=== PATIENT | male | born 1955 | race Caucasian/White ===

== ENCOUNTER → 2016-11-30 | Outpatient (CLI) | payer BC ==
[2016-11-30 12:40] LABS: Blood Urea Nitrogen 13 mg/dL (9-20); Non-African American GFR(MDRD) >60 (>60 ml/min/1.73 sqM)
--- NOTE | 2016-11-30 14:38 | CT ---
EXAMINATION TYPE: CT chest w con DATE OF EXAM: 11/30/2016 1:42 PM COMPARISON: Prior chest CT 07 May 2016 HISTORY: follow up scan per patient, previous abnormal exam, lung nodule CT DLP: 1018.3 mGycm Automated exposure control for dose reduction was used. CONTRAST: CT scan of the chest is performed with IV Contrast, patient injected with 100 mL of Omnipaque 300. FINDINGS: LUNGS: The nodularity to posterior medial lung bases shows a similar appearance and likely is postinf lammatory. No suspicious mass is evident. Emphysematous changes again noted within the lungs. Coronar y artery calcifications are again seen, there may be mitral annular calcification present. No pleural or pericardial effusion. MEDIASTINUM: There are no greater than 1 cm hilar or mediastinal lymph nodes. No pericardial effusi on is seen. AORTA: No additional significant abnormality is seen. OTHER: The liver shows low attenuation possibly due to fatty infiltration. IMPRESSION: Emphysema. Probable postinflammatory changes at the lung bases. Additional findings abov e.
== END | disposition home or self-care (01) ==
LOC: RADCTMAIN 11:50
PROVIDERS: ATTEND Internal Medicine Critical Care Medicine
DX: J43.9 Emphysema, unspecified (principal)
CPT/HCPCS: 82565; 84520; 71260; 36415; Q9967

== ENCOUNTER → 2017-04-12 | Outpatient (CLI) | payer BC ==
--- NOTE | 2017-04-12 13:38 | NM ---
EXAMINATION TYPE: NM gastric emptying study DATE OF EXAM: 04/12/2017 COMPARISON: NONE HISTORY: K31.84 Gastroparesis Following administration of 2.2 mCi Tc 99m Sulfur Colloid with 1 cup of oatmeal projection images of the abdomen were obtained 10 minutes post ingestion. When possible, both anterior and posterior proje ction images were obtained to allow the calculation of the geometric mean activity. Clearance: 68 % Half-life: 15 min Gastroesophagel reflux: None IMPRESSION: Rapid gastric emptying at 30 minutes. No evidence for gastroparesis at this time. Gastric emptying normal percentage values: 30 minutes: <70% of retention (> 30% emptying) suggests abnormally fast emptying. 60 minutes: <90% retention (>10% emptying) is normal; less than 30% retention (>70% emptying) suggest s abnormally rapid emptying. 90 minutes: <65% retention (> 35% emptying) is normal. 120 minutes: <60% retention (> 40% emptying) is normal. 180 minutes: <30% retention (> 70% emptying) is normal. Gastric emptying T-1/2: Solid: The normal range is 60-105 minutes Liquid only: Normal range is 10-45 minutes. Liquid only-children: At 60 minutes, normal range is 44-58 % . Liquid only-infants: At 60 minutes, normal range is 32-64 %. Additional references: Gastric Emptying Scintigraphy [email or web address]://[email or web address]
== END | disposition home or self-care (01) ==
LOC: RADNMMAIN 07:03
PROVIDERS: ATTEND Family Medicine
DX: K31.84 Gastroparesis (principal)
CPT/HCPCS: 78264; A9541

== ENCOUNTER → 2017-06-07 | Outpatient (CLI) | payer BC ==
--- NOTE | 2017-06-07 09:12 | US ---
EXAMINATION TYPE: US kidneys/renal and bladder DATE OF EXAM: 06/07/2017 COMPARISON: CT 05/18/2016 & US 04/16/2016 CLINICAL HISTORY: C64.2 Kidney Cancer. Removal of cancer left kidney laporascopically EXAM MEASUREMENTS: Right Kidney: 14.6 x 5.3 x 6.6 cm Left Kidney: 12.1 x 5.3 x 6.1 cm Right Kidney: No hydronephrosis or masses seen Left Kidney: echogenic area in kidney where lesion was removed, question surgical changes. CT may be more specific. This does not have the same echogenicity of the previous removed cancer. Bladder: wnl IMPRESSION: 1. Approximately 1.4 x 1.8 cm echogenic area within the mid left kidney may be postsurgical in nature . This has a solid appearance. Additional evaluation with contrast CT is recommended. Alternatively, MRI could be utilized.
== END | disposition home or self-care (01) ==
LOC: RADUSMAIN 08:05
PROVIDERS: ATTEND Urology
DX: C64.2 Malignant neoplasm of left kidney, except renal pelvis (principal)
CPT/HCPCS: 76770

== ENCOUNTER → 2017-12-27 | Outpatient (CLI) | payer BC ==
--- NOTE | 2017-12-27 16:01 | US ---
EXAMINATION TYPE: US kidneys/renal and bladder DATE OF EXAM: 12/27/2017 COMPARISON: US, CT CLINICAL HISTORY: C64.2 KIDNEY CANCER. Had surgery for left renal cancer 2016; diabetes EXAM MEASUREMENTS: Right Kidney: 13.8 x 7.8 x 5.4 cm Left Kidney: 13.0 x 4.3 x 5.0 cm Post Void Residual Volume: none observed Right Kidney: small mid cortical cyst is noted = 1.1 x 0.9 x 0.9cm . No hydronephrosis or nephrolithi asis. Left Kidney: mid lateral cortex capsule indentation is noted with hyperechoic thickening of capsule. No hydronephrosis or nephrolithiasis. Bladder: wnl Bilateral Jets seen: small bilateral jets are seen Normal Post Void Residual: yes IMPRESSION: 1. Scarring and cortical retraction of the left lateral kidney. The previously seen hyperechoic midpo le 1.8 cm lesion is not visualized on today's examination. 2. Simple appearing 1.1 cm renal cyst. 3. No evidence of hydronephrosis or nephrolithiasis.
== END | disposition home or self-care (01) ==
LOC: RADUSWWP 14:27
PROVIDERS: ATTEND Urology
DX: C64.2 Malignant neoplasm of left kidney, except renal pelvis (principal); N28.89 Other specified disorders of kidney and ureter; N28.1 Cyst of kidney, acquired; Z88.8 Allergy status to other drugs, medicaments and biological substances; Z88.0 Allergy status to penicillin
CPT/HCPCS: 76770

== ENCOUNTER 2018-05-18 07:06 | Day surgery (SDC) | payer BC ==
[2018-05-16 13:24] VITALS: BMI 45.4
[~2018-05-18 07:06] MED LIST: LACTATED RINGERS 1,000 ML IV SCH; LIDOCAINE 1% 20 ML VIAL (10MG/ML) FOR IV START INTRADERMA PRN
[2018-05-18 07:28] VITALS: TEMP 98.8
[2018-05-18 07:45] LABS: Glucose,Whole Blood 153 mg/dL (75-99)
--- NOTE | 2018-05-18 08:05 | P.GSHP ---
History of Present Illness H&P Date: 05/18/18 CHIEF COMPLAINT: Colon screen HISTORY OF PRESENT ILLNESS: The patient is a 62-year-old male who presents for colon screen. Lower endoscopy was offered for further evaluation and management. PAST MEDICAL HISTORY: Please see list. PAST SURGICAL HISTORY: Please see list. MEDICATIONS: Please see list. ALLERGIES: Please see list. SOCIAL HISTORY: No illicit drug use FAMILY HISTORY: No reports of Crohn disease or ulcerative colitis. REVIEW OF ORGAN SYSTEMS: CONSTITUTIONAL: No reports of fevers or chills. PHYSICAL EXAM: VITAL SIGNS: Stable GENERAL: Well-developed pleasant in no acute distress. HEENT: No scleral icterus. Extraocular movements grossly intact. Moist buccal mucosa. NECK: Supple without lymphadenopathy. CHEST: Unlabored respirations. Equal bilateral excursions. CARDIOVASCULAR: Regular rate and rhythm. Distal 2+ pulses. ABDOMEN: Soft, nontender, nondistended. MUSCULOSKELETAL: No clubbing, cyanosis, or edema. ASSESSMENT: 1. Colon screen. PLAN: 1. Recommend proceeding with a lower endoscopy Past Medical History Past Medical History: Cancer, CVA/TIA, Diabetes Mellitus, Hyperlipidemia, Hypertension, Osteoarthritis (OA), Pneumonia, Sleep Apnea/CPAP/BIPAP Additional Past Medical History / Comment(s): TIA x1 yrs ago- no effects, hiatal hernia, hx polpys, hx kidney cancer History of Any Multi-Drug Resistant Organisms: None Reported Past Surgical History: Hernia Repair, Tonsillectomy Additional Past Surgical History / Comment(s): "cancerous spot removed from left kidney" Past Anesthesia/Blood Transfusion Reactions: Previous Problems w/ Anesthesia Additional Past Anesthesia/Blood Transfusion Reaction / Comment(s): asked pt if any hx of dfficult intubation but pt denies hx of difficulty with intubation/ inserting airway, dr told him only that the had difficulty breathing when coming out of anesthesia, hx claustrophobic. "has to lay on side because of sleep apnea" Smoking Status: Former smoker - Past Family History Father Family Medical History: Dementia, Hypertension Additional Family Medical History / Comment(s): FROM DEMENTIA AT AGE 79 Mother Family Medical History: Cancer Additional Family Medical History / Comment(s): from blood clot to brain Medications and Allergies Home Medications Medication Instructions Recorded Confirmed Type Clopidogrel [Plavix] 75 mg PO HS 05/18/16 05/18/18 History Fenofibrate Nanocrystallized 145 mg PO HS 05/18/16 05/18/18 History [Fenofibrate] Lisinopril [Zestril] 20 mg PO HS 05/18/16 05/18/18 History Lovastatin [Mevacor] 40 mg PO HS 05/18/16 05/18/18 History sitaGLIPtin [Januvia] 100 mg PO HS 05/18/16 05/18/18 History Metoclopramide [Reglan] 10 mg PO ACHS #30 tab 09/22/16 05/18/18 Rx Insulin Glargine,Hum.rec.anlog 10 unit SQ HS 05/16/18 05/18/18 History [Basaglar Kwikpen U-100] Allergies Allergy/AdvReac Type Severity Reaction Status Date / Time metformin Allergy Nausea & Verified 05/18/18 07:34 Vomiting & Diarrhea Penicillins Allergy Rash/Hives Verified 05/18/18 07:34 Surgical - Exam Vital Signs Temp Pulse Resp BP Pulse Ox 98.8 F 71 16 152/73 95 05/18/18 07:27 05/18/18 07:27 05/18/18 07:27 05/18/18 07:27 05/18/18 07:27 Results - Labs Abnormal Lab Results - Last 24 Hours (Table) 05/18/18 Range/Units 07:38 POC Glucose (mg/dL) 153 H (75-99) mg/dL
[2018-05-18] MEDS ORDERED: PROPOFOL 10 MG/ML 20 ML VIAL IV ONE (08:06)
[2018-05-18] MEDS ORDERED: GLYCOPYRROLATE 0.2 MG/ML 2 ML VIAL ONE (08:06)
[2018-05-18] MEDS ORDERED: LIDOCAINE 1% INJ 10MG/ML (20 ML MDV) ONE (08:06)
[2018-05-18] MEDS ORDERED: MIDAZOLAM 2 MG/2 ML VIAL ONE (08:06)
[2018-05-18] MEDS ORDERED: KETAMINE 10 MG/ML 20 ML VIAL ONE (08:06)
--- NOTE | 2018-05-18 08:40 | P.PCN ---
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 Colonoscopy with argon beam behavior support specialist of AV malformation at cecum Colonoscopy hot snare polypectomy at ascending colon, proximal SURGEON: Marika Epps MD. ANESTHESIA: MAC. INDICATIONS: The patient is a 62-year-old male who presents for colonoscopy surveillance due to high-risk colon polyps. Last colonoscopy was 2 - 3 years ago. Benefits and risks were described and informed consent was obtained. DESCRIPTION OF PROCEDURE: The patient had undergone Gatorade, MiraLAX and Dulcolax prep. He had been brought into the operating room and laid in the left lateral decubitus position. The prostate was smooth and without abnormality. After adequate intravenous sedation, the rectum was examined with 2% lidocaine jelly. External hemorrhoids were encountered. The rectal tone was within normal limits. No lesions were palpated in the rectal vault. An Olympus colonoscope was advanced until the ileocecal valve and appendiceal orifice were clearly viewed. The prep was fair with visualization of the mucosal folds. The scope was removed with visualization of each mucosal fold. At the base of the cecum near the appendiceal orifice, and AV malformation of 4 mm was coagulated using argon beam coagulation. A 1 cm flat villous adenoma at the proximal ascending colon with snare polypectomy to completion and taken in piecemeal. Sigmoid diverticulosis was encountered. No evidence of focal colitis was found. Retroflexion of the scope demonstrated grade 1 internal hemorrhoids without active bleeding or inflammation. The colon was desufflated. The patient had tolerated the procedure well. Withdrawal time was over 6 minutes. FINDINGS: Internal hemorrhoids, grade 1 External hemorrhoids, grade 2. Arteriovenous malformation at the cecum addressed with argon beam coagulation Removal of polyp: - Snare polypectomy at proximal ascending colon, 1 cm flat tubulovillous adenoma polyp. Sigmoid diverticulosis No focal colitis. RECOMMENDATIONS: Given severity of tubular adenomas, recommend repeat colonoscopy 1 year, 2019. Plan - Discharge Summary New Discharge Prescriptions: No Action sitaGLIPtin [Januvia] 100 mg PO HS Lovastatin [Mevacor] 40 mg PO HS Lisinopril [Zestril] 20 mg PO HS Clopidogrel [Plavix] 75 mg PO HS Fenofibrate Nanocrystallized [Fenofibrate] 145 mg PO HS Metoclopramide [Reglan] 10 mg PO ACHS #30 tab Insulin Glargine,Hum.rec.anlog [Basaglar Kwikpen U-100] 10 unit SQ HS Discharge Medication List Clopidogrel [Plavix] 75 mg PO HS 05/18/16 [History] Fenofibrate Nanocrystallized [Fenofibrate] 145 mg PO HS 05/18/16 [History] Lisinopril [Zestril] 20 mg PO HS 05/18/16 [History] Lovastatin [Mevacor] 40 mg PO HS 05/18/16 [History] sitaGLIPtin [Januvia] 100 mg PO HS 05/18/16 [History] Metoclopramide [Reglan] 10 mg PO ACHS #30 tab 09/22/16 [Rx] Insulin Glargine,Hum.rec.anlog [Basaglar Kwikpen U-100] 10 unit SQ HS 05/16/18 [ History]
[2018-05-18 08:55] VITALS: BP 137/78; PULSE 67; RESP 18
== END 2018-05-18 09:11 | disposition home or self-care (01) ==
LOC: ORWHC2ENDO 07:06
PROVIDERS: ATTEND Surgery Plastic and Reconstructive Surgery
DX: Z12.11 Encounter for screening for malignant neoplasm of colon (principal); D12.2 Benign neoplasm of ascending colon; K64.4 Residual hemorrhoidal skin tags; K57.30 Diverticulosis of large intestine without perforation or abscess without bleeding; K64.0 First degree hemorrhoids; E66.01 Morbid (severe) obesity due to excess calories; G47.33 Obstructive sleep apnea (adult) (pediatric); E11.9 Type 2 diabetes mellitus without complications; E78.5 Hyperlipidemia, unspecified; I10 Essential (primary) hypertension; M19.90 Unspecified osteoarthritis, unspecified site; K55.20 Angiodysplasia of colon without hemorrhage; K21.9 Gastro-esophageal reflux disease without esophagitis; Z86.73 Personal history of transient ischemic attack (TIA), and cerebral infarction without residual deficits; Z87.01 Personal history of pneumonia (recurrent); Z85.528 Personal history of other malignant neoplasm of kidney; Z82.49 Family history of ischemic heart disease and other diseases of the circulatory system; Z79.02 Long term (current) use of antithrombotics/antiplatelets; Z88.8 Allergy status to other drugs, medicaments and biological substances; Z88.0 Allergy status to penicillin; Z79.4 Long term (current) use of insulin; Z86.010 Personal history of colon polyps; Z87.891 Personal history of nicotine dependence; Z99.89 Dependence on other enabling machines and devices; Z79.84 Long term (current) use of oral hypoglycemic drugs; Z68.42 Body mass index [BMI] 45.0-49.9, adult
CPT/HCPCS: 88305; 45385; 45388; J2250; J2001; J2704; 45382

== ENCOUNTER → 2018-08-15 | Outpatient (CLI) | payer BC ==
[2018-08-15 08:00] LABS: Blood Urea Nitrogen 19 mg/dL (9-20)
--- NOTE | 2018-08-15 11:01 | CT ---
EXAMINATION TYPE: CT abdomen pelvis w con DATE OF EXAM: 08/15/2018 COMPARISON: 05/18/2016 HISTORY: 62-year-old male follow up for history of renal CA. TECHNIQUE: Contiguous axial scanning of the abdomen and pelvis following administration of 100 ml Iso concetta 300 IV contrast. Delayed images through the kidneys and coronal/sagittal reconstructions perform ed. CT DLP: 2059.8 mGycm Automated exposure control for dose reduction was used. FINDINGS: Heart normal size without pericardial effusion. Mitral annular calcifications. Some strandy atelectas is or scarring at the left lung base. No pleural effusion. No focal liver lesion or biliary ductal dilatation. Portal venous system is patent. Gallbladder, right adrenal gland, right kidney, spleen, and pancreas appear within normal limits. Similar diffuse thickening of the left adrenal gland without discrete nodularity, possible adrenal hy perplasia. This is unchanged from prior exam. Interval postsurgical changes along the cortex of the lateral left kidney related to wedge resection. There is some focal heterogeneous enhancement at the site of wedge resection especially on delayed k idney images measuring 2.4 cm, refer to series 8 axial image 30. No abnormal masslike or nodular area of enhancement. No dilated small bowel, free fluid, or free air. No mesenteric or retroperitoneal lymphadenopathy. Scattered mild stool. Normal appendix. Mild sigmoid diverticulosis without pericolonic inflammatory c hange. Bladder is collapsed. No abnormal fluid collection in the pelvis or pelvic lymphadenopathy. Bones: Degenerative changes at the hips and bony fusion at the SI joints. Degenerative changes throug hout the lumbar spine with bridging anterior endplate spondylosis. Baastrup's disease. IMPRESSION: 1. INTERVAL POSTSURGICAL CHANGES WITH WEDGE RESECTION ALONG THE LATERAL LEFT KIDNEY. THERE IS SOME FO DEMETRA HETEROGENEOUS HYPODENSITY AT THE SITE OF WEDGE RESECTION MEASURING 2.4 CM WHICH IS SUSPECTED TO B E POSTSURGICAL SCARRING. THIS CAN BE REASSESSED AT FOLLOW-UP. NO CONVINCING FINDINGS OF LOCOREGIONAL RECURRENCE OR METASTATIC DISEASE AT THIS TIME. 2. POSSIBLE BONY CHANGES OF ANKYLOSING SPONDYLITIS.
== END | disposition home or self-care (01) ==
LOC: RADCTMAIN 07:22
PROVIDERS: ATTEND Urology
DX: C64.9 Malignant neoplasm of unspecified kidney, except renal pelvis (principal); Z90.5 Acquired absence of kidney; Z88.0 Allergy status to penicillin; Z88.8 Allergy status to other drugs, medicaments and biological substances
CPT/HCPCS: 82565; 84520; 74177; 36415; Q9967

== ENCOUNTER → 2019-08-01 | Outpatient (CLI) | payer BC ==
[2019-08-01 08:12] LABS: African American GFR (CKD) >90 (>60 ml/min/1.73 sqM); Blood Urea Nitrogen 17 mg/dL (9-20)
--- NOTE | 2019-08-01 12:33 | CT ---
EXAMINATION TYPE: CT abdomen pelvis w con DATE OF EXAM: 08/01/2019 COMPARISON: Prior exam 08/15/2018 HISTORY: Renal cancer CT DLP: 5067.4 mGycm Automated exposure control for dose reduction was used. TECHNIQUE: Helical acquisition of images from the lung bases through the pelvis have been completed. CONTRAST: Performed with Oral Contrast and with IV Contrast, patient injected with 100 mL of Isovue 300. FINDINGS: There are coronary artery calcifications present. No pericardial effusion. Metallic density present at the root of the aorta, there are mitral annular calcifications. LUNG BASES: Probable subsegmental basilar atelectatic changes, no pleural effusion. AORTA: No significant abnormality is appreciated. LIVER/GB: Liver shows low attenuation compatible with hepatic steatosis, liver is enlarged. PANCREAS: No significant abnormality is seen. SPLEEN: No significant abnormality is seen. ADRENALS: No significant abnormality is seen. KIDNEYS: No significant interval change is seen. Postprocedural changes to the lateral aspect of the lower pole the left kidney again noted. REPRODUCTIVE ORGANS: No significant abnormality is seen BOWEL: No significant abnormality is seen. FREE AIR: No Free Air visible. ASCITES: None visible. PELVIC ADENOPATHY: None visualized. RETROPERITONEAL ADENOPATHY: No Retroperitoneal Adenopathy visible. URINARY BLADDER: No significant abnormality is seen. OSSEOUS STRUCTURES: No significant change is seen. The spine shows degenerative changes, osteophytic change noted within the hips. IMPRESSION: STABLE POSTOPERATIVE FINDINGS, ADDITIONAL FINDINGS ABOVE.
== END | disposition home or self-care (01) ==
LOC: RADCTMAIN 07:38
PROVIDERS: ATTEND Urology
DX: I25.10 Atherosclerotic heart disease of native coronary artery without angina pectoris (principal); I77.89 Other specified disorders of arteries and arterioles; I05.8 Other rheumatic mitral valve diseases; C64.9 Malignant neoplasm of unspecified kidney, except renal pelvis; Z98.890 Other specified postprocedural states; Z88.0 Allergy status to penicillin; Z88.8 Allergy status to other drugs, medicaments and biological substances
CPT/HCPCS: 82565; 84520; 74177; 36415; Q9967 ×2

== ENCOUNTER 2019-09-07 08:33 | Day surgery (SDC) | payer BC ==
[2019-09-06 10:38] VITALS: BMI 50.1
[~2019-09-07 08:33] MED LIST changes: +ONDANSETRON 4 MG/2 ML VIAL IVP ONE
--- NOTE | 2019-09-07 08:49 | P.GSHP ---
History of Present Illness H&P Date: 09/07/19 CHIEF COMPLAINT: Colon screen HISTORY OF PRESENT ILLNESS: The patient is a 64-year-old male who presents for colon screen. Lower endoscopy was offered for further evaluation and management. PAST MEDICAL HISTORY: Please see list. PAST SURGICAL HISTORY: Please see list. MEDICATIONS: Please see list. ALLERGIES: Please see list. SOCIAL HISTORY: No illicit drug use FAMILY HISTORY: No reports of Crohn disease or ulcerative colitis. REVIEW OF ORGAN SYSTEMS: CONSTITUTIONAL: No reports of fevers or chills. PHYSICAL EXAM: VITAL SIGNS: Stable GENERAL: Well-developed pleasant in no acute distress. HEENT: No scleral icterus. Extraocular movements grossly intact. Moist buccal mucosa. NECK: Supple without lymphadenopathy. CHEST: Unlabored respirations. Equal bilateral excursions. CARDIOVASCULAR: Regular rate and rhythm. Distal 2+ pulses. ABDOMEN: Soft, nontender, nondistended. MUSCULOSKELETAL: No clubbing, cyanosis, or edema. ASSESSMENT: 1. Colon screen. PLAN: 1. Recommend proceeding with a lower endoscopy Past Medical History Past Medical History: Cancer, CVA/TIA, Diabetes Mellitus, Hyperlipidemia, Hypertension, Osteoarthritis (OA), Pneumonia, Sleep Apnea/CPAP/BIPAP Additional Past Medical History / Comment(s): TIA x1 yrs ago- no effects, hiatal hernia, hx polpys, hx kidney cancer History of Any Multi-Drug Resistant Organisms: None Reported Past Surgical History: Hernia Repair, Tonsillectomy Additional Past Surgical History / Comment(s): "cancerous spot removed from left kidney" Past Anesthesia/Blood Transfusion Reactions: Previous Problems w/ Anesthesia Additional Past Anesthesia/Blood Transfusion Reaction / Comment(s): asked pt if any hx of dfficult intubation but pt denies hx of difficulty with intubation/ inserting airway, dr told him only that the had difficulty breathing when coming out of anesthesia, hx claustrophobic. "has to lay on side because of sleep apnea" Past Psychological History: No Psychological Hx Reported Additional Psychological History / Comment(s): denies any probelms Smoking Status: Former smoker Past Alcohol Use History: Rare Additional Past Alcohol Use History / Comment(s): SARTED SMOKING AGE 17 QUIT AGE 37-WAS UP TO SMOKING 3 PPD Past Drug Use History: None Reported - Past Family History Father Family Medical History: Dementia, Hypertension Additional Family Medical History / Comment(s): FROM DEMENTIA AT AGE 79 Mother Family Medical History: Cancer Additional Family Medical History / Comment(s): from blood clot to brain Medications and Allergies Home Medications Medication Instructions Recorded Confirmed Type Clopidogrel [Plavix] 75 mg PO HS 05/18/16 09/06/19 History Fenofibrate Nanocrystallized 145 mg PO HS 05/18/16 09/06/19 History [Fenofibrate] Lisinopril [Zestril] 20 mg PO HS 05/18/16 09/06/19 History Lovastatin [Mevacor] 40 mg PO HS 05/18/16 09/06/19 History sitaGLIPtin [Januvia] 100 mg PO HS 05/18/16 09/06/19 History Insulin Glargine,Hum.rec.anlog 70 unit SQ HS 05/16/18 09/06/19 History [Basaglar Kwikpen U-100] Gabapentin [Neurontin] 400 mg PO DAILY 07/31/19 09/06/19 History Insulin Aspart [Novolog] 15 unit SQ BID-W/MEALS 07/31/19 09/06/19 History Gabapentin [Neurontin] 800 mg PO HS 09/06/19 09/06/19 History Metoclopramide [Reglan] 10 mg PO HS 09/06/19 09/06/19 History Omeprazole [PriLOSEC] 20 mg PO HS 09/06/19 09/06/19 History Allergies Allergy/AdvReac Type Severity Reaction Status Date / Time metformin Allergy Nausea & Verified 09/06/19 10:30 Vomiting & Diarrhea Penicillins Allergy Rash/Hives Verified 09/06/19 10:30
[2019-09-07 09:09] LABS: Glucose,Whole Blood 126 mg/dL (75-99)
[2019-09-07 09:12] VITALS: TEMP 98.4
[2019-09-07] MEDS ORDERED: LIDOCAINE 1% INJ 10MG/ML (20 ML MDV) ONE (09:21)
[2019-09-07] MEDS ORDERED: fentaNYL (PF) 50 MCG/ML 2 ML AMP ONE (09:21)
[2019-09-07] MEDS ORDERED: MIDAZOLAM 2 MG/2 ML VIAL ONE (09:21)
[2019-09-07] MEDS ORDERED: PROPOFOL 10 MG/ML 20 ML VIAL IV ONE (09:21)
[2019-09-07] MEDS ORDERED: KETAMINE 10 MG/ML 20 ML VIAL ONE (09:21)
--- NOTE | 2019-09-07 09:31 | P.HPADDEND ---
H&P Addendum H&P Addendum Date: 09/07/19 Patient comes in also complains of severe gastroesophageal reflux disease and epigastric pain. He has history of chronic antiplatelet therapy including medications that cause gastritis. Benefits and risks procedures described. Informed consent obtained from his .
--- NOTE | 2019-09-07 09:41 | P.PCN ---
Date of Procedure: 09/07/19 Description of Procedure: PREOPERATIVE DIAGNOSIS: Gastroesophageal reflux disease. Morbid obesity. POSTOPERATIVE DIAGNOSIS: Morbid obesity. Gastritis. Gastroesophageal reflux disease. Erosive esophagitis OPERATION: Esophagogastroduodenoscopy with biopsies along antrum. SURGEON: Marika Epps MD ANESTHESIA: MAC. INDICATIONS: The patient is a 64-year-old male who presents with a history of reflux disease. Benefits and risks of the procedure were described. Informed consent was obtained. DESCRIPTION: The patient was brought into the endoscopy suite and laid in the left lateral decubitus position. An Olympus gastroscope was passed along the posterior oropharynx down to the distal esophagus where the squamocolumnar junction was encountered at 45 cm from the incisors. The stomach was entered and no bile reflux was found. Additional findings are listed below. Biopsies with cold forceps were obtained of the antrum. The first through third portion of the duodenum was examined and unremarkable. Retroflexion of the scope confirmed Hill grade 1 lower esophageal valve. The squamocolumnar junction demonstrated LA grade C erosive esophagitis. The stomach was desufflated. The patient tolerated the procedure well. FINDINGS: Squamocolumnar junction 45 cm from the incisors. Diaphragmatic hiatus at 45 cm. Hill grade 1 lower esophageal valve. LA grade C erosive esophagitis. No active duodenitis. Chronic gastritis RECOMMENDATIONS: Upper endoscopy as needed.
--- NOTE | 2019-09-07 10:06 | P.PCN ---
Date of Procedure: 09/07/19 Description of Procedure: PREOPERATIVE DIAGNOSIS: Personal history of malignant colon polyp Colonoscopy screening POSTOPERATIVE DIAGNOSIS: Personal history of malignant colon polyp Colonoscopy screening Multiple tubular adenomas throughout the colon. Scattered diverticulosis OPERATION: Colonoscopy to the ileocecal valve and appendiceal orifice. Colonoscopy with multiple hot snare polypectomies Colonoscopy with multiple cold forceps biopsies. SURGEON: Marika Epps MD. ANESTHESIA: MAC. INDICATIONS: The patient is a 64-year-old male who presents for colonoscopy screening. Last colonoscopy was in 5 years. Benefits and risks were described and informed consent was obtained. DESCRIPTION OF PROCEDURE: The patient had undergone Gatorade, MiraLAX and Dulcolax prep. He had been brought into the operating room and laid in the left lateral decubitus position. After adequate intravenous sedation, the rectum was examined with 2% lidocaine jelly. No external hemorrhoids were encountered. The rectal tone was within normal limits. No lesions were palpated in the rectal vault. The prostatic fossa was unremarkable. An Olympus colonoscope was advanced until the ileocecal valve and appendiceal orifice were clearly viewed. The prep was excellent. The scope was removed with visualization of each mucosal fold. Scattered diverticulosis was encountered. Multiple colonic polyps were found and cold forcep biopsy or snare polypectomy. No evidence of focal colitis was found. Retroflexion of the scope demonstrated grade 1 internal hemorrhoids without active bleeding or inflammation. The colon was desufflated. The patient had tolerated the procedure well. Withdrawal time was over 6 minutes. FINDINGS: Aronchick preparation quality scale 1 (1-5) Internal hemorrhoids, grade 1 No external hemorrhoids Scattered diverticulosis No arteriovenous malformations. Removal of 5 polyps: - Snare polypectomy proximal ascending colon, 7 mm tubulovillous adenoma polyp. - Cold forceps biopsy at proximal transverse colon 2, 4 and 5 mm polyp. - Cold forceps biopsy cecum, 4 mm polyp. - Cold forceps biopsy at 50 cm from the anal verge, 5 mm polyp, descending colon No focal colitis. RECOMMENDATIONS: Given severity of tubular adenomas, recommend repeat colonoscopy 2 years, 2020. Plan - Discharge Summary Discharge Rx Participant: No New Discharge Prescriptions: No Action sitaGLIPtin [Januvia] 100 mg PO HS Lovastatin [Mevacor] 40 mg PO HS Lisinopril [Zestril] 20 mg PO HS Clopidogrel [Plavix] 75 mg PO HS Fenofibrate Nanocrystallized [Fenofibrate] 145 mg PO HS Insulin Glargine,Hum.rec.anlog [Basaglar Kwikpen U-100] 70 unit SQ HS Gabapentin [Neurontin] 400 mg PO DAILY Insulin Aspart [Novolog] 15 unit SQ BID-W/MEALS Omeprazole [PriLOSEC] 20 mg PO HS Metoclopramide [Reglan] 10 mg PO HS Gabapentin [Neurontin] 800 mg PO HS Discharge Medication List Clopidogrel [Plavix] 75 mg PO HS 05/18/16 [History] Fenofibrate Nanocrystallized [Fenofibrate] 145 mg PO HS 05/18/16 [History] Lisinopril [Zestril] 20 mg PO HS 05/18/16 [History] Lovastatin [Mevacor] 40 mg PO HS 05/18/16 [History] sitaGLIPtin [Januvia] 100 mg PO HS 05/18/16 [History] Insulin Glargine,Hum.rec.anlog [Basaglar Kwikpen U-100] 70 unit SQ HS 05/16/18 [History] Gabapentin [Neurontin] 400 mg PO DAILY 07/31/19 [History] Insulin Aspart [Novolog] 15 unit SQ BID-W/MEALS 07/31/19 [History] Gabapentin [Neurontin] 800 mg PO HS 09/06/19 [History] Metoclopramide [Reglan] 10 mg PO HS 09/06/19 [History] Omeprazole [PriLOSEC] 20 mg PO HS 09/06/19 [History] Follow up Appointment(s)/Referral(s): Marika Epps MD [STAFF PHYSICIAN] - 09/19/19 Patient Instructions/Handouts: *[facility] - (Anesthesia) Endoscopy Discharge Instructions, *[facility] - (Anesthesia) Discharge Instructions Outpatient Surgery, Colonoscopy (DC), Colorectal Polyps (GEN), Diverticulosis Diet (GEN), Diverticulosis (DC), Gastroesophageal Reflux Disease (GEN) Activity/Diet/Wound Care/Special Instructions: Repeat colonoscopy in 2 years, 2020. Start Plavix, WednesdaySep 09 Discharge Disposition: HOME SELF-CARE
[2019-09-07 10:22] VITALS: BP 110/73; PULSE 79; RESP 16
== END 2019-09-07 10:53 | disposition home or self-care (01) ==
LOC: ORWHC2ENDO 08:33
PROVIDERS: ATTEND Surgery Plastic and Reconstructive Surgery
DX: Z12.11 Encounter for screening for malignant neoplasm of colon (principal); K22.10 Ulcer of esophagus without bleeding; K29.50 Unspecified chronic gastritis without bleeding; K63.5 Polyp of colon; K21.9 Gastro-esophageal reflux disease without esophagitis; D12.3 Benign neoplasm of transverse colon; K57.30 Diverticulosis of large intestine without perforation or abscess without bleeding; K64.0 First degree hemorrhoids; I10 Essential (primary) hypertension; E78.5 Hyperlipidemia, unspecified; Z86.010 Personal history of colon polyps; E11.9 Type 2 diabetes mellitus without complications; M19.90 Unspecified osteoarthritis, unspecified site; G47.30 Sleep apnea, unspecified; Z99.89 Dependence on other enabling machines and devices; E66.01 Morbid (severe) obesity due to excess calories; Z68.43 Body mass index [BMI] 50.0-59.9, adult; Z86.73 Personal history of transient ischemic attack (TIA), and cerebral infarction without residual deficits; Z85.528 Personal history of other malignant neoplasm of kidney; F40.240 Claustrophobia; Z87.891 Personal history of nicotine dependence; Z82.49 Family history of ischemic heart disease and other diseases of the circulatory system; Z81.8 Family history of other mental and behavioral disorders; Z80.9 Family history of malignant neoplasm, unspecified; Z79.02 Long term (current) use of antithrombotics/antiplatelets; Z79.4 Long term (current) use of insulin; Z79.899 Other long term (current) drug therapy; Z88.0 Allergy status to penicillin; Z88.8 Allergy status to other drugs, medicaments and biological substances
CPT/HCPCS: 88305; 45380; 45385; 43239; J2250; J2001; J3010; J2704

== ENCOUNTER → 2019-11-29 | Outpatient (CLI) | payer BC ==
[2019-11-29 14:34] VITALS: BP 140/66; PULSE 98; RESP 16; TEMP 97.6; BMI 52.3
--- NOTE | 2019-11-29 15:13 | P.HPBAR ---
Bariatric H&P - History & Physicial H&P Date: 11/29/19 History & Physicial: Visit/CC: INITIAL Patient initial contact: Initial weight: 153.853 kg Initial weight in pounds: 339.19 Height: 5 ft 7.5 in Initial BMI: 52.3 Last weight: Current weight: 153.853 kg Current weight in pounds: 339.19 Current BMI: 52.3 [place] body weight (based on NIH guidelines): 68.492 kg Excess body weight loss: 0.0% The patient is a 64 year-old M who presents for Bariatric Assessment. HPI: He comes in 339 pounds. Highest 365 pounds in 1999. Was 190 pounds in 20s. He has sleep apnea. He has diabetes. His mother has morbid obesity and had weight loss surgery. His also had the band. ABDOMEN: PLAN: 1. MBSC calculator. 2. Labs 3. Cardiology. Past Medical History Past Medical History: Cancer, Diabetes Mellitus, Hyperlipidemia, Hypertension, Osteoarthritis (OA), Pneumonia, Sleep Apnea/CPAP/BIPAP Additional Past Medical History / Comment(s): hiatal hernia, hx colon polpys, hx cancerous cyst removed from kidney in 2016, OA bilateral knees (needs bilateral knee replacement but orthopedic surgeon will not perform until he loses weight)., claustrophia History of Any Multi-Drug Resistant Organisms: None Reported Past Surgical History: Hernia Repair, Tonsillectomy Additional Past Surgical History / Comment(s): "cancerous cyst removed from left kidney" Past Anesthesia/Blood Transfusion Reactions: Previous Problems w/ Anesthesia Additional Past Anesthesia/Blood Transfusion Reaction / Comm: asked pt if any hx of dfficult intubation but pt denies hx of difficulty with intubation/ inserting airway, dr told him only that the had difficulty breathing when in recovery as he was placed on his back and he "has to lay on side because of sleep apnea", once he was alert he was "ok", also has claustrophobia Past Psychological History: No Psychological Hx Reported Additional Psychological History / Comment(s): denies any probelms Smoking Status: Former smoker Past Alcohol Use History: Rare Additional Past Alcohol Use History / Comment(s): SARTED SMOKING AGE 17 QUIT AGE 37-WAS UP TO SMOKING 3 PPD Past Drug Use History: None Reported - Past Family History Father Family Medical History: Dementia, Hypertension Additional Family Medical History / Comment(s): FROM DEMENTIA AT AGE 79 Mother Family Medical History: Cancer Additional Family Medical History / Comment(s): from blood clot to brain Surgical - Exam Vital Signs Temp Pulse Resp BP 97.6 F 98 16 140/66 11/29/19 14:30 11/29/19 14:30 11/29/19 14:30 11/29/19 14:30 Bariatric Checklist Checklist: Plan: Checklist: EGD: 1. Hiatal hernia: 2. H. Pylori: HgbA1c: Vitamin D: Smoking: Former smoker Primary care physician referral: [facility] Psychiatry clearance: Cardiology clearance: Sleep study: Diet journal: VTE risk score: VTE risk level: Rehab needs at discharge:
[2019-11-29 16:31] LABS: HCT 42.6 % (39.0-53.0); HGB 14.8 gm/dL (13.0-17.5); MCH 29.7 pg (25.0-35.0); MCHC 34.8 g/dL (31.0-37.0); MCV 85.4 fL (80.0-100.0); Mean Platelet Volume 10.5; Platelet Count 179 k/uL (150-450); RBC 4.99 m/uL (4.30-5.90); RDW 13.5 % (11.5-15.5); WBC 7.7 k/uL (3.8-10.6)
[2019-11-29 16:47] LABS: INR 0.9 (<1.2); Partial Thromboplastin Time 22.2 sec (22.0-30.0); Prothrombin Time 9.8 sec (9.0-12.0)
[2019-11-30 00:23] LABS: % Iron Saturation 21.38 (15.00-50.00); Albumin 4.4 g/dL (3.80-4.90); Albumin/Globulin Ratio 2.32 (1.60-3.17); Anion Gap 7.9 mmol/L (4.00-12.00); BUN/Creat Ratio 16.67 Ratio (12.00-20.00); Calcium 9.4 mg/dL (8.7-10.3); Carbon Dioxide 29.1 mmol/L (21.6-31.8); Chol/HDL Ratio 5.57; Globulin 1.9 g/dL (1.6-3.3); Magnesium 1.6 mg/dL (1.5-2.4); Non-African American GFR(CKD) 90.6 (60.0-200.0); Total Bilirubin 0.4 mg/dL (0.3-1.2); Total Protein 6.3 g/dL (6.2-8.2)
[2019-11-30 00:54] LABS: Ferritin 300.1 ng/mL (22.0-322.0); Folate, Serum 10.3 ng/mL
[2019-11-30 13:31] LABS: Zinc, Serum 53 ug/dL (60-130)
[2019-12-01 06:35] LABS: Vitamin A 44 ug/dL (38-106)
[2019-12-01 13:00] LABS: Vit B1(Thiamine) 63 ug/L (38-122)
[2019-12-02 21:05] LABS: Selenium 115 mcg/L (63-160)
== END | disposition home or self-care (01) ==
LOC: BARWHC3 13:56
PROVIDERS: ATTEND Surgery Plastic and Reconstructive Surgery
DX: E11.9 Type 2 diabetes mellitus without complications (principal); G47.30 Sleep apnea, unspecified; Z87.891 Personal history of nicotine dependence; Z86.010 Personal history of colon polyps; Z83.49 Family history of other endocrine, nutritional and metabolic diseases; Z83.79 Family history of other diseases of the digestive system
CPT/HCPCS: 36415; 80053; 80061; 82306; 82525; 82607; 82728; 82746; 83540; 83550; 83735; 83970; 84100; 84134; 84255; 84425; 84443; 84590; 84630; 85027; 85610; 85730; 99211

== ENCOUNTER → 2021-11-18 | Outpatient (CLI) | payer MEDICARE ==
[2021-11-18 18:53] LABS: African American GFR (CKD) >90 (>60 ml/min/1.73 sqM); Blood Urea Nitrogen 13 mg/dL (9-20); Non-African American GFR(CKD) >90 (>60 ml/min/1.73 sqM)
--- NOTE | 2021-11-19 08:16 | CT ---
EXAMINATION TYPE: CT abdomen pelvis w con DATE OF EXAM: 11/18/2021 COMPARISON: Prior CT August 01, 2019 HISTORY: h/o malignant neoplasm of kidney, f/u CT DLP: 3735.3 mGycm, Automated Exposure Control for Dose Reduction was Utilized. CONTRAST: CT scan of the abdomen and pelvis is performed with oral and with IV Contrast, patient injected with 100 mL of Isovue 300. FINDINGS: LUNG BASES: Mild to moderate bibasilar linear scarring is redemonstrated. Calcification level of the mitral and aortic valve is again seen. Coronary artery desiccation and/or stents again seen. LIVER/GB: Liver is slightly hypodense relative to spleen suggesting mild diffuse fatty infiltration . PANCREAS: No significant abnormality is seen. SPLEEN: No significant abnormality is seen. ADRENALS: Slight low dense nodular thickening left adrenal gland axial image 17 is stable from 2016 f avoring benign small adenoma. KIDNEYS: Posttreatment change to the left kidney midpole level laterally with cortical loss and linea r soft tissue with central fat is redemonstrated, no significant change from prior study. A few small central calcifications redemonstrated. No new concerning solid or cystic mass in either kidney. Poo rly distended bladder. BOWEL: Oral contrast reaches level of the transverse colon. No suspicious small or large bowel dilat ation. Few diverticula in the sigmoid colon. No CT evidence for acute diverticulitis. PROSTATE/SEMINAL VESICLES: No gross abnormality seen. LYMPH NODES: No greater than 1cm abdominal or pelvic lymph nodes are appreciated. OSSEOUS STRUCTURES: Large bridging osteophytes throughout the visualized spine are redemonstrated. Some sclerosis and spurring at sacroiliac joints is present bilaterally. Underlying ankylosing spond ylitis is suspected. OTHER: There is mild to moderate atherosclerotic change of aorta extending into branch vessels. IMPRESSION: 1. Posttreatment changes to the left kidney redemonstrated. No new suspicious mass or adenopathy iden tified to suggest neoplastic recurrence from most recent CT.
== END | disposition home or self-care (01) ==
LOC: RADCTMAIN 17:20
PROVIDERS: ATTEND Urology
DX: C64.9 Malignant neoplasm of unspecified kidney, except renal pelvis (principal)
CPT/HCPCS: 82565; 84520; 74177; 36415; Q9967

== ENCOUNTER → 2021-12-17 | Outpatient (CLI) | payer MEDICARE ==
--- NOTE | 2021-12-17 10:37 | FL ---
ESOPHOGRAM. HISTORY: Dysphagia Esophagram was performed per the air contrast technique. The patient swallowed barium and effervesce nt crystals without difficulty or delay. Esophageal peristalsis and motility appear to be within normal limits. There is no evidence for filling defect, mass or diverticulum. No hiatal hernia seen. Subsequently single contrast cervical esophagram was performed which fails demonstrate evidence for a spiration penetration or mass. IMPRESSION: Unremarkable study.
== END | disposition home or self-care (01) ==
LOC: RADUSWWP 09:55
PROVIDERS: ATTEND Surgery Plastic and Reconstructive Surgery
DX: R13.10 Dysphagia, unspecified (principal)
CPT/HCPCS: 74220

== ENCOUNTER 2022-01-07 06:44 | Day surgery (SDC) | payer MEDICARE ==
[2022-01-05 11:21] VITALS: BMI 41.0
[~2022-01-07 06:44] MED LIST changes: +LIDOCAINE 1% (10MG/ML) FOR IV START INTRADERMA PRN; -LIDOCAINE 1% 20 ML VIAL (10MG/ML) FOR IV START INTRADERMA PRN; -ONDANSETRON 4 MG/2 ML VIAL IVP ONE
[2022-01-07 07:07] VITALS: TEMP 97.5
[2022-01-07 07:17] LABS: Glucose,Whole Blood 131 mg/dL (75-99)
[2022-01-07] MEDS ORDERED: PROPOFOL 10 MG/ML 20 ML VIAL IV ONE (07:35)
[2022-01-07] MEDS ORDERED: LIDOCAINE 1% INJ 10MG/ML (20 ML MDV) ONE (07:35)
--- NOTE | 2022-01-07 07:36 | P.GSHP ---
History of Present Illness H&P Date: 01/07/22 CHIEF COMPLAINT: GERD HISTORY OF PRESENT ILLNESS: The patient is a 66-year-old male who presents reports gastroesophageal reflux disease. Upper endoscopy was offered for further evaluation and management. PAST MEDICAL HISTORY: Please see list. PAST SURGICAL HISTORY: Please see list. MEDICATIONS: Please see list. ALLERGIES: Please see list. SOCIAL HISTORY: No illicit drug use FAMILY HISTORY: No reports of Crohn disease or ulcerative colitis. REVIEW OF ORGAN SYSTEMS: CONSTITUTIONAL: No reports of fevers or chills. GI: Denies any blood in stools or constipation. PHYSICAL EXAM: VITAL SIGNS: Stable GENERAL: Well-developed and pleasant in no acute distress. HEENT: No scleral icterus. Extraocular movements grossly intact. Moist buccal mucosa. NECK: Supple without lymphadenopathy. CHEST: Unlabored respirations. Equal bilateral excursions. CARDIOVASCULAR: Regular rate and rhythm. Distal 2+ pulses. ABDOMEN: Soft, nondistended. MUSCULOSKELETAL: No clubbing, cyanosis, or edema. ASSESSMENT: 1. Gastroesophageal reflux disease PLAN: 1. Recommend proceeding with an upper endoscopy Past Medical History Past Medical History: Cancer, Diabetes Mellitus, Hyperlipidemia, Hypertension, Osteoarthritis (OA), Pneumonia, Sleep Apnea/CPAP/BIPAP Additional Past Medical History / Comment(s): hx colon polpys, hx cancerous cyst removed from kidney in 2016, OA bilateral knees , BI PAP History of Any Multi-Drug Resistant Organisms: None Reported Past Surgical History: Hernia Repair, Tonsillectomy Additional Past Surgical History / Comment(s): "cancerous cyst removed from left kidney", LAPAROSCOPIC EXAM Past Anesthesia/Blood Transfusion Reactions: Previous Problems w/ Anesthesia Additional Past Anesthesia/Blood Transfusion Reaction / Comment(s): "PATIENT STATES HE HAD SOME TROUBLE BREATHING WHEN HE FIRST WOKE UP IN RECOVERY AND STATES HE NEEDS TO BE ON HIS SIDE BECAUSE OF HIS SLEEP APNEA" Smoking Status: Former smoker - Past Family History Father Family Medical History: Dementia, Hypertension Additional Family Medical History / Comment(s): FROM DEMENTIA AT AGE 79 Mother Family Medical History: Cancer Additional Family Medical History / Comment(s): from blood clot to brain" BREAST AND BLADDER CANCER Sister(s) Family Medical History: Cancer Medications and Allergies Home Medications Medication Instructions Recorded Confirmed Type Lovastatin [Mevacor] 40 mg PO HS 05/18/16 01/05/22 History lisinopriL [Zestril] 20 mg PO HS 05/18/16 01/05/22 History sitaGLIPtin [Januvia] 100 mg PO HS 05/18/16 01/05/22 History Aspirin EC [Ecotrin Low Dose] 81 mg PO DAILY 01/05/22 01/05/22 History Insulin Glargine,Hum.rec.anlog 0 units SQ ONCE PRN 01/05/22 01/05/22 History [Toujeo Max Solostar] amLODIPine [Norvasc] 10 mg PO HS 01/05/22 01/05/22 History Allergies Allergy/AdvReac Type Severity Reaction Status Date / Time metformin Allergy Nausea & Verified 01/07/22 07:04 Vomiting & Diarrhea Penicillins Allergy Rash/Hives Verified 01/07/22 07:04 Surgical - Exam Vital Signs Temp Pulse Resp BP Pulse Ox 97.5 F L 83 16 106/56 95 01/07/22 07:05 01/07/22 07:05 01/07/22 07:05 01/07/22 07:05 01/07/22 07:05 Results - Labs Abnormal Lab Results - Last 24 Hours (Table) 01/07/22 Range/Units 07:14 POC Glucose (mg/dL) 131 H (75-99) mg/dL
[2022-01-07 08:08] VITALS: BP 106/68; PULSE 72; RESP 16
--- NOTE | 2022-01-07 08:09 | P.PCN ---
Date of Procedure: 01/07/22 Description of Procedure: PREOPERATIVE DIAGNOSIS: Gastroesophageal reflux disease. Morbid obesity. POSTOPERATIVE DIAGNOSIS: Gastroesophageal reflux disease. Morbid obesity. Gastritis. Diaphragmatic hiatal hernia OPERATION: Esophagogastroduodenoscopy with biopsies along antrum. SURGEON: Marika Epps MD ANESTHESIA: MAC. INDICATIONS: The patient is a 66-year-old male who presents with reflux disease. Benefits and risks of the procedure were described. Informed consent was obtained. DESCRIPTION: The patient was brought into the endoscopy suite and laid in the left lateral decubitus position. An Olympus gastroscope was passed along the posterior oropharynx down to the distal esophagus where the squamocolumnar junction was encountered at 45 cm from the incisors. The stomach was entered and no bile reflux was found. Additional findings are listed below. Biopsies with cold forceps were obtained of the antrum. The first through third portion of the duodenum was examined and unremarkable. Retroflexion of the scope confirmed Hill grade 2 lower esophageal valve. The squamocolumnar junction demonstrated LA grade B erosive esophagitis. The stomach was desufflated. The patient tolerated the procedure well. FINDINGS: Squamocolumnar junction 45 cm from the incisors. Diaphragmatic hiatus at 45 cm. Hill grade 2 lower esophageal valve. LA grade B erosive esophagitis. No active duodenitis. Chronic gastritis with recent bleed RECOMMENDATIONS: Omeprazole 40 mg daily for 2 weeks Plan - Discharge Summary Discharge Rx Participant: No New Discharge Prescriptions: New Omeprazole [PriLOSEC] 40 mg PO DAILY #14 cap Continue sitaGLIPtin [Januvia] 100 mg PO HS Lovastatin [Mevacor] 40 mg PO HS lisinopriL [Zestril] 20 mg PO HS Insulin Glargine,Hum.rec.anlog [Mehrdad Banegas] 0 units SQ ONCE PRN PRN Reason: IF OVER 140 TAKES 10 UNITS amLODIPine [Norvasc] 10 mg PO HS Aspirin EC [Ecotrin Low Dose] 81 mg PO DAILY Discharge Medication List Lovastatin [Mevacor] 40 mg PO HS 05/18/16 [History] lisinopriL [Zestril] 20 mg PO HS 05/18/16 [History] sitaGLIPtin [Januvia] 100 mg PO HS 05/18/16 [History] Aspirin EC [Ecotrin Low Dose] 81 mg PO DAILY 01/05/22 [History] Insulin Glargine,Hum.rec.anlog [Mehrdad Camposostar] 0 units SQ ONCE PRN 01/05/22 [History] amLODIPine [Norvasc] 10 mg PO HS 01/05/22 [History] Omeprazole [PriLOSEC] 40 mg PO DAILY #14 cap 01/07/22 [Rx] Follow up Appointment(s)/Referral(s): Marika Epps MD [STAFF PHYSICIAN] - 01/27/22 Patient Instructions/Handouts: Gastritis (DC), Diet for Stomach Ulcers and Gastritis (ED) Discharge Disposition: HOME SELF-CARE
== END 2022-01-07 09:07 | disposition home or self-care (01) ==
LOC: ORWHC2ENDO 06:44
PROVIDERS: ATTEND Surgery Plastic and Reconstructive Surgery
DX: K21.00 Gastro-esophageal reflux disease with esophagitis, without bleeding (principal); K29.80 Duodenitis without bleeding; K29.50 Unspecified chronic gastritis without bleeding; K44.9 Diaphragmatic hernia without obstruction or gangrene; E66.01 Morbid (severe) obesity due to excess calories; E78.5 Hyperlipidemia, unspecified; I10 Essential (primary) hypertension; E11.40 Type 2 diabetes mellitus with diabetic neuropathy, unspecified; M19.90 Unspecified osteoarthritis, unspecified site; G47.30 Sleep apnea, unspecified; Z68.41 Body mass index [BMI] 40.0-44.9, adult; Z79.899 Other long term (current) drug therapy; Z79.82 Long term (current) use of aspirin; Z79.4 Long term (current) use of insulin; Z79.02 Long term (current) use of antithrombotics/antiplatelets; Z88.0 Allergy status to penicillin; Z88.8 Allergy status to other drugs, medicaments and biological substances; Z90.5 Acquired absence of kidney; Z85.528 Personal history of other malignant neoplasm of kidney; Z87.01 Personal history of pneumonia (recurrent); Z90.89 Acquired absence of other organs; Z98.890 Other specified postprocedural states; Z87.891 Personal history of nicotine dependence; Z86.010 Personal history of colon polyps; Z82.49 Family history of ischemic heart disease and other diseases of the circulatory system; Z81.8 Family history of other mental and behavioral disorders; Z80.3 Family history of malignant neoplasm of breast; Z80.52 Family history of malignant neoplasm of bladder
CPT/HCPCS: 88305; 43239; J2001; J2704

== ENCOUNTER 2024-04-07 05:52 | Day surgery (SDC) | payer MEDICARE ==
[2024-04-05 16:05] VITALS: BMI 43.8
[~2024-04-07 05:52] MED LIST changes: +ALPRAZolam 0.25 MG TAB PO PRN; +ALPRAZolam 0.5 MG TAB PO PRN; -LACTATED RINGERS 1,000 ML IV SCH; -LIDOCAINE 1% (10MG/ML) FOR IV START INTRADERMA PRN; +NITROGLYCERIN SL TABS 0.4 MG TAB SUBLINGUAL PRN; +SODIUM CHLORIDE 0.9% 1,000 ML in EMPTY BAG 1 BAG IV SCH
[2024-04-07] MEDS: SODIUM CHLORIDE 0.9% 1,000 ML IV ONE (06:11)
[2024-04-07 06:30] LABS: Glucose,Whole Blood 146 mg/dL (70-110)
[2024-04-07 06:39] VITALS: RESP 16; TEMP 98.1
[2024-04-07 06:43] LABS: African American GFR (CKD) >90 (>60 ml/min/1.73 sqM); Anion Gap 10 mmol/L; Blood Urea Nitrogen 19 mg/dL (9-20); Calcium 9.4 mg/dL (8.4-10.2); Carbon Dioxide 29 mmol/L (22-30); Chloride 100 mmol/L (98-107); Glucose 149 mg/dL (74-99); Non-African American GFR(CKD) >90 (>60 ml/min/1.73 sqM); Potassium 3.7 mmol/L (3.5-5.1); Sodium 139 mmol/L (137-145)
[2024-04-07 06:45] LABS: Basophils # (A) 0.1 k/uL (0-0.2); Basophils % (A) 1 %; Eosinophils # (A) 0.2 k/uL (0-0.7); Eosinophils % (A) 2 %; HGB 17.5 gm/dL (13.0-17.5); Lymphocytes % (A) 20 %; MCHC 33.7 g/dL (31.0-37.0); MCV 88.8 fL (80.0-100.0); Mean Platelet Volume 10.5; Monocytes # (A) 0.9 k/uL (0-1.0); Monocytes % (A) 9 %; Neutrophils # (A) 6.6 k/uL (1.3-7.7); Neutrophils % (A) 65 %; Platelet Count 144 k/uL (150-450); RBC 5.85 m/uL (4.30-5.90); WBC 10.1 k/uL (3.8-10.6)
[2024-04-07] MEDS ORDERED: ASPIRIN 325 MG TAB PO ONE (07:00)
[2024-04-07] MEDS ORDERED: VERAPAMIL 2.5 MG/ML 2 ML AMP ONE (07:20)
[2024-04-07] MEDS ORDERED: LIDOCAINE 1% INJ 10MG/ML (20 ML MDV) ONE (07:20)
[2024-04-07] MEDS ORDERED: fentaNYL (PF) 50 MCG/ML 2 ML AMP ONE (07:21)
[2024-04-07] MEDS ORDERED: HEPARIN SODIUM 1,000 UN/ML (10ML VL) ONE (07:21)
[2024-04-07] MEDS: MIDAZOLAM 2 MG/2 ML VIAL IVP ONE (07:29)
[2024-04-07] MEDS: fentaNYL (PF) 50 MCG/ML 2 ML AMP IVP ONE (07:29)
[2024-04-07] MEDS: IV FLUID CONTINUATION 500 ML IV ONE (07:36)
[2024-04-07] MEDS: LIDOCAINE 1% INJ 10MG/ML (20 ML MDV) SQ ONE (07:45)
[2024-04-07] MEDS: VERAPAMIL SYRINGE (5 MG/10 ML) INTRAARTER ONE (07:47)
[2024-04-07] MEDS: HEPARIN SODIUM 1,000 UN/ML (10ML VL) IV ONE (07:51)
[2024-04-07] MEDS: IOPAMIDOL-370 200ML BTL INJ ONE (08:07)
[2024-04-07] MEDS ORDERED: RX INFO: IV CONTRAST WAS GIVEN 1 EACH MISC MISCELLANE PRN (08:11)
[2024-04-07] MEDS ORDERED: SODIUM CHLORIDE 0.9% 1,000 ML IV SCH (08:15)
--- NOTE | 2024-04-07 08:58 | CC ---
CARDIAC CATHETERIZATION REPORT PROCEDURE: Transesophageal echo. INDICATION: Aortic stenosis. PROCEDURE NOTE: After obtaining informed consent, transesophageal echocardiogram was performed in left lateral position using an Omniplane probe. Local and IV sedation were obtained using Xylocaine spray, 1 mg of Versed and 50 mcg of fentanyl. The patient tolerated the procedure well without any obvious immediate complications. The patient received moderate conscious sedation. Total sedation time was 10 minutes. FINDINGS: 1. Aortic valve appears to be a tricuspid valve, heavily calcified with severe restriction in leaflet mobility with a valve area of 0.53 cm by planimetry technique. 2 There is mitral annular calcification with mild mitral regurgitation. Mitral valve leaflet mobility is restricted.There is mild mitral stenosis with a valve area more than 1.5 cm. There is mild tricuspid regurgitation. Left atrium appears mildly enlarged.3. Left ventricle has normal size and systolic function. Ascending aorta is not aneurysmally dilated. 4. Interatrial septum, there is no evidence of asti-wy-cvste shunt with color- flow Doppler or [id number]-[id number] shunt with agitated saline contrast study. Aorta shows mild atherosclerotic changes. CONCLUSION: Severe aortic stenosis involving tricuspid aortic valve with a valve area of 0.5 squared cm by planimetry. PLAN: The patient will undergo cardiac catheterization and will be referred to surgery for aortic valve replacement. MMODL / IJN: [id number] / MTDD
--- NOTE | 2024-04-07 09:51 | CC ---
CARDIAC CATHETERIZATION REPORT INDICATIONS: Aortic stenosis. PROCEDURE NOTE: After obtaining informed consent, left heart catheterization and coronary angiogram were performed via the right radial artery using standard Lacy catheters. The patient tolerated the procedure well without any obvious immediate complications. The patient received moderate conscious sedation. Total sedation time was 19 minutes. The patient received verapamil and heparin per protocol. FINDINGS: 1. Hemodynamics: Central aortic pressure 110/70 mm. 2. Left Ventriculogram: Left ventriculogram is not performed. 3. Angiographic Data: a.Right Coronary Artery: Right coronary artery is a large dominant vessel and is free of significant stenosis. b.Left Main Coronary Artery: Left main coronary artery is calcified, but is free of significant stenosis. Divides into left anterior descending coronary artery and circumflex coronary artery. LAD and its branches are free of significant stenosis. Circumflex coronary artery shows a focal 70% to 80% stenosis just proximal to the 2nd OM branch. CONCLUSIONS: 1. One-vessel coronary artery disease as described above. 2. Severe aortic stenosis by ANDREI and 2D echo. PLAN: I am going to consult Dr. Oliver to evaluate the patient for aortic valve replacement with single-vessel bypass. If the patient is a candidate for TAVR, we will first do percutaneous revascularization of the circ and then do the TAVR. MMODL / IJN: [id number] /
--- NOTE | 2024-04-07 09:57 | LTR ---
Dr. Patterson Dear Yesenia: I performed cardiac catheterization on Dex Crystal. A detail catheterization note is enclosed for your records. The patient with history of severe aortic stenosis, who has exertional shortness of breath, underwent ANDREI and cardiac catheterization and the data reveals that he has severe aortic stenosis with single-vessel disease involving circumflex coronary artery. I am going to consult a surgeon to get an opinion regarding surgical valve replacement versus TAVR. If he is to undergo surgical valve replacement, he will undergo bypass surgery of the circumflex coronary artery at the same time. If he is to undergo TAVR, then we will perform angioplasty of the circumflex coronary artery prior to that. Thank you for allowing me to participate in the care of this pleasant gentleman. Sincerely, ISABEL / HADLEYN: [id number] /
--- NOTE | 2024-04-07 11:36 | XR ---
EXAMINATION TYPE: XR chest 1V portable DATE OF EXAM: 04/07/2024 COMPARISON: None INDICATION: Open heart surgery preop TECHNIQUE: Single frontal view of the chest is obtained. FINDINGS: The heart size is normal. The pulmonary vasculature is normal. Some mild by basilar infiltrate may be present. Correlate for atelectasis. IMPRESSION: 1. Suggestion of mild bibasilar subsegmental atelectasis.
--- NOTE | 2024-04-07 12:36 | US ---
EXAMINATION TYPE: US vein mapping BIL DATE OF EXAM: 04/07/2024 12:00 PM COMPARISON: NONE CLINICAL INDICATION: Male, 68 years old with history of preop cardiac surgery; open heart SIDE PERFORMED: Bilateral TECHNIQUE: Lower extremity saphenous vein is examined and measured utilizing real time linear array sonography. Patient History: Smoker: previous Heart Disease: No Previous DVT: No Vascular Surgery: No Discoloration: rt anterior calf Hypertension: on meds Diabetes: type 2 Paralysis: No Varicosities: Yes Edema: No DUPLEX FINDINGS: Greater Saphenous: Color flow seen Lesser Saphenous: Color flow seen Measurements in mm: Right Greater Saphenous: Groin: 5.3x6.3 mm High Thigh: 6.0x6.3 mm Mid Thigh: 5.5x5.8 mm Above Knee: 5.1x5.4 mm Knee: 5.4x5.7 mm Below Knee: 3.8x3.5 mm Mid Calf: 3.8x4.1 mm At Ankle: 3.8x4.3 mm Left Greater Saphenous: Groin: 6.0x6.6 mm High Thigh: 5.9x6.8 mm Mid Thigh: 5.7x6.8 mm Above Knee: 5.8x6.8 mm Knee: 4.8x5.0 mm Below Knee: 4.4x4.3 mm Mid Calf: 4.3x4.9 mm At Ankle: 4.2x4.3 mm IMPRESSION: 1. Bilateral GSV measurements listed above. 2. Performing surgeon to determine viability as conduit.
--- NOTE | 2024-04-07 13:10 | P.GSCN ---
History of Present Illness Consult date: 04/07/24 Reason for Consult: Aortic valve stenosis Requesting physician: Deric Wolfe History of present illness: This is a 68-year-old gentleman who follows outpatient with Dr. Yesenia Chang for primary care and Dr. Wolfe for cardiology. He has a previous medical history of hypertension, hyperlipidemia, diabetes, obstructive sleep apnea with home CPAP use and previous tobacco dependence. This gentleman reports that he is fairly active but has noticed shortness of breath and occasional dizziness with no other symptoms of valvular heart disease. He states he can probably go 100 yards before he gets too short of breath and has to stop. He denies any chest pain, syncope, or peripheral edema. He did have a transthoracic echocardiogram completed at [facility] in February of this year reporting normal LV systolic function with EF 55 to 60%, severe aortic stenosis with valve area 0.69 cm, peak/mean gradient 94/63 mmHg, and peak velocity 4.86 m/s. There was no reported aortic regurgitation, mitral valve demonstrated mild regurgitation and moderate stenosis with valve area 1.4 cm, peak/mean gradient 8/4 mmHg, and moderate MAC. Due to his symptoms and findings on transthoracic echocardiogram he was recommended to undergo heart catheterization and transesophageal echocardiogram which was completed today by Dr. Wolfe. Heart catheterization revealed circumflex stenosis 70 to 80% proximal to the second OM branch. ANDREI revealed tricuspid aortic valve which was heavily calcified with severe restriction in leaflet mobility with valve area 0.53 cm, mild MR as well as mild TR, normal LV size and function with no aneurysmal dilatation of the ascending aorta. Due to these findings consultation was placed to Dr. Oliver from cardiothoracic surgery for treatment recommendations. Review of Systems Review of systems was completed and was negative except as noted - Cardiovascular Cardiovascular Comment(s): Dizziness Reports as per HPI, Reports dyspnea on exertion, Reports shortness of breath Past Medical History Past Medical History: Coronary Artery Disease (CAD), Cancer, Diabetes Mellitus, Hearing Disorder / Deafness, Hyperlipidemia, Hypertension, Osteoarthritis (OA), Pneumonia, Sleep Apnea/CPAP/BIPAP Additional Past Medical History / Comment(s): Varicose veins. Hx colon polpys. Hx cancerous cyst removed from left kidney in 2016. BIPAP use. Ears get plugged up from too much wax. Severe aortic stenosis, moderate mitral stenosis History of Any Multi-Drug Resistant Organisms: None Reported Past Surgical History: Hernia Repair, Joint Replacement, Tonsillectomy Additional Past Surgical History / Comment(s): Cancerous cyst removed from left kidney, LAPAROSCOPIC EXAM, bilateral knee replacements, bilateral cataracts removed. Past Anesthesia/Blood Transfusion Reactions: Previous Problems w/ Anesthesia, Motion Sickness Additional Past Anesthesia/Blood Transfusion Reaction / Comm: "PATIENT STATES HE HAD SOME TROUBLE BREATHING WHEN HE FIRST WOKE UP IN RECOVERY X1 AND STATES CANNOT BE FLAT ON HIS BACK BECAUSE OF HIS SLEEP APNEA." Past Psychological History: No Psychological Hx Reported Additional Psychological History / Comment(s): denies any probelms Smoking Status: Former smoker Past Alcohol Use History: Rare Additional Past Alcohol Use History / Comment(s): STARTED SMOKING AT AGE 17, QUIT AT AGE 37-WAS UP TO SMOKING 3 PPD. DRINKS "6 PACK OF BEER A YEAR." Past Drug Use History: None Reported - Past Family History Father Family Medical History: Dementia, Hypertension Additional Family Medical History / Comment(s): FROM DEMENTIA AT AGE 79 Mother Family Medical History: Cancer Additional Family Medical History / Comment(s): from blood clot to brain" BREAST AND BLADDER CANCER. Sister(s) Family Medical History: Cancer Additional Family Medical History / Comment(s): Breast cancer. Son(s) Family Medical History: Cancer Medications and Allergies Home Medications Medication Instructions Recorded Confirmed Type Lovastatin [Mevacor] 40 mg PO DAILY 05/18/16 04/05/24 History Aspirin EC [Ecotrin Low Dose] 81 mg PO DAILY 01/05/22 04/07/24 History Insulin Glargine,Hum.rec.anlog 14 units SQ HS 01/05/22 04/07/24 History [Toujeo Max Solostar] Calcium (Unknown Dose) 1 tab PO DAILY 04/05/24 04/05/24 History Calcium (Unknown Dose) 1 tab PO DAILY 04/05/24 04/05/24 History Empagliflozin [Jardiance] 10 mg PO DAILY 04/05/24 04/07/24 History Lisinopril-Hctz 20-25 mg 1 tab PO DAILY 04/05/24 04/05/24 History [Zestoretic 20-25] Vitamin C (Unknown Dose) 1 tab PO DAILY 04/05/24 04/05/24 History Vitamin D (Unknown Dose) 1 tab PO DAILY 04/05/24 04/05/24 History amLODIPine BESYLATE 10 mg PO DAILY 04/05/24 04/05/24 History icosapent ethyL [Icosapent Ethyl] 2 gm PO DAILY 04/05/24 04/05/24 History Isosorbide Mononitrate ER [Imdur] 30 mg PO DAILY #90 tab 04/07/24 Rx Nitroglycerin Sl Tabs [Nitrostat] 0.4 mg SUBLINGUAL Q5M PRN #100 tab 04/07/24 Rx Allergies Allergy/AdvReac Type Severity Reaction Status Date / Time metformin Allergy Nausea & Verified 04/07/24 06:36 Vomiting & Diarrhea Penicillins Allergy Rash/Hives Verified 04/07/24 06:36 Surgical - Exam Vital Signs Temp Pulse Resp BP Pulse Ox 98.1 F 68 16 118/70 88 L 04/07/24 06:37 04/07/24 06:37 04/07/24 06:37 04/07/24 06:37 04/07/24 06:37 CONSTITUTIONAL: Awake and alert, appears comfortable, cooperative, well- developed, well-nourished, no pain, no acute distress EYES: Pupils equal, round, reactive to light, normal ocular movement ENT: Moist mucous membranes without oral lesions present NECK: No masses, no bruits, trachea midline RESPIRATORY: Lungs sounds clear to auscultation bilaterally. Respirations even, nonlabored. Currently on room air with oxygen saturation 90%. Strong cough. No chest wall deformities. No clubbing or cyanosis present CARDIOVASCULAR: S1, S2 present, systolic murmur present. Regular rate and rhythm, sinus rhythm on telemetry. Palpable peripheral pulses bilaterally. No edema present. No calf pain or tenderness noted GASTROINTESTINAL: Abdomen soft, nontender, nondistended without masses or organomegaly noted. There is no rebound or guarding present. Active bowel sounds present 4 quadrants. GENITOURINARY: Deferred INTEGUMENTARY: Skin is warm and dry with evidence of good perfusion. NEUROLOGIC: Cranial nerves II through XII intact, normal coordination, no obvious motor or sensory deficits, speech is normal MUSKULOSKELETAL: Able to move all extremities, strength equal bilaterally, normal posture PSYCHIATRIC: Alert and oriented to person place and time, appropriate affect, intact judgment and insight CLINICAL FRAILTY SCORE 4 Results - Labs 04/07/24 06:20 04/07/24 06:20 Abnormal Lab Results - Last 24 Hours (Table) 04/07/24 04/07/24 04/07/24 Range/Units 06:19 06:20 06:20 Plt Count 144 L (150-450) k/uL Glucose 149 H (74-99) mg/dL POC Glucose (mg/dL) 146 H (70-110) mg/dL Diabetes panel 04/07/24 Range/Units 06:20 Sodium 139 (137-145) mmol/L Potassium 3.7 (3.5-5.1) mmol/L Chloride 100 (98-107) mmol/L Carbon Dioxide 29 (22-30) mmol/L BUN 19 (9-20) mg/dL Creatinine 0.81 (0.66-1.25) mg/dL Glucose 149 H (74-99) mg/dL Calcium 9.4 (8.4-10.2) mg/dL Calcium panel 04/07/24 Range/Units 06:20 Calcium 9.4 (8.4-10.2) mg/dL Pituitary panel 04/07/24 Range/Units 06:20 Sodium 139 (137-145) mmol/L Potassium 3.7 (3.5-5.1) mmol/L Chloride 100 (98-107) mmol/L Carbon Dioxide 29 (22-30) mmol/L BUN 19 (9-20) mg/dL Creatinine 0.81 (0.66-1.25) mg/dL Glucose 149 H (74-99) mg/dL Calcium 9.4 (8.4-10.2) mg/dL Adrenal panel 04/07/24 Range/Units 06:20 Sodium 139 (137-145) mmol/L Potassium 3.7 (3.5-5.1) mmol/L Chloride 100 (98-107) mmol/L Carbon Dioxide 29 (22-30) mmol/L BUN 19 (9-20) mg/dL Creatinine 0.81 (0.66-1.25) mg/dL Glucose 149 H (74-99) mg/dL Calcium 9.4 (8.4-10.2) mg/dL - Imaging Additional studies: Heart catheterization and ANDREI films were reviewed with Dr. Dailey Assessment and Plan Assessment: Severe aortic stenosis, valve area 0.69 cm, peak/mean gradient 94/63 mmHg, and peak velocity 4.86 m/s Mild mitral valve regurgitation and moderate stenosis with valve area 1.4 cm, peak/mean gradient 8/4 mmHg, and moderate MAC Hypertension Hyperlipidemia Diabetes Obstructive sleep apnea with home CPAP use Previous tobacco dependence Severe obstructive lung disease, FEV1 48% of predicted Plan: The patient was seen and examined in the Extended Stay unit with Dr. Dailey who is on-call today. Chart/diagnostics reviewed. We did review heart catheterization and echocardiogram films. We did discuss the usual perioperative course of open heart surgery as well as TAVR plus PCI with this gentleman. Risks and benefits were reviewed, all questions were answered. We did order preoperative testing, carotid Dopplers to be completed in Dr. Wolfe's office. The patient will need dental clearance which we did discuss with him, he does state he sees a dentist on a regular basis. The patient is scheduled to see Dr. Oliver in the office on Wednesday, April 10, 2024 to discuss further recommendations. Continue current medication therapy. Thank you Dr. Wolfe for this consult. We look forward to working with you in the care of your patient. I have personally seen and examined the patient, performed the documentation and the assessment and plan as written. Number of minutes spent on the visit: 30. GAIL Claros The patient was seen and examined with the nurse practitioner, I agree with the assessment and plan as documented. The patient is scheduled to follow up with Dr. Oliver in the office Wednesday. Number of minutes spent on visit: 35. Volodymyr Dailey MD
[2024-04-07 14:09] LABS: Partial Thromboplastin Time 23.7 sec (22.0-30.0); Prothrombin Time 10.9 sec (10.0-12.5)
[2024-04-07 14:14] LABS: NT-Pro-B-Type Natriuretic Pept 181 pg/mL
[2024-04-07 15:42] VITALS: PULSE 76
[2024-04-07 15:49] VITALS: BP 123/67
[2024-04-07 19:28] LABS: Hepatitis A Antibody IgM Nonreactive (Nonreactive); Hepatitis B Core IgM Nonreactive (Nonreactive); Hepatitis B Surface Antigen Nonreactive (Nonreactive); Hepatitis C IgG Antibody Nonreactive (Nonreactive)
[2024-04-07 20:28] LABS: Chol/HDL Ratio 4.45 Ratio
== END 2024-04-07 13:29 | disposition home or self-care (01) ==
LOC: CATHCVL 05:52
PROVIDERS: ATTEND Internal Medicine Cardiovascular Disease
DX: I08.3 Combined rheumatic disorders of mitral, aortic and tricuspid valves (principal); I10 Essential (primary) hypertension; G47.33 Obstructive sleep apnea (adult) (pediatric); I25.10 Atherosclerotic heart disease of native coronary artery without angina pectoris; J44.9 Chronic obstructive pulmonary disease, unspecified; M19.90 Unspecified osteoarthritis, unspecified site; E78.5 Hyperlipidemia, unspecified; E11.9 Type 2 diabetes mellitus without complications; F17.200 Nicotine dependence, unspecified, uncomplicated; Z79.84 Long term (current) use of oral hypoglycemic drugs; Z79.899 Other long term (current) drug therapy; Z88.0 Allergy status to penicillin; Z98.890 Other specified postprocedural states; Z90.89 Acquired absence of other organs
CPT/HCPCS: 93312; 93320; 93325; 83880; 80061; 80048; 80074; 84443; 85025; 85610; 85730; 83721; 87070; 83036; 71045; 93970; C1769; C1894; J2250; J2001; J3010; J1644; Q9967; 93454

== ENCOUNTER → 2024-04-13 | Outpatient (CLI) | payer MEDICARE ==
--- NOTE | 2024-04-13 11:40 | P.PN ---
Progress Note - Text Progress Note Date: 04/13/24 5 meter walk test completed without difficulty: #1 3.47 sec #2 3.55 sec #3 3.2 sec
--- NOTE | 2024-04-13 14:32 | US ---
EXAMINATION TYPE: US arterial LE single level DATE OF EXAM: 04/13/2024 12:16 PM CLINICAL INDICATION: Male, 68 years old with history of pre open heart; open heart History of: Smoker: prev Hypertension: yes Diabetic: yes Hyperlipidemia: yes TIA/CVA: No Previous Vascular Surgery: No CAD: No NH: No Vascular Ulcers: No Claudication: No Gangrene: No Right Brachial Pressure: 105 Left Brachial Pressure: 104 Ankle-Brachial Indices: Right: 1.15 Left: 1.23 (Vessel hardening > 1.4; Normal 0.9 - 1.4, Moderate 0.7 - 0.9, Severe 0.5-0.7) Triphasic waveforms IMPRESSION: No evidence of peripheral artery disease of the lower extremities.
--- NOTE | 2024-04-13 14:34 | US ---
EXAMINATION TYPE: Pre-Operative Non-Invasive Evaluation of the hand for Potential Radial Artery Bethanie arroyo, Measurements only DATE OF EXAM: 04/13/2024 11:55 AM CLINICAL INDICATION: Male, 68 years old with history of OPEN HEART; open heart SIDE PERFORMED: Bilateral TECHNIQUE: Radial artery is measured utilizing real time linear array sonography. Dominant hand: Right Duplex Findings: Radial Artery: Color flow seen Measurements in mm, transverse view: Right Radial: Proximal: 4.7 x 4.1 mm Mid: 5.5 x 3.8 mm Distal: 4.3 x 3.9 mm Left Radial: Proximal: 4.3 x 4.1 mm Mid: 4.0 x 4.0 mm Distal: 4.3 x 3.3 mm IMPRESSION: 1. Bilateral Radial artery measurements listed above. 2. Performing surgeon to determine viability as conduit.
[2024-04-13 15:00] LABS: ALT 16 U/L (10-49); AST 15 U/L (14-35); Albumin 4.5 g/dL (3.8-4.9); Albumin/Globulin Ratio 2.05 Ratio (1.60-3.17); Alkaline Phosphatase 48 U/L (41-126); Blood Urea Nitrogen 21.6 mg/dL (9.0-27.0); Calcium 10.4 mg/dL (8.7-10.3); Carbon Dioxide 28.8 mmol/L (21.6-31.8); Chloride 99 mmol/L (96-109); Globulin 2.2 g/dL (1.6-3.3); Glucose 139 mg/dL (70-110); Potassium 4.3 mmol/L (3.5-5.5); Sodium 140 mmol/L (135-145); Total Bilirubin 0.4 mg/dL (0.3-1.2); Total Protein 6.7 g/dL (6.2-8.2)
[2024-04-13 16:16] LABS: Appearance,Urine Clear (Clear); Bilirubin,Urine Negative (Negative); Blood,Urine Negative (Negative); Color,Urine Yellow (Yellow); Ketones,Urine Negative (Negative); Nitrite,Urine Negative (Negative); Specific Gravity,Urine 1.029 (1.001-1.030); Urobilinogen,Urine 0.2 E.U./DL
--- NOTE | 2024-04-14 15:36 | CT ---
EXAMINATION TYPE: CT chest wo con DATE OF EXAM: 04/13/2024 COMPARISON: 12/04/2022 HISTORY: 68-year-old male I35.0, I25.10 aortic stenosis TECHNIQUE: Contiguous axial scanning of the chest without IV contrast. Coronal/sagittal reconstructio ns performed. CT DLP: 874mGycm. Automatic exposure control utilized for a dose reduction. FINDINGS: Heart upper limits of normal in size with trace anterior pericardial fluid measuring 6 mm thick. Dens e mitral annular calcifications. Severe aortic valvular calcifications. Extensive three-vessel dye ry artery calcifications also present. Convention arch vessel branching anatomy. Large caliber main right and left pulmonary arteries measuring up to 3.4 cm suggesting underlying pul monary arterial hypertension. Scattered nonenlarged mediastinal lymph nodes are present. No thoracic lymphadenopathy by CT size cri teria. Moderate emphysematous change. Strandy scarring in the lower lungs redemonstrated. Some more nodular areas at the periphery of the left base measuring 1 cm in medial right base measuring 7 mm to be reas sessed at follow-up to exclude suspicious nodules. No consolidation or pleural effusion. Visualized upper abdomen shows similar low density thickening of the left greater than right adrenal gland. Possible postsurgical or posttraumatic change with calcification and cortical irregularity along the anterior mid left kidney. An adjacent fat density area measuring 2.3 cm is unchanged as well. Bones: Extensive ankylosis of the visualized spine including the posterior elements, possible ankylos ing spondylitis. IMPRESSION: 1. COPD with moderate emphysema. Strandy scarring at the lung bases. A couple nodular areas at the le ft base are more pronounced from 12/04/2022 measuring 10 mm and 7 mm. Three-month follow-up CT to excl ude developing suspicious nodules. 2. Pulmonary arterial hypertension. Severe aortic valve calcifications. Extensive three-vessel dye ry artery calcifications. 3. Similar postsurgical change anterior mid left kidney 4. Correlate for possible ankylosing spondylitis.
== END | disposition home or self-care (01) ==
LOC: LABWHC1 10:28
PROVIDERS: ATTEND Thoracic Surgery (Cardiothoracic Vascular Surgery)
DX: Z01.810 Encounter for preprocedural cardiovascular examination (principal); I25.10 Atherosclerotic heart disease of native coronary artery without angina pectoris; E11.9 Type 2 diabetes mellitus without complications; J44.9 Chronic obstructive pulmonary disease, unspecified; J43.9 Emphysema, unspecified; I27.21 Secondary pulmonary arterial hypertension; I35.8 Other nonrheumatic aortic valve disorders; I10 Essential (primary) hypertension; E78.5 Hyperlipidemia, unspecified; R91.8 Other nonspecific abnormal finding of lung field
CPT/HCPCS: 36415; 71250; 80053; 81003; 83735; 86850; 86900; 86901; 86920; 87086; 93922; 93930

== ENCOUNTER 2024-04-17 05:36 | Inpatient (IN) | payer MEDICARE ==
[~2024-04-17 05:36] MED LIST changes: +ALBUMIN HUMAN 25% 50 ML IV ONE; +ALBUMIN HUMAN 5% 500 ML IVPB ONE; -ALPRAZolam 0.25 MG TAB PO PRN; -ALPRAZolam 0.5 MG TAB PO PRN; +ASPIRIN 325 MG TAB PO ONE; +CALCIUM CHLORIDE 100 MG/ML 10 ML SYRINGE IV ONE; +CARDIOPLEGIC SOLN (K+ 16 MEQ/L 1,000 ML with SODIUM BICARB (1 MEQ/ML) 20 ML, LIDOCAINE ... PERFUSION ONE; +CHLORHEXIDINE GLUCONATE 15 ML CUP MUCOUS MEM ONE; +CLEVIDIPINE BUTYRATE 25 MG in EMPTY BAG 1 BAG IV ONE; +HEPARIN SODIUM 1,000 UN/ML (10ML VL) IV ONE; +HEPARIN SODIUM,PORCINE (1 ML) 5,000 UNIT in SODIUM CHLORIDE 0.9% 500 ML 500 ML IV ONE; +INSULIN REGULAR 100 UNIT in SODIUM CHLORIDE 0.9% 100 ML IV ONE; +MAGNESIUM SULFATE 16.24 MEQ in EMPTY SYRINGE 1 SYR IV ONE; +MANNITOL 25% 12.5 GM/50 ML VIAL IV ONE; +NITROGLYCERIN SL TABS 0.4 MG TAB SUBLINGUAL ONE; -NITROGLYCERIN SL TABS 0.4 MG TAB SUBLINGUAL PRN; +NITROGLYCERIN-D5W PMX 25 MG/250 ML BTL IV ONE; +NITROGLYCERIN-D5W PMX 50 MG in DEXTROSE/WATER 1 250ML.BAG IV ONE; +NOREPINEPHRINE 4 MG in SODIUM CHLORIDE 0.9% 250 ML IV ONE; +PAPAVERINE 360 MG in SODIUM CHLORIDE 0.9% 90 ML IV ONE; +PHENYLEPHRINE 10 MG/ML VIAL IV ONE; +PHENYLEPHRINE 40 MG in SODIUM CHLORIDE 0.9% 250 ML IV ONE; +PROTAMINE SULFATE 10 MG/ML 25 ML VIAL IV ONE; +PROTAMINE SULFATE 250 MG in EMPTY BAG 1 BAG IV ONE; +SODIUM BICARB 8.4% 50 ML SYR (1 MEQ/ML) IV ONE; +SODIUM CHLORIDE 0.9% 1,000 ML IV ONE; -SODIUM CHLORIDE 0.9% 1,000 ML in EMPTY BAG 1 BAG IV SCH; +TRANEXAMIC ACID 2,000 MG in SODIUM CHLORIDE 0.9% 80 ML IV ONE; +ceFAZolin 1,000 MG in SODIUM CHLORIDE 0.9% IRRIGATIO 1,000 ML IRRIGATION ONE; +propofoL 1,000 MG/100 ML VIAL IV ONE
[2024-04-17] MEDS ORDERED: MUPIROCIN 2% OINT 22 GM TUBE NASAL ONE (06:00)
[2024-04-17] MEDS ORDERED: ceFAZolin 3 GM in SODIUM CHLORIDE 0.9% 100 ML IVPB ONE (06:00)
[2024-04-17] MEDS: IV FLUID CONTINUATION 1,000 ML IV ONE (06:19)
[2024-04-17 06:20] LABS: Glucose,Whole Blood 137 mg/dL (70-110)
[2024-04-17] MEDS: LACTATED RINGERS 1,000 ML IV ONE (06:25)
[2024-04-17] MEDS: ATORVASTATIN 10 MG TAB PO ONE (06:26)
[2024-04-17] MEDS: METOPROLOL TARTRATE 12.5 MG TAB PO ONE (06:26)
[2024-04-17] MEDS ORDERED: PHENYLEPHRINE-0.9% NACL SYG 1,000 MCG/10 ML SYRINGE ONE (07:51)
[2024-04-17] MEDS ORDERED: PROTAMINE SULFATE 10 MG/ML 25 ML VIAL IV ONE (07:51)
[2024-04-17] MEDS ORDERED: ALBUMIN HUMAN 5% (25gm) 500 ML VIAL IVPB ONE (07:51)
[2024-04-17] MEDS ORDERED: CALCIUM CHLORIDE 100 MG/ML 10 ML SYRINGE ONE (07:51)
[2024-04-17] MEDS ORDERED: INSULIN REGULAR 100 UNIT/ML VIAL (IV) ONE (07:51)
[2024-04-17] MEDS ORDERED: WATER FOR INJECTION, STERILE 10 ML VIAL IV ONE (07:51)
[2024-04-17] MEDS ORDERED: TRANEXAMIC 1,000 MG/100ML-NACL PREMIX BAG ONE (07:51)
[2024-04-17] MEDS ORDERED: PROPOFOL 10 MG/ML 20 ML VIAL IV ONE (07:51)
[2024-04-17] MEDS ORDERED: MIDAZOLAM HCL 10 MG/10 ML VIAL ONE (07:51)
[2024-04-17] MEDS ORDERED: fentaNYL (PF) 50 MCG/ML 50 ML VIAL ONE (07:51)
[2024-04-17] MEDS ORDERED: HEPARIN SODIUM,PORCINE 10,000 UNIT/ML 1 ML VIAL ONE (07:51)
[2024-04-17] MEDS ORDERED: SUCCINYLCHOLINE CHLORIDE 200 MG/10 ML VIAL IV ONE (07:51)
[2024-04-17] MEDS ORDERED: VECURONIUM 10 MG VIAL IV ONE (07:51)
[2024-04-17 08:33] LABS: ABG Glucose Whole Blood 129 mg/dL (75-99); ABG HCO3 29 mmol/L (21-25); ABG Ionized Calcium 4.9 mg/dL (4.5-5.3); ABG Lactic Acid Whole Blood 0.9 mmol/L (0.5-1.6); ABG PCO2 55 mmHg (35-45); ABG PH 7.33 (7.35-7.45); ABG PO2 112 mmHg (83-108); ABG Sodium Whole Blood 143 mmol/L (135-146); Allen Test Performed? Yes
[2024-04-17] MEDS: ceFAZolin 1,000 MG in SODIUM CHLORIDE 0.9% 1,000 ML IRRIGATION ONE (09:46)
[2024-04-17] MEDS: SODIUM CHLORIDE 0.9% 500 ML 500 ML with HEPARIN SODIUM,PORCINE (1 ML) 5,000 UNIT IV ONE (09:46)
[2024-04-17] MEDS: PAPAVERINE 360 MG in SODIUM CHLORIDE 0.9% 90 ML IV ONE (09:46)
[2024-04-17] MEDS: DILTIAZEM 125 MG in SODIUM CHLORIDE 0.9% 100 ML IV ONE (09:46)
[2024-04-17 10:20] LABS: ABG Glucose Whole Blood 121 mg/dL (75-99); ABG HCO3 28 mmol/L (21-25); ABG Ionized Calcium 4.7 mg/dL (4.5-5.3); ABG Lactic Acid Whole Blood 1.1 mmol/L (0.5-1.6); ABG PCO2 52 mmHg (35-45); ABG PH 7.34 (7.35-7.45); ABG PO2 199 mmHg (83-108); ABG Sodium Whole Blood 142 mmol/L (135-146); Allen Test Performed? Yes
[2024-04-17 10:58] LABS: ABG Glucose Whole Blood 113 mg/dL (75-99); ABG HCO3 27 mmol/L (21-25); ABG Ionized Calcium 4.3 mg/dL (4.5-5.3); ABG Lactic Acid Whole Blood 1.1 mmol/L (0.5-1.6); ABG PCO2 40 mmHg (35-45); ABG PH 7.43 (7.35-7.45); ABG Potassium Whole Blood 4.2 mmol/L (3.4-4.5); ABG Sodium Whole Blood 141 mmol/L (135-146); Allen Test Performed? Yes
[2024-04-17 11:25] LABS: ABG Glucose Whole Blood 124 mg/dL (75-99); ABG HCO3 28 mmol/L (21-25); ABG Ionized Calcium 4.5 mg/dL (4.5-5.3); ABG PCO2 45 mmHg (35-45); ABG Potassium Whole Blood 4.1 mmol/L (3.4-4.5); ABG Sodium Whole Blood 141 mmol/L (135-146); Allen Test Performed? Yes
[2024-04-17 12:02] LABS: ABG Glucose Whole Blood 159 mg/dL (75-99); ABG HCO3 26 mmol/L (21-25); ABG Ionized Calcium 4.5 mg/dL (4.5-5.3); ABG Lactic Acid Whole Blood 1.3 mmol/L (0.5-1.6); ABG PCO2 43 mmHg (35-45); ABG Potassium Whole Blood 4.8 mmol/L (3.4-4.5); ABG Sodium Whole Blood 140 mmol/L (135-146); Allen Test Performed? Yes
[2024-04-17 12:23] LABS: ABG Glucose Whole Blood 153 mg/dL (75-99); ABG HCO3 24 mmol/L (21-25); ABG Ionized Calcium 4.5 mg/dL (4.5-5.3); ABG PCO2 39 mmHg (35-45); ABG Potassium Whole Blood 4.5 mmol/L (3.4-4.5); ABG Sodium Whole Blood 141 mmol/L (135-146); Allen Test Performed? Yes
[2024-04-17 12:58] LABS: ABG Base Excess 1.8 mmol/L; ABG Hematocrit 45 % (34.0-46.0); ABG TCO2 26 mmol/L (19-24)
[2024-04-17] MEDS ORDERED: hydrALAZINE HCL 20 MG/ML 1 ML VIAL IVP PRN (12:58)
[2024-04-17] MEDS ORDERED: CALCIUM GLUCONATE IN NACL 2 GM in SALINE 1 100ML.BAG IVPB PRN (12:58)
[2024-04-17] MEDS ORDERED: Phosphorus Replacement Protoco 1 EACH MISC MISCELLANE PRN (12:58)
[2024-04-17] MEDS ORDERED: DEXTROSE 5% IN WATER 100 ML with AMIODARONE 150 MG IV PRN (12:58)
[2024-04-17] MEDS ORDERED: METOCLOPRAMIDE 5 MG/ML 2 ML VIAL IVP PRN (12:58)
[2024-04-17] MEDS ORDERED: DEXTROSE 50% SYRINGE 50 ML IVP PRN ×2 (12:58)
[2024-04-17] MEDS ORDERED: BENZOCAINE/MENTHOL LOZENG 1 EACH LOZENGE MUCOUS MEM PRN (12:58)
[2024-04-17] MEDS ORDERED: Potassium Replacement Protocol 1 EACH MISC MISCELLANE PRN (12:58)
[2024-04-17] MEDS ORDERED: Magnesium Replacement Protocol 1 EACH MISC MISCELLANE PRN (12:58)
[2024-04-17 12:59] LABS: ABG Hematocrit 44 % (34.0-46.0); ABG Oxygen Saturation 96.9 % (94-97); ABG TCO2 25 mmol/L (19-24)
[2024-04-17 13:02] LABS: ABG Base Excess 2.2 mmol/L; ABG Hematocrit 37 % (34.0-46.0); ABG Oxygen Saturation 96.2 % (94-97); ABG PO2 >420 mmHg (83-108); ABG TCO2 24 mmol/L (19-24)
[2024-04-17 13:03] LABS: ABG Base Excess 2.7 mmol/L; ABG PO2 >420 mmHg (83-108); ABG TCO2 26 mmol/L (19-24)
[2024-04-17 13:04] LABS: ABG Hematocrit 38 % (34.0-46.0); ABG Oxygen Saturation 96.3 % (94-97)
[2024-04-17 13:05] LABS: ABG Hematocrit 39 % (34.0-46.0); ABG Oxygen Saturation 96.4 % (94-97); ABG PO2 >420 mmHg (83-108); ABG TCO2 24 mmol/L (19-24)
[2024-04-17 13:06] LABS: ABG Base Excess -0.5 mmol/L; ABG Oxygen Saturation 96.1 % (94-97); ABG PO2 >420 mmHg (83-108); ABG TCO2 22 mmol/L (19-24)
[2024-04-17 13:07] LABS: ABG Hematocrit 38 % (34.0-46.0); ABG Lactic Acid Whole Blood 2.4 mmol/L (0.5-1.6)
--- NOTE | 2024-04-17 14:17 | P.OP ---
Date of Procedure: 04/17/24 Preoperative Diagnosis: Calcific aortic stenosis, coronary artery disease Postoperative Diagnosis: Same Procedure(s) Performed: Aortic valve replacement with 27 mm Barger Inspiris bovine pericardial valve, CABG x 1 with left radial artery to second obtuse marginal branch of the circumflex coronary artery, occlusion of the left atrial appendage with 40 mm AtriCure clip, wedge resection labs left upper lobe Implants: 27 mm Barger Inspiris bovine pericardial valve Anesthesia: GETA Surgeon: Will Oliver Public Information Coordinator #1: Volodymyr Dailey Public Information Coordinator #2: Joseph Mccarty Estimated Blood Loss (ml): 400 IV fluids (ml): 2,000 Urine output (ml): 500 Pathology: other (Aortic valve, wedge resection left upper lobe) Condition: stable Disposition: ICU Indications for Procedure: 68-year-old male with symptomatic tricuspid calcific aortic valvular stenosis. Cardiac catheterization demonstrates calcified coronary arteries but significant blockage only in the circumflex coronary artery after the takeoff of the first obtuse marginal branch. Operative Findings: ANDREI demonstrated significant LVH with good ventricular function. PA pressures were mildly elevated with a systolic of 48. Radial artery was a good conduit. It was not long enough to reach the third obtuse marginal but due to easily reached the second obtuse marginal. There were extensive labs present in the medial aspect of the left upper lobe. Ascending aorta was only mildly dilated and without significant calcification. Aortic valve was tricuspid and heavily calcified. There was extensive annular calcification extending onto the anterior leaflet of the mitral valve. Postoperative ANDREI demonstrated complete occlusion of the left atrial appendage at its base and good ventricular function albeit with a somewhat empty ventricle. There was no significant aortic valvular insufficiency noted. Description of Procedure: Patient was brought to the operating room and placed supine on the operating table. General anesthesia was induced. Monitoring lines have been placed in the preop holding area. ANDREI probe was placed. The anterior torso and bilateral lower extremities and left upper extremity were sterilely prepped and draped in standard fashion. Patient had fairly significant lower extremity venous stasis disease and ultrasonography demonstrated extremely large saphenous veins. It was therefore decided to proceed with left radial arterial harvest. This was performed under endovascular harvest technique and the radial was of good quality. Simultaneous sternotomy was performed. Bilateral pleural spaces were opened and extensive bleb disease was noted in the medial aspect of the left upper lobe of the lung. Beyond this the lung was relatively normal. Pericardium was opened in the midline and the heart was exposed with pericardial sutures. Once the radial artery harvest was complete, we proceeded with heparinization and cannulation for cardiopulmonary bypass. An 8 mm arterial cannula was placed in the distal ascending aorta and a two-stage venous cannula in the right atrial appendage into the right atrium and down into the inferior vena cava. Antegrade and retrograde cardioplegia lines were placed in standard fashion without difficulty. Pursestring suture was placed in the right superior pulmonary vein. Left arm was closed and tucked at the side. Cardiopulmonary bypass was initiated. 40 mm AtriCure clip was placed at the base of the left atrial appendage. Radial artery was checked and noted to be ready. Aorta was crossclamped and the heart was arrested with a liter of cold crystalloid cardioplegia followed by 500 cc of retrograde cardioplegia. Intermittent doses were given at appropriate intervals. Left atrial vent was placed in the pursestring in the right superior pulmonary vein. Second obtuse marginal coronary artery was opened fairly proximally. It easily excepted a 1.5 mm probe both proximally and distally and had an internal lumen of about 1.75 to 2 mm. Radial artery was anastomosed in end-to-side fashion with running 7-0 Prolene suture. On completion of the anastomosis was tested by antegrade infusion of cold blood cardioplegia. No leaks were noted. Heart was lowered in anatomic position. The radial artery was of adequate length to reach the mid ascending aorta. Aorta was opened transversely and the aortic valve examined. It was excised and the annulus decalcified. Calcium extending onto the anterior leaflet of the mitral valve was excised. 3 pledgeted 2-0 Tycron sutures were placed at the commissures with the pledgets on the ventricular side to allow supra annular valvular implantation. Copious irrigation was performed. The annulus was sized and easily excepted a 27 mm sizer. 29 mm sizer did not fit. It was felt this was an adequate size valve for this patient. Proceeded with placing the remaining sutures between the 3 commissural sutures using pledgeted 2-0 Tycron suture. 27 mm Barger Inspiris valve was opened onto the back table and brought up onto the field. Sutures were placed to the sewing ring of the valve and it was seated without difficulty. Sutures were tied and cut. Valve was noted to seat well. There was no issue with obstruction of the coronary orifices. We again irrigated and then closed the aorta with a 2 layer running closure of 4-0 Prolene suture. 4 mm punch hole was created in the ascending aorta to the left of midline in the midportion of the aorta and the proximal anastomosis constructed with running 6-0 Prolene suture. The aortic suture line was reinforced with CoSeal. The left atrial vent was removed and the pursestring suture tied. Patient was placed in steep Trendelenburg and the cross-clamp was removed. Patient was de-aired through the ascending aortic vent line. Retrograde cardioplegia line was removed and pacing wires were placed and the patient was initially paced. We subsequently noted to be in a sinus rhythm in the 60s and pacing was discontinued. The area was monitored with a ANDREI and noted to be good. The aortic vent line was removed and reinforced with a 4 oh pledgeted Prolene suture. Patient was weaned from cardiopulmonary bypass without the use of inotropic support. He easily. Not surprisingly, he was quite volume dependent. Heparin was reversed with protamine and the patient was decannulated in standard fashion. The aortic cannulation site was reinforced with a 4 oh pledgeted Prolene suture and a 5-0 Prolene suture. Once good hemostasis had been obtained, INR was checked and noted to have returned to baseline. Wedge resection of the blebs in the left upper lobe was performed with multiple firings of a Endo BEATA stapler medium thick nima were used. This was reinforced with some pro gel. Mediastinum was drained with a 36 Japanese straight chest tube. The pleural space was drained with a 32 Japanese chest tube. These were brought out through separate stab incisions and secured with 0 Ethibond sutures. Once good hemostasis had been assured, chest was irrigated with antibiotic solution and the sternum closed with 8 sternal wires. Fascia was closed with 0 Ethibond. Subcutaneous and subcuticular layers were closed with layers of Vicryl suture. Skin glue and dry sterile dressings were applied and the patient was transferred to ICU in stable condition. Required no blood transfusions and no inotropic support.
[2024-04-17 14:27] LABS: Glucose,Whole Blood 110 mg/dL (70-110)
[2024-04-17 14:48] LABS: Ionized Calcium 5.2 mg/dL (4.5-5.3)
[2024-04-17 14:57] LABS: Basophils % (A) 0 %; Eosinophils % (A) 0 %; HCT 41.2 % (39.0-53.0); Lymphocytes # (A) 1.1 k/uL (1.0-4.8); Lymphocytes % (A) 8 %; MCHC 33.4 g/dL (31.0-37.0); MCV 92.9 fL (80.0-100.0); Mean Platelet Volume 10.1; Monocytes # (A) 0.9 k/uL (0-1.0); Monocytes % (A) 7 %; Neutrophils # (A) 12.2 k/uL (1.3-7.7); Neutrophils % (A) 84 %; Platelet Count 118 k/uL (150-450); RBC 4.44 m/uL (4.30-5.90); RDW 13.9 % (11.5-15.5); WBC 14.4 k/uL (3.8-10.6)
[2024-04-17 14:58] LABS: HGB 13.8 gm/dL (13.0-17.5)
[2024-04-17 15:00] LABS: Glucose,Whole Blood 115 mg/dL (70-110)
[2024-04-17 15:02] LABS: ABG Base Excess -2.1 mmol/L; ABG HCO3 27 mmol/L (21-25); ABG Oxygen Saturation 100.1 % (94-97); ABG PCO2 64 mmHg (35-45); ABG PH 7.23 (7.35-7.45); ABG PO2 243 mmHg (83-108); ABG TCO2 29 mmol/L (19-24)
[2024-04-17 15:04] LABS: ALT 16 U/L (4-49); AST 39 U/L (17-59); African American GFR (CKD) >90 (>60 ml/min/1.73 sqM); Albumin 3.2 g/dL (3.5-5.0); Alkaline Phosphatase 30 U/L (38-126); Anion Gap 1 mmol/L; Blood Urea Nitrogen 17 mg/dL (9-20); Calcium 8.8 mg/dL (8.4-10.2); Carbon Dioxide 26 mmol/L (22-30); Chloride 113 mmol/L (98-107); Glucose 105 mg/dL (74-99); INR 1.1 (<1.2); Magnesium 2.9 mg/dL (1.6-2.3); Non-African American GFR(CKD) >90 (>60 ml/min/1.73 sqM); Partial Thromboplastin Time 26.2 sec (22.0-30.0); Potassium 3.9 mmol/L (3.5-5.1); Sodium 140 mmol/L (137-145); Total Bilirubin 0.9 mg/dL (0.2-1.3); Total Protein 5.1 g/dL (6.3-8.2)
[2024-04-17 15:09] LABS: Allen Test Performed? no
[2024-04-17] MEDS: SODIUM CHLORIDE 0.9% 1,000 ML IV SCH (15:13)
[2024-04-17] MEDS: NITROGLYCERIN-D5W PMX 50 MG in DEXTROSE/WATER 1 250ML.BAG IV SCH (15:16)
--- NOTE | 2024-04-17 15:16 | XR ---
EXAMINATION TYPE: XR chest 1V portable DATE OF EXAM: 04/17/2024 2:45 PM CLINICAL INDICATION:Male, 68 years old with history of Post Operative Cardiac Surgery; [facility] COMPARISON: Chest radiographs from 04/07/2024 TECHNIQUE: XR chest 1V portable Frontal view of the chest. FINDINGS: Lungs/Pleura: Prominent interstitial lung markings are seen scattered throughout the lungs with danyelle ening of the diaphragm and increased lucency of the lung apices. No evidence of focal consolidation, pneumothorax or pleural effusion. Pulmonary vascularity: Unremarkable. Heart/mediastinum: Cardiomediastinal silhouette is enlarged and stable. Post aortic valve repair isabelle nges. Left atrial appendage occlusion device is present. Musculoskeletal: No acute osseous pathology. Other findings: None Lines/Tubes: Endotracheal tube with distal tip 6.4 cm above the erma. Nasogastric tube with its distal tip and side-port projecting under the diaphragm. Left thoracotomy tube is present without evidence of pneumothorax. There is a Earleton-Ingrid catheter with tip projecting over the spine. IMPRESSION: 1. Postsurgical changes with mild pulmonary vascular congestion. 2. COPD changes.
[2024-04-17 15:30] LABS: RBC Morphology Normal
[2024-04-17] MEDS: ALBUMIN HUMAN 5% 250 ML in EMPTY BAG 1 BAG IVPB PRN (15:35)
[2024-04-17] MEDS: CLEVIDIPINE BUTYRATE 25 MG in EMPTY BAG 1 BAG IV SCH (15:47)
[2024-04-17] MEDS: HEPARIN SODIUM,PORCINE 5,000 UNIT/ML 1 ML VIAL SQ SCH (15:48)
[2024-04-17] MEDS: POTASSIUM CHLORIDE 10 MEQ in WATER FOR INJECTION 1 100ML.BAG IVPB SCH (15:50)
[2024-04-17 15:57] LABS: Glucose,Whole Blood 133 mg/dL (70-110)
[2024-04-17] MEDS: INSULIN REGULAR 100 UNIT in SODIUM CHLORIDE 0.9% 100 ML IV SCH (15:58)
[2024-04-17] MEDS: ceFAZolin 3 GM in SODIUM CHLORIDE 0.9% 100 ML IVPB SCH (16:16)
[2024-04-17] MEDS: ACETAMINOPHEN IV (For NPO) 1,000 MG in EMPTY BAG 1 BAG IVPB SCH (17:03)
[2024-04-17 17:18] LABS: Glucose,Whole Blood 125 mg/dL (70-110)
[2024-04-17] MEDS: IPRATROPIUM-ALBUTEROL 3 ML NEB INHALATION SCH ×2 (17:19→20:09)
[2024-04-17 17:40] LABS: Basophils # (A) 0.1 k/uL (0-0.2); Basophils % (A) 0 %; Eosinophils % (A) 0 %; HCT 38.3 % (39.0-53.0); HGB 12.9 gm/dL (13.0-17.5); Lymphocytes # (A) 1.2 k/uL (1.0-4.8); Lymphocytes % (A) 7 %; MCH 30.9 pg (25.0-35.0); MCHC 33.6 g/dL (31.0-37.0); Mean Platelet Volume 10.7; Monocytes # (A) 1.4 k/uL (0-1.0); Monocytes % (A) 8 %; Neutrophils # (A) 15.5 k/uL (1.3-7.7); Neutrophils % (A) 84 %; Platelet Count 124 k/uL (150-450); RBC 4.17 m/uL (4.30-5.90); RDW 14.2 % (11.5-15.5); WBC 18.4 k/uL (3.8-10.6)
[2024-04-17 17:56] LABS: ABG Base Excess -1.8 mmol/L; ABG HCO3 25 mmol/L (21-25); ABG PCO2 52 mmHg (35-45); ABG PO2 64 mmHg (83-108); ABG TCO2 27 mmol/L (19-24)
[2024-04-17 17:59] LABS: Allen Test Performed? no
[2024-04-17 18:07] LABS: Glucose,Whole Blood 132 mg/dL (70-110)
[2024-04-17 18:56] LABS: Glucose,Whole Blood 131 mg/dL (70-110)
--- NOTE | 2024-04-17 19:35 | P.CNPUL ---
History of Present Illness Consult date: 04/17/24 Chief complaint: thoracotomy, AVR History of present illness: This is a 68-year-old male patient being seen in the intensive. Following cardiac surgery. The patient underwent aortic valve replacement for calcified aortic valve stenosis and the patient underwent also had single-vessel bypass surgery with left radial to second obtuse marginal branch of the circumflex. Postop, the patient was kept intubated on mechanical ventilator and the patient was transferred to the intensive care unit. Currently is on propofol running at 30 mcg/kg/min. On a mechanical ventilator, assist-control of 16, tidal volume of 500, FiO2 of 60% with a PEEP of 10. Cardiac output is 6.8 with a index of 2.9. Currently on nitroglycerin drip at 5 mcg/min. No other pressors. The pulmonary artery pressures of 48/26. The immediate blood gases showed a pH of 7.23 with a pCO2 of 64 and pO2 of 243. The patient had the appropriate ventilator changes done. Chest x-ray shows post thoracotomy changes with a mediastinal chest tube in the left lower chest tube. No evidence of pneumothorax. No evidence of any air leak within the chest tubes. The patient has a right IJ [place] catheter in place. Mild pulm vascular congestion was also noted. White cell count of 18.4, hemoglobin 12.9, platelet count is 124, electrolytes are all stable, BUN is 17 with a creatinine 0.7. Afebrile. Adequate urine output. Hemodynamically stable. The cardiac rhythm is sinus. Review of Systems ROS unobtainable: due to endotracheal tube Past Medical History Past Medical History: Cancer, Diabetes Mellitus, Hearing Disorder / Deafness, Hyperlipidemia, Hypertension, Osteoarthritis (OA), Sleep Apnea/CPAP/BIPAP Additional Past Medical History / Comment(s): SOB recently. 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 Varicose veins. Hx colon poly ps. Hx cancerous cyst removed from left kidney in 2016. BIPAP use. Ears get plugged up from too much wax. History of Any Multi-Drug Resistant Organisms: None Reported Past Surgical History: Hernia Repair, Joint Replacement, Tonsillectomy Additional Past Surgical History / Comment(s): Cancerous cyst removed from left kidney, LAPAROSCOPIC EXAM, bilateral knee replacements, bilateral cataracts removed. Past Anesthesia/Blood Transfusion Reactions: Previous Problems w/ Anesthesia, Motion Sickness Additional Past Anesthesia/Blood Transfusion Reaction / Comment(s): "PATIENT STATES HE HAD SOME TROUBLE BREATHING WHEN HE FIRST WOKE UP IN RECOVERY X1 AND STATES CANNOT BE FLAT ON HIS BACK BECAUSE OF HIS SLEEP APNEA." Smoking Status: Former smoker - Past Family History Father Family Medical History: Dementia, Hypertension Additional Family Medical History / Comment(s): FROM DEMENTIA AT AGE 79 Mother Family Medical History: Cancer Additional Family Medical History / Comment(s): from blood clot to brain" BREAST AND BLADDER CANCER. Sister(s) Family Medical History: Cancer Additional Family Medical History / Comment(s): Breast cancer. Son(s) Family Medical History: Cancer Medications and Allergies Home Medications Medication Instructions Recorded Confirmed Type Lovastatin [Mevacor] 40 mg PO DAILY 05/18/16 04/17/24 History Aspirin EC [Ecotrin Low Dose] 81 mg PO DAILY 01/05/22 04/17/24 History Insulin Glargine,Hum.rec.anlog 14 units SQ HS 01/05/22 04/17/24 History [Toujeo Max Solostar] Calcium Carbonate [Calcium] 600 mg PO DAILY #0 04/05/24 04/17/24 History Cholecalciferol [Vitamin D3 (125 125 mcg PO DAILY #0 04/05/24 04/17/24 History Mcg = 5000 Iu)] Empagliflozin [Jardiance] 10 mg PO DAILY 04/05/24 04/17/24 History Lisinopril-Hctz 20-25 mg 1 tab PO DAILY 04/05/24 04/17/24 History [Zestoretic 20-25] amLODIPine BESYLATE 10 mg PO DAILY 04/05/24 04/17/24 History icosapent ethyL [Icosapent Ethyl] 2 gm PO DAILY 04/05/24 04/17/24 History Isosorbide Mononitrate ER [Imdur] 30 mg PO DAILY #90 tab 04/07/24 04/17/24 Rx Nitroglycerin Sl Tabs [Nitrostat] 0.4 mg SUBLINGUAL Q5M PRN #100 tab 04/07/24 04/17/24 Rx Zinc Gluconate [Zinc] 50 mg PO DAILY 04/14/24 04/17/24 History Allergies Allergy/AdvReac Type Severity Reaction Status Date / Time metformin Allergy Nausea & Verified 04/17/24 05:51 Vomiting & Diarrhea Penicillins Allergy Rash/Hives Verified 04/17/24 05:51 Physical Exam Vitals: Vital Signs Temp Pulse Pulse Resp BP BP BP 04/17/24 19:00 70 36 H 94/55 04/17/24 18:50 71 29 H 04/17/24 18:40 71 27 H 04/17/24 18:30 72 39 H 04/17/24 18:20 72 26 H 04/17/24 18:10 73 26 H 04/17/24 18:00 73 26 H 04/17/24 17:50 73 26 H 04/17/24 17:40 72 26 H 04/17/24 17:32 71 04/17/24 17:30 70 26 H 04/17/24 17:22 72 04/17/24 17:20 71 23 04/17/24 17:10 70 31 H 04/17/24 17:00 98.1 F 67 26 H 04/17/24 16:50 70 26 H 04/17/24 16:40 69 26 H 04/17/24 16:30 68 26 H 04/17/24 16:20 68 26 H 04/17/24 16:10 70 26 H 04/17/24 16:00 97.3 F L 69 26 H 04/17/24 15:50 69 26 H 04/17/24 15:40 69 26 H 04/17/24 15:30 72 26 H 04/17/24 15:25 04/17/24 15:20 73 16 04/17/24 15:10 71 16 04/17/24 15:08 04/17/24 15:00 69 16 04/17/24 14:50 68 16 92/56 04/17/24 14:40 69 16 04/17/24 14:30 68 16 04/17/24 14:20 70 16 04/17/24 14:19 97.2 F L 71 16 04/17/24 05:56 97.8 F 71 14 113/51 121/57 Pulse Ox FiO2 04/17/24 19:00 99 40 04/17/24 18:50 98 40 04/17/24 18:40 99 40 04/17/24 18:30 98 40 04/17/24 18:20 98 40 04/17/24 18:10 97 40 04/17/24 18:00 97 40 04/17/24 17:50 95 40 04/17/24 17:40 95 40 04/17/24 17:32 04/17/24 17:30 98 40 04/17/24 17:22 04/17/24 17:20 94 L 40 04/17/24 17:10 94 L 40 04/17/24 17:00 94 L 40 04/17/24 16:50 93 L 40 04/17/24 16:40 94 L 40 04/17/24 16:30 94 L 40 04/17/24 16:20 94 L 40 04/17/24 16:10 95 40 04/17/24 16:00 96 40 04/17/24 15:50 96 40 04/17/24 15:40 96 60 04/17/24 15:30 95 60 04/17/24 15:25 40 04/17/24 15:20 99 100 04/17/24 15:10 100 100 04/17/24 15:08 60 04/17/24 15:00 100 100 04/17/24 14:50 100 100 04/17/24 14:40 100 100 04/17/24 14:30 100 100 04/17/24 14:20 100 100 04/17/24 14:19 100 100 04/17/24 05:56 95 Intake and Output 04/17/24 04/17/24 04/17/24 06:59 14:59 22:59 Intake Total 100 4 543.151 Output Total 1000 845 Balance 100 -996 -301.849 Intake: IV 100 4 245 0.9 for pressure bag 45 CO/CI 200 Intake, IV Titration 298.151 Amount Nitroglycerin-D5w Pmx 50 7.5 mg In Dextrose/Water 1 250ml.bag @ 5 MCG/MIN 1.5 mls/hr IV .Q24H [facility]URY Rx#: [id number] Sodium Chloride 0.9% 1, 250 000 ml @ 50 mls/hr IV . Q20H [facility]URY Rx#:[id number] propofoL 1,000 mg In 40.651 Empty Bag 1 bag @ Titrate IV .Q0M LAURY Rx#: [id number] Output: Chest Tube Drainage 615 Chest Tube Mediastinal 510 Pleural Catheter Left 105 Urine 550 230 Estimated Blood Loss 450 Other: Voiding Method Indwelling Catheter Weight 130.5 kg ABP, PAP, CO, CI - Last 8 Hours Arterial Blood Pressure 99/50 Arterial Blood Pressure 94/50 Arterial Blood Pressure 99/52 Arterial Blood Pressure 87/46 Arterial Blood Pressure 87/46 Arterial Blood Pressure 91/50 Arterial Blood Pressure 92/50 Arterial Blood Pressure 97/51 Arterial Blood Pressure 101/53 Arterial Blood Pressure 100/53 Arterial Blood Pressure 94/50 Arterial Blood Pressure 108/62 Arterial Blood Pressure 94/48 Arterial Blood Pressure 109/52 Arterial Blood Pressure 105/51 Arterial Blood Pressure 102/49 Arterial Blood Pressure 102/49 Arterial Blood Pressure 101/50 Arterial Blood Pressure 102/49 Arterial Blood Pressure 101/49 Arterial Blood Pressure 89/47 Arterial Blood Pressure 97/47 Arterial Blood Pressure 105/51 Arterial Blood Pressure 104/50 Arterial Blood Pressure 101/50 Arterial Blood Pressure 101/51 Arterial Blood Pressure 99/55 Arterial Blood Pressure 98/50 Arterial Blood Pressure 103/55 Arterial Blood Pressure 101/54 Pulmonary Artery Pressure 48/26 Pulmonary Artery Pressure 51/23 Pulmonary Artery Pressure 49/24 Pulmonary Artery Pressure 46/25 Pulmonary Artery Pressure 45/22 Pulmonary Artery Pressure 47/26 Pulmonary Artery Pressure 47/26 Pulmonary Artery Pressure 49/25 Pulmonary Artery Pressure 49/23 Pulmonary Artery Pressure 45/26 Pulmonary Artery Pressure 47/25 Pulmonary Artery Pressure 55/27 Pulmonary Artery Pressure 51/25 Pulmonary Artery Pressure 52/25 Pulmonary Artery Pressure 50/23 Pulmonary Artery Pressure 49/25 Pulmonary Artery Pressure 50/24 Pulmonary Artery Pressure 51/24 Pulmonary Artery Pressure 50/25 Pulmonary Artery Pressure 51/24 Pulmonary Artery Pressure 50/24 Pulmonary Artery Pressure 51/23 Pulmonary Artery Pressure 55/25 Pulmonary Artery Pressure 53/25 Pulmonary Artery Pressure 51/25 Pulmonary Artery Pressure 49/24 Pulmonary Artery Pressure 42/19 Pulmonary Artery Pressure 51/28 Pulmonary Artery Pressure 47/26 Pulmonary Artery Pressure 49/26 Cardiac Output 8.2 Cardiac Output 5.5 Cardiac Output 5.5 Cardiac Output 5.5 Cardiac Output 5.5 Cardiac Output 5.5 Cardiac Output 5.5 Cardiac Output 6.2 Cardiac Output 6.2 Cardiac Output 6.2 Cardiac Output 6.3 Cardiac Output 6.3 Cardiac Output 6.3 Cardiac Output 6.3 Cardiac Output 5.4 Cardiac Output 5.4 Cardiac Output 5.4 Cardiac Output 6.6 Cardiac Output 6.6 Cardiac Output 6.6 Cardiac Output 6.6 Cardiac Output 6.8 Cardiac Output 6.8 Cardiac Output 6.8 Cardiac Output 4.9 Cardiac Output 4.9 Cardiac Output 4.9 Cardiac Index 3.5 Cardiac Index 2.3 Cardiac Index 2.3 Cardiac Index 2.3 Cardiac Index 2.3 Cardiac Index 2.3 Cardiac Index 2.3 Cardiac Index 2.6 Cardiac Index 2.6 Cardiac Index 2.6 Cardiac Index 2.7 Cardiac Index 2.7 Cardiac Index 2.7 Cardiac Index 2.7 Cardiac Index 2.3 Cardiac Index 2.3 Cardiac Index 2.3 Cardiac Index 2.8 Cardiac Index 2.8 Cardiac Index 2.8 Cardiac Index 2.8 Cardiac Index 2.9 Cardiac Index 2.9 Cardiac Index 2.9 Cardiac Index 2.1 Cardiac Index 2.1 Cardiac Index 2.1 Calm and comfortable, sedated with propofol, intubated on mechanical ventilator. Orogastric and orotracheal tube are both in place. Head exam was generally normal. There was no scleral icterus or corneal arcus. Mucous membranes were moist. Neck was supple and without jugular venous distension, thyromegaly, or carotid bruits. Carotids were easily palpable bilaterally. There was no adenopathy. The patient has a right IJ cordis and [place] catheter in place. Orogastric and orotracheal tube are both in place. Lungs were clear to auscultation and percussion, and with normal diaphragmatic excursion. No wheezes or rales were noted. Thoracotomy scar over the anterior chest area. The patient is a mediastinal and left lower chest tube. Output is minimal at this point in time and there is no evidence of any air leak. Cardiac exam revealed the PMI to be normally situated and sized. The rhythm was regular and no extrasystoles were noted during several minutes of auscultation. The first and second heart sounds were normal and physiologic splitting of the second heart sound was noted. There were no murmurs, rubs, clicks, or gallops. Abdominal exam revealed normal bowel sounds. The abdomen was soft, non-tender, and without masses, organomegaly, or appreciable enlargement of the abdominal aorta. Examination of the extremities revealed easily palpable radial, femoral and pedal pulses. There was no cyanosis, clubbing or edema. Examination of the skin revealed no evidence of significant rashes, suspicious appearing nevi or other concerning lesions. Neurologically, the patient is sedated, calm and comfortable. Results - Laboratory Findings CBC and BMP: 04/17/24 17:17 04/17/24 14:00 ABG ABG pH 7.30 (7.35-7.45) L 04/17/24 17:52 ABG pCO2 52 mmHg (35-45) H 04/17/24 17:52 ABG pO2 64 mmHg (83-108) L 04/17/24 17:52 ABG O2 Saturation 92.0 % (94-97) L 04/17/24 17:52 PT/INR, D-dimer PT 12.0 sec (10.0-12.5) 04/17/24 14:00 INR 1.1 (<1.2) 04/17/24 14:00 Abnormal lab findings: Abnormal Labs 04/13/24 04/17/24 04/17/24 10:41 06:19 08:35 WBC RBC Hgb Hct Plt Count Neutrophils # Monocytes # ABG pH 7.33 L ABG pCO2 55 H ABG pO2 112 H ABG HCO3 29 H ABG Total CO2 26 H ABG O2 Saturation ABG Potassium ABG Ionized Calcium ABG Glucose 129 H ABG Lactic Acid Hemoglobin Chloride Glucose POC Glucose (mg/dL) 137 H Magnesium Alkaline Phosphatase Total Protein Albumin Arterial Blood Potassium Arterial Blood Glucose 129 H Crossmatch See Detail 04/17/24 04/17/24 04/17/24 10:22 11:00 11:27 WBC RBC Hgb Hct Plt Count Neutrophils # Monocytes # ABG pH 7.34 L ABG pCO2 52 H ABG pO2 199 H >420 H >420 H ABG HCO3 28 H 27 H 28 H ABG Total CO2 25 H 26 H ABG O2 Saturation ABG Potassium ABG Ionized Calcium 4.3 L ABG Glucose 121 H 113 H 124 H ABG Lactic Acid Hemoglobin 11.9 L 12.5 L Chloride Glucose POC Glucose (mg/dL) Magnesium Alkaline Phosphatase Total Protein Albumin Arterial Blood Potassium Arterial Blood Glucose 121 H 113 H 124 H Crossmatch 04/17/24 04/17/24 04/17/24 12:03 12:25 14:00 WBC 14.4 H RBC Hgb Hct Plt Count 118 L Neutrophils # 12.2 H Monocytes # ABG pH ABG pCO2 ABG pO2 >420 H >420 H ABG HCO3 26 H ABG Total CO2 ABG O2 Saturation ABG Potassium 4.8 H ABG Ionized Calcium ABG Glucose 159 H 153 H ABG Lactic Acid 2.4 H* Hemoglobin 12.8 L 12.2 L Chloride Glucose POC Glucose (mg/dL) Magnesium Alkaline Phosphatase Total Protein Albumin Arterial Blood Potassium 4.8 H Arterial Blood Glucose 159 H 153 H Crossmatch 04/17/24 04/17/24 04/17/24 14:00 14:58 14:59 WBC RBC Hgb Hct Plt Count Neutrophils # Monocytes # ABG pH 7.23 L ABG pCO2 64 H ABG pO2 243 H ABG HCO3 27 H ABG Total CO2 29 H ABG O2 Saturation 100.1 H ABG Potassium ABG Ionized Calcium ABG Glucose ABG Lactic Acid Hemoglobin Chloride 113 H Glucose 105 H POC Glucose (mg/dL) 115 H Magnesium 2.9 H Alkaline Phosphatase 30 L Total Protein 5.1 L Albumin 3.2 L Arterial Blood Potassium Arterial Blood Glucose Crossmatch 04/17/24 04/17/24 04/17/24 15:56 17:16 17:17 WBC 18.4 H RBC 4.17 L Hgb 12.9 L Hct 38.3 L Plt Count 124 L Neutrophils # 15.5 H Monocytes # 1.4 H ABG pH ABG pCO2 ABG pO2 ABG HCO3 ABG Total CO2 ABG O2 Saturation ABG Potassium ABG Ionized Calcium ABG Glucose ABG Lactic Acid Hemoglobin Chloride Glucose POC Glucose (mg/dL) 133 H 125 H Magnesium Alkaline Phosphatase Total Protein Albumin Arterial Blood Potassium Arterial Blood Glucose Crossmatch 04/17/24 04/17/24 04/17/24 17:52 18:05 18:54 WBC RBC Hgb Hct Plt Count Neutrophils # Monocytes # ABG pH 7.30 L ABG pCO2 52 H ABG pO2 64 L ABG HCO3 ABG Total CO2 27 H ABG O2 Saturation 92.0 L ABG Potassium ABG Ionized Calcium ABG Glucose ABG Lactic Acid Hemoglobin Chloride Glucose POC Glucose (mg/dL) 132 H 131 H Magnesium Alkaline Phosphatase Total Protein Albumin Arterial Blood Potassium Arterial Blood Glucose Crossmatch - Diagnostic Findings Chest x-ray: image reviewed Assessment and Plan Plan: Aortic valve disease, single-vessel bypass surgery, postop day #0, cardiac rhythm is sinus, hemodynamically stable, hemodynamic parameters are adequate with adequate cardiac output and index Postthoracotomy, currently intubated on mechanical ventilator. Chest tubes are in place and the patient has a mediastinal and left pleural chest tube. Blood gases show respiratory acidosis, mild Severe aortic stenosis, valve area 0.69 cm, peak/mean gradient 94/63 mmHg, and peak velocity 4.86 m/s Mild mitral valve regurgitation and moderate stenosis with valve area 1.4 cm, peak/mean gradient 8/4 mmHg, and moderate MAC Hypertension Hyperlipidemia Diabetes Obstructive sleep apnea with home CPAP use Previous tobacco dependence Severe obstructive lung disease, FEV1 48% of predicted Plan Continue ventilator support. Necessary ventilator changes were done. Respiratory rate was increased up to 26. FiO2 was dropped down to 40%. Repeat blood gas on 30 minutes Gradually wean off propofol Monitor output from the chest tubes Monitor hemodynamic parameters Continue nitroglycerin drip Cardiac rhythm sinus Will continue to follow and make further recommendations based on progress. Possible extubation based on the overall hemodynamics and respiratory status. Will continue to follow.
[2024-04-17 19:59] LABS: Glucose,Whole Blood 135 mg/dL (70-110)
[2024-04-17] MEDS: CHLORHEXIDINE GLUCONATE 15 ML CUP MUCOUS MEM SCH (20:13)
[2024-04-17 20:35] LABS: Basophils % (A) 0 %; Eosinophils % (A) 0 %; HCT 36.9 % (39.0-53.0); HGB 11.8 gm/dL (13.0-17.5); Lymphocytes # (A) 0.6 k/uL (1.0-4.8); Lymphocytes % (A) 5 %; MCH 29.8 pg (25.0-35.0); MCV 93.2 fL (80.0-100.0); Monocytes # (A) 0.7 k/uL (0-1.0); Monocytes % (A) 6 %; Neutrophils # (A) 11.4 k/uL (1.3-7.7); Neutrophils % (A) 88 %; Platelet Count 109 k/uL (150-450); RBC 3.96 m/uL (4.30-5.90); WBC 12.9 k/uL (3.8-10.6)
[2024-04-17 20:56] LABS: Glucose,Whole Blood 137 mg/dL (70-110)
[2024-04-17 21:15] LABS: ABG HCO3 25 mmol/L (21-25); ABG Oxygen Saturation 96.3 % (94-97); ABG PCO2 48 mmHg (35-45); ABG PH 7.32 (7.35-7.45); ABG PO2 81 mmHg (83-108); ABG TCO2 26 mmol/L (19-24); Allen Test Performed? Yes
[2024-04-17 22:09] LABS: Glucose,Whole Blood 145 mg/dL (70-110)
[2024-04-17 22:29] LABS: ABG HCO3 24 mmol/L (21-25); ABG Oxygen Saturation 97.9 % (94-97); ABG PCO2 46 mmHg (35-45); ABG PH 7.33 (7.35-7.45); ABG PO2 94 mmHg (83-108); ABG TCO2 26 mmol/L (19-24); Allen Test Performed? Yes
[2024-04-17] MEDS: ACETAMINOPHEN IV (For NPO) 1,000 MG in EMPTY BAG 1 BAG IVPB ONE ×2 (22:53→23:11)
[2024-04-17 23:08] LABS: Glucose,Whole Blood 150 mg/dL (70-110)
[2024-04-18 00:02] LABS: Glucose,Whole Blood 144 mg/dL (70-110)
[2024-04-18] MEDS: IPRATROPIUM-ALBUTEROL 3 ML NEB INHALATION PRN (00:07)
[2024-04-18 01:09] LABS: Glucose,Whole Blood 137 mg/dL (70-110)
[2024-04-18 02:04] LABS: Glucose,Whole Blood 129 mg/dL (70-110)
[2024-04-18 02:57] LABS: Glucose,Whole Blood 121 mg/dL (70-110)
[2024-04-18] MEDS ORDERED: ACETAMINOPHEN TAB 500 MG TAB PO PRN (04:00)
[2024-04-18 04:01] LABS: Glucose,Whole Blood 113 mg/dL (70-110)
[2024-04-18 04:49] LABS: ABG Base Excess -1.6 mmol/L; ABG HCO3 25 mmol/L (21-25); ABG Oxygen Saturation 99.2 % (94-97); ABG PCO2 46 mmHg (35-45); ABG PH 7.34 (7.35-7.45); ABG PO2 117 mmHg (83-108); ABG TCO2 26 mmol/L (19-24); Allen Test Performed? Yes
[2024-04-18 05:36] LABS: Glucose,Whole Blood 126 mg/dL (70-110)
[2024-04-18 05:53] LABS: Ionized Calcium 4.7 mg/dL (4.5-5.3)
[2024-04-18 05:58] LABS: Glucose,Whole Blood 128 mg/dL (70-110)
[2024-04-18 06:02] LABS: ALT 15 U/L (4-49); AST 36 U/L (17-59); African American GFR (CKD) >90 (>60 ml/min/1.73 sqM); Albumin 3.5 g/dL (3.5-5.0); Alkaline Phosphatase 31 U/L (38-126); Anion Gap 7 mmol/L; Blood Urea Nitrogen 22 mg/dL (9-20); Calcium 8.3 mg/dL (8.4-10.2); Carbon Dioxide 21 mmol/L (22-30); Chloride 112 mmol/L (98-107); Glucose 112 mg/dL (74-99); Magnesium 2.5 mg/dL (1.6-2.3); Non-African American GFR(CKD) >90 (>60 ml/min/1.73 sqM); Potassium 4.4 mmol/L (3.5-5.1); Sodium 140 mmol/L (137-145); Total Bilirubin 0.7 mg/dL (0.2-1.3); Total Protein 5.2 g/dL (6.3-8.2)
[2024-04-18 06:08] LABS: Basophils % (A) 0 %; Eosinophils % (A) 0 %; HCT 34.5 % (39.0-53.0); HGB 11.8 gm/dL (13.0-17.5); Lymphocytes # (A) 0.9 k/uL (1.0-4.8); Lymphocytes % (A) 7 %; MCH 31.5 pg (25.0-35.0); MCV 92.6 fL (80.0-100.0); Mean Platelet Volume 11.2; Monocytes # (A) 0.9 k/uL (0-1.0); Monocytes % (A) 8 %; Neutrophils # (A) 10.4 k/uL (1.3-7.7); Neutrophils % (A) 83 %; Platelet Count 119 k/uL (150-450); RBC 3.73 m/uL (4.30-5.90); RDW 14.4 % (11.5-15.5); WBC 12.5 k/uL (3.8-10.6)
[2024-04-18 07:05] LABS: RBC Morphology Normal
[2024-04-18 07:06] LABS: Glucose,Whole Blood 126 mg/dL (70-110)
[2024-04-18] MEDS: DEXMEDETOMIDINE/0.9% NACL(PMX) 400 MCG in EMPTY BAG 1 BAG IV SCH (07:43)
--- NOTE | 2024-04-18 07:44 | P.CONS ---
History of Present Illness - History of Present Illness This is a pleasant 68 years old male with past medical history of hypertension, diabetes mellitus, hyperlipidemia Patient recently had cardiac cath on 04/07 showing coronary artery disease with focal stenosis of left circumflex artery between 70 and 80% He was admitted to the hospital for his severe aortic stenosis and he underwent aortic valve replacement Also he had a CABG x 1 with radial artery to the second obtuse marginal branch of the left circumflex. Currently patient intubated in the ICU Patient receiving nitroglycerin drip Also she is on insulin drip and Normal Saline 50 mL/h She is on aspirin and Plavix Patient is afebrile, mildly tachypneic She has unremarkable BMP and LFT WBC 12.5, hemoglobin 11.8. Platelet count is low at 119 Chest x-ray showing COPD with postsurgical changes Patient currently on normal saline 50 mL and insulin drip Review of Systems ROS unobtainable: due to endotracheal tube, due to mental status Past Medical History Past Medical History: Cancer, Diabetes Mellitus, Hearing Disorder / Deafness, Hyperlipidemia, Hypertension, Osteoarthritis (OA), Pneumonia, Sleep Apnea/CPAP/BIPAP Additional Past Medical History / Comment(s): SOB recently. 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 Varicose veins. Hx colon polyps. Hx cancerous cyst removed from left kidney in 2016. BIPAP use. Ears get plugged up from too much wax. History of Any Multi-Drug Resistant Organisms: None Reported Past Surgical History: Hernia Repair, Joint Replacement, Tonsillectomy Additional Past Surgical History / Comment(s): Cancerous cyst removed from left kidney, LAPAROSCOPIC EXAM, bilateral knee replacements, bilateral cataracts removed. Past Anesthesia/Blood Transfusion Reactions: Previous Problems w/ Anesthesia, Motion Sickness Additional Past Anesthesia/Blood Transfusion Reaction / Comm: "PATIENT STATES HE HAD SOME TROUBLE BREATHING WHEN HE FIRST WOKE UP IN RECOVERY X1 AND STATES CANNOT BE FLAT ON HIS BACK BECAUSE OF HIS SLEEP APNEA." Smoking Status: Former smoker - Past Family History Father Family Medical History: Dementia, Hypertension Additional Family Medical History / Comment(s): FROM DEMENTIA AT AGE 79 Mother Family Medical History: Cancer Additional Family Medical History / Comment(s): from blood clot to brain" BREAST AND BLADDER CANCER. Sister(s) Family Medical History: Cancer Additional Family Medical History / Comment(s): Breast cancer. Son(s) Family Medical History: Cancer Medications and Allergies Home Medications Medication Instructions Recorded Confirmed Type Lovastatin [Mevacor] 40 mg PO DAILY 05/18/16 04/17/24 History Aspirin EC [Ecotrin Low Dose] 81 mg PO DAILY 01/05/22 04/17/24 History Insulin Glargine,Hum.rec.anlog 14 units SQ HS 01/05/22 04/17/24 History [Toujeo Max Solostar] Calcium Carbonate [Calcium] 600 mg PO DAILY #0 04/05/24 04/17/24 History Cholecalciferol [Vitamin D3 (125 125 mcg PO DAILY #0 04/05/24 04/17/24 History Mcg = 5000 Iu)] Empagliflozin [Jardiance] 10 mg PO DAILY 04/05/24 04/17/24 History Lisinopril-Hctz 20-25 mg 1 tab PO DAILY 04/05/24 04/17/24 History [Zestoretic 20-25] amLODIPine BESYLATE 10 mg PO DAILY 04/05/24 04/17/24 History icosapent ethyL [Icosapent Ethyl] 2 gm PO DAILY 04/05/24 04/17/24 History Isosorbide Mononitrate ER [Imdur] 30 mg PO DAILY #90 tab 04/07/24 04/17/24 Rx Nitroglycerin Sl Tabs [Nitrostat] 0.4 mg SUBLINGUAL Q5M PRN #100 tab 04/07/24 04/17/24 Rx Zinc Gluconate [Zinc] 50 mg PO DAILY 04/14/24 04/17/24 History Allergies Allergy/AdvReac Type Severity Reaction Status Date / Time metformin Allergy Nausea & Verified 04/17/24 05:51 Vomiting & Diarrhea Penicillins Allergy Rash/Hives Verified 04/17/24 05:51 Physical Exam Vitals: Vital Signs Temp Pulse Pulse Resp BP BP BP 04/17/24 16:10 70 26 H 04/17/24 16:00 97.3 F L 69 26 H 04/17/24 15:50 69 26 H 04/17/24 15:40 69 26 H 04/17/24 15:30 72 26 H 04/17/24 15:25 04/17/24 15:20 73 16 04/17/24 15:10 71 16 04/17/24 15:08 04/17/24 15:00 69 16 04/17/24 14:50 68 16 92/56 04/17/24 14:40 69 16 04/17/24 14:30 68 16 04/17/24 14:20 70 16 04/17/24 14:19 97.2 F L 71 16 04/17/24 12:59 04/17/24 05:56 97.8 F 71 14 113/51 121/57 Pulse Ox FiO2 04/17/24 16:10 95 40 04/17/24 16:00 96 40 04/17/24 15:50 96 40 04/17/24 15:40 96 60 04/17/24 15:30 95 60 04/17/24 15:25 40 04/17/24 15:20 99 100 04/17/24 15:10 100 100 04/17/24 15:08 60 04/17/24 15:00 100 100 04/17/24 14:50 100 100 04/17/24 14:40 100 100 04/17/24 14:30 100 100 04/17/24 14:20 100 100 04/17/24 14:19 100 100 04/17/24 12:59 100 04/17/24 05:56 95 Intake and Output 04/17/24 04/17/24 04/17/24 06:59 14:59 22:59 Intake Total 100 4 224.49 Output Total 1000 300 Balance 100 -996 -75.51 Intake: IV 100 4 98 0.9 for pressure bag 18 CO/CI 80 Intake, IV Titration 126.49 Amount Nitroglycerin-D5w Pmx 50 3.0 mg In Dextrose/Water 1 250ml.bag @ 5 MCG/MIN 1.5 mls/hr IV .Q24H LAURY Rx#: [id number] Sodium Chloride 0.9% 1, 100 000 ml @ 50 mls/hr IV . Q20H LAURY Rx#:[id number] propofoL 1,000 mg In 23.49 Empty Bag 1 bag @ Titrate IV .Q0M LAURY Rx#: [id number] Output: Chest Tube Drainage 220 Chest Tube Mediastinal 180 Pleural Catheter Left 40 Urine 550 80 Estimated Blood Loss 450 Other: Voiding Method Indwelling Catheter Weight 130.5 kg ABP, PAP, CO, CI - Last 8 Hours Arterial Blood Pressure 101/50 Arterial Blood Pressure 102/49 Arterial Blood Pressure 101/49 Arterial Blood Pressure 89/47 Arterial Blood Pressure 97/47 Arterial Blood Pressure 105/51 Arterial Blood Pressure 104/50 Arterial Blood Pressure 101/50 Arterial Blood Pressure 101/51 Arterial Blood Pressure 99/55 Arterial Blood Pressure 98/50 Arterial Blood Pressure 103/55 Arterial Blood Pressure 101/54 Pulmonary Artery Pressure 51/24 Pulmonary Artery Pressure 50/25 Pulmonary Artery Pressure 51/24 Pulmonary Artery Pressure 50/24 Pulmonary Artery Pressure 51/23 Pulmonary Artery Pressure 55/25 Pulmonary Artery Pressure 53/25 Pulmonary Artery Pressure 51/25 Pulmonary Artery Pressure 49/24 Pulmonary Artery Pressure 42/19 Pulmonary Artery Pressure 51/28 Pulmonary Artery Pressure 47/26 Pulmonary Artery Pressure 49/26 Cardiac Output 6.6 Cardiac Output 6.6 Cardiac Output 6.6 Cardiac Output 6.6 Cardiac Output 6.8 Cardiac Output 6.8 Cardiac Output 6.8 Cardiac Output 4.9 Cardiac Output 4.9 Cardiac Output 4.9 Cardiac Index 2.8 Cardiac Index 2.8 Cardiac Index 2.8 Cardiac Index 2.8 Cardiac Index 2.9 Cardiac Index 2.9 Cardiac Index 2.9 Cardiac Index 2.1 Cardiac Index 2.1 Cardiac Index 2.1 -GENERAL: The patient is intubated and sedated HEENT: Pupils are round and equally reacting to light. EOMI. No scleral icterus. No conjunctival pallor. Normocephalic, atraumatic. No pharyngeal erythema. No thyromegaly. CARDIOVASCULAR: S1 and S2 present. No murmurs, rubs, or gallops. PULMONARY: Chest is clear to auscultation, no wheezing , no crackles. ABDOMEN: Soft, nontender, nondistended, normoactive bowel sounds. No palpable organomegaly. MUSCULOSKELETAL: No joint swelling or deformity. EXTREMITIES: No cyanosis, clubbing, or pedal edema. NEUROLOGICAL: Gross neurological examination did not reveal any focal deficits. SKIN: No rashes. no petechiae. Results CBC & Chem 7: 04/18/24 05:20 04/18/24 05:20 Labs: Abnormal Lab Results - Last 24 Hours (Table) 04/13/24 04/17/24 04/17/24 Range/Units 10:41 06:19 08:35 WBC (3.8-10.6) k/uL Plt Count (150-450) k/uL Neutrophils # (1.3-7.7) k/uL ABG pH 7.33 L (7.35-7.45) ABG pCO2 55 H (35-45) mmHg ABG pO2 112 H (83-108) mmHg ABG HCO3 29 H (21-25) mmol/L ABG Total CO2 26 H (19-24) mmol/L ABG O2 Saturation (94-97) % ABG Potassium (3.4-4.5) mmol/L ABG Ionized Calcium (4.5-5.3) mg/dL ABG Glucose 129 H (75-99) mg/dL ABG Lactic Acid (0.5-1.6) mmol/L Hemoglobin (13.0-17.5) gm/dL Chloride (98-107) mmol/L Glucose (74-99) mg/dL POC Glucose (mg/dL) 137 H (70-110) mg/dL Magnesium (1.6-2.3) mg/dL Alkaline Phosphatase (38-126) U/L Total Protein (6.3-8.2) g/dL Albumin (3.5-5.0) g/dL Arterial Blood Potassium (3.4-4.5) mmol/L Arterial Blood Glucose 129 H (75-99) mg/dL Crossmatch See Detail 04/17/24 04/17/24 04/17/24 Range/Units 10:22 11:00 11:27 WBC (3.8-10.6) k/uL Plt Count (150-450) k/uL Neutrophils # (1.3-7.7) k/uL ABG pH 7.34 L (7.35-7.45) ABG pCO2 52 H (35-45) mmHg ABG pO2 199 H >420 H >420 H (83-108) mmHg ABG HCO3 28 H 27 H 28 H (21-25) mmol/L ABG Total CO2 25 H 26 H (19-24) mmol/L ABG O2 Saturation (94-97) % ABG Potassium (3.4-4.5) mmol/L ABG Ionized Calcium 4.3 L (4.5-5.3) mg/dL ABG Glucose 121 H 113 H 124 H (75-99) mg/dL ABG Lactic Acid (0.5-1.6) mmol/L Hemoglobin 11.9 L 12.5 L (13.0-17.5) gm/dL Chloride (98-107) mmol/L Glucose (74-99) mg/dL POC Glucose (mg/dL) (70-110) mg/dL Magnesium (1.6-2.3) mg/dL Alkaline Phosphatase (38-126) U/L Total Protein (6.3-8.2) g/dL Albumin (3.5-5.0) g/dL Arterial Blood Potassium (3.4-4.5) mmol/L Arterial Blood Glucose 121 H 113 H 124 H (75-99) mg/dL Crossmatch 04/17/24 04/17/24 04/17/24 Range/Units 12:03 12:25 14:00 WBC 14.4 H (3.8-10.6) k/uL Plt Count 118 L (150-450) k/uL Neutrophils # 12.2 H (1.3-7.7) k/uL ABG pH (7.35-7.45) ABG pCO2 (35-45) mmHg ABG pO2 >420 H >420 H (83-108) mmHg ABG HCO3 26 H (21-25) mmol/L ABG Total CO2 (19-24) mmol/L ABG O2 Saturation (94-97) % ABG Potassium 4.8 H (3.4-4.5) mmol/L ABG Ionized Calcium (4.5-5.3) mg/dL ABG Glucose 159 H 153 H (75-99) mg/dL ABG Lactic Acid 2.4 H* (0.5-1.6) mmol/L Hemoglobin 12.8 L 12.2 L (13.0-17.5) gm/dL Chloride (98-107) mmol/L Glucose (74-99) mg/dL POC Glucose (mg/dL) (70-110) mg/dL Magnesium (1.6-2.3) mg/dL Alkaline Phosphatase (38-126) U/L Total Protein (6.3-8.2) g/dL Albumin (3.5-5.0) g/dL Arterial Blood Potassium 4.8 H (3.4-4.5) mmol/L Arterial Blood Glucose 159 H 153 H (75-99) mg/dL Crossmatch 04/17/24 04/17/24 04/17/24 Range/Units 14:00 14:58 14:59 WBC (3.8-10.6) k/uL Plt Count (150-450) k/uL Neutrophils # (1.3-7.7) k/uL ABG pH 7.23 L (7.35-7.45) ABG pCO2 64 H (35-45) mmHg ABG pO2 243 H (83-108) mmHg ABG HCO3 27 H (21-25) mmol/L ABG Total CO2 29 H (19-24) mmol/L ABG O2 Saturation 100.1 H (94-97) % ABG Potassium (3.4-4.5) mmol/L ABG Ionized Calcium (4.5-5.3) mg/dL ABG Glucose (75-99) mg/dL ABG Lactic Acid (0.5-1.6) mmol/L Hemoglobin (13.0-17.5) gm/dL Chloride 113 H (98-107) mmol/L Glucose 105 H (74-99) mg/dL POC Glucose (mg/dL) 115 H (70-110) mg/dL Magnesium 2.9 H (1.6-2.3) mg/dL Alkaline Phosphatase 30 L (38-126) U/L Total Protein 5.1 L (6.3-8.2) g/dL Albumin 3.2 L (3.5-5.0) g/dL Arterial Blood Potassium (3.4-4.5) mmol/L Arterial Blood Glucose (75-99) mg/dL Crossmatch 04/17/24 Range/Units 15:56 WBC (3.8-10.6) k/uL Plt Count (150-450) k/uL Neutrophils # (1.3-7.7) k/uL ABG pH (7.35-7.45) ABG pCO2 (35-45) mmHg ABG pO2 (83-108) mmHg ABG HCO3 (21-25) mmol/L ABG Total CO2 (19-24) mmol/L ABG O2 Saturation (94-97) % ABG Potassium (3.4-4.5) mmol/L ABG Ionized Calcium (4.5-5.3) mg/dL ABG Glucose (75-99) mg/dL ABG Lactic Acid (0.5-1.6) mmol/L Hemoglobin (13.0-17.5) gm/dL Chloride (98-107) mmol/L Glucose (74-99) mg/dL POC Glucose (mg/dL) 133 H (70-110) mg/dL Magnesium (1.6-2.3) mg/dL Alkaline Phosphatase (38-126) U/L Total Protein (6.3-8.2) g/dL Albumin (3.5-5.0) g/dL Arterial Blood Potassium (3.4-4.5) mmol/L Arterial Blood Glucose (75-99) mg/dL Crossmatch Assessment and Plan Assessment: Severe aortic stenosis status post aortic valve replacement Coronary artery disease with focal stenosis of left circumflex 70 to 80% s/p CABG with radial artery to obtuse marginal branch which is the second branch of left circumflex artery Hypertension Hyperlipidemia Diabetes mellitus Osteoarthritis Obstructive sleep apnea on CPAP Mild thrombocytopenia and anemia Hypertension Hyperlipidemia Diabetes mellitus Obesity with BMI of 45.6. Plan: Continue with aspirin and Plavix Continue with insulin drip Continue with normal saline Continue with insulin drip, patient at home is on Lantus 14 units at bedtime Pulmonary team consult on the case Management of vent per pulmonary team GI and DVT prophylaxis with Protonix and subcu heparin
[2024-04-18] MEDS: ONDANSETRON 4 MG/2 ML VIAL IVP PRN (08:02)
--- NOTE | 2024-04-18 08:05 | XR ---
EXAMINATION TYPE: XR chest 1V portable DATE OF EXAM: 04/18/2024 Comparison: 04/17/2024 Clinical History: 68-year-old male Post Operative Cardiac Surgery Findings: ET tube satisfactory. Underpenetration limits accurate visualization of the NG tube. Right IJ [place] catheter tip somewhat peripheral located at the right hilum. Median sternotomy wires. Heart mildly enlarged. Hyperinflation. Diffuse interstitial densities persist. Left-sided chest tube. Median ster notomy wires. Small left pleural effusion and patchy left basilar opacity persists. Impression: 1. COPD with mild cardiomegaly and ongoing interstitial opacities, possible interstitial pulmonary ed german. 2. Ongoing small left pleural effusion with adjacent atelectasis and or consolidation.
[2024-04-18 08:10] LABS: Glucose,Whole Blood 123 mg/dL (70-110)
[2024-04-18] MEDS: METOPROLOL TARTRATE 12.5 MG TAB PO SCH (08:21)
[2024-04-18] MEDS: CLOPIDOGREL 75 MG TAB PO SCH (08:25)
[2024-04-18] MEDS: CALCIUM CARBONATE 500 MG CHEWABLE PO SCH (08:25)
[2024-04-18] MEDS: ASPIRIN 325 MG TAB PO SCH (08:26)
[2024-04-18] MEDS: PANTOPRAZOLE 40 MG/10 ML VIAL IVP SCH (08:35)
[2024-04-18 08:40] LABS: ABG Base Excess -0.9 mmol/L; ABG HCO3 25 mmol/L (21-25); ABG Oxygen Saturation 95.4 % (94-97); ABG PCO2 43 mmHg (35-45); ABG PH 7.36 (7.35-7.45); ABG PO2 73 mmHg (83-108); ABG TCO2 26 mmol/L (19-24)
[2024-04-18] MEDS: ACETAMINOPHEN IV (For NPO) 1,000 MG in EMPTY BAG 1 BAG IVPB STA (08:40)
[2024-04-18 08:44] LABS: Allen Test Performed? no
[2024-04-18] MEDS ORDERED: MAGNESIUM HYDROXIDE 2,400 MG/30 ML CUP PO PRN (09:00)
[2024-04-18] MEDS ORDERED: bisacodyL 10 MG SUPP RECTAL PRN (09:00)
[2024-04-18 09:06] LABS: Glucose,Whole Blood 124 mg/dL (70-110)
--- NOTE | 2024-04-18 09:59 | P.PN ---
Subjective This is a pleasant 68 years old male with past medical history of hypertension, diabetes mellitus, hyperlipidemia Patient recently had cardiac cath on 04/07 showing coronary artery disease with focal stenosis of left circumflex artery between 70 and 80% He was admitted to the hospital for his severe aortic stenosis and he underwent aortic valve replacement Also he had a CABG x 1 with radial artery to the second obtuse marginal branch of the left circumflex. Currently patient intubated in the ICU Patient receiving nitroglycerin drip Also she is on insulin drip and Normal Saline 50 mL/h She is on aspirin and Plavix Patient is afebrile, mildly tachypneic She has unremarkable BMP and LFT WBC 12.5, hemoglobin 11.8. Platelet count is low at 119 Chest x-ray showing COPD with postsurgical changes Patient currently on normal saline 50 mL and insulin drip 04/18/2024 Patient extubated She is awake alert No chest pain or dyspnea Currently remains n.p.o. on insulin drip and sugar controlled Probably he will start feeding this afternoon. He remains on aspirin and Plavix Objective - Vital Signs Vital signs: Vital Signs Temp 99.7 F H 04/18/24 08:30 Pulse 69 04/18/24 09:15 Resp 21 04/18/24 09:15 BP 87/51 04/18/24 09:15 Pulse Ox 95 04/18/24 09:15 FiO2 30 04/18/24 08:13 Intake & Output 04/17/24 04/18/24 04/18/24 18:59 06:59 18:59 Intake Total 852.424 5724.799 844.400 Output Total 1705 1255 252 Balance -1258.349 230.799 592.400 Weight 132 kg Intake: IV 200 1278 697 0.9 for pressure bag 36 108 27 ACETAMINOPHEN IV (For NPO 100 100 ) 1,000 mg In Empty Bag 1 bag @ 400 mls/hr IVPB ONCE ONE Rx#:[id number] Albumin Human 5% 250 ml 250 In Empty Bag 1 bag @ 250 mls/hr IVPB Q1HR PRN Rx#: [id number] CO/CI 160 420 70 Sodium Chloride 0.9% 1, 550 150 000 ml @ 50 mls/hr IV . Q20H [facility] Rx#:[id number] ceFAZolin 3 gm In Sodium 100 100 Chloride 0.9% 100 ml @ 100 mls/hr IVPB Q8HR [facility] Rx#:[id number] Intake, IV Titration 246.651 207.799 147.400 Amount ACETAMINOPHEN IV (For NPO 100 ) 1,000 mg In Empty Bag 1 bag @ 400 mls/hr IVPB ONCE STA Rx#:[id number] Dexmedetomidine/0.9% NaCl 8.102 (Pmx) 400 mcg In Empty Bag 1 bag @ Titrate IV . Q0M [facility] Rx#:[id number] Insulin Regular 100 unit 22.826 5.303 In Sodium Chloride 0.9% 100 ml @ Per Protocol IV .Q0M [facility] Rx#:[id number] Nitroglycerin-D5w Pmx 50 6.0 1.5 mg In Dextrose/Water 1 250ml.bag @ 5 MCG/MIN 1.5 mls/hr IV .Q24H [facility] Rx#: [id number] Sodium Chloride 0.9% 1, 200 50 000 ml @ 50 mls/hr IV . Q20H [facility] Rx#:[id number] propofoL 1,000 mg In 40.651 133.473 33.995 Empty Bag 1 bag @ Titrate IV .Q0M [facility] Rx#: [id number] Output: Chest Tube Drainage 510 525 42 Chest Tube Mediastinal 430 440 40 Pleural Catheter Left 80 85 2 Drainage 10 Left Arm 10 Urine 745 730 200 Estimated Blood Loss 450 Other: Voiding Method Indwelling Catheter Indwelling Catheter Indwelling Catheter ABP, PAP, CO, CI - Last Documented Arterial Blood Pressure 92/42 Pulmonary Artery Pressure 36/16 Cardiac Output 7.2 Cardiac Index 3.1 - Exam GENERAL: The patient is alert and oriented x3, not in any acute distress. Well developed, well nourished. HEENT: Pupils are round and equally reacting to light. EOMI. No scleral icterus. No conjunctival pallor. Normocephalic, atraumatic. No pharyngeal erythema. No thyromegaly. CARDIOVASCULAR: S1 and S2 present. No murmurs, rubs, or gallops. PULMONARY: Chest is clear to auscultation, no wheezing , no crackles. ABDOMEN: Soft, nontender, nondistended, normoactive bowel sounds. No palpable organomegaly. MUSCULOSKELETAL: No joint swelling or deformity. EXTREMITIES: No cyanosis, clubbing, or pedal edema. NEUROLOGICAL: Gross neurological examination did not reveal any focal deficits. SKIN: No rashes. no petechiae. - Labs CBC & Chem 7: 04/18/24 05:20 04/18/24 05:20 Labs: Abnormal Lab Results - Last 24 Hours (Table) 04/13/24 04/17/24 04/17/24 Range/Units 10:41 08:35 10:22 WBC (3.8-10.6) k/uL RBC (4.30-5.90) m/uL Hgb (13.0-17.5) gm/dL Hct (39.0-53.0) % Plt Count (150-450) k/uL Neutrophils # (1.3-7.7) k/uL Lymphocytes # (1.0-4.8) k/uL Monocytes # (0-1.0) k/uL ABG pH 7.33 L 7.34 L (7.35-7.45) ABG pCO2 55 H 52 H (35-45) mmHg ABG pO2 112 H 199 H (83-108) mmHg ABG HCO3 29 H 28 H (21-25) mmol/L ABG Total CO2 26 H 25 H (19-24) mmol/L ABG O2 Saturation (94-97) % ABG Potassium (3.4-4.5) mmol/L ABG Ionized Calcium (4.5-5.3) mg/dL ABG Glucose 129 H 121 H (75-99) mg/dL ABG Lactic Acid (0.5-1.6) mmol/L Hemoglobin (13.0-17.5) gm/dL Chloride (98-107) mmol/L Carbon Dioxide (22-30) mmol/L BUN (9-20) mg/dL Glucose (74-99) mg/dL POC Glucose (mg/dL) (70-110) mg/dL Calcium (8.4-10.2) mg/dL Magnesium (1.6-2.3) mg/dL Alkaline Phosphatase (38-126) U/L Total Protein (6.3-8.2) g/dL Albumin (3.5-5.0) g/dL Arterial Blood Potassium (3.4-4.5) mmol/L Arterial Blood Glucose 129 H 121 H (75-99) mg/dL Crossmatch See Detail 07/11/1004/17/24 04/17/24 Range/Units 11:00 11:27 12:03 WBC (3.8-10.6) k/uL RBC (4.30-5.90) m/uL Hgb (13.0-17.5) gm/dL Hct (39.0-53.0) % Plt Count (150-450) k/uL Neutrophils # (1.3-7.7) k/uL Lymphocytes # (1.0-4.8) k/uL Monocytes # (0-1.0) k/uL ABG pH (7.35-7.45) ABG pCO2 (35-45) mmHg ABG pO2 >420 H >420 H >420 H (83-108) mmHg ABG HCO3 27 H 28 H 26 H (21-25) mmol/L ABG Total CO2 26 H (19-24) mmol/L ABG O2 Saturation (94-97) % ABG Potassium 4.8 H (3.4-4.5) mmol/L ABG Ionized Calcium 4.3 L (4.5-5.3) mg/dL ABG Glucose 113 H 124 H 159 H (75-99) mg/dL ABG Lactic Acid (0.5-1.6) mmol/L Hemoglobin 11.9 L 12.5 L 12.8 L (13.0-17.5) gm/dL Chloride (98-107) mmol/L Carbon Dioxide (22-30) mmol/L BUN (9-20) mg/dL Glucose (74-99) mg/dL POC Glucose (mg/dL) (70-110) mg/dL Calcium (8.4-10.2) mg/dL Magnesium (1.6-2.3) mg/dL Alkaline Phosphatase (38-126) U/L Total Protein (6.3-8.2) g/dL Albumin (3.5-5.0) g/dL Arterial Blood Potassium 4.8 H (3.4-4.5) mmol/L Arterial Blood Glucose 113 H 124 H 159 H (75-99) mg/dL Crossmatch 04/17/24 04/17/24 04/17/24 Range/Units 12:25 14:00 14:00 WBC 14.4 H (3.8-10.6) k/uL RBC (4.30-5.90) m/uL Hgb (13.0-17.5) gm/dL Hct (39.0-53.0) % Plt Count 118 L (150-450) k/uL Neutrophils # 12.2 H (1.3-7.7) k/uL Lymphocytes # (1.0-4.8) k/uL Monocytes # (0-1.0) k/uL ABG pH (7.35-7.45) ABG pCO2 (35-45) mmHg ABG pO2 >420 H (83-108) mmHg ABG HCO3 (21-25) mmol/L ABG Total CO2 (19-24) mmol/L ABG O2 Saturation (94-97) % ABG Potassium (3.4-4.5) mmol/L ABG Ionized Calcium (4.5-5.3) mg/dL ABG Glucose 153 H (75-99) mg/dL ABG Lactic Acid 2.4 H* (0.5-1.6) mmol/L Hemoglobin 12.2 L (13.0-17.5) gm/dL Chloride 113 H (98-107) mmol/L Carbon Dioxide (22-30) mmol/L BUN (9-20) mg/dL Glucose 105 H (74-99) mg/dL POC Glucose (mg/dL) (70-110) mg/dL Calcium (8.4-10.2) mg/dL Magnesium 2.9 H (1.6-2.3) mg/dL Alkaline Phosphatase 30 L (38-126) U/L Total Protein 5.1 L (6.3-8.2) g/dL Albumin 3.2 L (3.5-5.0) g/dL Arterial Blood Potassium (3.4-4.5) mmol/L Arterial Blood Glucose 153 H (75-99) mg/dL Crossmatch 04/17/24 04/17/24 04/17/24 Range/Units 14:58 14:59 15:56 WBC (3.8-10.6) k/uL RBC (4.30-5.90) m/uL Hgb (13.0-17.5) gm/dL Hct (39.0-53.0) % Plt Count (150-450) k/uL Neutrophils # (1.3-7.7) k/uL Lymphocytes # (1.0-4.8) k/uL Monocytes # (0-1.0) k/uL ABG pH 7.23 L (7.35-7.45) ABG pCO2 64 H (35-45) mmHg ABG pO2 243 H (83-108) mmHg ABG HCO3 27 H (21-25) mmol/L ABG Total CO2 29 H (19-24) mmol/L ABG O2 Saturation 100.1 H (94-97) % ABG Potassium (3.4-4.5) mmol/L ABG Ionized Calcium (4.5-5.3) mg/dL ABG Glucose (75-99) mg/dL ABG Lactic Acid (0.5-1.6) mmol/L Hemoglobin (13.0-17.5) gm/dL Chloride (98-107) mmol/L Carbon Dioxide (22-30) mmol/L BUN (9-20) mg/dL Glucose (74-99) mg/dL POC Glucose (mg/dL) 115 H 133 H (70-110) mg/dL Calcium (8.4-10.2) mg/dL Magnesium (1.6-2.3) mg/dL Alkaline Phosphatase (38-126) U/L Total Protein (6.3-8.2) g/dL Albumin (3.5-5.0) g/dL Arterial Blood Potassium (3.4-4.5) mmol/L Arterial Blood Glucose (75-99) mg/dL Crossmatch 04/17/24 04/17/24 04/17/24 Range/Units 17:16 17:17 17:52 WBC 18.4 H (3.8-10.6) k/uL RBC 4.17 L (4.30-5.90) m/uL Hgb 12.9 L (13.0-17.5) gm/dL Hct 38.3 L (39.0-53.0) % Plt Count 124 L (150-450) k/uL Neutrophils # 15.5 H (1.3-7.7) k/uL Lymphocytes # (1.0-4.8) k/uL Monocytes # 1.4 H (0-1.0) k/uL ABG pH 7.30 L (7.35-7.45) ABG pCO2 52 H (35-45) mmHg ABG pO2 64 L (83-108) mmHg ABG HCO3 (21-25) mmol/L ABG Total CO2 27 H (19-24) mmol/L ABG O2 Saturation 92.0 L (94-97) % ABG Potassium (3.4-4.5) mmol/L ABG Ionized Calcium (4.5-5.3) mg/dL ABG Glucose (75-99) mg/dL ABG Lactic Acid (0.5-1.6) mmol/L Hemoglobin (13.0-17.5) gm/dL Chloride (98-107) mmol/L Carbon Dioxide (22-30) mmol/L BUN (9-20) mg/dL Glucose (74-99) mg/dL POC Glucose (mg/dL) 125 H (70-110) mg/dL Calcium (8.4-10.2) mg/dL Magnesium (1.6-2.3) mg/dL Alkaline Phosphatase (38-126) U/L Total Protein (6.3-8.2) g/dL Albumin (3.5-5.0) g/dL Arterial Blood Potassium (3.4-4.5) mmol/L Arterial Blood Glucose (75-99) mg/dL Crossmatch 04/17/24 04/17/24 04/17/24 Range/Units 18:05 18:54 19:57 WBC (3.8-10.6) k/uL RBC (4.30-5.90) m/uL Hgb (13.0-17.5) gm/dL Hct (39.0-53.0) % Plt Count (150-450) k/uL Neutrophils # (1.3-7.7) k/uL Lymphocytes # (1.0-4.8) k/uL Monocytes # (0-1.0) k/uL ABG pH (7.35-7.45) ABG pCO2 (35-45) mmHg ABG pO2 (83-108) mmHg ABG HCO3 (21-25) mmol/L ABG Total CO2 (19-24) mmol/L ABG O2 Saturation (94-97) % ABG Potassium (3.4-4.5) mmol/L ABG Ionized Calcium (4.5-5.3) mg/dL ABG Glucose (75-99) mg/dL ABG Lactic Acid (0.5-1.6) mmol/L Hemoglobin (13.0-17.5) gm/dL Chloride (98-107) mmol/L Carbon Dioxide (22-30) mmol/L BUN (9-20) mg/dL Glucose (74-99) mg/dL POC Glucose (mg/dL) 132 H 131 H 135 H (70-110) mg/dL Calcium (8.4-10.2) mg/dL Magnesium (1.6-2.3) mg/dL Alkaline Phosphatase (38-126) U/L Total Protein (6.3-8.2) g/dL Albumin (3.5-5.0) g/dL Arterial Blood Potassium (3.4-4.5) mmol/L Arterial Blood Glucose (75-99) mg/dL Crossmatch 04/17/24 04/17/24 04/17/24 Range/Units 20:15 20:55 21:10 WBC 12.9 H (3.8-10.6) k/uL RBC 3.96 L (4.30-5.90) m/uL Hgb 11.8 L (13.0-17.5) gm/dL Hct 36.9 L (39.0-53.0) % Plt Count 109 L (150-450) k/uL Neutrophils # 11.4 H (1.3-7.7) k/uL Lymphocytes # 0.6 L (1.0-4.8) k/uL Monocytes # (0-1.0) k/uL ABG pH 7.32 L (7.35-7.45) ABG pCO2 48 H (35-45) mmHg ABG pO2 81 L (83-108) mmHg ABG HCO3 (21-25) mmol/L ABG Total CO2 26 H (19-24) mmol/L ABG O2 Saturation (94-97) % ABG Potassium (3.4-4.5) mmol/L ABG Ionized Calcium (4.5-5.3) mg/dL ABG Glucose (75-99) mg/dL ABG Lactic Acid (0.5-1.6) mmol/L Hemoglobin (13.0-17.5) gm/dL Chloride (98-107) mmol/L Carbon Dioxide (22-30) mmol/L BUN (9-20) mg/dL Glucose (74-99) mg/dL POC Glucose (mg/dL) 137 H (70-110) mg/dL Calcium (8.4-10.2) mg/dL Magnesium (1.6-2.3) mg/dL Alkaline Phosphatase (38-126) U/L Total Protein (6.3-8.2) g/dL Albumin (3.5-5.0) g/dL Arterial Blood Potassium (3.4-4.5) mmol/L Arterial Blood Glucose (75-99) mg/dL Crossmatch 04/17/24 04/17/24 04/17/24 Range/Units 22:05 22:24 23:05 WBC (3.8-10.6) k/uL RBC (4.30-5.90) m/uL Hgb (13.0-17.5) gm/dL Hct (39.0-53.0) % Plt Count (150-450) k/uL Neutrophils # (1.3-7.7) k/uL Lymphocytes # (1.0-4.8) k/uL Monocytes # (0-1.0) k/uL ABG pH 7.33 L (7.35-7.45) ABG pCO2 46 H (35-45) mmHg ABG pO2 (83-108) mmHg ABG HCO3 (21-25) mmol/L ABG Total CO2 26 H (19-24) mmol/L ABG O2 Saturation 97.9 H (94-97) % ABG Potassium (3.4-4.5) mmol/L ABG Ionized Calcium (4.5-5.3) mg/dL ABG Glucose (75-99) mg/dL ABG Lactic Acid (0.5-1.6) mmol/L Hemoglobin (13.0-17.5) gm/dL Chloride (98-107) mmol/L Carbon Dioxide (22-30) mmol/L BUN (9-20) mg/dL Glucose (74-99) mg/dL POC Glucose (mg/dL) 145 H 150 H (70-110) mg/dL Calcium (8.4-10.2) mg/dL Magnesium (1.6-2.3) mg/dL Alkaline Phosphatase (38-126) U/L Total Protein (6.3-8.2) g/dL Albumin (3.5-5.0) g/dL Arterial Blood Potassium (3.4-4.5) mmol/L Arterial Blood Glucose (75-99) mg/dL Crossmatch 04/18/24 04/18/24 04/18/24 Range/Units 00:01 01:08 02:01 WBC (3.8-10.6) k/uL RBC (4.30-5.90) m/uL Hgb (13.0-17.5) gm/dL Hct (39.0-53.0) % Plt Count (150-450) k/uL Neutrophils # (1.3-7.7) k/uL Lymphocytes # (1.0-4.8) k/uL Monocytes # (0-1.0) k/uL ABG pH (7.35-7.45) ABG pCO2 (35-45) mmHg ABG pO2 (83-108) mmHg ABG HCO3 (21-25) mmol/L ABG Total CO2 (19-24) mmol/L ABG O2 Saturation (94-97) % ABG Potassium (3.4-4.5) mmol/L ABG Ionized Calcium (4.5-5.3) mg/dL ABG Glucose (75-99) mg/dL ABG Lactic Acid (0.5-1.6) mmol/L Hemoglobin (13.0-17.5) gm/dL Chloride (98-107) mmol/L Carbon Dioxide (22-30) mmol/L BUN (9-20) mg/dL Glucose (74-99) mg/dL POC Glucose (mg/dL) 144 H 137 H 129 H (70-110) mg/dL Calcium (8.4-10.2) mg/dL Magnesium (1.6-2.3) mg/dL Alkaline Phosphatase (38-126) U/L Total Protein (6.3-8.2) g/dL Albumin (3.5-5.0) g/dL Arterial Blood Potassium (3.4-4.5) mmol/L Arterial Blood Glucose (75-99) mg/dL Crossmatch 04/18/24 04/18/24 04/18/24 Range/Units 02:55 03:59 04:45 WBC (3.8-10.6) k/uL RBC (4.30-5.90) m/uL Hgb (13.0-17.5) gm/dL Hct (39.0-53.0) % Plt Count (150-450) k/uL Neutrophils # (1.3-7.7) k/uL Lymphocytes # (1.0-4.8) k/uL Monocytes # (0-1.0) k/uL ABG pH 7.34 L (7.35-7.45) ABG pCO2 46 H (35-45) mmHg ABG pO2 117 H (83-108) mmHg ABG HCO3 (21-25) mmol/L ABG Total CO2 26 H (19-24) mmol/L ABG O2 Saturation 99.2 H (94-97) % ABG Potassium (3.4-4.5) mmol/L ABG Ionized Calcium (4.5-5.3) mg/dL ABG Glucose (75-99) mg/dL ABG Lactic Acid (0.5-1.6) mmol/L Hemoglobin (13.0-17.5) gm/dL Chloride (98-107) mmol/L Carbon Dioxide (22-30) mmol/L BUN (9-20) mg/dL Glucose (74-99) mg/dL POC Glucose (mg/dL) 121 H 113 H (70-110) mg/dL Calcium (8.4-10.2) mg/dL Magnesium (1.6-2.3) mg/dL Alkaline Phosphatase (38-126) U/L Total Protein (6.3-8.2) g/dL Albumin (3.5-5.0) g/dL Arterial Blood Potassium (3.4-4.5) mmol/L Arterial Blood Glucose (75-99) mg/dL Crossmatch 04/18/24 04/18/24 04/18/24 Range/Units 05:19 05:20 05:20 WBC 12.5 H (3.8-10.6) k/uL RBC 3.73 L (4.30-5.90) m/uL Hgb 11.8 L (13.0-17.5) gm/dL Hct 34.5 L (39.0-53.0) % Plt Count 119 L (150-450) k/uL Neutrophils # 10.4 H (1.3-7.7) k/uL Lymphocytes # 0.9 L (1.0-4.8) k/uL Monocytes # (0-1.0) k/uL ABG pH (7.35-7.45) ABG pCO2 (35-45) mmHg ABG pO2 (83-108) mmHg ABG HCO3 (21-25) mmol/L ABG Total CO2 (19-24) mmol/L ABG O2 Saturation (94-97) % ABG Potassium (3.4-4.5) mmol/L ABG Ionized Calcium (4.5-5.3) mg/dL ABG Glucose (75-99) mg/dL ABG Lactic Acid (0.5-1.6) mmol/L Hemoglobin (13.0-17.5) gm/dL Chloride 112 H (98-107) mmol/L Carbon Dioxide 21 L (22-30) mmol/L BUN 22 H (9-20) mg/dL Glucose 112 H (74-99) mg/dL POC Glucose (mg/dL) 126 H (70-110) mg/dL Calcium 8.3 L (8.4-10.2) mg/dL Magnesium 2.5 H (1.6-2.3) mg/dL Alkaline Phosphatase 31 L (38-126) U/L Total Protein 5.2 L (6.3-8.2) g/dL Albumin (3.5-5.0) g/dL Arterial Blood Potassium (3.4-4.5) mmol/L Arterial Blood Glucose (75-99) mg/dL Crossmatch 04/18/24 04/18/24 04/18/24 Range/Units 05:57 07:04 08:08 WBC (3.8-10.6) k/uL RBC (4.30-5.90) m/uL Hgb (13.0-17.5) gm/dL Hct (39.0-53.0) % Plt Count (150-450) k/uL Neutrophils # (1.3-7.7) k/uL Lymphocytes # (1.0-4.8) k/uL Monocytes # (0-1.0) k/uL ABG pH (7.35-7.45) ABG pCO2 (35-45) mmHg ABG pO2 (83-108) mmHg ABG HCO3 (21-25) mmol/L ABG Total CO2 (19-24) mmol/L ABG O2 Saturation (94-97) % ABG Potassium (3.4-4.5) mmol/L ABG Ionized Calcium (4.5-5.3) mg/dL ABG Glucose (75-99) mg/dL ABG Lactic Acid (0.5-1.6) mmol/L Hemoglobin (13.0-17.5) gm/dL Chloride (98-107) mmol/L Carbon Dioxide (22-30) mmol/L BUN (9-20) mg/dL Glucose (74-99) mg/dL POC Glucose (mg/dL) 128 H 126 H 123 H (70-110) mg/dL Calcium (8.4-10.2) mg/dL Magnesium (1.6-2.3) mg/dL Alkaline Phosphatase (38-126) U/L Total Protein (6.3-8.2) g/dL Albumin (3.5-5.0) g/dL Arterial Blood Potassium (3.4-4.5) mmol/L Arterial Blood Glucose (75-99) mg/dL Crossmatch 04/18/24 04/18/24 Range/Units 08:39 09:04 WBC (3.8-10.6) k/uL RBC (4.30-5.90) m/uL Hgb (13.0-17.5) gm/dL Hct (39.0-53.0) % Plt Count (150-450) k/uL Neutrophils # (1.3-7.7) k/uL Lymphocytes # (1.0-4.8) k/uL Monocytes # (0-1.0) k/uL ABG pH (7.35-7.45) ABG pCO2 (35-45) mmHg ABG pO2 73 L (83-108) mmHg ABG HCO3 (21-25) mmol/L ABG Total CO2 26 H (19-24) mmol/L ABG O2 Saturation (94-97) % ABG Potassium (3.4-4.5) mmol/L ABG Ionized Calcium (4.5-5.3) mg/dL ABG Glucose (75-99) mg/dL ABG Lactic Acid (0.5-1.6) mmol/L Hemoglobin (13.0-17.5) gm/dL Chloride (98-107) mmol/L Carbon Dioxide (22-30) mmol/L BUN (9-20) mg/dL Glucose (74-99) mg/dL POC Glucose (mg/dL) 124 H (70-110) mg/dL Calcium (8.4-10.2) mg/dL Magnesium (1.6-2.3) mg/dL Alkaline Phosphatase (38-126) U/L Total Protein (6.3-8.2) g/dL Albumin (3.5-5.0) g/dL Arterial Blood Potassium (3.4-4.5) mmol/L Arterial Blood Glucose (75-99) mg/dL Crossmatch Assessment and Plan Assessment: Severe aortic stenosis status post aortic valve replacement Coronary artery disease with focal stenosis of left circumflex 70 to 80% s/p CABG with radial artery to obtuse marginal branch which is the second branch of left circumflex artery Hypertension Hyperlipidemia Diabetes mellitus Osteoarthritis Obstructive sleep apnea on CPAP Mild thrombocytopenia and anemia Hypertension Hyperlipidemia Diabetes mellitus Obesity with BMI of 45.6. Plan: Continue with aspirin and Plavix Continue with insulin drip Continue with normal saline Continue with insulin drip, patient at home is on Lantus 14 units at bedtime Pulmonary team consult on the case Management of vent per pulmonary team GI and DVT prophylaxis with Protonix and subcu heparin
[2024-04-18 10:04] LABS: Glucose,Whole Blood 123 mg/dL (70-110)
--- NOTE | 2024-04-18 10:34 | P.ANPRN ---
Procedure Note - Anesthesia - Invasive Line Right Central Line Time Out Performed: Yes Date of Procedure: 04/17/24 Time of Procedure: 07:42 Location of Patient: PreOp Preparation: Sterile Prep, Sterile Dressing Central Line Location: Internal Jugular Ultrasound Used: No Purpose - Visualization and Identification of Vasculature: No Image Stored and Saved: No Narrative: Invasive line placement per sterile protocol utilized.
--- NOTE | 2024-04-18 10:35 | P.ANPRN ---
Procedure Note - Anesthesia - Invasive Line Right [place] Ingrid Time Out Performed: Yes Date of Procedure: 04/17/24 Time of Procedure: 07:51 Location of Patient: PreOp Preparation: Sterile Prep, Sterile Dressing Central Line Location: Internal Jugular Ultrasound Used: No Purpose - Visualization and Identification of Vasculature: No Image Stored and Saved: No Narrative: Invasive line placement per sterile protocol utilized.
[2024-04-18 11:15] LABS: Glucose,Whole Blood 110 mg/dL (70-110)
[2024-04-18] MEDS: ATORVASTATIN 40 MG TAB PO SCH (11:19)
--- NOTE | 2024-04-18 11:56 | P.PN ---
Subjective Progress Note Date: 04/18/24 This is a 68-year-old male patient being seen in the intensive. Following cardiac surgery. The patient underwent aortic valve replacement for calcified aortic valve stenosis and the patient underwent also had single-vessel bypass surgery with left radial to second obtuse marginal branch of the circumflex. Postop, the patient was kept intubated on mechanical ventilator and the patient was transferred to the intensive care unit. Currently is on propofol running at 30 mcg/kg/min. On a mechanical ventilator, assist-control of 16, tidal volume of 500, FiO2 of 60% with a PEEP of 10. Cardiac output is 6.8 with a index of 2.9. Currently on nitroglycerin drip at 5 mcg/min. No other pressors. The pulmonary artery pressures of 48/26. The immediate blood gases showed a pH of 7.23 with a pCO2 of 64 and pO2 of 243. The patient had the appropriate ventilator changes done. Chest x-ray shows post thoracotomy changes with a mediastinal chest tube in the left lower chest tube. No evidence of pneu mothorax. No evidence of any air leak within the chest tubes. The patient has a right IJ [place]-Ingrid catheter in place. Mild pulm vascular congestion was also noted. White cell count of 18.4, hemoglobin 12.9, platelet count is 124, electrolytes are all stable, BUN is 17 with a creatinine 0.7. Afebrile. Adequate urine output. Hemodynamically stable. The cardiac rhythm is sinus. 04/18/2024, patient is being seen for a follow-up. The patient is postop day #1. Patient was extubated this morning and the patient is currently on 2 L of oxygen by nasal cannula. Awake and alert and moving all 4 extremities other than limitation. The weaning process was gradually performed that was somewhat p rolonged as the patient had a component of respiratory acidosis and he also had decreased output from mediastinal chest tube. Noted the mediastinal chest tube was produced approximately 900 cc since surgery and currently the output is in order of 10 cc an hour. The left lower chest tube was produced 10 cc an hour, and urine output is adequate in the order of 50 to 75 cc an hour. Cardiac output is at 7.2 with an index of 3.1. PA pressures are 34/18. CVP is at 9. He is currently on 2 L of oxygen by nasal cannula. Cardiac rhythm is sinus. The WBC count is at 12.5 with a hemoglobin of 11.8 and a platelet count of 119. BUN is 22 with a creatinine of 0.78. Hemodynamically stable. No other significant events overnight. Objective - Vital Signs Vital signs: Vital Signs Temp 99.7 F H 04/18/24 08:30 Pulse 66 04/18/24 11:00 Resp 13 04/18/24 11:00 BP 87/51 04/18/24 09:15 Pulse Ox 95 04/18/24 11:00 FiO2 30 04/18/24 08:13 Intake & Output 04/17/24 04/18/24 04/18/24 18:59 06:59 18:59 Intake Total 173.606 9778.799 1008.460 Output Total 1705 1255 470 Balance -1258.349 230.799 538.460 Weight 132 kg Intake: IV 200 1278 855 0.9 for pressure bag 36 108 45 ACETAMINOPHEN IV (For NPO 100 100 ) 1,000 mg In Empty Bag 1 bag @ 400 mls/hr IVPB ONCE ONE Rx#:[id number] Albumin Human 5% 250 ml 250 In Empty Bag 1 bag @ 250 mls/hr IVPB Q1HR PRN Rx#: [id number] CO/CI 160 420 110 Sodium Chloride 0.9% 1, 550 250 000 ml @ 50 mls/hr IV . Q20H [facility]Y Rx#:[id number] ceFAZolin 3 gm In Sodium 100 100 Chloride 0.9% 100 ml @ 100 mls/hr IVPB Q8HR LAURY Rx#:[id number] Intake, IV Titration 246.651 207.799 153.460 Amount ACETAMINOPHEN IV (For NPO 100 ) 1,000 mg In Empty Bag 1 bag @ 400 mls/hr IVPB ONCE STA Rx#:[id number] Dexmedetomidine/0.9% NaCl 8.102 (Pmx) 400 mcg In Empty Bag 1 bag @ Titrate IV . Q0M [facility]URY Rx#:[id number] Insulin Regular 100 unit 22.826 11.363 In Sodium Chloride 0.9% 100 ml @ Per Protocol IV .Q0M [facility]URY Rx#:[id number] Nitroglycerin-D5w Pmx 50 6.0 1.5 mg In Dextrose/Water 1 250ml.bag @ 5 MCG/MIN 1.5 mls/hr IV .Q24H [facility]Y Rx#: [id number] Sodium Chloride 0.9% 1, 200 50 000 ml @ 50 mls/hr IV . Q20H [facility]Y Rx#:[id number] propofoL 1,000 mg In 40.651 133.473 33.995 Empty Bag 1 bag @ Titrate IV .Q0M LAURY Rx#: [id number] Output: Chest Tube Drainage 510 525 120 Chest Tube Mediastinal 430 440 100 Pleural Catheter Left 80 85 20 Drainage 10 Left Arm 10 Urine 745 730 340 Estimated Blood Loss 450 Other: Voiding Method Indwelling Catheter Indwelling Catheter Indwelling Catheter ABP, PAP, CO, CI - Last Documented Arterial Blood Pressure 105/44 Pulmonary Artery Pressure 36/14 Cardiac Output 8.3 Cardiac Index 3.5 - Exam Calm and comfortable, extubated to nasal cannula Head exam was generally normal. There was no scleral icterus or corneal arcus. Mucous membranes were moist. Neck was supple and without jugular venous distension, thyromegaly, or carotid bruits. Carotids were easily palpable bilaterally. There was no adenopathy. The patient has a right IJ cordis and [place]-Ingrid catheter in place. Orogastric and orotracheal tube are both in place. Lungs were clear to auscultation and percussion, and with normal diaphragmatic excursion. No wheezes or rales were noted. Thoracotomy scar over the anterior chest area. The patient is a mediastinal and left lower chest tube. Output is minimal at this point in time and there is no evidence of any air leak. Cardiac exam revealed the PMI to be normally situated and sized. The rhythm was regular and no extrasystoles were noted during several minutes of auscultation. The first and second heart sounds were normal and physiologic splitting of the second heart sound was noted. There were no murmurs, rubs, clicks, or gallops. Abdominal exam revealed normal bowel sounds. The abdomen was soft, non-tender, and without masses, organomegaly, or appreciable enlargement of the abdominal aorta. Examination of the extremities revealed easily palpable radial, femoral and pedal pulses. There was no cyanosis, clubbing or edema. Examination of the skin revealed no evidence of significant rashes, suspicious appearing nevi or other concerning lesions. Neurologically, neurologically, the patient is awake and alert and the patient does not have any focal neurological deficit. Cranial nerves are essentially intact. - Labs CBC & Chem 7: 04/18/24 05:20 04/18/24 05:20 Labs: Abnormal Lab Results - Last 24 Hours (Table) 04/13/24 04/17/24 04/17/24 Range/Units 10:41 08:35 10:22 WBC (3.8-10.6) k/uL RBC (4.30-5.90) m/uL Hgb (13.0-17.5) gm/dL Hct (39.0-53.0) % Plt Count (150-450) k/uL Neutrophils # (1.3-7.7) k/uL Lymphocytes # (1.0-4.8) k/uL Monocytes # (0-1.0) k/uL ABG pH 7.33 L 7.34 L (7.35-7.45) ABG pCO2 55 H 52 H (35-45) mmHg ABG pO2 112 H 199 H (83-108) mmHg ABG HCO3 29 H 28 H (21-25) mmol/L ABG Total CO2 26 H 25 H (19-24) mmol/L ABG O2 Saturation (94-97) % ABG Potassium (3.4-4.5) mmol/L ABG Ionized Calcium (4.5-5.3) mg/dL ABG Glucose 129 H 121 H (75-99) mg/dL ABG Lactic Acid (0.5-1.6) mmol/L Hemoglobin (13.0-17.5) gm/dL Chloride (98-107) mmol/L Carbon Dioxide (22-30) mmol/L BUN (9-20) mg/dL Glucose (74-99) mg/dL POC Glucose (mg/dL) (70-110) mg/dL Calcium (8.4-10.2) mg/dL Magnesium (1.6-2.3) mg/dL Alkaline Phosphatase (38-126) U/L Total Protein (6.3-8.2) g/dL Albumin (3.5-5.0) g/dL Arterial Blood Potassium (3.4-4.5) mmol/L Arterial Blood Glucose 129 H 121 H (75-99) mg/dL Crossmatch See Detail 04/17/24 04/17/24 04/17/24 Range/Units 11:00 11:27 12:03 WBC (3.8-10.6) k/uL RBC (4.30-5.90) m/uL Hgb (13.0-17.5) gm/dL Hct (39.0-53.0) % Plt Count (150-450) k/uL Neutrophils # (1.3-7.7) k/uL Lymphocytes # (1.0-4.8) k/uL Monocytes # (0-1.0) k/uL ABG pH (7.35-7.45) ABG pCO2 (35-45) mmHg ABG pO2 >420 H >420 H >420 H (83-108) mmHg ABG HCO3 27 H 28 H 26 H (21-25) mmol/L ABG Total CO2 26 H (19-24) mmol/L ABG O2 Saturation (94-97) % ABG Potassium 4.8 H (3.4-4.5) mmol/L ABG Ionized Calcium 4.3 L (4.5-5.3) mg/dL ABG Glucose 113 H 124 H 159 H (75-99) mg/dL ABG Lactic Acid (0.5-1.6) mmol/L Hemoglobin 11.9 L 12.5 L 12.8 L (13.0-17.5) gm/dL Chloride (98-107) mmol/L Carbon Dioxide (22-30) mmol/L BUN (9-20) mg/dL Glucose (74-99) mg/dL POC Glucose (mg/dL) (70-110) mg/dL Calcium (8.4-10.2) mg/dL Magnesium (1.6-2.3) mg/dL Alkaline Phosphatase (38-126) U/L Total Protein (6.3-8.2) g/dL Albumin (3.5-5.0) g/dL Arterial Blood Potassium 4.8 H (3.4-4.5) mmol/L Arterial Blood Glucose 113 H 124 H 159 H (75-99) mg/dL Crossmatch 04/17/24 04/17/24 04/17/24 Range/Units 12:25 14:00 14:00 WBC 14.4 H (3.8-10.6) k/uL RBC (4.30-5.90) m/uL Hgb (13.0-17.5) gm/dL Hct (39.0-53.0) % Plt Count 118 L (150-450) k/uL Neutrophils # 12.2 H (1.3-7.7) k/uL Lymphocytes # (1.0-4.8) k/uL Monocytes # (0-1.0) k/uL ABG pH (7.35-7.45) ABG pCO2 (35-45) mmHg ABG pO2 >420 H (83-108) mmHg ABG HCO3 (21-25) mmol/L ABG Total CO2 (19-24) mmol/L ABG O2 Saturation (94-97) % ABG Potassium (3.4-4.5) mmol/L ABG Ionized Calcium (4.5-5.3) mg/dL ABG Glucose 153 H (75-99) mg/dL ABG Lactic Acid 2.4 H* (0.5-1.6) mmol/L Hemoglobin 12.2 L (13.0-17.5) gm/dL Chloride 113 H (98-107) mmol/L Carbon Dioxide (22-30) mmol/L BUN (9-20) mg/dL Glucose 105 H (74-99) mg/dL POC Glucose (mg/dL) (70-110) mg/dL Calcium (8.4-10.2) mg/dL Magnesium 2.9 H (1.6-2.3) mg/dL Alkaline Phosphatase 30 L (38-126) U/L Total Protein 5.1 L (6.3-8.2) g/dL Albumin 3.2 L (3.5-5.0) g/dL Arterial Blood Potassium (3.4-4.5) mmol/L Arterial Blood Glucose 153 H (75-99) mg/dL Crossmatch 04/17/24 04/17/24 04/17/24 Range/Units 14:58 14:59 15:56 WBC (3.8-10.6) k/uL RBC (4.30-5.90) m/uL Hgb (13.0-17.5) gm/dL Hct (39.0-53.0) % Plt Count (150-450) k/uL Neutrophils # (1.3-7.7) k/uL Lymphocytes # (1.0-4.8) k/uL Monocytes # (0-1.0) k/uL ABG pH 7.23 L (7.35-7.45) ABG pCO2 64 H (35-45) mmHg ABG pO2 243 H (83-108) mmHg ABG HCO3 27 H (21-25) mmol/L ABG Total CO2 29 H (19-24) mmol/L ABG O2 Saturation 100.1 H (94-97) % ABG Potassium (3.4-4.5) mmol/L ABG Ionized Calcium (4.5-5.3) mg/dL ABG Glucose (75-99) mg/dL ABG Lactic Acid (0.5-1.6) mmol/L Hemoglobin (13.0-17.5) gm/dL Chloride (98-107) mmol/L Carbon Dioxide (22-30) mmol/L BUN (9-20) mg/dL Glucose (74-99) mg/dL POC Glucose (mg/dL) 115 H 133 H (70-110) mg/dL Calcium (8.4-10.2) mg/dL Magnesium (1.6-2.3) mg/dL Alkaline Phosphatase (38-126) U/L Total Protein (6.3-8.2) g/dL Albumin (3.5-5.0) g/dL Arterial Blood Potassium (3.4-4.5) mmol/L Arterial Blood Glucose (75-99) mg/dL Crossmatch 04/17/24 04/17/24 04/17/24 Range/Units 17:16 17:17 17:52 WBC 18.4 H (3.8-10.6) k/uL RBC 4.17 L (4.30-5.90) m/uL Hgb 12.9 L (13.0-17.5) gm/dL Hct 38.3 L (39.0-53.0) % Plt Count 124 L (150-450) k/uL Neutrophils # 15.5 H (1.3-7.7) k/uL Lymphocytes # (1.0-4.8) k/uL Monocytes # 1.4 H (0-1.0) k/uL ABG pH 7.30 L (7.35-7.45) ABG pCO2 52 H (35-45) mmHg ABG pO2 64 L (83-108) mmHg ABG HCO3 (21-25) mmol/L ABG Total CO2 27 H (19-24) mmol/L ABG O2 Saturation 92.0 L (94-97) % ABG Potassium (3.4-4.5) mmol/L ABG Ionized Calcium (4.5-5.3) mg/dL ABG Glucose (75-99) mg/dL ABG Lactic Acid (0.5-1.6) mmol/L Hemoglobin (13.0-17.5) gm/dL Chloride (98-107) mmol/L Carbon Dioxide (22-30) mmol/L BUN (9-20) mg/dL Glucose (74-99) mg/dL POC Glucose (mg/dL) 125 H (70-110) mg/dL Calcium (8.4-10.2) mg/dL Magnesium (1.6-2.3) mg/dL Alkaline Phosphatase (38-126) U/L Total Protein (6.3-8.2) g/dL Albumin (3.5-5.0) g/dL Arterial Blood Potassium (3.4-4.5) mmol/L Arterial Blood Glucose (75-99) mg/dL Crossmatch 04/17/24 04/17/24 04/17/24 Range/Units 18:05 18:54 19:57 WBC (3.8-10.6) k/uL RBC (4.30-5.90) m/uL Hgb (13.0-17.5) gm/dL Hct (39.0-53.0) % Plt Count (150-450) k/uL Neutrophils # (1.3-7.7) k/uL Lymphocytes # (1.0-4.8) k/uL Monocytes # (0-1.0) k/uL ABG pH (7.35-7.45) ABG pCO2 (35-45) mmHg ABG pO2 (83-108) mmHg ABG HCO3 (21-25) mmol/L ABG Total CO2 (19-24) mmol/L ABG O2 Saturation (94-97) % ABG Potassium (3.4-4.5) mmol/L ABG Ionized Calcium (4.5-5.3) mg/dL ABG Glucose (75-99) mg/dL ABG Lactic Acid (0.5-1.6) mmol/L Hemoglobin (13.0-17.5) gm/dL Chloride (98-107) mmol/L Carbon Dioxide (22-30) mmol/L BUN (9-20) mg/dL Glucose (74-99) mg/dL POC Glucose (mg/dL) 132 H 131 H 135 H (70-110) mg/dL Calcium (8.4-10.2) mg/dL Magnesium (1.6-2.3) mg/dL Alkaline Phosphatase (38-126) U/L Total Protein (6.3-8.2) g/dL Albumin (3.5-5.0) g/dL Arterial Blood Potassium (3.4-4.5) mmol/L Arterial Blood Glucose (75-99) mg/dL Crossmatch 04/17/24 04/17/24 04/17/24 Range/Units 20:15 20:55 21:10 WBC 12.9 H (3.8-10.6) k/uL RBC 3.96 L (4.30-5.90) m/uL Hgb 11.8 L (13.0-17.5) gm/dL Hct 36.9 L (39.0-53.0) % Plt Count 109 L (150-450) k/uL Neutrophils # 11.4 H (1.3-7.7) k/uL Lymphocytes # 0.6 L (1.0-4.8) k/uL Monocytes # (0-1.0) k/uL ABG pH 7.32 L (7.35-7.45) ABG pCO2 48 H (35-45) mmHg ABG pO2 81 L (83-108) mmHg ABG HCO3 (21-25) mmol/L ABG Total CO2 26 H (19-24) mmol/L ABG O2 Saturation (94-97) % ABG Potassium (3.4-4.5) mmol/L ABG Ionized Calcium (4.5-5.3) mg/dL ABG Glucose (75-99) mg/dL ABG Lactic Acid (0.5-1.6) mmol/L Hemoglobin (13.0-17.5) gm/dL Chloride (98-107) mmol/L Carbon Dioxide (22-30) mmol/L BUN (9-20) mg/dL Glucose (74-99) mg/dL POC Glucose (mg/dL) 137 H (70-110) mg/dL Calcium (8.4-10.2) mg/dL Magnesium (1.6-2.3) mg/dL Alkaline Phosphatase (38-126) U/L Total Protein (6.3-8.2) g/dL Albumin (3.5-5.0) g/dL Arterial Blood Potassium (3.4-4.5) mmol/L Arterial Blood Glucose (75-99) mg/dL Crossmatch 04/17/24 04/17/24 04/17/24 Range/Units 22:05 22:24 23:05 WBC (3.8-10.6) k/uL RBC (4.30-5.90) m/uL Hgb (13.0-17.5) gm/dL Hct (39.0-53.0) % Plt Count (150-450) k/uL Neutrophils # (1.3-7.7) k/uL Lymphocytes # (1.0-4.8) k/uL Monocytes # (0-1.0) k/uL ABG pH 7.33 L (7.35-7.45) ABG pCO2 46 H (35-45) mmHg ABG pO2 (83-108) mmHg ABG HCO3 (21-25) mmol/L ABG Total CO2 26 H (19-24) mmol/L ABG O2 Saturation 97.9 H (94-97) % ABG Potassium (3.4-4.5) mmol/L ABG Ionized Calcium (4.5-5.3) mg/dL ABG Glucose (75-99) mg/dL ABG Lactic Acid (0.5-1.6) mmol/L Hemoglobin (13.0-17.5) gm/dL Chloride (98-107) mmol/L Carbon Dioxide (22-30) mmol/L BUN (9-20) mg/dL Glucose (74-99) mg/dL POC Glucose (mg/dL) 145 H 150 H (70-110) mg/dL Calcium (8.4-10.2) mg/dL Magnesium (1.6-2.3) mg/dL Alkaline Phosphatase (38-126) U/L Total Protein (6.3-8.2) g/dL Albumin (3.5-5.0) g/dL Arterial Blood Potassium (3.4-4.5) mmol/L Arterial Blood Glucose (75-99) mg/dL Crossmatch 04/18/24 04/18/24 04/18/24 Range/Units 00:01 01:08 02:01 WBC (3.8-10.6) k/uL RBC (4.30-5.90) m/uL Hgb (13.0-17.5) gm/dL Hct (39.0-53.0) % Plt Count (150-450) k/uL Neutrophils # (1.3-7.7) k/uL Lymphocytes # (1.0-4.8) k/uL Monocytes # (0-1.0) k/uL ABG pH (7.35-7.45) ABG pCO2 (35-45) mmHg ABG pO2 (83-108) mmHg ABG HCO3 (21-25) mmol/L ABG Total CO2 (19-24) mmol/L ABG O2 Saturation (94-97) % ABG Potassium (3.4-4.5) mmol/L ABG Ionized Calcium (4.5-5.3) mg/dL ABG Glucose (75-99) mg/dL ABG Lactic Acid (0.5-1.6) mmol/L Hemoglobin (13.0-17.5) gm/dL Chloride (98-107) mmol/L Carbon Dioxide (22-30) mmol/L BUN (9-20) mg/dL Glucose (74-99) mg/dL POC Glucose (mg/dL) 144 H 137 H 129 H (70-110) mg/dL Calcium (8.4-10.2) mg/dL Magnesium (1.6-2.3) mg/dL Alkaline Phosphatase (38-126) U/L Total Protein (6.3-8.2) g/dL Albumin (3.5-5.0) g/dL Arterial Blood Potassium (3.4-4.5) mmol/L Arterial Blood Glucose (75-99) mg/dL Crossmatch 04/18/24 04/18/24 04/18/24 Range/Units 02:55 03:59 04:45 WBC (3.8-10.6) k/uL RBC (4.30-5.90) m/uL Hgb (13.0-17.5) gm/dL Hct (39.0-53.0) % Plt Count (150-450) k/uL Neutrophils # (1.3-7.7) k/uL Lymphocytes # (1.0-4.8) k/uL Monocytes # (0-1.0) k/uL ABG pH 7.34 L (7.35-7.45) ABG pCO2 46 H (35-45) mmHg ABG pO2 117 H (83-108) mmHg ABG HCO3 (21-25) mmol/L ABG Total CO2 26 H (19-24) mmol/L ABG O2 Saturation 99.2 H (94-97) % ABG Potassium (3.4-4.5) mmol/L ABG Ionized Calcium (4.5-5.3) mg/dL ABG Glucose (75-99) mg/dL ABG Lactic Acid (0.5-1.6) mmol/L Hemoglobin (13.0-17.5) gm/dL Chloride (98-107) mmol/L Carbon Dioxide (22-30) mmol/L BUN (9-20) mg/dL Glucose (74-99) mg/dL POC Glucose (mg/dL) 121 H 113 H (70-110) mg/dL Calcium (8.4-10.2) mg/dL Magnesium (1.6-2.3) mg/dL Alkaline Phosphatase (38-126) U/L Total Protein (6.3-8.2) g/dL Albumin (3.5-5.0) g/dL Arterial Blood Potassium (3.4-4.5) mmol/L Arterial Blood Glucose (75-99) mg/dL Crossmatch 04/18/24 04/18/24 04/18/24 Range/Units 05:19 05:20 05:20 WBC 12.5 H (3.8-10.6) k/uL RBC 3.73 L (4.30-5.90) m/uL Hgb 11.8 L (13.0-17.5) gm/dL Hct 34.5 L (39.0-53.0) % Plt Count 119 L (150-450) k/uL Neutrophils # 10.4 H (1.3-7.7) k/uL Lymphocytes # 0.9 L (1.0-4.8) k/uL Monocytes # (0-1.0) k/uL ABG pH (7.35-7.45) ABG pCO2 (35-45) mmHg ABG pO2 (83-108) mmHg ABG HCO3 (21-25) mmol/L ABG Total CO2 (19-24) mmol/L ABG O2 Saturation (94-97) % ABG Potassium (3.4-4.5) mmol/L ABG Ionized Calcium (4.5-5.3) mg/dL ABG Glucose (75-99) mg/dL ABG Lactic Acid (0.5-1.6) mmol/L Hemoglobin (13.0-17.5) gm/dL Chloride 112 H (98-107) mmol/L Carbon Dioxide 21 L (22-30) mmol/L BUN 22 H (9-20) mg/dL Glucose 112 H (74-99) mg/dL POC Glucose (mg/dL) 126 H (70-110) mg/dL Calcium 8.3 L (8.4-10.2) mg/dL Magnesium 2.5 H (1.6-2.3) mg/dL Alkaline Phosphatase 31 L (38-126) U/L Total Protein 5.2 L (6.3-8.2) g/dL Albumin (3.5-5.0) g/dL Arterial Blood Potassium (3.4-4.5) mmol/L Arterial Blood Glucose (75-99) mg/dL Crossmatch 04/18/24 04/18/24 04/18/24 Range/Units 05:57 07:04 08:08 WBC (3.8-10.6) k/uL RBC (4.30-5.90) m/uL Hgb (13.0-17.5) gm/dL Hct (39.0-53.0) % Plt Count (150-450) k/uL Neutrophils # (1.3-7.7) k/uL Lymphocytes # (1.0-4.8) k/uL Monocytes # (0-1.0) k/uL ABG pH (7.35-7.45) ABG pCO2 (35-45) mmHg ABG pO2 (83-108) mmHg ABG HCO3 (21-25) mmol/L ABG Total CO2 (19-24) mmol/L ABG O2 Saturation (94-97) % ABG Potassium (3.4-4.5) mmol/L ABG Ionized Calcium (4.5-5.3) mg/dL ABG Glucose (75-99) mg/dL ABG Lactic Acid (0.5-1.6) mmol/L Hemoglobin (13.0-17.5) gm/dL Chloride (98-107) mmol/L Carbon Dioxide (22-30) mmol/L BUN (9-20) mg/dL Glucose (74-99) mg/dL POC Glucose (mg/dL) 128 H 126 H 123 H (70-110) mg/dL Calcium (8.4-10.2) mg/dL Magnesium (1.6-2.3) mg/dL Alkaline Phosphatase (38-126) U/L Total Protein (6.3-8.2) g/dL Albumin (3.5-5.0) g/dL Arterial Blood Potassium (3.4-4.5) mmol/L Arterial Blood Glucose (75-99) mg/dL Crossmatch 04/18/24 04/18/24 04/18/24 Range/Units 08:39 09:04 10:02 WBC (3.8-10.6) k/uL RBC (4.30-5.90) m/uL Hgb (13.0-17.5) gm/dL Hct (39.0-53.0) % Plt Count (150-450) k/uL Neutrophils # (1.3-7.7) k/uL Lymphocytes # (1.0-4.8) k/uL Monocytes # (0-1.0) k/uL ABG pH (7.35-7.45) ABG pCO2 (35-45) mmHg ABG pO2 73 L (83-108) mmHg ABG HCO3 (21-25) mmol/L ABG Total CO2 26 H (19-24) mmol/L ABG O2 Saturation (94-97) % ABG Potassium (3.4-4.5) mmol/L ABG Ionized Calcium (4.5-5.3) mg/dL ABG Glucose (75-99) mg/dL ABG Lactic Acid (0.5-1.6) mmol/L Hemoglobin (13.0-17.5) gm/dL Chloride (98-107) mmol/L Carbon Dioxide (22-30) mmol/L BUN (9-20) mg/dL Glucose (74-99) mg/dL POC Glucose (mg/dL) 124 H 123 H (70-110) mg/dL Calcium (8.4-10.2) mg/dL Magnesium (1.6-2.3) mg/dL Alkaline Phosphatase (38-126) U/L Total Protein (6.3-8.2) g/dL Albumin (3.5-5.0) g/dL Arterial Blood Potassium (3.4-4.5) mmol/L Arterial Blood Glucose (75-99) mg/dL Crossmatch Assessment and Plan Plan: Aortic valve disease, single-vessel bypass surgery, postop day #1, cardiac rhythm is sinus, hemodynamically stable, hemodynamic parameters are adequate with adequate cardiac output and index. Patient is on no pressors at this point in time. No active issues. Postthoracotomy, extubated to nasal cannula and the patient has a mediastinal and left lower chest tube in place. Mediastinal chest tube output has slowed down over the past few hours. Hemodynamically stable. Currently on 2 L of oxygen by nasal cannula. Severe aortic stenosis, valve area 0.69 cm, peak/mean gradient 94/63 mmHg, and peak velocity 4.86 m/s Mild mitral valve regurgitation and moderate stenosis with valve area 1.4 cm, peak/mean gradient 8/4 mmHg, and moderate MAC Hypertension Hyperlipidemia Diabetes Obstructive sleep apnea with home CPAP use Previous tobacco dependence Severe obstructive lung disease, FEV1 48% of predicted Plan Extubated this morning to 2 L of oxygen by nasal cannula. Hemodynamically stable Monitor output from the chest tubes Monitor hemodynamic parameters [place] catheter may possibly come out today. Chest x-ray was noted. Cardiac rhythm sinus Will continue to follow.
[2024-04-18 12:02] LABS: Glucose,Whole Blood 124 mg/dL (70-110)
[2024-04-18] MEDS: CHOLECALCIFEROL 125 MCG (5000 IU) TABLET PO SCH (12:03)
[2024-04-18] MEDS: ZINC SULFATE 220 MG CAP PO SCH (12:04)
[2024-04-18 13:15] LABS: Glucose,Whole Blood 127 mg/dL (70-110)
[2024-04-18 14:06] LABS: Glucose,Whole Blood 124 mg/dL (70-110)
--- NOTE | 2024-04-18 14:52 | P.PN ---
Subjective Progress Note Date: 04/18/24 Principal diagnosis: Calcific aortic stenosis, coronary artery disease. Past medical history significant for hypertension, hyperlipidemia, diabetes mellitus type 2, severe chronic obstructive lung disease with a preoperative FEV1 48% of predicted value, obstructive sleep apnea with home CPAP use and previous tobacco dependence. POD #1 Aortic valve replacement with 27 mm Barger Inspiris bovine pericardial valve, CABG x 1 with left radial artery to second obtuse marginal branch of the circumflex coronary artery, occlusion of the left atrial appendage with 40 mm AtriCure clip, wedge resection blebs left upper lobe. Postoperative acute blood loss anemia, expected given cardiopulmonary bypass and hemodilution. The patient was seen and examined in follow-up today April 18, 2024 at his bedside in the intensive care unit. He currently remains sedated on propofol drip, rem ains intubated with mechanical ventilator support, opens eyes easily with verbal stimuli and is following verbal commands moving all 4 extremities appropriately. Current mechanical ventilator settings are as follows assist-control rate 26, TV 500, FiO2 30% and a PEEP of 10. Oxygen saturations 98% on current mechanical ventilator settings. Bedside telemetry is showing normal sinus rhythm heart r ate 75 bpm. Right IJ cordis and Goltry-Ingrid catheter remains in place with current hemodynamics showing a cardiac output of 6.7, cardiac index 2.9, PA pressures 37/28 and a CVP 13 mmHg. Nitroglycerin drip remains infusing at 5 mcg/min. Mediastinal and left pleural chest tubes remain in place to low continuous wall suction -20 cm H2O. Intermittent air leak is present to his mediastinal chest tube. Mediastinal chest tube drained 190 mL of thin serosanguineous drainage in the last 8 hours and 850 mL since surgery. Left pleural chest tube drained 30 mL of thin serosanguineous drainage in the last 8 hours and 160 mL output since surgery. Laboratory and chest x-ray results reviewed. Objective - Vital Signs Vital signs: Vital Signs Temp 99.3 F 04/18/24 04:00 Pulse 86 04/18/24 07:54 Resp 26 H 04/18/24 07:00 BP 105/54 04/18/24 06:00 Pulse Ox 98 04/18/24 07:00 FiO2 30 04/18/24 07:23 Intake & Output 04/17/24 04/18/24 04/18/24 18:59 06:59 18:59 Intake Total 039.766 8414.799 118.493 Output Total 1705 1255 107 Balance -1258.349 230.799 11.493 Weight 132 kg Intake: IV 200 1278 89 0.9 for pressure bag 36 108 9 ACETAMINOPHEN IV (For NPO 100 ) 1,000 mg In Empty Bag 1 bag @ 400 mls/hr IVPB ONCE ONE Rx#:[id number] CO/CI 160 420 30 Sodium Chloride 0.9% 1, 550 50 000 ml @ 50 mls/hr IV . Q20H LAURY Rx#:[id number] ceFAZolin 3 gm In Sodium 100 Chloride 0.9% 100 ml @ 100 mls/hr IVPB Q8HR LAURY Rx#:[id number] Intake, IV Titration 246.651 207.799 29.493 Amount Insulin Regular 100 unit 22.826 In Sodium Chloride 0.9% 100 ml @ Per Protocol IV .Q0M LAURY Rx#:[id number] Nitroglycerin-D5w Pmx 50 6.0 1.5 mg In Dextrose/Water 1 250ml.bag @ 5 MCG/MIN 1.5 mls/hr IV .Q24H LAURY Rx#: [id number] Sodium Chloride 0.9% 1, 200 50 000 ml @ 50 mls/hr IV . Q20H LAURY Rx#:[id number] propofoL 1,000 mg In 40.651 133.473 29.493 Empty Bag 1 bag @ Titrate IV .Q0M LAURY Rx#: [id number] Output: Chest Tube Drainage 510 525 22 Chest Tube Mediastinal 430 440 20 Pleural Catheter Left 80 85 2 Drainage 10 Left Arm 10 Urine 745 730 75 Estimated Blood Loss 450 Other: Voiding Method Indwelling Catheter Indwelling Catheter ABP, PAP, CO, CI - Last Documented Arterial Blood Pressure 93/46 Pulmonary Artery Pressure 34/24 Cardiac Output 6.7 Cardiac Index 2.9 - Exam CONSTITUTIONAL: Remains sedated on propofol drip and intubated with mechanical ventilator support, appears comfortable, cooperative, no apparent acute distress. HEENT: Neck is supple, no JVD, no lymphadenopathy. Right IJ Cordis and Goltry- Ingrid catheter in place and functioning. RESPIRATORY: Lungs sounds essentially clear throughout, diminished to his bilateral bases. Respirations are symmetrical and nonlabored with mechanical ventilator support. Currently on assist control mode rate 26, TV 500, FiO2 30% and a PEEP of 10, oxygen saturations 98% on current mechanical ventilator settings. Strong cough. CARDIOVASCULAR: Regular rhythm and rate. S1 and S2 present, negative for S3, gallop or murmur. Sternum is stable. Bedside telemetry showing normal sinus rhythm heart rate 75 bpm. Palpable peripheral pulses bilaterally, +1 edema to his bilateral lower extremities. No calf pain or tenderness noted. Heart hugger in place with patient demonstrating appropriate use. Knee-high STACEY hose and sequential compression devices in place to his bilateral lower extremities. GASTROINTESTINAL: Abdomen soft, nontender, nondistended. Hypoactive bowel sounds present 4 quadrants. Tolerating diet. Passing flatus. No guarding or rigidity. GENITOURINARY: Paiz present draining clear, yellow urine. Urine output 520 mL in the last 8 hours. INTEGUMENTARY: Skin is warm and dry with no evidence of clubbing or cyanosis. Midline sternal incision clean dry and well approximated, covered with dry intac t dressing. Left arm radial artery harvest sites clean, dry and approximated. No drainage or redness is present. NEUROLOGIC: Unable to accurately assess at this time as the patient remains sedated on propofol drip. No focal deficits. MUSKULOSKELETAL: Able to move all extremities, strength equal bilaterally, generalized weakness. PSYCHIATRIC: Unable to accurately assess at this time as the patient remains sedated on propofol drip. INVASIVE LINES AND TUBES: Mediastinal/left pleural chest tubes present and connected to low continuous wall suction, intermittent airleak present to mediastinal chest tube. Mediastinal tube with 190 mL of thin serosanguineous drainage overnight, 850 mL output in the last 24 hours. Left pleural chest tube with 30 mL of thin serosanguineous drainage overnight, 160 mL output in the last 24 hours. Atrial and ventricular epicardial pacemaker wires present, connected to generator, VVI backup rate 50 bpm. Right internal jugular Goltry/Cordis, right radial arterial line present. Last CO 6.7, CI 2.9, PA 37/28 and CVP 13 mmHg. Left arm LAURA drain in place with scant thin serosanguineous drainage, 10 mL output in the last 8 hours. - Allied health notes Allied health notes reviewed: nursing - Labs CBC & Chem 7: 04/18/24 05:20 04/18/24 05:20 Labs: Abnormal Lab Results - Last 24 Hours (Table) 04/13/24 04/17/24 04/17/24 Range/Units 10:41 08:35 10:22 WBC (3.8-10.6) k/uL RBC (4.30-5.90) m/uL Hgb (13.0-17.5) gm/dL Hct (39.0-53.0) % Plt Count (150-450) k/uL Neutrophils # (1.3-7.7) k/uL Lymphocytes # (1.0-4.8) k/uL Monocytes # (0-1.0) k/uL ABG pH 7.33 L 7.34 L (7.35-7.45) ABG pCO2 55 H 52 H (35-45) mmHg ABG pO2 112 H 199 H (83-108) mmHg ABG HCO3 29 H 28 H (21-25) mmol/L ABG Total CO2 26 H 25 H (19-24) mmol/L ABG O2 Saturation (94-97) % ABG Potassium (3.4-4.5) mmol/L ABG Ionized Calcium (4.5-5.3) mg/dL ABG Glucose 129 H 121 H (75-99) mg/dL ABG Lactic Acid (0.5-1.6) mmol/L Hemoglobin (13.0-17.5) gm/dL Chloride (98-107) mmol/L Carbon Dioxide (22-30) mmol/L BUN (9-20) mg/dL Glucose (74-99) mg/dL POC Glucose (mg/dL) (70-110) mg/dL Calcium (8.4-10.2) mg/dL Magnesium (1.6-2.3) mg/dL Alkaline Phosphatase (38-126) U/L Total Protein (6.3-8.2) g/dL Albumin (3.5-5.0) g/dL Arterial Blood Potassium (3.4-4.5) mmol/L Arterial Blood Glucose 129 H 121 H (75-99) mg/dL Crossmatch See Detail 04/17/24 04/17/24 04/17/24 Range/Units 11:00 11:27 12:03 WBC (3.8-10.6) k/uL RBC (4.30-5.90) m/uL Hgb (13.0-17.5) gm/dL Hct (39.0-53.0) % Plt Count (150-450) k/uL Neutrophils # (1.3-7.7) k/uL Lymphocytes # (1.0-4.8) k/uL Monocytes # (0-1.0) k/uL ABG pH (7.35-7.45) ABG pCO2 (35-45) mmHg ABG pO2 >420 H >420 H >420 H (83-108) mmHg ABG HCO3 27 H 28 H 26 H (21-25) mmol/L ABG Total CO2 26 H (19-24) mmol/L ABG O2 Saturation (94-97) % ABG Potassium 4.8 H (3.4-4.5) mmol/L ABG Ionized Calcium 4.3 L (4.5-5.3) mg/dL ABG Glucose 113 H 124 H 159 H (75-99) mg/dL ABG Lactic Acid (0.5-1.6) mmol/L Hemoglobin 11.9 L 12.5 L 12.8 L (13.0-17.5) gm/dL Chloride (98-107) mmol/L Carbon Dioxide (22-30) mmol/L BUN (9-20) mg/dL Glucose (74-99) mg/dL POC Glucose (mg/dL) (70-110) mg/dL Calcium (8.4-10.2) mg/dL Magnesium (1.6-2.3) mg/dL Alkaline Phosphatase (38-126) U/L Total Protein (6.3-8.2) g/dL Albumin (3.5-5.0) g/dL Arterial Blood Potassium 4.8 H (3.4-4.5) mmol/L Arterial Blood Glucose 113 H 124 H 159 H (75-99) mg/dL Crossmatch 04/17/24 04/17/24 04/17/24 Range/Units 12:25 14:00 14:00 WBC 14.4 H (3.8-10.6) k/uL RBC (4.30-5.90) m/uL Hgb (13.0-17.5) gm/dL Hct (39.0-53.0) % Plt Count 118 L (150-450) k/uL Neutrophils # 12.2 H (1.3-7.7) k/uL Lymphocytes # (1.0-4.8) k/uL Monocytes # (0-1.0) k/uL ABG pH (7.35-7.45) ABG pCO2 (35-45) mmHg ABG pO2 >420 H (83-108) mmHg ABG HCO3 (21-25) mmol/L ABG Total CO2 (19-24) mmol/L ABG O2 Saturation (94-97) % ABG Potassium (3.4-4.5) mmol/L ABG Ionized Calcium (4.5-5.3) mg/dL ABG Glucose 153 H (75-99) mg/dL ABG Lactic Acid 2.4 H* (0.5-1.6) mmol/L Hemoglobin 12.2 L (13.0-17.5) gm/dL Chloride 113 H (98-107) mmol/L Carbon Dioxide (22-30) mmol/L BUN (9-20) mg/dL Glucose 105 H (74-99) mg/dL POC Glucose (mg/dL) (70-110) mg/dL Calcium (8.4-10.2) mg/dL Magnesium 2.9 H (1.6-2.3) mg/dL Alkaline Phosphatase 30 L (38-126) U/L Total Protein 5.1 L (6.3-8.2) g/dL Albumin 3.2 L (3.5-5.0) g/dL Arterial Blood Potassium (3.4-4.5) mmol/L Arterial Blood Glucose 153 H (75-99) mg/dL Crossmatch 04/17/24 04/17/24 04/17/24 Range/Units 14:58 14:59 15:56 WBC (3.8-10.6) k/uL RBC (4.30-5.90) m/uL Hgb (13.0-17.5) gm/dL Hct (39.0-53.0) % Plt Count (150-450) k/uL Neutrophils # (1.3-7.7) k/uL Lymphocytes # (1.0-4.8) k/uL Monocytes # (0-1.0) k/uL ABG pH 7.23 L (7.35-7.45) ABG pCO2 64 H (35-45) mmHg ABG pO2 243 H (83-108) mmHg ABG HCO3 27 H (21-25) mmol/L ABG Total CO2 29 H (19-24) mmol/L ABG O2 Saturation 100.1 H (94-97) % ABG Potassium (3.4-4.5) mmol/L ABG Ionized Calcium (4.5-5.3) mg/dL ABG Glucose (75-99) mg/dL ABG Lactic Acid (0.5-1.6) mmol/L Hemoglobin (13.0-17.5) gm/dL Chloride (98-107) mmol/L Carbon Dioxide (22-30) mmol/L BUN (9-20) mg/dL Glucose (74-99) mg/dL POC Glucose (mg/dL) 115 H 133 H (70-110) mg/dL Calcium (8.4-10.2) mg/dL Magnesium (1.6-2.3) mg/dL Alkaline Phosphatase (38-126) U/L Total Protein (6.3-8.2) g/dL Albumin (3.5-5.0) g/dL Arterial Blood Potassium (3.4-4.5) mmol/L Arterial Blood Glucose (75-99) mg/dL Crossmatch 04/17/24 04/17/24 04/17/24 Range/Units 17:16 17:17 17:52 WBC 18.4 H (3.8-10.6) k/uL RBC 4.17 L (4.30-5.90) m/uL Hgb 12.9 L (13.0-17.5) gm/dL Hct 38.3 L (39.0-53.0) % Plt Count 124 L (150-450) k/uL Neutrophils # 15.5 H (1.3-7.7) k/uL Lymphocytes # (1.0-4.8) k/uL Monocytes # 1.4 H (0-1.0) k/uL ABG pH 7.30 L (7.35-7.45) ABG pCO2 52 H (35-45) mmHg ABG pO2 64 L (83-108) mmHg ABG HCO3 (21-25) mmol/L ABG Total CO2 27 H (19-24) mmol/L ABG O2 Saturation 92.0 L (94-97) % ABG Potassium (3.4-4.5) mmol/L ABG Ionized Calcium (4.5-5.3) mg/dL ABG Glucose (75-99) mg/dL ABG Lactic Acid (0.5-1.6) mmol/L Hemoglobin (13.0-17.5) gm/dL Chloride (98-107) mmol/L Carbon Dioxide (22-30) mmol/L BUN (9-20) mg/dL Glucose (74-99) mg/dL POC Glucose (mg/dL) 125 H (70-110) mg/dL Calcium (8.4-10.2) mg/dL Magnesium (1.6-2.3) mg/dL Alkaline Phosphatase (38-126) U/L Total Protein (6.3-8.2) g/dL Albumin (3.5-5.0) g/dL Arterial Blood Potassium (3.4-4.5) mmol/L Arterial Blood Glucose (75-99) mg/dL Crossmatch 04/17/24 04/17/24 04/17/24 Range/Units 18:05 18:54 19:57 WBC (3.8-10.6) k/uL RBC (4.30-5.90) m/uL Hgb (13.0-17.5) gm/dL Hct (39.0-53.0) % Plt Count (150-450) k/uL Neutrophils # (1.3-7.7) k/uL Lymphocytes # (1.0-4.8) k/uL Monocytes # (0-1.0) k/uL ABG pH (7.35-7.45) ABG pCO2 (35-45) mmHg ABG pO2 (83-108) mmHg ABG HCO3 (21-25) mmol/L ABG Total CO2 (19-24) mmol/L ABG O2 Saturation (94-97) % ABG Potassium (3.4-4.5) mmol/L ABG Ionized Calcium (4.5-5.3) mg/dL ABG Glucose (75-99) mg/dL ABG Lactic Acid (0.5-1.6) mmol/L Hemoglobin (13.0-17.5) gm/dL Chloride (98-107) mmol/L Carbon Dioxide (22-30) mmol/L BUN (9-20) mg/dL Glucose (74-99) mg/dL POC Glucose (mg/dL) 132 H 131 H 135 H (70-110) mg/dL Calcium (8.4-10.2) mg/dL Magnesium (1.6-2.3) mg/dL Alkaline Phosphatase (38-126) U/L Total Protein (6.3-8.2) g/dL Albumin (3.5-5.0) g/dL Arterial Blood Potassium (3.4-4.5) mmol/L Arterial Blood Glucose (75-99) mg/dL Crossmatch 04/17/24 04/17/24 04/17/24 Range/Units 20:15 20:55 21:10 WBC 12.9 H (3.8-10.6) k/uL RBC 3.96 L (4.30-5.90) m/uL Hgb 11.8 L (13.0-17.5) gm/dL Hct 36.9 L (39.0-53.0) % Plt Count 109 L (150-450) k/uL Neutrophils # 11.4 H (1.3-7.7) k/uL Lymphocytes # 0.6 L (1.0-4.8) k/uL Monocytes # (0-1.0) k/uL ABG pH 7.32 L (7.35-7.45) ABG pCO2 48 H (35-45) mmHg ABG pO2 81 L (83-108) mmHg ABG HCO3 (21-25) mmol/L ABG Total CO2 26 H (19-24) mmol/L ABG O2 Saturation (94-97) % ABG Potassium (3.4-4.5) mmol/L ABG Ionized Calcium (4.5-5.3) mg/dL ABG Glucose (75-99) mg/dL ABG Lactic Acid (0.5-1.6) mmol/L Hemoglobin (13.0-17.5) gm/dL Chloride (98-107) mmol/L Carbon Dioxide (22-30) mmol/L BUN (9-20) mg/dL Glucose (74-99) mg/dL POC Glucose (mg/dL) 137 H (70-110) mg/dL Calcium (8.4-10.2) mg/dL Magnesium (1.6-2.3) mg/dL Alkaline Phosphatase (38-126) U/L Total Protein (6.3-8.2) g/dL Albumin (3.5-5.0) g/dL Arterial Blood Potassium (3.4-4.5) mmol/L Arterial Blood Glucose (75-99) mg/dL Crossmatch 04/17/24 04/17/24 04/17/24 Range/Units 22:05 22:24 23:05 WBC (3.8-10.6) k/uL RBC (4.30-5.90) m/uL Hgb (13.0-17.5) gm/dL Hct (39.0-53.0) % Plt Count (150-450) k/uL Neutrophils # (1.3-7.7) k/uL Lymphocytes # (1.0-4.8) k/uL Monocytes # (0-1.0) k/uL ABG pH 7.33 L (7.35-7.45) ABG pCO2 46 H (35-45) mmHg ABG pO2 (83-108) mmHg ABG HCO3 (21-25) mmol/L ABG Total CO2 26 H (19-24) mmol/L ABG O2 Saturation 97.9 H (94-97) % ABG Potassium (3.4-4.5) mmol/L ABG Ionized Calcium (4.5-5.3) mg/dL ABG Glucose (75-99) mg/dL ABG Lactic Acid (0.5-1.6) mmol/L Hemoglobin (13.0-17.5) gm/dL Chloride (98-107) mmol/L Carbon Dioxide (22-30) mmol/L BUN (9-20) mg/dL Glucose (74-99) mg/dL POC Glucose (mg/dL) 145 H 150 H (70-110) mg/dL Calcium (8.4-10.2) mg/dL Magnesium (1.6-2.3) mg/dL Alkaline Phosphatase (38-126) U/L Total Protein (6.3-8.2) g/dL Albumin (3.5-5.0) g/dL Arterial Blood Potassium (3.4-4.5) mmol/L Arterial Blood Glucose (75-99) mg/dL Crossmatch 04/18/24 04/18/24 04/18/24 Range/Units 00:01 01:08 02:01 WBC (3.8-10.6) k/uL RBC (4.30-5.90) m/uL Hgb (13.0-17.5) gm/dL Hct (39.0-53.0) % Plt Count (150-450) k/uL Neutrophils # (1.3-7.7) k/uL Lymphocytes # (1.0-4.8) k/uL Monocytes # (0-1.0) k/uL ABG pH (7.35-7.45) ABG pCO2 (35-45) mmHg ABG pO2 (83-108) mmHg ABG HCO3 (21-25) mmol/L ABG Total CO2 (19-24) mmol/L ABG O2 Saturation (94-97) % ABG Potassium (3.4-4.5) mmol/L ABG Ionized Calcium (4.5-5.3) mg/dL ABG Glucose (75-99) mg/dL ABG Lactic Acid (0.5-1.6) mmol/L Hemoglobin (13.0-17.5) gm/dL Chloride (98-107) mmol/L Carbon Dioxide (22-30) mmol/L BUN (9-20) mg/dL Glucose (74-99) mg/dL POC Glucose (mg/dL) 144 H 137 H 129 H (70-110) mg/dL Calcium (8.4-10.2) mg/dL Magnesium (1.6-2.3) mg/dL Alkaline Phosphatase (38-126) U/L Total Protein (6.3-8.2) g/dL Albumin (3.5-5.0) g/dL Arterial Blood Potassium (3.4-4.5) mmol/L Arterial Blood Glucose (75-99) mg/dL Crossmatch 04/18/24 04/18/24 04/18/24 Range/Units 02:55 03:59 04:45 WBC (3.8-10.6) k/uL RBC (4.30-5.90) m/uL Hgb (13.0-17.5) gm/dL Hct (39.0-53.0) % Plt Count (150-450) k/uL Neutrophils # (1.3-7.7) k/uL Lymphocytes # (1.0-4.8) k/uL Monocytes # (0-1.0) k/uL ABG pH 7.34 L (7.35-7.45) ABG pCO2 46 H (35-45) mmHg ABG pO2 117 H (83-108) mmHg ABG HCO3 (21-25) mmol/L ABG Total CO2 26 H (19-24) mmol/L ABG O2 Saturation 99.2 H (94-97) % ABG Potassium (3.4-4.5) mmol/L ABG Ionized Calcium (4.5-5.3) mg/dL ABG Glucose (75-99) mg/dL ABG Lactic Acid (0.5-1.6) mmol/L Hemoglobin (13.0-17.5) gm/dL Chloride (98-107) mmol/L Carbon Dioxide (22-30) mmol/L BUN (9-20) mg/dL Glucose (74-99) mg/dL POC Glucose (mg/dL) 121 H 113 H (70-110) mg/dL Calcium (8.4-10.2) mg/dL Magnesium (1.6-2.3) mg/dL Alkaline Phosphatase (38-126) U/L Total Protein (6.3-8.2) g/dL Albumin (3.5-5.0) g/dL Arterial Blood Potassium (3.4-4.5) mmol/L Arterial Blood Glucose (75-99) mg/dL Crossmatch 04/18/24 04/18/24 04/18/24 Range/Units 05:19 05:20 05:20 WBC 12.5 H (3.8-10.6) k/uL RBC 3.73 L (4.30-5.90) m/uL Hgb 11.8 L (13.0-17.5) gm/dL Hct 34.5 L (39.0-53.0) % Plt Count 119 L (150-450) k/uL Neutrophils # 10.4 H (1.3-7.7) k/uL Lymphocytes # 0.9 L (1.0-4.8) k/uL Monocytes # (0-1.0) k/uL ABG pH (7.35-7.45) ABG pCO2 (35-45) mmHg ABG pO2 (83-108) mmHg ABG HCO3 (21-25) mmol/L ABG Total CO2 (19-24) mmol/L ABG O2 Saturation (94-97) % ABG Potassium (3.4-4.5) mmol/L ABG Ionized Calcium (4.5-5.3) mg/dL ABG Glucose (75-99) mg/dL ABG Lactic Acid (0.5-1.6) mmol/L Hemoglobin (13.0-17.5) gm/dL Chloride 112 H (98-107) mmol/L Carbon Dioxide 21 L (22-30) mmol/L BUN 22 H (9-20) mg/dL Glucose 112 H (74-99) mg/dL POC Glucose (mg/dL) 126 H (70-110) mg/dL Calcium 8.3 L (8.4-10.2) mg/dL Magnesium 2.5 H (1.6-2.3) mg/dL Alkaline Phosphatase 31 L (38-126) U/L Total Protein 5.2 L (6.3-8.2) g/dL Albumin (3.5-5.0) g/dL Arterial Blood Potassium (3.4-4.5) mmol/L Arterial Blood Glucose (75-99) mg/dL Crossmatch 04/18/24 04/18/24 Range/Units 05:57 07:04 WBC (3.8-10.6) k/uL RBC (4.30-5.90) m/uL Hgb (13.0-17.5) gm/dL Hct (39.0-53.0) % Plt Count (150-450) k/uL Neutrophils # (1.3-7.7) k/uL Lymphocytes # (1.0-4.8) k/uL Monocytes # (0-1.0) k/uL ABG pH (7.35-7.45) ABG pCO2 (35-45) mmHg ABG pO2 (83-108) mmHg ABG HCO3 (21-25) mmol/L ABG Total CO2 (19-24) mmol/L ABG O2 Saturation (94-97) % ABG Potassium (3.4-4.5) mmol/L ABG Ionized Calcium (4.5-5.3) mg/dL ABG Glucose (75-99) mg/dL ABG Lactic Acid (0.5-1.6) mmol/L Hemoglobin (13.0-17.5) gm/dL Chloride (98-107) mmol/L Carbon Dioxide (22-30) mmol/L BUN (9-20) mg/dL Glucose (74-99) mg/dL POC Glucose (mg/dL) 128 H 126 H (70-110) mg/dL Calcium (8.4-10.2) mg/dL Magnesium (1.6-2.3) mg/dL Alkaline Phosphatase (38-126) U/L Total Protein (6.3-8.2) g/dL Albumin (3.5-5.0) g/dL Arterial Blood Potassium (3.4-4.5) mmol/L Arterial Blood Glucose (75-99) mg/dL Crossmatch - Imaging and Cardiology Chest x-ray: report reviewed, image reviewed Assessment and Plan Assessment: Calcific aortic stenosis status post aortic valve replacement with a 20 mm Barger Inspiris bovine pericardial valve Coronary artery disease, status post CABG x 1 with left radial artery to second obtuse marginal branch of the circumflex coronary artery Hypertension Hyperlipidemia, triglycerides 471, HDL 30.8 Diabetes mellitus with a preoperative hemoglobin A1c 6.9% Severe COPD with a preoperative FEV1 48% of predicted value Obstructive sleep apnea with home CPAP use Remote history of nicotine dependence Postoperative acute blood loss anemia, expected given cardiopulmonary bypass and hemodilution Plan: Continue to maximize medical therapy with aspirin, statin, Plavix and beta- amrita. Will increase metoprolol to tartrate as tolerated. Wean from mechanical ventilation and extubate when able. Mechanical ventilator recommendations per Dr. Larose. Once extubated encourage incentive spirometry use 10 times every hour while awake. Once extubated increase activity, ambulate as tolerated. PT/OT/cardiac rehab consulted. Will monitor daily labs and chest x-rays. Electrolyte replacement per protocol. GI/DVT prophylaxis. Insulin management per internal medicine, patient should remain on continuous IV insulin for 48 hours, then may transition to subcutaneous per protocol. Patient is not diabetic, preoperative hemoglobin A1c 6.9 % Pain control with current medication regimen. Once extubated remove right IJ Goltry-Ingrid catheter, keep right IJ cordis in place with continuous CVP monitoring. Keep right radial artery line in place for another 24 hours. Continue chest tubes for another 24 hours, monitor output. Continue Paiz catheter for another 24 hours, continue to monitor strict accurate intake and output. More recommendations to follow based on patient's clinical course. Time with Patient: Greater than 30
[2024-04-18 15:13] LABS: Glucose,Whole Blood 124 mg/dL (70-110)
[2024-04-18 16:11] LABS: Glucose,Whole Blood 117 mg/dL (70-110)
[2024-04-18 17:12] LABS: Glucose,Whole Blood 151 mg/dL (70-110)
[2024-04-18 18:15] LABS: Glucose,Whole Blood 198 mg/dL (70-110)
--- NOTE | 2024-04-18 19:12 | P.CRDCN ---
History of Present Illness Consult date: 04/18/24 History of present illness: HISTORY OF PRESENTING ILLNESS Patient with past medical history of hypertension, hyperlipidemia, type 2 diabetes, COPD with FEV1 48%, ERIS, previous smoker, CAD and calcific aortic stenosis. She underwent surgical aortic valve replacement on 04/17/2024 with 27 mm Barger Inspira bovine pericardial valve, CABG x 1 with left radial artery to OM 2, 40 mm atrial clip, surgical resection of left upper lung lobe bleb. Currently patient is being transferred to ICU. Patient was extubated today 2 to 3 L nasal cannula. Patient is awake and moving all 4 extremities without limitation. She has good urine output, she has chest tube in place, [place]-Ingrid catheter in place and epicardial pacing wires in place. PHYSICAL EXAMINATION Hemodynamic stable Head: Normocephalic. Eyes: Sclerae nonicteric. Neck: Brisk carotid upstroke, [place]-Ingrid catheter in place in right IJ Lungs: Very poor inspiratory effort, chest tube in place, good air entry in b ilateral upper lung love. Heart: Regular rate and rhythm, S1-S2, mild systolic murmur audible Abdomen: Soft nontender, positive bowel sounds. Extremities: 1+ pitting edema edema, Neuro: Weak and drowsy but arousable, no focal deficits. Detailed neuro exam was not performed. ASSESSMENT Severe symptomatic aortic stenosis s/p 27 mm Barger Inspira bioprosthetic valve. 04/17/2024 Single-vessel CABG, left radial to OM 2 40 mm atrial clip ligation Left upper lung lobe bleb resection Hypertension Dyslipidemia Type 2 diabetes COPD ERIS on home CPAP PLAN Continue aspirin 325 mg, Plavix 75 mg, Lipitor 40 mg, metoprolol 12.5 mg twice daily Lasix as needed Currently on insulin drip Continue to monitor hemodynamic parameters Continue to monitor telemetry [place]-Ingrid catheter readings shows appropriate pulmonary artery pressures. Chester Lewis MD, FACC, RPVI Thank you for allowing [facility] to participate in this patient's care. Feel free to reach out in case of any followup questions. Past Medical History Past Medical History: Cancer, Diabetes Mellitus, Hearing Disorder / Deafness, Hyperlipidemia, Hypertension, Osteoarthritis (OA), Pneumonia, Sleep Apnea/CPAP/BIPAP Additional Past Medical History / Comment(s): SOB recently. 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 Varicose veins. Hx colon polyps. Hx cancerous cyst removed from left kidney in 2016. BIPAP use. Ears get plugged up from too much wax. History of Any Multi-Drug Resistant Organisms: None Reported Past Surgical History: Hernia Repair, Joint Replacement, Tonsillectomy Additional Past Surgical History / Comment(s): Cancerous cyst removed from left kidney, LAPAROSCOPIC EXAM, bilateral knee replacements, bilateral cataracts removed. Past Anesthesia/Blood Transfusion Reactions: Previous Problems w/ Anesthesia, Motion Sickness Additional Past Anesthesia/Blood Transfusion Reaction / Comment(s): "PATIENT STATES HE HAD SOME TROUBLE BREATHING WHEN HE FIRST WOKE UP IN RECOVERY X1 AND STATES CANNOT BE FLAT ON HIS BACK BECAUSE OF HIS SLEEP APNEA." Smoking Status: Former smoker - Past Family History Father Family Medical History: Dementia, Hypertension Additional Family Medical History / Comment(s): FROM DEMENTIA AT AGE 79 Mother Family Medical History: Cancer Additional Family Medical History / Comment(s): from blood clot to brain" BREAST AND BLADDER CANCER. Sister(s) Family Medical History: Cancer Additional Family Medical History / Comment(s): Breast cancer. Son(s) Family Medical History: Cancer Medications and Allergies Home Medications Medication Instructions Recorded Confirmed Type Lovastatin [Mevacor] 40 mg PO DAILY 05/18/16 04/17/24 History Aspirin EC [Ecotrin Low Dose] 81 mg PO DAILY 01/05/22 04/17/24 History Insulin Glargine,Hum.rec.anlog 14 units SQ HS 01/05/22 04/17/24 History [Mehrdad Banegas] Calcium Carbonate [Calcium] 600 mg PO DAILY #0 04/05/24 04/17/24 History Cholecalciferol [Vitamin D3 (125 125 mcg PO DAILY #0 04/05/24 04/17/24 History Mcg = 5000 Iu)] Empagliflozin [Jardiance] 10 mg PO DAILY 04/05/24 04/17/24 History Lisinopril-Hctz 20-25 mg 1 tab PO DAILY 04/05/24 04/17/24 History [Zestoretic 20-25] amLODIPine BESYLATE 10 mg PO DAILY 04/05/24 04/17/24 History icosapent ethyL [Icosapent Ethyl] 2 gm PO DAILY 04/05/24 04/17/24 History Isosorbide Mononitrate ER [Imdur] 30 mg PO DAILY #90 tab 04/07/24 04/17/24 Rx Nitroglycerin Sl Tabs [Nitrostat] 0.4 mg SUBLINGUAL Q5M PRN #100 tab 04/07/24 0 04/17/24 Rx Zinc Gluconate [Zinc] 50 mg PO DAILY 04/14/24 04/17/24 History Allergies Allergy/AdvReac Type Severity Reaction Status Date / Time metformin Allergy Nausea & Verified 04/17/24 05:51 Vomiting & Diarrhea Penicillins Allergy Rash/Hives Verified 04/17/24 05:51 Physical Exam Vitals: Vital Signs Temp Pulse Resp BP Pulse Ox FiO2 04/18/24 18:00 80 12 04/18/24 17:30 81 29 H 92 L 04/18/24 17:00 81 22 92 L 04/18/24 16:30 80 26 H 04/18/24 16:04 78 04/18/24 16:00 98.0 F 71 25 H 100 04/18/24 15:59 26 H 04/18/24 15:53 78 04/18/24 15:30 71 21 94 L 04/18/24 15:00 70 20 93 L 04/18/24 14:30 71 22 94 L 04/18/24 14:00 99.5 F 72 17 96 04/18/24 13:30 68 23 93 L 04/18/24 13:00 73 20 96 04/18/24 12:30 69 22 98 04/18/24 12:00 99.3 F 70 19 98/51 98 04/18/24 11:30 68 22 04/18/24 11:00 66 13 95 04/18/24 10:30 68 21 95 04/18/24 10:00 68 22 93 L 04/18/24 09:30 70 26 H 95 04/18/24 09:15 69 21 87/51 95 04/18/24 09:00 69 21 87/51 94 L 04/18/24 08:45 72 27 H 97 04/18/24 08:30 99.7 F H 75 18 95 04/18/24 08:13 30 04/18/24 08:04 88 04/18/24 08:00 76 23 95 30 04/18/24 07:54 86 04/18/24 07:30 87 26 H 99 04/18/24 07:23 30 04/18/24 07:00 76 26 H 98 04/18/24 06:30 75 27 H 97 04/18/24 06:00 77 27 H 105/54 98 04/18/24 05:30 76 26 H 97 04/18/24 05:00 80 26 H 95 04/18/24 04:53 30 04/18/24 04:30 74 26 H 105/54 97 04/18/24 04:00 99.3 F 72 26 H 100 30 04/18/24 03:44 40 04/18/24 03:30 72 26 H 100 40 04/18/24 03:00 72 27 H 97 04/18/24 02:30 71 26 H 98 04/18/24 02:00 71 27 H 98 04/18/24 01:30 70 26 H 98 04/18/24 01:00 71 26 H 98 04/18/24 00:30 70 33 H 93/51 98 40 04/18/24 00:25 72 04/18/24 00:09 70 04/18/24 00:00 70 28 H 98 40 04/17/24 23:30 70 27 H 99 04/17/24 23:00 73 29 H 99 04/17/24 22:30 70 32 H 99 04/17/24 22:00 71 32 H 99 04/17/24 21:30 72 28 H 97 04/17/24 21:00 75 28 H 97 04/17/24 20:30 71 26 H 99 04/17/24 20:15 72 04/17/24 20:10 71 04/17/24 20:00 70 26 H 99 40 04/17/24 19:30 71 26 H 98 Intake and Output 04/18/24 04/18/24 04/18/24 06:59 14:59 22:59 Intake Total 7868.479 9108.560 208.034 Output Total 738 870 320 Balance 299.214 381.560 -111.966 Intake: IV 932 1072 197 0.9 for pressure bag 72 72 27 ACETAMINOPHEN IV (For NPO 100 100 ) 1,000 mg In Empty Bag 1 bag @ 400 mls/hr IVPB ONCE ONE Rx#:[id number] Albumin Human 5% 250 ml 250 In Empty Bag 1 bag @ 250 mls/hr IVPB Q1HR PRN Rx#: [id number] CO/CI 260 150 Sodium Chloride 0.9% 1, 400 400 170 000 ml @ 20 mls/hr IV . Q24H [facility] Rx#:[id number] ceFAZolin 3 gm In Sodium 100 100 Chloride 0.9% 100 ml @ 100 mls/hr IVPB Q8HR [facility] Rx#:[id number] Intake, IV Titration 105.214 179.560 11.034 Amount ACETAMINOPHEN IV (For NPO 100 ) 1,000 mg In Empty Bag 1 bag @ 400 mls/hr IVPB ONCE STA Rx#:[id number] Dexmedetomidine/0.9% NaCl 8.102 (Pmx) 400 mcg In Empty Bag 1 bag @ Titrate IV . Q0M [facility] Rx#:[id number] Insulin Regular 100 unit 18.786 11.363 11.034 In Sodium Chloride 0.9% 100 ml @ Per Protocol IV .Q0M [facility] Rx#:[id number] Nitroglycerin-D5w Pmx 50 26.1 mg In Dextrose/Water 1 250ml.bag @ 5 MCG/MIN 1.5 mls/hr IV .Q24H [facility] Rx#: [id number] propofoL 1,000 mg In 86.428 33.995 Empty Bag 1 bag @ Titrate IV .Q0M [facility] Rx#: [id number] Output: Chest Tube Drainage 218 290 90 Chest Tube Mediastinal 190 180 70 Pleural Catheter Left 28 110 20 Drainage 10 Left Arm 10 Urine 520 570 230 Other: Voiding Method Indwelling Catheter Indwelling Catheter Indwelling Catheter Weight 132 kg ABP, PAP, CO, CI - Last 8 Hours Arterial Blood Pressure 119/50 Arterial Blood Pressure 99/41 Arterial Blood Pressure 118/48 Arterial Blood Pressure 154/53 Arterial Blood Pressure 112/51 Arterial Blood Pressure 111/47 Arterial Blood Pressure 116/50 Arterial Blood Pressure 110/49 Arterial Blood Pressure 109/46 Arterial Blood Pressure 107/42 Arterial Blood Pressure 97/40 Arterial Blood Pressure 111/46 Arterial Blood Pressure 101/43 Arterial Blood Pressure 110/47 Pulmonary Artery Pressure 36/24 Pulmonary Artery Pressure 37/26 Pulmonary Artery Pressure 32/23 Pulmonary Artery Pressure 33/20 Pulmonary Artery Pressure 26/12 Pulmonary Artery Pressure 37/22 Pulmonary Artery Pressure 36/20 Pulmonary Artery Pressure 38/16 Cardiac Output 8.7 Cardiac Output 3.1 Cardiac Output 8.7 Cardiac Index 3.7 Cardiac Index 2.2 Cardiac Index 3.7 Results 07/02/24 05:20 04/18/24 05:20 Cardiac Enzymes 04/18/24 Range/Units 05:20 AST 36 (17-59) U/L CBC 04/17/24 04/18/24 Range/Units 20:15 05:20 WBC 12.9 H 12.5 H (3.8-10.6) k/uL RBC 3.96 L 3.73 L (4.30-5.90) m/uL Hgb 11.8 L 11.8 L (13.0-17.5) gm/dL Hct 36.9 L 34.5 L (39.0-53.0) % Plt Count 109 L 119 L (150-450) k/uL Comprehensive Metabolic Panel 04/18/24 Range/Units 05:20 Sodium 140 (137-145) mmol/L Potassium 4.4 (3.5-5.1) mmol/L Chloride 112 H (98-107) mmol/L Carbon Dioxide 21 L (22-30) mmol/L BUN 22 H (9-20) mg/dL Creatinine 0.78 (0.66-1.25) mg/dL Glucose 112 H (74-99) mg/dL Calcium 8.3 L (8.4-10.2) mg/dL AST 36 (17-59) U/L ALT 15 (4-49) U/L Alkaline Phosphatase 31 L (38-126) U/L Total Protein 5.2 L (6.3-8.2) g/dL Albumin 3.5 (3.5-5.0) g/dL Current Medications Generic Name Dose Route Start Last Admin Trade Name Freq PRN Reason Stop Dose Admin Acetaminophen 1,000 mg 04/18/24 04:00 Acetaminophen Tab 500 Mg Tab PO Q6HR PRN Fever And/ Or Mild Pain (1-3) Albuterol/Ipratropium 3 ml 04/17/24 12:58 04/18/24 00:07 Ipratropium-Albuterol 3 Ml Neb INHALATION 3 ml RT-Q2H PRN Administration Shortness Of Breath Or Wheezing Albuterol/Ipratropium 3 ml 04/17/24 20:00 04/18/24 15:53 Ipratropium-Albuterol 3 Ml Neb INHALATION 3 ml RT-QID [facility]Y Administration Aspirin 325 mg 04/18/24 09:00 04/18/24 10:16 Aspirin 325 Mg Tab PO 325 mg DAILY LAURY Administration Atorvastatin Calcium 40 mg 04/18/24 09:00 04/18/24 11:19 Atorvastatin 40 Mg Tab PO 40 mg DAILY [facility]Y Administration Benzocaine/Menthol 1 each 04/17/24 12:58 Benzocaine/Menthol Lozeng 1 Each Lozenge MUCOUS MEM Q2H PRN Sore Throat Bisacodyl 10 mg 04/18/24 09:00 Bisacodyl 10 Mg Supp RECTAL DAILY PRN Constipation Calcium Carbonate/Glycine 500 mg 04/18/24 09:00 04/18/24 12:03 Calcium Carbonate 500 Mg Chewable PO Not Given DAILY [facility] Chlorhexidine Gluconate 15 ml 04/17/24 21:00 04/18/24 09:06 Chlorhexidine Gluconate 15 Ml Cup MUCOUS MEM Not Given BID [facility] Cholecalciferol 125 mcg 04/18/24 09:00 04/18/24 12:03 Cholecalciferol 125 Mcg (5000 Iu) Tablet PO Not Given DAILY [facility] Clopidogrel Bisulfate 75 mg 04/18/24 09:00 04/18/24 08:25 Clopidogrel 75 Mg Tab PO 75 mg DAILY [facility]Y Administration Dextrose/Water 25 ml 04/17/24 12:58 Dextrose 50% Syringe 50 Ml IVP PER PROTOCOL PRN Hypoglycemia Protocol Dextrose/Water 50 ml 04/17/24 12:58 Dextrose 50% Syringe 50 Ml IVP PER PROTOCOL PRN Hypoglycemia Protocol Heparin Sodium (Porcine) 5,000 unit 04/17/24 16:00 04/18/24 15:46 Heparin Sodium,Porcine 5,000 Unit/Ml 1 Ml Vial SQ 5,000 unit Q8HR LAURY Administration Hydralazine HCl 10 mg 04/17/24 12:58 Hydralazine Hcl 20 Mg/Ml 1 Ml Vial IVP Q1H PRN Blood Pressure - High Sodium Chloride 1,000 mls @ 20 mls/hr 04/17/24 12:58 04/18/24 10:17 Saline 0.9% IV 50 mls/hr .Q24H [facility] Administration Insulin Human Regular 100 unit 101 mls @ 0 mls/hr 04/17/24 12:58 04/18/24 18:15 / Sodium Chloride IV 5 units/hr .Q0M [facility] 5.05 mls/hr Titration Protocol Per Protocol Amiodarone HCl 150 mg/ 103 mls @ 618 mls/hr 04/17/24 12:58 Dextrose/Water IV .Q10M PRN A.FIB/FLUTTER Protocol Amiodarone HCl 360 mg/ 207.2 mls @ 34.533 mls/hr 04/17/24 12:58 Dextrose/Water IV .Q6H PRN A.FIB/FLUTTER Protocol 1 MG/MIN Amiodarone HCl 450 mg/ 250 mls @ 16.667 mls/hr 04/17/24 12:58 Dextrose/Water IV .Q15H PRN A.FIB/FLUTTER Protocol 0.5 MG/MIN Albumin Human 250 ml/ IV 250 mls @ 250 mls/hr 04/17/24 12:58 04/18/24 13:06 Solution IVPB 04/19/24 12:59 250 mls/hr Q1HR PRN Administration For Volume Protocol Calcium Gluconate/Sodium 100 mls @ 100 mls/hr 04/17/24 12:58 Chloride 2 gm/ IV Solution IVPB 04/21/24 12:59 ONCE PRN Ionized Calcium less than 4.4 Magnesium Hydroxide 2,400 mg 04/18/24 09:00 Magnesium Hydroxide 2,400 Mg/30 Ml Cup PO BID PRN Constipation Metoclopramide HCl 10 mg 04/17/24 12:58 Metoclopramide 5 Mg/Ml 2 Ml Vial IVP Q4H PRN Nausea And Vomiting Metoprolol Tartrate 12.5 mg 04/18/24 09:00 04/18/24 08:21 Metoprolol Tartrate 12.5 Mg Tab PO 12.5 mg BID LAURY Administration Miscellaneous Information 1 each 04/17/24 12:58 Potassium Replacement Protocol 1 Each Misc MISCELLANE DAILY PRN Per Protocol Protocol Miscellaneous Information 1 each 04/17/24 12:58 Magnesium Replacement Protocol 1 Each Misc MISCELLANE DAILY PRN Per Protocol Protocol Miscellaneous Information 1 each 04/17/24 12:58 Phosphorus Replacement Protoco 1 Each Misc MISCELLANE DAILY PRN Per Protocol Protocol Ondansetron HCl 4 mg 04/17/24 12:58 04/18/24 08:02 Ondansetron 4 Mg/2 Ml Vial IVP 4 mg Q6HR PRN Administration Nausea And Vomiting Oxycodone HCl 5 mg 04/18/24 00:25 04/18/24 19:04 Oxycodone Hcl 5 Mg Tab PO 5 mg Q6HR PRN Administration Moderate Pain (Scale 4 to 6) Oxycodone HCl 10 mg 04/17/24 12:58 04/17/24 17:20 Oxycodone Hcl 5 Mg Tab PO 10 mg Q4HR PRN Administration Severe Pain (Scale 7 to 10) Pantoprazole Sodium 40 mg 04/19/24 07:30 Pantoprazole 40 Mg Tablet PO AC-BRKFST [facility]UR[facility] Senna/Docusate Sodium 2 each 04/18/24 21:00 Sennosides-Docusate Sodium 1 Each Tab PO HS [facility] Sodium Chloride 10 ml 04/17/24 21:00 04/18/24 09:30 Sodium Chloride 0.9% Flush 10 Ml Syringe IV 10 ml BID [facility] Administration Zinc Sulfate 220 mg 04/18/24 09:00 04/18/24 12:04 Zinc Sulfate 220 Mg Cap PO Not Given DAILY [facility] Intake and Output 04/18/24 04/18/24 04/18/24 06:59 14:59 22:59 Intake Total 4633.477 4024.560 208.034 Output Total 738 870 320 Balance 299.214 381.560 -111.966 Intake: IV 932 1072 197 0.9 for pressure bag 72 72 27 ACETAMINOPHEN IV (For NPO 100 100 ) 1,000 mg In Empty Bag 1 bag @ 400 mls/hr IVPB ONCE ONE Rx#:[id number] Albumin Human 5% 250 ml 250 In Empty Bag 1 bag @ 250 mls/hr IVPB Q1HR PRN Rx#: [id number] CO/CI 260 150 Sodium Chloride 0.9% 1, 400 400 170 000 ml @ 20 mls/hr IV . Q24H [facility] Rx#:[id number] ceFAZolin 3 gm In Sodium 100 100 Chloride 0.9% 100 ml @ 100 mls/hr IVPB Q8HR [facility] Rx#:[id number] Intake, IV Titration 105.214 179.560 11.034 Amount ACETAMINOPHEN IV (For NPO 100 ) 1,000 mg In Empty Bag 1 bag @ 400 mls/hr IVPB ONCE STA Rx#:[id number] Dexmedetomidine/0.9% NaCl 8.102 (Pmx) 400 mcg In Empty Bag 1 bag @ Titrate IV . Q0M [facility] Rx#:[id number] Insulin Regular 100 unit 18.786 11.363 11.034 In Sodium Chloride 0.9% 100 ml @ Per Protocol IV .Q0M [facility] Rx#:[id number] Nitroglycerin-D5w Pmx 50 26.1 mg In Dextrose/Water 1 250ml.bag @ 5 MCG/MIN 1.5 mls/hr IV .Q24H [facility] Rx#: [id number] propofoL 1,000 mg In 86.428 33.995 Empty Bag 1 bag @ Titrate IV .Q0M [facility] Rx#: [id number] Output: Chest Tube Drainage 218 290 90 Chest Tube Mediastinal 190 180 70 Pleural Catheter Left 28 110 20 Drainage 10 Left Arm 10 Urine 520 570 230 Other: Voiding Method Indwelling Catheter Indwelling Catheter Indwelling Catheter Weight 132 kg 04/18/24 05:20 04/18/24 05:20
[2024-04-18 19:18] LABS: Glucose,Whole Blood 187 mg/dL (70-110)
[2024-04-18] MEDS: SENNOSIDES-DOCUSATE SODIUM 1 EACH TAB PO SCH (20:03)
[2024-04-18 20:15] LABS: Glucose,Whole Blood 158 mg/dL (70-110)
[2024-04-18 21:04] LABS: Glucose,Whole Blood 145 mg/dL (70-110)
[2024-04-18 22:22] LABS: Glucose,Whole Blood 140 mg/dL (70-110)
[2024-04-18 23:01] LABS: Glucose,Whole Blood 140 mg/dL (70-110)
[2024-04-19 00:09] LABS: Glucose,Whole Blood 127 mg/dL (70-110)
[2024-04-19 01:07] LABS: Glucose,Whole Blood 124 mg/dL (70-110)
[2024-04-19 01:59] LABS: Glucose,Whole Blood 119 mg/dL (70-110)
[2024-04-19 03:17] LABS: Glucose,Whole Blood 119 mg/dL (70-110)
[2024-04-19 04:23] LABS: Glucose,Whole Blood 113 mg/dL (70-110)
[2024-04-19 04:39] LABS: Basophils % (A) 0 %; Eosinophils % (A) 0 %; HCT 32.4 % (39.0-53.0); HGB 10.4 gm/dL (13.0-17.5); Lymphocytes # (A) 0.9 k/uL (1.0-4.8); Lymphocytes % (A) 7 %; MCH 29.9 pg (25.0-35.0); MCHC 32.1 g/dL (31.0-37.0); MCV 93.1 fL (80.0-100.0); Mean Platelet Volume 10.7; Monocytes # (A) 0.9 k/uL (0-1.0); Monocytes % (A) 7 %; Neutrophils # (A) 10.2 k/uL (1.3-7.7); Neutrophils % (A) 84 %; RBC 3.48 m/uL (4.30-5.90); RDW 14.2 % (11.5-15.5); WBC 12.2 k/uL (3.8-10.6)
[2024-04-19 05:01] LABS: Ionized Calcium 4.7 mg/dL (4.5-5.3)
[2024-04-19 05:09] LABS: ALT 14 U/L (4-49); AST 33 U/L (17-59); African American GFR (CKD) >90 (>60 ml/min/1.73 sqM); Albumin 3.2 g/dL (3.5-5.0); Alkaline Phosphatase 33 U/L (38-126); Anion Gap 4 mmol/L; Blood Urea Nitrogen 18 mg/dL (9-20); Calcium 8.3 mg/dL (8.4-10.2); Carbon Dioxide 25 mmol/L (22-30); Chloride 110 mmol/L (98-107); Glucose 101 mg/dL (74-99); Non-African American GFR(CKD) >90 (>60 ml/min/1.73 sqM); Potassium 4.2 mmol/L (3.5-5.1); Sodium 139 mmol/L (137-145); Total Bilirubin 1.1 mg/dL (0.2-1.3); Total Protein 5.1 g/dL (6.3-8.2)
[2024-04-19 05:22] LABS: Glucose,Whole Blood 124 mg/dL (70-110)
[2024-04-19 06:12] LABS: Glucose,Whole Blood 121 mg/dL (70-110)
[2024-04-19] MEDS: PANTOPRAZOLE 40 MG TABLET PO SCH (06:34)
[2024-04-19 07:09] LABS: Platelet Count 94 k/uL (150-450)
[2024-04-19 07:15] LABS: Glucose,Whole Blood 131 mg/dL (70-110)
[2024-04-19] MEDS ORDERED: HYDROcodone/APAP 5-325MG 1 EACH TAB PO PRN (07:34)
--- NOTE | 2024-04-19 08:31 | P.PN ---
Subjective Progress Note Date: 04/19/24 Principal diagnosis: Calcific aortic stenosis, coronary artery disease. Past medical history significant for hypertension, hyperlipidemia, diabetes mellitus type 2, severe chronic obstructive lung disease with a preoperative FEV1 48% of predicted value, obstructive sleep apnea with home CPAP use and previous tobacco dependence. POD #2 Aortic valve replacement with 27 mm [employer] Inspiris bovine pericardial valve, CABG x 1 with left radial artery to second obtuse marginal branch of the circumflex coronary artery, occlusion of the left atrial appendage with 40 mm AtriCure clip, wedge resection blebs left upper lobe. Postoperative acute blood loss anemia, expected given cardiopulmonary bypass and hemodilution. The patient is seen and examined in follow-up today April 19, 2024 at his bedside in the intensive care unit. He is currently sitting up to the bedside chair, is awake, alert, oriented x 3 and is in no acute apparent distress. Denies any complaints of shortness of breath at this time, he is complaining of some mild surgical type pain to his chest tube insertion sites, currently rating his pain 4 out of 10 on the pain scale. Denies any nausea or vomiting. He reports he has been up ambulating in the intensive care unit hallway with standby assistance from nursing and therapy staff and tolerating well. Oxygen saturations are 95% on 2 L nasal cannula and he is achieving 750 mL on his incentive spirometry with much encouragement. Bedside telemetry showing normal sinus rhythm heart rate 82 bpm. He remains hemodynamically stable and is currently on no inotropic or pressor support. Right IJ cordis remains in place with continuous CVP monitoring, current CVP pressure of 11 mmHg. Mediastinal and left pleural chest tubes remain in place to low continuous wall suction -20 cm H2O. Mediastinal chest tube with intermittent airleak present. Mediastinal chest tube draining thin serosanguineous drainage with 115 mL output in the last 8 hours and 460 mL output in the last 24 hours. Left pleural chest tube draining thin serosanguineous drainage with 10 mL output in the last 8 hours and 220 mL output in the last 24 hours. Laboratory and chest x-ray results reviewed. Objective - Vital Signs Vital signs: Vital Signs Temp 98.1 F 04/19/24 04:00 Pulse 78 04/19/24 06:08 Resp 21 04/19/24 06:08 BP 98/51 04/18/24 18:30 Pulse Ox 92 L 04/19/24 05:00 FiO2 21 04/19/24 00:25 Intake & Output 04/18/24 04/19/24 04/19/24 18:59 06:59 18:59 Intake Total 1459.594 582.401 Output Total 1190 1360 Balance 269.594 -777.599 Weight 133.8 kg Intake: IV 1269 552 0.9 for pressure bag 99 72 ACETAMINOPHEN IV (For NPO 100 ) 1,000 mg In Empty Bag 1 bag @ 400 mls/hr IVPB ONCE ONE Rx#:[id number] Albumin Human 5% 250 ml 250 In Empty Bag 1 bag @ 250 mls/hr IVPB Q1HR PRN Rx#: [id number] CO/CI 150 Sodium Chloride 0.9% 1, 570 480 000 ml @ 20 mls/hr IV . Q24H [facility] Rx#:[id number] ceFAZolin 3 gm In Sodium 100 Chloride 0.9% 100 ml @ 100 mls/hr IVPB Q8HR [facility] Rx#:[id number] Intake, IV Titration 190.594 30.401 Amount ACETAMINOPHEN IV (For NPO 100 ) 1,000 mg In Empty Bag 1 bag @ 400 mls/hr IVPB ONCE STA Rx#:[id number] Dexmedetomidine/0.9% NaCl 8.102 (Pmx) 400 mcg In Empty Bag 1 bag @ Titrate IV . Q0M [facility] Rx#:[id number] Insulin Regular 100 unit 22.397 30.401 In Sodium Chloride 0.9% 100 ml @ Per Protocol IV .Q0M [facility] Rx#:[id number] Nitroglycerin-D5w Pmx 50 26.1 mg In Dextrose/Water 1 250ml.bag @ 5 MCG/MIN 1.5 mls/hr IV .Q24H [facility] Rx#: [id number] propofoL 1,000 mg In 33.995 Empty Bag 1 bag @ Titrate IV .Q0M [facility] Rx#: [id number] Output: Chest Tube Drainage 380 350 Chest Tube Mediastinal 250 230 Pleural Catheter Left 130 120 Drainage 10 Left Arm 10 Urine 800 1010 Other: Voiding Method Indwelling Catheter Indwelling Catheter ABP, PAP, CO, CI - Last Documented Arterial Blood Pressure 104/47 Pulmonary Artery Pressure 36/24 Cardiac Output 8.7 Cardiac Index 3.7 - Exam CONSTITUTIONAL: Sitting up to the bedside chair in the intensive care unit, appears comfortable, cooperative, no apparent acute distress. HEENT: Neck is supple, no JVD, no lymphadenopathy. Right IJ Cordis in place and functioning. RESPIRATORY: Lungs sounds essentially clear throughout, diminished to his bilateral bases. Respirations are symmetrical and nonlabored. Currently on 2 L nasal cannula with oxygen saturations 95%. Able to achieve 750 mL on his inc entive spirometry with much encouragement. Strong cough. CARDIOVASCULAR: Regular rhythm and rate. S1 and S2 present, negative for S3, gallop or murmur. Sternum is stable. Bedside telemetry showing normal sinus rhythm heart rate 82 bpm. Palpable peripheral pulses bilaterally, +1 edema to his bilateral lower extremities. No calf pain or tenderness noted. Heart hugger in place with patient demonstrating appropriate use. Knee-high STACEY hose and sequential compression devices in place to his bilateral lower extremities. GASTROINTESTINAL: Abdomen soft, nontender, nondistended. Active bowel sounds present 4 quadrants. Tolerating diet. Passing flatus. No guarding or rigidity. GENITOURINARY: Paiz present draining clear, yellow urine. Urine output 435 mL in the last 8 hours. INTEGUMENTARY: Skin is warm and dry with no evidence of clubbing or cyanosis. Midline sternal incision clean dry and well approximated, covered with dry intact dressing. Left arm radial artery harvest sites clean, dry and approximated. No drainage or redness is present. NEUROLOGIC: Cranial nerves II through XII intact. No focal deficits. MUSKULOSKELETAL: Able to move all extremities, strength equal bilaterally, generalized weakness. PSYCHIATRIC: Alert and oriented to person place and time, appropriate affect, intact judgment and insight. INVASIVE LINES AND TUBES: Mediastinal/left pleural chest tubes present and connected to low continuous wall suction, intermittent airleak present to his m ediastinal chest tube. Mediastinal tube with 115 mL of thin serosanguineous drainage overnight, 460 mL output in the last 24 hours. Left pleural chest tube with 10 mL of thin serosanguineous drainage overnight, 220 mL output in the last 24 hours. Atrial and ventricular epicardial pacemaker wires present, connected to generator, VVI backup rate 50 bpm. Right internal jugular Cordis, right radial arterial line present. Current CVP 11 mmHg. - Allied health notes Allied health notes reviewed: nursing - Labs CBC & Chem 7: 04/19/24 04:23 04/19/24 04:23 Labs: Abnormal Lab Results - Last 24 Hours (Table) 04/13/24 04/18/24 04/18/24 Range/Units 10:41 08:08 08:39 WBC (3.8-10.6) k/uL RBC (4.30-5.90) m/uL Hgb (13.0-17.5) gm/dL Hct (39.0-53.0) % Plt Count (150-450) k/uL Neutrophils # (1.3-7.7) k/uL Lymphocytes # (1.0-4.8) k/uL ABG pO2 73 L (83-108) mmHg ABG Total CO2 26 H (19-24) mmol/L Chloride (98-107) mmol/L Creatinine (0.66-1.25) mg/dL Glucose (74-99) mg/dL POC Glucose (mg/dL) 123 H (70-110) mg/dL Calcium (8.4-10.2) mg/dL Alkaline Phosphatase (38-126) U/L Total Protein (6.3-8.2) g/dL Albumin (3.5-5.0) g/dL Crossmatch See Detail 04/18/24 04/18/24 04/18/24 Range/Units 09:04 10:02 12:00 WBC (3.8-10.6) k/uL RBC (4.30-5.90) m/uL Hgb (13.0-17.5) gm/dL Hct (39.0-53.0) % Plt Count (150-450) k/uL Neutrophils # (1.3-7.7) k/uL Lymphocytes # (1.0-4.8) k/uL ABG pO2 (83-108) mmHg ABG Total CO2 (19-24) mmol/L Chloride (98-107) mmol/L Creatinine (0.66-1.25) mg/dL Glucose (74-99) mg/dL POC Glucose (mg/dL) 124 H 123 H 124 H (70-110) mg/dL Calcium (8.4-10.2) mg/dL Alkaline Phosphatase (38-126) U/L Total Protein (6.3-8.2) g/dL Albumin (3.5-5.0) g/dL Crossmatch 04/18/24 04/18/24 04/18/24 Range/Units 13:13 14:05 15:07 WBC (3.8-10.6) k/uL RBC (4.30-5.90) m/uL Hgb (13.0-17.5) gm/dL Hct (39.0-53.0) % Plt Count (150-450) k/uL Neutrophils # (1.3-7.7) k/uL Lymphocytes # (1.0-4.8) k/uL ABG pO2 (83-108) mmHg ABG Total CO2 (19-24) mmol/L Chloride (98-107) mmol/L Creatinine (0.66-1.25) mg/dL Glucose (74-99) mg/dL POC Glucose (mg/dL) 127 H 124 H 124 H (70-110) mg/dL Calcium (8.4-10.2) mg/dL Alkaline Phosphatase (38-126) U/L Total Protein (6.3-8.2) g/dL Albumin (3.5-5.0) g/dL Crossmatch 04/18/24 04/18/24 04/18/24 Range/Units 16:09 17:10 18:13 WBC (3.8-10.6) k/uL RBC (4.30-5.90) m/uL Hgb (13.0-17.5) gm/dL Hct (39.0-53.0) % Plt Count (150-450) k/uL Neutrophils # (1.3-7.7) k/uL Lymphocytes # (1.0-4.8) k/uL ABG pO2 (83-108) mmHg ABG Total CO2 (19-24) mmol/L Chloride (98-107) mmol/L Creatinine (0.66-1.25) mg/dL Glucose (74-99) mg/dL POC Glucose (mg/dL) 117 H 151 H 198 H (70-110) mg/dL Calcium (8.4-10.2) mg/dL Alkaline Phosphatase (38-126) U/L Total Protein (6.3-8.2) g/dL Albumin (3.5-5.0) g/dL Crossmatch 04/18/24 04/18/24 04/18/24 Range/Units 19:16 20:14 21:02 WBC (3.8-10.6) k/uL RBC (4.30-5.90) m/uL Hgb (13.0-17.5) gm/dL Hct (39.0-53.0) % Plt Count (150-450) k/uL Neutrophils # (1.3-7.7) k/uL Lymphocytes # (1.0-4.8) k/uL ABG pO2 (83-108) mmHg ABG Total CO2 (19-24) mmol/L Chloride (98-107) mmol/L Creatinine (0.66-1.25) mg/dL Glucose (74-99) mg/dL POC Glucose (mg/dL) 187 H 158 H 145 H (70-110) mg/dL Calcium (8.4-10.2) mg/dL Alkaline Phosphatase (38-126) U/L Total Protein (6.3-8.2) g/dL Albumin (3.5-5.0) g/dL Crossmatch 04/18/24 04/18/24 04/18/24 Range/Units 22:11 22:59 23:57 WBC (3.8-10.6) k/uL RBC (4.30-5.90) m/uL Hgb (13.0-17.5) gm/dL Hct (39.0-53.0) % Plt Count (150-450) k/uL Neutrophils # (1.3-7.7) k/uL Lymphocytes # (1.0-4.8) k/uL ABG pO2 (83-108) mmHg ABG Total CO2 (19-24) mmol/L Chloride (98-107) mmol/L Creatinine (0.66-1.25) mg/dL Glucose (74-99) mg/dL POC Glucose (mg/dL) 140 H 140 H 127 H (70-110) mg/dL Calcium (8.4-10.2) mg/dL Alkaline Phosphatase (38-126) U/L Total Protein (6.3-8.2) g/dL Albumin (3.5-5.0) g/dL Crossmatch 04/19/24 04/19/24 04/19/24 Range/Units 01:06 01:58 03:16 WBC (3.8-10.6) k/uL RBC (4.30-5.90) m/uL Hgb (13.0-17.5) gm/dL Hct (39.0-53.0) % Plt Count (150-450) k/uL Neutrophils # (1.3-7.7) k/uL Lymphocytes # (1.0-4.8) k/uL ABG pO2 (83-108) mmHg ABG Total CO2 (19-24) mmol/L Chloride (98-107) mmol/L Creatinine (0.66-1.25) mg/dL Glucose (74-99) mg/dL POC Glucose (mg/dL) 124 H 119 H 119 H (70-110) mg/dL Calcium (8.4-10.2) mg/dL Alkaline Phosphatase (38-126) U/L Total Protein (6.3-8.2) g/dL Albumin (3.5-5.0) g/dL Crossmatch 04/19/24 04/19/24 04/19/24 Range/Units 04:21 04:23 04:23 WBC 12.2 H (3.8-10.6) k/uL RBC 3.48 L (4.30-5.90) m/uL Hgb 10.4 L (13.0-17.5) gm/dL Hct 32.4 L (39.0-53.0) % Plt Count 94 L (150-450) k/uL Neutrophils # 10.2 H (1.3-7.7) k/uL Lymphocytes # 0.9 L (1.0-4.8) k/uL ABG pO2 (83-108) mmHg ABG Total CO2 (19-24) mmol/L Chloride 110 H (98-107) mmol/L Creatinine 0.65 L (0.66-1.25) mg/dL Glucose 101 H (74-99) mg/dL POC Glucose (mg/dL) 113 H (70-110) mg/dL Calcium 8.3 L (8.4-10.2) mg/dL Alkaline Phosphatase 33 L (38-126) U/L Total Protein 5.1 L (6.3-8.2) g/dL Albumin 3.2 L (3.5-5.0) g/dL Crossmatch 04/19/24 04/19/2424 Range/Units 05:10 06:11 07:14 WBC (3.8-10.6) k/uL RBC (4.30-5.90) m/uL Hgb (13.0-17.5) gm/dL Hct (39.0-53.0) % Plt Count (150-450) k/uL Neutrophils # (1.3-7.7) k/uL Lymphocytes # (1.0-4.8) k/uL ABG pO2 (83-108) mmHg ABG Total CO2 (19-24) mmol/L Chloride (98-107) mmol/L Creatinine (0.66-1.25) mg/dL Glucose (74-99) mg/dL POC Glucose (mg/dL) 124 H 121 H 131 H (70-110) mg/dL Calcium (8.4-10.2) mg/dL Alkaline Phosphatase (38-126) U/L Total Protein (6.3-8.2) g/dL Albumin (3.5-5.0) g/dL Crossmatch - Imaging and Cardiology Chest x-ray: report reviewed, image reviewed Assessment and Plan Assessment: Calcific aortic stenosis status post aortic valve replacement with a 20 mm [employer] Inspiris bovine pericardial valve Coronary artery disease, status post CABG x 1 with left radial artery to second obtuse marginal branch of the circumflex coronary artery Hypertension Hyperlipidemia, triglycerides 471, HDL 30.8 Diabetes mellitus with a preoperative hemoglobin A1c 6.9% Severe COPD with a preoperative FEV1 48% of predicted value Obstructive sleep apnea with home CPAP use Remote history of nicotine dependence Postoperative acute blood loss anemia, expected given cardiopulmonary bypass and hemodilution Plan: Continue to maximize medical therapy with aspirin, statin, Plavix and beta- amrita. Will increase metoprolol to tartrate to 25 mg p.o. twice daily with hold parameters. Will start Norvasc 2.5 mg p.o. daily at noon with hold parameters for radial artery spasm prophylaxis. Wean oxygen as tolerated. Bronchodilator management per pulmonary/critical care medicine recommendations. Encourage incentive spirometry use 10 times every hour while awake. Increase activity, ambulate as tolerated. PT/OT/cardiac rehab following. Will monitor daily labs and chest x-rays. Electrolyte replacement per protocol. GI/DVT prophylaxis. Discontinue heparin, send HIT panel and start Arixtra 2.5 mg subcu daily. Insulin management per internal medicine, patient should remain on continuous IV insulin for 48 hours, then may transition to subcutaneous per protocol. Patient is a diabetic, with a preoperative hemoglobin A1c 6.9% Pain control with current medication regimen. Avoid Toradol at this time, patient's platelets today are 94. Remove right IJ cordis and right radial arterial line. We will remove his left pleural chest tube and keep mediastinal chest tube in place for another 24 hours, monitor strict output. Remove Paiz catheter, continue to monitor strict accurate intake and output. May bladder scan every 6 hours and as needed postvoid residuals, if greater than 300 mL of urine may straight cath. Transfer orders will be placed for the third floor cardiac stepdown unit. Discharge planning is in place. More recommendations to follow based on patient's clinical course. Time with Patient: Greater than 30
[2024-04-19 09:21] LABS: Glucose,Whole Blood 174 mg/dL (70-110)
[2024-04-19] MEDS: METOPROLOL TARTRATE 25 MG TAB PO SCH (09:22)
[2024-04-19] MEDS: HYDROcodone/APAP 5-325MG 1 EACH TAB PO PRN (09:23)
[2024-04-19] MEDS: FONDAPARINUX 2.5 MG/0.5 ML SYRINGE SQ SCH (09:24)
[2024-04-19 10:03] LABS: Glucose,Whole Blood 195 mg/dL (70-110)
[2024-04-19] MEDS ORDERED: DEXTROSE 50% SYRINGE 50 ML IVP PRN ×3 (10:12→11:12)
[2024-04-19 11:11] LABS: Glucose,Whole Blood 197 mg/dL (70-110)
[2024-04-19] MEDS: INSULIN DETEMIR (LEVEMIR) 100 UNIT/ML SYR SQ SCH (11:32)
[2024-04-19] MEDS: amLODIPine 2.5 MG TAB PO SCH (11:32)
[2024-04-19] MEDS: INSULIN ASPART (NovoLOG) 100 UNIT/ML VIAL SQ SCH ×3 (11:32→20:51)
--- NOTE | 2024-04-19 11:47 | P.PN ---
Subjective Progress Note Date: 04/19/24 This is a 68-year-old male patient being seen in the intensive. Following cardiac surgery. The patient underwent aortic valve replacement for calcified aortic valve stenosis and the patient underwent also had single-vessel bypass surgery with left radial to second obtuse marginal branch of the circumflex. Postop, the patient was kept intubated on mechanical ventilator and the patient was transferred to the intensive care unit. Currently is on propofol running at 30 mcg/kg/min. On a mechanical ventilator, assist-control of 16, tidal volume of 500, FiO2 of 60% with a PEEP of 10. Cardiac output is 6.8 with a index of 2.9. Currently on nitroglycerin drip at 5 mcg/min. No other pressors. The pulmonary artery pressures of 48/26. The immediate blood gases showed a pH of 7.23 with a pCO2 of 64 and pO2 of 243. The patient had the appropriate ventilator changes done. Chest x-ray shows post thoracotomy changes with a mediastinal chest tube in the left lower chest tube. No evidence of pneu mothorax. No evidence of any air leak within the chest tubes. The patient has a right IJ Delmont-Ingrid catheter in place. Mild pulm vascular congestion was also noted. White cell count of 18.4, hemoglobin 12.9, platelet count is 124, electrolytes are all stable, BUN is 17 with a creatinine 0.7. Afebrile. Adequate urine output. Hemodynamically stable. The cardiac rhythm is sinus. 04/18/2024, patient is being seen for a follow-up. The patient is postop day #1. Patient was extubated this morning and the patient is currently on 2 L of oxygen by nasal cannula. Awake and alert and moving all 4 extremities other than limitation. The weaning process was gradually performed that was somewhat p rolonged as the patient had a component of respiratory acidosis and he also had decreased output from mediastinal chest tube. Noted the mediastinal chest tube was produced approximately 900 cc since surgery and currently the output is in order of 10 cc an hour. The left lower chest tube was produced 10 cc an hour, and urine output is adequate in the order of 50 to 75 cc an hour. Cardiac output is at 7.2 with an index of 3.1. PA pressures are 34/18. CVP is at 9. He is currently on 2 L of oxygen by nasal cannula. Cardiac rhythm is sinus. The WBC count is at 12.5 with a hemoglobin of 11.8 and a platelet count of 119. BUN is 22 with a creatinine of 0.78. Hemodynamically stable. No other significant events overnight. .,024, the patient is postop day [id number] #[id number] and aortic valve replacementSingle-vessel bypass surgery. The patient is doing well. The patient sitting up on the chair. He is alert and oriented x 3. Denies having any respiratory distress.He is utilizing aBiPAP machine from home. He has a VPAP auto with a pressure of 16 over 11 cm of water. Mediastinal chest tubes today. Producing about 20 cc an hourSerous material. No significant chest pain. No shortness of breath. He is using the incentive spirometer.TheSwan-Ingrid catheter has been removed. The mediastinum and theLeft lower chest tube at low intermittent suction. The mediastinal chest tubeHas produced a total of 118 cc over the past 8 hours and 460Over the past 24 hours. The output from the left lower extremity was minimal andLeft lower chest tube has been removed. His car diac rhythm is sinus. Arterial line has been removed.Continues on insulin drip which is running at 5 units an hour and the patient is going to be transition to long-acting insulin with Levemir.Blood work from today shows a WBC count of 4.2 with a hemoglobin 10.4 and a platelet count of 94. Electrolytes are stable. BUN is 18 with a creatinine of 0 point0.65.The patient is on aspirin. The patient is also onMetoprolol 25 mg twice a day, Arixtra 2.5 mg p.o. dailySubcutaneous on a daily basis. He is also on Plavix. Objective - Vital Signs Vital signs: Vital Signs Temp 98.1 F 04/19/24 04:00 Pulse 79 04/19/24 07:00 Resp 23 04/19/24 07:00 BP 98/51 04/18/24 18:30 Pulse Ox 96 04/19/24 07:00 FiO2 21 04/19/24 09:13 Intake & Output 04/18/24 04/19/24 04/19/24 18:59 06:59 18:59 Intake Total 1459.594 582.401 54.080 Output Total 1190 1360 95 Balance 269.594 -777.599 -40.920 Weight 133.8 kg Intake: IV 1269 552 46 0.9 for pressure bag 99 72 6 ACETAMINOPHEN IV (For NPO 100 ) 1,000 mg In Empty Bag 1 bag @ 400 mls/hr IVPB ONCE ONE Rx#:[id number] Albumin Human 5% 250 ml 250 In Empty Bag 1 bag @ 250 mls/hr IVPB Q1HR PRN Rx#: [id number] CO/CI 150 Sodium Chloride 0.9% 1, 570 480 40 000 ml @ 20 mls/hr IV . Q24H [facility] Rx#:[id number] ceFAZolin 3 gm In Sodium 100 Chloride 0.9% 100 ml @ 100 mls/hr IVPB Q8HR [facility] Rx#:[id number] Intake, IV Titration 190.594 30.401 8.080 Amount ACETAMINOPHEN IV (For NPO 100 ) 1,000 mg In Empty Bag 1 bag @ 400 mls/hr IVPB ONCE STA Rx#:[id number] Dexmedetomidine/0.9% NaCl 8.102 (Pmx) 400 mcg In Empty Bag 1 bag @ Titrate IV . Q0M [facility] Rx#:[id number] Insulin Regular 100 unit 22.397 30.401 8.080 In Sodium Chloride 0.9% 100 ml @ Per Protocol IV .Q0M [facility] Rx#:[id number] Nitroglycerin-D5w Pmx 50 26.1 mg In Dextrose/Water 1 250ml.bag @ 5 MCG/MIN 1.5 mls/hr IV .Q24H [facility] Rx#: [id number] propofoL 1,000 mg In 33.995 Empty Bag 1 bag @ Titrate IV .Q0M [facility] Rx#: [id number] Output: Chest Tube Drainage 380 350 20 Chest Tube Mediastinal 250 230 20 Pleural Catheter Left 130 120 0 Drainage 10 Left Arm 10 Urine 800 1010 75 Other: Voiding Method Indwelling Catheter Indwelling Catheter ABP, PAP, CO, CI - Last Documented Arterial Blood Pressure 102/46 Pulmonary Artery Pressure 36/24 Cardiac Output 8.7 Cardiac Index 3.7 - Exam CONSTITUTIONAL: Sitting up to the bedside chair in the intensive care unit, appears comfortable, cooperative, no apparent acute distress. HEENT: Neck is supple, no JVD, no lymphadenopathy. Right IJ Cordis in place and functioning. RESPIRATORY: Lungs sounds essentially clear throughout, diminished to his bilateral bases. Respirations are symmetrical and nonlabored. Currently on 2 L nasal cannula with oxygen saturations 95%. Able to achieve 750 mL on his incentive spirometry with much encouragement. Strong cough. CARDIOVASCULAR: Regular rhythm and rate. S1 and S2 present, negative for S3, gallop or murmur. Sternum is stable. Bedside telemetry showing normal sinus rhythm heart rate 82 bpm. Palpable peripheral pulses bilaterally, +1 edema to his bilateral lower extremities. No calf pain or tenderness noted. Heart hugger in place with patient demonstrating appropriate use. Knee-high STACEY hose and sequential compression devices in place to his bilateral lower extremities. GASTROINTESTINAL: Abdomen soft, nontender, nondistended. Active bowel sounds present 4 quadrants. Tolerating diet. Passing flatus. No guarding or rigidity. GENITOURINARY: Paiz present draining clear, yellow urine. Urine output 435 mL in the last 8 hours. INTEGUMENTARY: Skin is warm and dry with no evidence of clubbing or cyanosis. Midline sternal incision clean dry and well approximated, covered with dry intact dressing. Left arm radial artery harvest sites clean, dry and approximated. No drainage or redness is present. NEUROLOGIC: Cranial nerves II through XII intact. No focal deficits. MUSKULOSKELETAL: Able to move all extremities, strength equal bilaterally, generalized weakness. PSYCHIATRIC: Alert and oriented to person place and time, appropriate affect, intact judgment and insight. INVASIVE LINES AND TUBES: Mediastinal/left pleural chest tubes present and connected to low continuous wall suction, intermittent airleak present to his mediastinal chest tube. Mediastinal tube with 115 mL of thin serosanguineous drainage overnight, 460 mL output in the last 24 hours. Left pleural chest tube with 10 mL of thin serosanguineous drainage overnight, 220 mL output in the last 24 hours. Atrial and ventricular epicardial pacemaker wires present, connected to generator, VVI backup rate 50 bpm. Right internal jugular Cordis, right radial arterial line present. Current CVP 11 mmHg. - Labs CBC & Chem 7: 04/19/24 04:23 04/19/24 04:23 Labs: Abnormal Lab Results - Last 24 Hours (Table) 04/13/24 04/18/24 04/18/24 Range/Units 10:41 12:00 13:13 WBC (3.8-10.6) k/uL RBC (4.30-5.90) m/uL Hgb (13.0-17.5) gm/dL Hct (39.0-53.0) % Plt Count (150-450) k/uL Neutrophils # (1.3-7.7) k/uL Lymphocytes # (1.0-4.8) k/uL Chloride (98-107) mmol/L Creatinine (0.66-1.25) mg/dL Glucose (74-99) mg/dL POC Glucose (mg/dL) 124 H 127 H (70-110) mg/dL Calcium (8.4-10.2) mg/dL Alkaline Phosphatase (38-126) U/L Total Protein (6.3-8.2) g/dL Albumin (3.5-5.0) g/dL Crossmatch See Detail 04/18/24 04/18/24 04/18/24 Range/Units 14:05 15:07 16:09 WBC (3.8-10.6) k/uL RBC (4.30-5.90) m/uL Hgb (13.0-17.5) gm/dL Hct (39.0-53.0) % Plt Count (150-450) k/uL Neutrophils # (1.3-7.7) k/uL Lymphocytes # (1.0-4.8) k/uL Chloride (98-107) mmol/L Creatinine (0.66-1.25) mg/dL Glucose (74-99) mg/dL POC Glucose (mg/dL) 124 H 124 H 117 H (70-110) mg/dL Calcium (8.4-10.2) mg/dL Alkaline Phosphatase (38-126) U/L Total Protein (6.3-8.2) g/dL Albumin (3.5-5.0) g/dL Crossmatch 04/18/24 04/18/24 04/18/24 Range/Units 17:10 18:13 19:16 WBC (3.8-10.6) k/uL RBC (4.30-5.90) m/uL Hgb (13.0-17.5) gm/dL Hct (39.0-53.0) % Plt Count (150-450) k/uL Neutrophils # (1.3-7.7) k/uL Lymphocytes # (1.0-4.8) k/uL Chloride (98-107) mmol/L Creatinine (0.66-1.25) mg/dL Glucose (74-99) mg/dL POC Glucose (mg/dL) 151 H 198 H 187 H (70-110) mg/dL Calcium (8.4-10.2) mg/dL Alkaline Phosphatase (38-126) U/L Total Protein (6.3-8.2) g/dL Albumin (3.5-5.0) g/dL Crossmatch 04/18/24 04/18/24 04/18/24 Range/Units 20:14 21:02 22:11 WBC (3.8-10.6) k/uL RBC (4.30-5.90) m/uL Hgb (13.0-17.5) gm/dL Hct (39.0-53.0) % Plt Count (150-450) k/uL Neutrophils # (1.3-7.7) k/uL Lymphocytes # (1.0-4.8) k/uL Chloride (98-107) mmol/L Creatinine (0.66-1.25) mg/dL Glucose (74-99) mg/dL POC Glucose (mg/dL) 158 H 145 H 140 H (70-110) mg/dL Calcium (8.4-10.2) mg/dL Alkaline Phosphatase (38-126) U/L Total Protein (6.3-8.2) g/dL Albumin (3.5-5.0) g/dL Crossmatch 04/18/24 04/18/24 04/19/24 Range/Units 22:59 23:57 01:06 WBC (3.8-10.6) k/uL RBC (4.30-5.90) m/uL Hgb (13.0-17.5) gm/dL Hct (39.0-53.0) % Plt Count (150-450) k/uL Neutrophils # (1.3-7.7) k/uL Lymphocytes # (1.0-4.8) k/uL Chloride (98-107) mmol/L Creatinine (0.66-1.25) mg/dL Glucose (74-99) mg/dL POC Glucose (mg/dL) 140 H 127 H 124 H (70-110) mg/dL Calcium (8.4-10.2) mg/dL Alkaline Phosphatase (38-126) U/L Total Protein (6.3-8.2) g/dL Albumin (3.5-5.0) g/dL Crossmatch 04/19/24 04/19/24 04/19/24 Range/Units 01:58 03:16 04:21 WBC (3.8-10.6) k/uL RBC (4.30-5.90) m/uL Hgb (13.0-17.5) gm/dL Hct (39.0-53.0) % Plt Count (150-450) k/uL Neutrophils # (1.3-7.7) k/uL Lymphocytes # (1.0-4.8) k/uL Chloride (98-107) mmol/L Creatinine (0.66-1.25) mg/dL Glucose (74-99) mg/dL POC Glucose (mg/dL) 119 H 119 H 113 H (70-110) mg/dL Calcium (8.4-10.2) mg/dL Alkaline Phosphatase (38-126) U/L Total Protein (6.3-8.2) g/dL Albumin (3.5-5.0) g/dL Crossmatch 04/19/24 04/19/24 04/19/24 Range/Units 04:23 04:23 05:10 WBC 12.2 H (3.8-10.6) k/uL RBC 3.48 L (4.30-5.90) m/uL Hgb 10.4 L (13.0-17.5) gm/dL Hct 32.4 L (39.0-53.0) % Plt Count 94 L (150-450) k/uL Neutrophils # 10.2 H (1.3-7.7) k/uL Lymphocytes # 0.9 L (1.0-4.8) k/uL Chloride 110 H (98-107) mmol/L Creatinine 0.65 L (0.66-1.25) mg/dL Glucose 101 H (74-99) mg/dL POC Glucose (mg/dL) 124 H (70-110) mg/dL Calcium 8.3 L (8.4-10.2) mg/dL Alkaline Phosphatase 33 L (38-126) U/L Total Protein 5.1 L (6.3-8.2) g/dL Albumin 3.2 L (3.5-5.0) g/dL Crossmatch 04/19/24 04/19/24 04/19/24 Range/Units 06:11 07:14 09:01 WBC (3.8-10.6) k/uL RBC (4.30-5.90) m/uL Hgb (13.0-17.5) gm/dL Hct (39.0-53.0) % Plt Count (150-450) k/uL Neutrophils # (1.3-7.7) k/uL Lymphocytes # (1.0-4.8) k/uL Chloride (98-107) mmol/L Creatinine (0.66-1.25) mg/dL Glucose (74-99) mg/dL POC Glucose (mg/dL) 121 H 131 H 174 H (70-110) mg/dL Calcium (8.4-10.2) mg/dL Alkaline Phosphatase (38-126) U/L Total Protein (6.3-8.2) g/dL Albumin (3.5-5.0) g/dL Crossmatch 04/19/24 Range/Units 10:01 WBC (3.8-10.6) k/uL RBC (4.30-5.90) m/uL Hgb (13.0-17.5) gm/dL Hct (39.0-53.0) % Plt Count (150-450) k/uL Neutrophils # (1.3-7.7) k/uL Lymphocytes # (1.0-4.8) k/uL Chloride (98-107) mmol/L Creatinine (0.66-1.25) mg/dL Glucose (74-99) mg/dL POC Glucose (mg/dL) 195 H (70-110) mg/dL Calcium (8.4-10.2) mg/dL Alkaline Phosphatase (38-126) U/L Total Protein (6.3-8.2) g/dL Albumin (3.5-5.0) g/dL Crossmatch Assessment and Plan Plan: Aortic valve disease, single-vessel bypass surgery, postop day #2 cardiac rhythm is sinus, hemodynamically stable, cardiac rhythm is sinus and the patient is currently on a combination of aspirin and Plavix. Patient is also on metoprolol. Postthoracotomy, extubated to nasal cannula and the patient has a mediastinal and left lower chest tube in place. Mediastinal chest tube output has slowed down over the past few hours. Hemodynamically stable. Currently on 2 L of oxygen by nasal cannula. The patient also utilizing his VPAP auto pressures of 16/11 cm of water. Using incentive spirometer. Left lower chest tube has been removed. Mediastinal chest will be kept in place. Severe aortic stenosis, valve area 0.69 cm, peak/mean gradient 94/63 mmHg, and peak velocity 4.86 m/s Mild mitral valve regurgitation and moderate stenosis with valve area 1.4 cm, peak/mean gradient 8/4 mmHg, and moderate MAC Hypertension Hyperlipidemia Diabetes Obstructive sleep apnea with home CPAP use Previous tobacco dependence Severe obstructive lung disease, FEV1 48% of predicted Plan Extubated this morning to 2 L of oxygen by nasal cannula. Continue BiPAP on and off during the day and during sleep. Hemodynamically stable Monitor output from the mediastinal chest tube. Left lower chest that was removed. Monitor hemodynamic parameters Delmont-Ingrid catheter has been removed. Arterial line has been removed. Continue aspirin and Plavix Continue metoprolol 25 mg twice a day Increase mobility Discontinue insulin drip and start the patient on Levemir insulin 20 units daily and a sliding scale coverage with NovoLog Chest x-ray was noted. Cardiac rhythm sinus Will continue to follow.
--- NOTE | 2024-04-19 12:01 | XR ---
EXAMINATION TYPE: XR chest 1V portable DATE OF EXAM: 04/19/2024 Comparison: 04/18/2024 Clinical History: 68-year-old male Post Operative Cardiac Surgery Findings: Interval extubation. Median sternotomy wires with prosthetic aortic valve. Left-sided chest tube in p lace. No appreciable pneumothorax. Old right-sided rib fracture deformity. Right Durham-Ingrid catheter r emoved in the interval as well. Mediastinal drain in place. Ongoing interstitial densities and small left pleural effusion with prominent left lower lung opacities. Impression: 1. Similar exam with COPD, mild cardiomegaly, and ongoing mild interstitial edema. 2. Ongoing small left pleural effusion with adjacent atelectasis and/or consolidation.
[2024-04-19 13:54] VITALS: BMI 46.2
[2024-04-19] MEDS ORDERED: ACETAMINOPHEN TAB 325 MG TAB PO PRN (14:12)
[2024-04-19 16:19] LABS: Glucose,Whole Blood 247 mg/dL (70-110)
--- NOTE | 2024-04-19 17:24 | P.PN ---
Subjective Progress Note Date: 04/19/24 HISTORY OF PRESENTING ILLNESS Patient with past medical history of hypertension, hyperlipidemia, type 2 elizabeth betes, COPD with FEV1 48%, ERIS, previous smoker, CAD and calcific aortic stenosis. She underwent surgical aortic valve replacement on 04/17/2024 with 27 mm Barger Inspira bovine pericardial valve, CABG x 1 with left radial artery to OM 2, 40 mm atrial clip, surgical resection of left upper lung lobe bleb. Currently patient is being transferred to ICU. Patient was extubated today 2 to 3 L nasal cannula. Patient is awake and moving all 4 extremities without limitation. She has good urine output, she has chest tube in place, Anna-Ingrid catheter in place and epicardial pacing wires in place. 04/19/2024 Patient is seen and examined at bedside this a.m. His mediastinal tube is draining serosanguineous fluid. Left pleural tube was removed. Anna-Ingrid catheter was removed. He is hemodynamically stable. No evidence of atrial fibrillation on telemetry monitoring Hemoglobin 10.2, WBC 12.2, creatinine 0.6, good urine output BP 120/56, heart rate 75 bpm, sinus PHYSICAL EXAMINATION Head: Normocephalic. Eyes: Sclerae nonicteric. Neck: Brisk carotid upstroke, Lungs: Very poor inspiratory effort, chest tube in place, good air entry in bilateral upper lung love. Heart: Regular rate and rhythm, S1-S2, mild systolic murmur audible Abdomen: Soft nontender, positive bowel sounds. Extremities: 1+ pitting edema edema, Neuro: Weak and drowsy but arousable, no focal deficits. Detailed neuro exam was not performed. ASSESSMENT Severe symptomatic aortic stenosis s/p 27 mm Barger Inspira bioprosthetic valve. 04/17/2024 Single-vessel CABG, left radial to OM 2 40 mm atrial clip ligation Left upper lung lobe bleb resection Hypertension Dyslipidemia Type 2 diabetes COPD ERIS on home CPAP PLAN Continue aspirin 325 mg, Plavix 75 mg, Lipitor 40 mg, metoprolol 12.5 mg twice daily Lasix as needed Continue to monitor hemodynamic parameters Continue to monitor telemetry Objective - Vital Signs Vital signs: Vital Signs Temp 98.3 F 04/19/24 08:00 Pulse 75 04/19/24 15:42 Resp 29 H 04/19/24 12:00 BP 120/56 07/03/24 12:00 Pulse Ox 93 L 04/19/24 12:00 FiO2 21 04/19/24 09:13 Intake & Output 04/18/24 04/19/24 04/19/24 18:59 06:59 18:59 Intake Total 1459.594 334.013 5821.080 Output Total 1190 1360 530 Balance 269.594 -777.599 604.080 Weight 133.8 kg 133.8 kg Intake: IV 1269 552 64 0.9 for pressure bag 99 72 24 ACETAMINOPHEN IV (For NPO 100 ) 1,000 mg In Empty Bag 1 bag @ 400 mls/hr IVPB ONCE ONE Rx#:[id number] Albumin Human 5% 250 ml 250 In Empty Bag 1 bag @ 250 mls/hr IVPB Q1HR PRN Rx#: [id number] CO/CI 150 Sodium Chloride 0.9% 1, 570 480 40 000 ml @ 20 mls/hr IV . Q24H [facility] Rx#:[id number] ceFAZolin 3 gm In Sodium 100 Chloride 0.9% 100 ml @ 100 mls/hr IVPB Q8HR [facility] Rx#:[id number] Intake, IV Titration 190.594 30.401 70.080 Amount ACETAMINOPHEN IV (For NPO 100 ) 1,000 mg In Empty Bag 1 bag @ 400 mls/hr IVPB ONCE STA Rx#:[id number] Dexmedetomidine/0.9% NaCl 8.102 (Pmx) 400 mcg In Empty Bag 1 bag @ Titrate IV . Q0M [facility] Rx#:[id number] Insulin Regular 100 unit 22.397 30.401 8.080 In Sodium Chloride 0.9% 100 ml @ Per Protocol IV .Q0M [facility] Rx#:[id number] Nitroglycerin-D5w Pmx 50 26.1 mg In Dextrose/Water 1 250ml.bag @ 5 MCG/MIN 1.5 mls/hr IV .Q24H [facility] Rx#: [id number] Sodium Chloride 0.9% 1, 62 000 ml @ 20 mls/hr IV . Q24H [facility] Rx#:[id number] propofoL 1,000 mg In 33.995 Empty Bag 1 bag @ Titrate IV .Q0M [facility] Rx#: [id number] Oral 1000 Output: Chest Tube Drainage 380 350 95 Chest Tube Mediastinal 250 230 95 Pleural Catheter Left 130 120 0 Drainage 10 Left Arm 10 Urine 800 1010 435 Other: Voiding Method Indwelling Catheter Indwelling Catheter Urinal # Voids 1 ABP, PAP, CO, CI - Last Documented Arterial Blood Pressure 136/57 Pulmonary Artery Pressure 36/24 Cardiac Output 8.7 Cardiac Index 3.7 - Labs CBC & Chem 7: 04/19/24 04:23 04/19/24 04:23 Labs: Abnormal Lab Results - Last 24 Hours (Table) 04/13/24 04/18/24 04/18/24 Range/Units 10:41 18:13 19:16 WBC (3.8-10.6) k/uL RBC (4.30-5.90) m/uL Hgb (13.0-17.5) gm/dL Hct (39.0-53.0) % Plt Count (150-450) k/uL Neutrophils # (1.3-7.7) k/uL Lymphocytes # (1.0-4.8) k/uL Chloride (98-107) mmol/L Creatinine (0.66-1.25) mg/dL Glucose (74-99) mg/dL POC Glucose (mg/dL) 198 H 187 H (70-110) mg/dL Calcium (8.4-10.2) mg/dL Alkaline Phosphatase (38-126) U/L Total Protein (6.3-8.2) g/dL Albumin (3.5-5.0) g/dL Crossmatch See Detail 04/18/24 04/18/24 04/18/24 Range/Units 20:14 21:02 22:11 WBC (3.8-10.6) k/uL RBC (4.30-5.90) m/uL Hgb (13.0-17.5) gm/dL Hct (39.0-53.0) % Plt Count (150-450) k/uL Neutrophils # (1.3-7.7) k/uL Lymphocytes # (1.0-4.8) k/uL Chloride (98-107) mmol/L Creatinine (0.66-1.25) mg/dL Glucose (74-99) mg/dL POC Glucose (mg/dL) 158 H 145 H 140 H (70-110) mg/dL Calcium (8.4-10.2) mg/dL Alkaline Phosphatase (38-126) U/L Total Protein (6.3-8.2) g/dL Albumin (3.5-5.0) g/dL Crossmatch 04/18/24 04/18/24 04/19/24 Range/Units 22:59 23:57 01:06 WBC (3.8-10.6) k/uL RBC (4.30-5.90) m/uL Hgb (13.0-17.5) gm/dL Hct (39.0-53.0) % Plt Count (150-450) k/uL Neutrophils # (1.3-7.7) k/uL Lymphocytes # (1.0-4.8) k/uL Chloride (98-107) mmol/L Creatinine (0.66-1.25) mg/dL Glucose (74-99) mg/dL POC Glucose (mg/dL) 140 H 127 H 124 H (70-110) mg/dL Calcium (8.4-10.2) mg/dL Alkaline Phosphatase (38-126) U/L Total Protein (6.3-8.2) g/dL Albumin (3.5-5.0) g/dL Crossmatch 04/19/24 04/19/24 04/19/24 Range/Units 01:58 03:16 04:21 WBC (3.8-10.6) k/uL RBC (4.30-5.90) m/uL Hgb (13.0-17.5) gm/dL Hct (39.0-53.0) % Plt Count (150-450) k/uL Neutrophils # (1.3-7.7) k/uL Lymphocytes # (1.0-4.8) k/uL Chloride (98-107) mmol/L Creatinine (0.66-1.25) mg/dL Glucose (74-99) mg/dL POC Glucose (mg/dL) 119 H 119 H 113 H (70-110) mg/dL Calcium (8.4-10.2) mg/dL Alkaline Phosphatase (38-126) U/L Total Protein (6.3-8.2) g/dL Albumin (3.5-5.0) g/dL Crossmatch 04/19/24 04/19/24 04/19/24 Range/Units 04:23 04:23 05:10 WBC 12.2 H (3.8-10.6) k/uL RBC 3.48 L (4.30-5.90) m/uL Hgb 10.4 L (13.0-17.5) gm/dL Hct 32.4 L (39.0-53.0) % Plt Count 94 L (150-450) k/uL Neutrophils # 10.2 H (1.3-7.7) k/uL Lymphocytes # 0.9 L (1.0-4.8) k/uL Chloride 110 H (98-107) mmol/L Creatinine 0.65 L (0.66-1.25) mg/dL Glucose 101 H (74-99) mg/dL POC Glucose (mg/dL) 124 H (70-110) mg/dL Calcium 8.3 L (8.4-10.2) mg/dL Alkaline Phosphatase 33 L (38-126) U/L Total Protein 5.1 L (6.3-8.2) g/dL Albumin 3.2 L (3.5-5.0) g/dL Crossmatch 04/19/24 04/19/24 04/19/24 Range/Units 06:11 07:14 09:01 WBC (3.8-10.6) k/uL RBC (4.30-5.90) m/uL Hgb (13.0-17.5) gm/dL Hct (39.0-53.0) % Plt Count (150-450) k/uL Neutrophils # (1.3-7.7) k/uL Lymphocytes # (1.0-4.8) k/uL Chloride (98-107) mmol/L Creatinine (0.66-1.25) mg/dL Glucose (74-99) mg/dL POC Glucose (mg/dL) 121 H 131 H 174 H (70-110) mg/dL Calcium (8.4-10.2) mg/dL Alkaline Phosphatase (38-126) U/L Total Protein (6.3-8.2) g/dL Albumin (3.5-5.0) g/dL Crossmatch 04/19/24 04/19/24 04/19/24 Range/Units 10:01 11:10 16:07 WBC (3.8-10.6) k/uL RBC (4.30-5.90) m/uL Hgb (13.0-17.5) gm/dL Hct (39.0-53.0) % Plt Count (150-450) k/uL Neutrophils # (1.3-7.7) k/uL Lymphocytes # (1.0-4.8) k/uL Chloride (98-107) mmol/L Creatinine (0.66-1.25) mg/dL Glucose (74-99) mg/dL POC Glucose (mg/dL) 195 H 197 H 247 H (70-110) mg/dL Calcium (8.4-10.2) mg/dL Alkaline Phosphatase (38-126) U/L Total Protein (6.3-8.2) g/dL Albumin (3.5-5.0) g/dL Crossmatch
[2024-04-19] MEDS: TAMSULOSIN 0.4 MG CAP.ER.24H PO SCH (18:01)
[2024-04-19 21:29] LABS: Glucose,Whole Blood 184 mg/dL (70-110)
[2024-04-20 06:08] LABS: Glucose,Whole Blood 177 mg/dL (70-110)
--- NOTE | 2024-04-20 07:10 | P.PN ---
Subjective This is a pleasant 68 years old male with past medical history of hypertension, diabetes mellitus, hyperlipidemia Patient recently had cardiac cath on 04/07 showing coronary artery disease with focal stenosis of left circumflex artery between 70 and 80% He was admitted to the hospital for his severe aortic stenosis and he underwent aortic valve replacement Also he had a CABG x 1 with radial artery to the second obtuse marginal branch of the left circumflex. Currently patient intubated in the ICU Patient receiving nitroglycerin drip Also she is on insulin drip and Normal Saline 50 mL/h She is on aspirin and Plavix Patient is afebrile, mildly tachypneic She has unremarkable BMP and LFT WBC 12.5, hemoglobin 11.8. Platelet count is low at 119 Chest x-ray showing COPD with postsurgical changes Patient currently on normal saline 50 mL and insulin drip 04/18/2024 Patient extubated She is awake alert No chest pain or dyspnea Currently remains n.p.o. on insulin drip and sugar controlled Probably he will start feeding this afternoon. He remains on aspirin and Plavix 04/19/24 Patient awake alert at baseline No chest pain no dyspnea Chest tube in place. No new complaints Objective - Vital Signs Vital signs: Vital Signs Temp 98.1 F 04/19/24 04:00 Pulse 79 04/19/24 07:00 Resp 23 04/19/24 07:00 BP 98/51 04/18/24 18:30 Pulse Ox 96 04/19/24 07:00 FiO2 21 04/19/24 09:13 Intake & Output 04/18/24 04/19/24 04/19/24 18:59 06:59 18:59 Intake Total 1459.594 582.401 560.080 Output Total 1190 1360 195 Balance 269.594 -777.599 365.080 Weight 133.8 kg Intake: IV 1269 552 52 0.9 for pressure bag 99 72 12 ACETAMINOPHEN IV (For NPO 100 ) 1,000 mg In Empty Bag 1 bag @ 400 mls/hr IVPB ONCE ONE Rx#:[id number] Albumin Human 5% 250 ml 250 In Empty Bag 1 bag @ 250 mls/hr IVPB Q1HR PRN Rx#: [id number] CO/CI 150 Sodium Chloride 0.9% 1, 570 480 40 000 ml @ 20 mls/hr IV . Q24H LAURY Rx#:[id number] ceFAZolin 3 gm In Sodium 100 Chloride 0.9% 100 ml @ 100 mls/hr IVPB Q8HR LAURY Rx#:[id number] Intake, IV Titration 190.594 30.401 8.080 Amount ACETAMINOPHEN IV (For NPO 100 ) 1,000 mg In Empty Bag 1 bag @ 400 mls/hr IVPB ONCE STA Rx#:[id number] Dexmedetomidine/0.9% NaCl 8.102 (Pmx) 400 mcg In Empty Bag 1 bag @ Titrate IV . Q0M LAURY Rx#:[id number] Insulin Regular 100 unit 22.397 30.401 8.080 In Sodium Chloride 0.9% 100 ml @ Per Protocol IV .Q0M LAURY Rx#:[id number] Nitroglycerin-D5w Pmx 50 26.1 mg In Dextrose/Water 1 250ml.bag @ 5 MCG/MIN 1.5 mls/hr IV .Q24H LAURY Rx#: [id number] propofoL 1,000 mg In 33.995 Empty Bag 1 bag @ Titrate IV .Q0M LAURY Rx#: [id number] Oral 500 Output: Chest Tube Drainage 380 350 20 Chest Tube Mediastinal 250 230 20 Pleural Catheter Left 130 120 0 Drainage 10 Left Arm 10 Urine 800 1010 175 Other: Voiding Method Indwelling Catheter Indwelling Catheter ABP, PAP, CO, CI - Last Documented Arterial Blood Pressure 102/46 Pulmonary Artery Pressure 36/24 Cardiac Output 8.7 Cardiac Index 3.7 - Exam GENERAL: The patient is alert and oriented x3, not in any acute distress. Well developed, well nourished. HEENT: Pupils are round and equally reacting to light. EOMI. No scleral icterus. No conjunctival pallor. Normocephalic, atraumatic. No pharyngeal erythema. No thyromegaly. CARDIOVASCULAR: S1 and S2 present. No murmurs, rubs, or gallops. PULMONARY: Chest is clear to auscultation, no wheezing , no crackles. ABDOMEN: Soft, nontender, nondistended, normoactive bowel sounds. No palpable organomegaly. MUSCULOSKELETAL: No joint swelling or deformity. EXTREMITIES: No cyanosis, clubbing, or pedal edema. NEUROLOGICAL: Gross neurological examination did not reveal any focal deficits. SKIN: No rashes. no petechiae. - Labs CBC & Chem 7: 04/19/24 04:23 04/19/24 04:23 Labs: Abnormal Lab Results - Last 24 Hours (Table) 04/13/24 04/18/24 04/18/24 Range/Units 10:41 12:00 13:13 WBC (3.8-10.6) k/uL RBC (4.30-5.90) m/uL Hgb (13.0-17.5) gm/dL Hct (39.0-53.0) % Plt Count (150-450) k/uL Neutrophils # (1.3-7.7) k/uL Lymphocytes # (1.0-4.8) k/uL Chloride (98-107) mmol/L Creatinine (0.66-1.25) mg/dL Glucose (74-99) mg/dL POC Glucose (mg/dL) 124 H 127 H (70-110) mg/dL Calcium (8.4-10.2) mg/dL Alkaline Phosphatase (38-126) U/L Total Protein (6.3-8.2) g/dL Albumin (3.5-5.0) g/dL Crossmatch See Detail 04/18/24 04/18/24 04/18/24 Range/Units 14:05 15:07 16:09 WBC (3.8-10.6) k/uL RBC (4.30-5.90) m/uL Hgb (13.0-17.5) gm/dL Hct (39.0-53.0) % Plt Count (150-450) k/uL Neutrophils # (1.3-7.7) k/uL Lymphocytes # (1.0-4.8) k/uL Chloride (98-107) mmol/L Creatinine (0.66-1.25) mg/dL Glucose (74-99) mg/dL POC Glucose (mg/dL) 124 H 124 H 117 H (70-110) mg/dL Calcium (8.4-10.2) mg/dL Alkaline Phosphatase (38-126) U/L Total Protein (6.3-8.2) g/dL Albumin (3.5-5.0) g/dL Crossmatch 04/18/24 04/18/24 04/18/24 Range/Units 17:10 18:13 19:16 WBC (3.8-10.6) k/uL RBC (4.30-5.90) m/uL Hgb (13.0-17.5) gm/dL Hct (39.0-53.0) % Plt Count (150-450) k/uL Neutrophils # (1.3-7.7) k/uL Lymphocytes # (1.0-4.8) k/uL Chloride (98-107) mmol/L Creatinine (0.66-1.25) mg/dL Glucose (74-99) mg/dL POC Glucose (mg/dL) 151 H 198 H 187 H (70-110) mg/dL Calcium (8.4-10.2) mg/dL Alkaline Phosphatase (38-126) U/L Total Protein (6.3-8.2) g/dL Albumin (3.5-5.0) g/dL Crossmatch 04/18/24 04/18/24 04/18/24 Range/Units 20:14 21:02 22:11 WBC (3.8-10.6) k/uL RBC (4.30-5.90) m/uL Hgb (13.0-17.5) gm/dL Hct (39.0-53.0) % Plt Count (150-450) k/uL Neutrophils # (1.3-7.7) k/uL Lymphocytes # (1.0-4.8) k/uL Chloride (98-107) mmol/L Creatinine (0.66-1.25) mg/dL Glucose (74-99) mg/dL POC Glucose (mg/dL) 158 H 145 H 140 H (70-110) mg/dL Calcium (8.4-10.2) mg/dL Alkaline Phosphatase (38-126) U/L Total Protein (6.3-8.2) g/dL Albumin (3.5-5.0) g/dL Crossmatch 04/18/24 04/18/24 04/19/24 Range/Units 22:59 23:57 01:06 WBC (3.8-10.6) k/uL RBC (4.30-5.90) m/uL Hgb (13.0-17.5) gm/dL Hct (39.0-53.0) % Plt Count (150-450) k/uL Neutrophils # (1.3-7.7) k/uL Lymphocytes # (1.0-4.8) k/uL Chloride (98-107) mmol/L Creatinine (0.66-1.25) mg/dL Glucose (74-99) mg/dL POC Glucose (mg/dL) 140 H 127 H 124 H (70-110) mg/dL Calcium (8.4-10.2) mg/dL Alkaline Phosphatase (38-126) U/L Total Protein (6.3-8.2) g/dL Albumin (3.5-5.0) g/dL Crossmatch 04/19/24 04/19/24 04/19/24 Range/Units 01:58 03:16 04:21 WBC (3.8-10.6) k/uL RBC (4.30-5.90) m/uL Hgb (13.0-17.5) gm/dL Hct (39.0-53.0) % Plt Count (150-450) k/uL Neutrophils # (1.3-7.7) k/uL Lymphocytes # (1.0-4.8) k/uL Chloride (98-107) mmol/L Creatinine (0.66-1.25) mg/dL Glucose (74-99) mg/dL POC Glucose (mg/dL) 119 H 119 H 113 H (70-110) mg/dL Calcium (8.4-10.2) mg/dL Alkaline Phosphatase (38-126) U/L Total Protein (6.3-8.2) g/dL Albumin (3.5-5.0) g/dL Crossmatch 04/19/24 04/19/24 04/19/24 Range/Units 04:23 04:23 05:10 WBC 12.2 H (3.8-10.6) k/uL RBC 3.48 L (4.30-5.90) m/uL Hgb 10.4 L (13.0-17.5) gm/dL Hct 32.4 L (39.0-53.0) % Plt Count 94 L (150-450) k/uL Neutrophils # 10.2 H (1.3-7.7) k/uL Lymphocytes # 0.9 L (1.0-4.8) k/uL Chloride 110 H (98-107) mmol/L Creatinine 0.65 L (0.66-1.25) mg/dL Glucose 101 H (74-99) mg/dL POC Glucose (mg/dL) 124 H (70-110) mg/dL Calcium 8.3 L (8.4-10.2) mg/dL Alkaline Phosphatase 33 L (38-126) U/L Total Protein 5.1 L (6.3-8.2) g/dL Albumin 3.2 L (3.5-5.0) g/dL Crossmatch 04/19/24 04/19/24 04/19/24 Range/Units 06:11 07:14 09:01 WBC (3.8-10.6) k/uL RBC (4.30-5.90) m/uL Hgb (13.0-17.5) gm/dL Hct (39.0-53.0) % Plt Count (150-450) k/uL Neutrophils # (1.3-7.7) k/uL Lymphocytes # (1.0-4.8) k/uL Chloride (98-107) mmol/L Creatinine (0.66-1.25) mg/dL Glucose (74-99) mg/dL POC Glucose (mg/dL) 121 H 131 H 174 H (70-110) mg/dL Calcium (8.4-10.2) mg/dL Alkaline Phosphatase (38-126) U/L Total Protein (6.3-8.2) g/dL Albumin (3.5-5.0) g/dL Crossmatch 04/19/24 04/19/24 Range/Units 10:01 11:10 WBC (3.8-10.6) k/uL RBC (4.30-5.90) m/uL Hgb (13.0-17.5) gm/dL Hct (39.0-53.0) % Plt Count (150-450) k/uL Neutrophils # (1.3-7.7) k/uL Lymphocytes # (1.0-4.8) k/uL Chloride (98-107) mmol/L Creatinine (0.66-1.25) mg/dL Glucose (74-99) mg/dL POC Glucose (mg/dL) 195 H 197 H (70-110) mg/dL Calcium (8.4-10.2) mg/dL Alkaline Phosphatase (38-126) U/L Total Protein (6.3-8.2) g/dL Albumin (3.5-5.0) g/dL Crossmatch Assessment and Plan Assessment: Severe aortic stenosis status post aortic valve replacement Coronary artery disease with focal stenosis of left circumflex 70 to 80% s/p C ABG with radial artery to obtuse marginal branch which is the second branch of left circumflex artery Hypertension Hyperlipidemia Diabetes mellitus Osteoarthritis Obstructive sleep apnea on CPAP Mild thrombocytopenia and anemia Hypertension Hyperlipidemia Diabetes mellitus Obesity with BMI of 45.6. Plan: Continue with aspirin and Plavix Continue with insulin drip Continue with normal saline Continue with insulin drip, patient at home is on Lantus 14 units at bedtime Pulmonary team consult on the case Management of vent per pulmonary team GI and DVT prophylaxis with Protonix and subcu heparin
--- NOTE | 2024-04-20 08:02 | P.PN ---
Subjective Progress Note Date: 04/20/24 Principal diagnosis: Calcific severe aortic stenosis, coronary artery disease. Previous medical history of hypertension, hyperlipidemia, diabetes mellitus type 2, obstructive sleep apnea with home CPAP use, previous tobacco dependence, and severe COPD/bullous emphysema POD #3 Aortic valve replacement with 27 mm Barger Inspiris bovine pericardial valve, CABG x 1 with left radial artery to second obtuse marginal branch of the circumflex coronary artery, occlusion of the left atrial appendage with 40 mm AtriCure clip, wedge resection blebs left upper lobe. Postoperative acute blood loss anemia, expected given cardiopulmonary bypass and hemodilution. The patient was seen and examined this morning sitting up in recliner on the cardiac stepdown unit in no acute distress. States he did get some sleep last night. Remains in sinus rhythm, hemodynamically stable. Mediastinal chest tube remains in place without airleak present. The patient did ambulate in the hallway yesterday in the ICU but did require quite a bit of help to get up out of the chair. Remains on 3 L nasal cannula, able to achieve 1000 mL on his incentive spirometry. Chest x-ray reviewed, labs pending. No other new concerns. Objective - Vital Signs Vital signs: Vital Signs Temp 97.9 F 04/20/24 04:14 Pulse 85 04/20/24 04:14 Resp 18 04/20/24 04:14 BP 109/69 04/20/24 04:14 Pulse Ox 92 L 04/20/24 04:14 FiO2 21 04/19/24 22:57 Intake & Output 04/19/24 04/20/24 04/20/24 18:59 06:59 18:59 Intake Total 1134.080 540 Output Total 530 890 Balance 604.080 -350 Weight 133.8 kg 134.6 kg Intake: IV 64 0.9 for pressure bag 24 Sodium Chloride 0.9% 1, 40 000 ml @ 20 mls/hr IV . Q24H LAURY Rx#:[id number] Intake, IV Titration 70.080 Amount Insulin Regular 100 unit 8.080 In Sodium Chloride 0.9% 100 ml @ Per Protocol IV .Q0M LAURY Rx#:[id number] Sodium Chloride 0.9% 1, 62 000 ml @ 20 mls/hr IV . Q24H LAURY Rx#:[id number] Oral 1000 540 Output: Chest Tube Drainage 95 140 Chest Tube Mediastinal 95 140 Pleural Catheter Left 0 Urine 435 750 Other: Voiding Method Urinal Urinal # Voids 1 1 ABP, PAP, CO, CI - Last Documented Arterial Blood Pressure 136/57 Pulmonary Artery Pressure 36/24 Cardiac Output 8.7 Cardiac Index 3.7 - Exam CONSTITUTIONAL: Appears comfortable, cooperative, no acute distress RESPIRATORY: Lungs sounds diminished bilaterally. Respirations even, nonlabor ed. Currently on 3 L nasal cannula with oxygen saturation 92%. Able to achieve 1000 mL on incentive spirometry. Strong loose cough. CARDIOVASCULAR: S1, S2 present. Regular rate and rhythm, sinus rhythm on telemetry. Sternum stable. Palpable peripheral pulses bilaterally. Generalized edema present. No calf pain or tenderness noted. Heart hugger in place with patient demonstrating appropriate use. Antiembolism stockings, SCDs present. GASTROINTESTINAL: Abdomen soft, nontender, nondistended. Active bowel sounds present 4 quadrants. Tolerating diet. Positive flatus, negative bowel movement since surgery GENITOURINARY: Paiz discontinued yesterday, continues to void clear, yellow urine. Output 1185 mL in the last 24 hours INTEGUMENTARY: Skin is warm and dry with evidence of good perfusion. Anterior chest incision well approximated and covered with dry intact dressing. Left radial artery harvest site well approximated without redness or drainage. NEUROLOGIC: Cranial nerves II through XII intact MUSKULOSKELETAL: Able to move all extremities, strength equal bilaterally, gait normal PSYCHIATRIC: Alert and oriented to person place and time, appropriate affect, intact judgment and insight INVASIVE LINES AND TUBES: Mediastinal chest tubes present and connected to wall suction, no air leaks present, 90 mL serosanguineous drainage overnight, 250 mL in the last 24 hours. A/V epicardial pacemaker wires present, grounded. - Allied health notes Allied health notes reviewed: nursing - Labs CBC & Chem 7: 04/20/24 07:55 04/20/24 07:55 Labs: Abnormal Lab Results - Last 24 Hours (Table) 04/19/24 04/19/24 04/19/24 Range/Units 09:01 10:01 11:10 POC Glucose (mg/dL) 174 H 195 H 197 H (70-110) mg/dL 04/19/24 04/19/24 04/20/24 Range/Units 16:07 21:27 06:06 POC Glucose (mg/dL) 247 H 184 H 177 H (70-110) mg/dL - Imaging and Cardiology Chest x-ray: image reviewed Assessment and Plan Assessment: Severe calcific aortic stenosis, status post aortic valve replacement Coronary artery disease, status post single-vessel CABG Hypertension Hyperlipidemia, treated, cholesterol 137, LDL 63, triglycerides 471 Diabetes mellitus type II, preoperative hemoglobin A1c 6.9% Obstructive sleep apnea with home CPAP use Previous tobacco dependence Severe COPD on bedside spirometry (FEV1 48% of predicted), repeat full PFT revealed mild COPD with FEV1 64% of predicted/bullous emphysema, status post wedge resection bleb of left upper lobe, Postoperative acute blood loss anemia, expected given cardiopulmonary bypass and hemodilution. Plan: Continue to maximize medical therapy with aspirin, statin, Plavix and beta- amrita. Will increase beta-amrita therapy as tolerated Continue low-dose calcium channel amrita for radial artery spasm prophylaxis with hold parameters Wean oxygen as tolerated. Encourage incentive spirometry use 10 times every hour while awake, bronchodilator management per pulmonology Increase activity, ambulate as tolerated. PT/OT/cardiac rehab following. Will monitor daily labs and chest x-rays. Electrolyte replacement per protocol. Will add IV lasix BID GI/DVT prophylaxis. HIT panel pending Insulin management per internal medicine Pain control with current medication regimen Will remove mediastinal chest tube Continue to monitor and record strict accurate intake and output Daily weights More recommendations to follow based on patient's clinical course
--- NOTE | 2024-04-20 08:02 | XR ---
EXAMINATION TYPE: XR chest 1V portable DATE OF EXAM: 04/20/2024 6:36 AM CLINICAL INDICATION:Male, 68 years old with history of Postop cardiac surgery; [facility] COMPARISON: Chest radiograph from one day prior. TECHNIQUE: XR chest 1V portable Frontal view of the chest. FINDINGS: Lungs/Pleura: There is no evidence of pleural effusion, focal consolidation, or pneumothorax. Pulmonary vascularity: Pulmonary vascular congestion. Heart/mediastinum: Cardiomediastinal silhouette is enlarged and stable. Post aortic valve repair isabelle nges. Left atrial appendage occlusion device is present. Musculoskeletal: No acute osseous pathology. Midline sternotomy wires are noted. IMPRESSION: Postop changes with pulmonary vascular congestion, similar to prior.
[2024-04-20 08:26] LABS: Basophils % (A) 0 %; Eosinophils % (A) 0 %; HCT 33.6 % (39.0-53.0); HGB 10.9 gm/dL (13.0-17.5); Lymphocytes # (A) 0.8 k/uL (1.0-4.8); Lymphocytes % (A) 7 %; MCH 30.3 pg (25.0-35.0); MCHC 32.5 g/dL (31.0-37.0); MCV 93.3 fL (80.0-100.0); Mean Platelet Volume 10.5; Monocytes # (A) 0.7 k/uL (0-1.0); Monocytes % (A) 6 %; Neutrophils # (A) 10.2 k/uL (1.3-7.7); Neutrophils % (A) 85 %; Platelet Count 114 k/uL (150-450); RDW 14.3 % (11.5-15.5); WBC 11.9 k/uL (3.8-10.6)
[2024-04-20 08:35] LABS: ALT 16 U/L (4-49); AST 33 U/L (17-59); African American GFR (CKD) >90 (>60 ml/min/1.73 sqM); Albumin 3.2 g/dL (3.5-5.0); Alkaline Phosphatase 39 U/L (38-126); Anion Gap 5 mmol/L; Blood Urea Nitrogen 22 mg/dL (9-20); Calcium 8.3 mg/dL (8.4-10.2); Carbon Dioxide 25 mmol/L (22-30); Chloride 108 mmol/L (98-107); Glucose 163 mg/dL (74-99); Non-African American GFR(CKD) >90 (>60 ml/min/1.73 sqM); Potassium 3.9 mmol/L (3.5-5.1); Sodium 138 mmol/L (137-145); Total Protein 5.2 g/dL (6.3-8.2)
[2024-04-20] MEDS ORDERED: guaiFENesin-DM 100-10MG/5ML 10 ML CUP PO PRN (10:44)
--- NOTE | 2024-04-20 10:45 | P.PN ---
Subjective This is a pleasant 68 years old male with past medical history of hypertension, diabetes mellitus, hyperlipidemia Patient recently had cardiac cath on 04/07 showing coronary artery disease with focal stenosis of left circumflex artery between 70 and 80% He was admitted to the hospital for his severe aortic stenosis and he underwent aortic valve replacement Also he had a CABG x 1 with radial artery to the second obtuse marginal branch of the left circumflex. Currently patient intubated in the ICU Patient receiving nitroglycerin drip Also she is on insulin drip and Normal Saline 50 mL/h She is on aspirin and Plavix Patient is afebrile, mildly tachypneic She has unremarkable BMP and LFT WBC 12.5, hemoglobin 11.8. Platelet count is low at 119 Chest x-ray showing COPD with postsurgical changes Patient currently on normal saline 50 mL and insulin drip 04/18/2024 Patient extubated She is awake alert No chest pain or dyspnea Currently remains n.p.o. on insulin drip and sugar controlled Probably he will start feeding this afternoon. He remains on aspirin and Plavix 04/19/24 Patient awake alert at baseline No chest pain no dyspnea Chest tube in place. No new complaints 04/20/2024 Patient with no chest pain or tachypnea at rest however his chest is tight and he has some occasional coughing Chest x-ray showing pulmonary congestion and was started on IV Lasix 20 mg twice daily and 1 time dose of p.o. 40 mg No chest tube. Sugars controlled and he switched to Levemir 20 units and 5 units of NovoLog He feels constipated requesting for stool softeners Objective - Vital Signs Vital signs: Vital Signs Temp 97.9 F 04/20/24 04:14 Pulse 81 04/20/24 08:55 Resp 18 04/20/24 04:14 BP 109/69 04/20/24 04:14 Pulse Ox 96 04/20/24 08:48 FiO2 21 04/19/24 22:57 Intake & Output 04/19/24 04/20/24 04/20/24 18:59 06:59 18:59 Intake Total 1134.080 540 118 Output Total 530 890 Balance 604.080 -350 118 Weight 133.8 kg 134.6 kg Intake: IV 64 0.9 for pressure bag 24 Sodium Chloride 0.9% 1, 40 000 ml @ 20 mls/hr IV . Q24H LAURY Rx#:[id number] Intake, IV Titration 70.080 Amount Insulin Regular 100 unit 8.080 In Sodium Chloride 0.9% 100 ml @ Per Protocol IV .Q0M LAURY Rx#:[id number] Sodium Chloride 0.9% 1, 62 000 ml @ 20 mls/hr IV . Q24H LAURY Rx#:[id number] Oral 1000 540 118 Output: Chest Tube Drainage 95 140 Chest Tube Mediastinal 95 140 Pleural Catheter Left 0 Urine 435 750 Other: Voiding Method Urinal Urinal # Voids 1 1 1 # Bowel Movements 1 ABP, PAP, CO, CI - Last Documented Arterial Blood Pressure 136/57 Pulmonary Artery Pressure 36/24 Cardiac Output 8.7 Cardiac Index 3.7 - Exam GENERAL: The patient is alert and oriented x3, not in any acute distress. Well developed, well nourished. HEENT: Pupils are round and equally reacting to light. EOMI. No scleral icterus. No conjunctival pallor. Normocephalic, atraumatic. No pharyngeal erythema. No thyromegaly. CARDIOVASCULAR: S1 and S2 present. No murmurs, rubs, or gallops. PULMONARY: Chest is clear to auscultation, no wheezing , no crackles. ABDOMEN: Soft, nontender, nondistended, normoactive bowel sounds. No palpable organomegaly. MUSCULOSKELETAL: No joint swelling or deformity. EXTREMITIES: No cyanosis, clubbing, or pedal edema. NEUROLOGICAL: Gross neurological examination did not reveal any focal deficits. SKIN: No rashes. no petechiae. - Labs CBC & Chem 7: 04/20/24 07:55 04/20/24 07:55 Labs: Abnormal Lab Results - Last 24 Hours (Table) 04/19/24 04/19/24 04/19/24 Range/Units 11:10 16:07 21:27 WBC (3.8-10.6) k/uL RBC (4.30-5.90) m/uL Hgb (13.0-17.5) gm/dL Hct (39.0-53.0) % Plt Count (150-450) k/uL Neutrophils # (1.3-7.7) k/uL Lymphocytes # (1.0-4.8) k/uL Chloride (98-107) mmol/L BUN (9-20) mg/dL Glucose (74-99) mg/dL POC Glucose (mg/dL) 197 H 247 H 184 H (70-110) mg/dL Calcium (8.4-10.2) mg/dL Total Protein (6.3-8.2) g/dL Albumin (3.5-5.0) g/dL 04/20/24 04/20/24 04/20/24 Range/Units 06:06 07:55 07:55 WBC 11.9 H (3.8-10.6) k/uL RBC 3.60 L (4.30-5.90) m/uL Hgb 10.9 L (13.0-17.5) gm/dL Hct 33.6 L (39.0-53.0) % Plt Count 114 L (150-450) k/uL Neutrophils # 10.2 H (1.3-7.7) k/uL Lymphocytes # 0.8 L (1.0-4.8) k/uL Chloride 108 H (98-107) mmol/L BUN 22 H (9-20) mg/dL Glucose 163 H (74-99) mg/dL POC Glucose (mg/dL) 177 H (70-110) mg/dL Calcium 8.3 L (8.4-10.2) mg/dL Total Protein 5.2 L (6.3-8.2) g/dL Albumin 3.2 L (3.5-5.0) g/dL Assessment and Plan Assessment: Severe aortic stenosis status post aortic valve replacement Coronary artery disease with focal stenosis of left circumflex 70 to 80% s/p CABG with radial artery to obtuse marginal branch which is the second branch of left circumflex artery Hypertension Hyperlipidemia Diabetes mellitus Osteoarthritis Obstructive sleep apnea on CPAP Mild thrombocytopenia and anemia Hypertension Hyperlipidemia Diabetes mellitus Obesity with BMI of 45.6. Plan: Continue with aspirin and Plavix Continue with insulin , Levemir 20 and NovoLog 5 units with meal Stop normal saline and started IV Lasix Colace Pulmonary team consult on the case Management of vent per pulmonary team GI and DVT prophylaxis with Protonix and subcu heparin
[2024-04-20] MEDS: FUROSEMIDE 10 MG/ML 2 ML VIAL IV SCH (11:28)
[2024-04-20] MEDS: DOCUSATE 100 MG CAP PO STA (11:29)
[2024-04-20 11:32] LABS: Glucose,Whole Blood 175 mg/dL (70-110)
--- NOTE | 2024-04-20 13:42 | P.PN ---
Subjective Progress Note Date: 04/20/24 HISTORY OF PRESENTING ILLNESS Patient with past medical history of hypertension, hyperlipidemia, type 2 di abetes, COPD with FEV1 48%, ERIS, previous smoker, CAD and calcific aortic stenosis. She underwent surgical aortic valve replacement on 04/17/2024 with 27 mm Barger Inspira bovine pericardial valve, CABG x 1 with left radial artery to OM 2, 40 mm atrial clip, surgical resection of left upper lung lobe bleb. Currently patient is being transferred to ICU. Patient was extubated today 2 to 3 L nasal cannula. Patient is awake and moving all 4 extremities without limitation. She has good urine output, she has chest tube in place, Von [place]rmy-Ingrid catheter in place and epicardial pacing wires in place. 04/19/2024 Patient is seen and examined at bedside this a.m. His mediastinal tube is draining serosanguineous fluid. Left pleural tube was removed. Von Ormy-Ingrid catheter was removed. He is hemodynamically stable. No evidence of atrial fibrillation on telemetry monitoring Hemoglobin 10.2, WBC 12.2, creatinine 0.6, good urine output BP 120/56, heart rate 75 bpm, sinus 04/20 Has been transferred out of the intensive care unit and is seen today on the cardiac stepdown unit. Telemetry reviewed and no signs of atrial fibrillation. He denies any shortness of breath or chest pain. Heart rate is written in the 80s, pulse ox 96% on 3 L nasal cannula, blood pressure 102/63. Repeat blood work reveals hemoglobin 10.9, WBC 11.9, platelet count 114. BUN 22 creatinine 0.66 and potassium 3.9. PHYSICAL EXAMINATION Head: Normocephalic. Eyes: Sclerae nonicteric. Neck: Brisk carotid upstroke, Lungs: Very poor inspiratory effort, good air entry in bilateral upper lung love. Heart: Regular rate and rhythm, S1-S2, mild systolic murmur audible Abdomen: Soft nontender, positive bowel sounds. Extremities: 1+ pitting edema edema, Neuro: Awake and alert, oriented x 3. ASSESSMENT Severe symptomatic aortic stenosis s/p 27 mm Barger Inspira bioprosthetic valve. 04/17/2024 Single-vessel CABG, left radial to OM 2 40 mm atrial clip ligation Left upper lung lobe bleb resection Hypertension Dyslipidemia Type 2 diabetes COPD ERIS on home CPAP PLAN Patient is currently on amlodipine 2.5 mg daily, aspirin 325 mg daily, Plavix 75 mg daily, Lasix 20 mg IV twice daily, Lopressor 25 mg twice daily Continue to monitor hemodynamic parameters Continue to monitor telemetry Nurse practitioner note has been reviewed, I agree with documented findings and plan of care. Patient was seen and examined. Objective - Vital Signs Vital signs: Vital Signs Temp 97.9 F 04/20/24 04:14 Pulse 81 04/20/24 08:55 Resp 18 04/20/24 04:14 BP 109/69 04/20/24 04:14 Pulse Ox 96 04/20/24 08:48 FiO2 21 04/19/24 22:57 Intake & Output 04/19/24 04/20/24 04/20/24 18:59 06:59 18:59 Intake Total 1134.080 540 118 Output Total 530 890 Balance 604.080 -350 118 Weight 133.8 kg 134.6 kg Intake: IV 64 0.9 for pressure bag 24 Sodium Chloride 0.9% 1, 40 000 ml @ 20 mls/hr IV . Q24H LAURY Rx#:[id number] Intake, IV Titration 70.080 Amount Insulin Regular 100 unit 8.080 In Sodium Chloride 0.9% 100 ml @ Per Protocol IV .Q0M LAURY Rx#:[id number] Sodium Chloride 0.9% 1, 62 000 ml @ 20 mls/hr IV . Q24H LAURY Rx#:[id number] Oral 1000 540 118 Output: Chest Tube Drainage 95 140 Chest Tube Mediastinal 95 140 Pleural Catheter Left 0 Urine 435 750 Other: Voiding Method Urinal Urinal # Voids 1 1 1 # Bowel Movements 1 ABP, PAP, CO, CI - Last Documented Arterial Blood Pressure 136/57 Pulmonary Artery Pressure 36/24 Cardiac Output 8.7 Cardiac Index 3.7 - Labs CBC & Chem 7: 04/20/24 07:55 04/20/24 07:55 Labs: Abnormal Lab Results - Last 24 Hours (Table) 04/19/24 04/19/24 04/19/24 Range/Units 10:01 11:10 16:07 WBC (3.8-10.6) k/uL RBC (4.30-5.90) m/uL Hgb (13.0-17.5) gm/dL Hct (39.0-53.0) % Plt Count (150-450) k/uL Neutrophils # (1.3-7.7) k/uL Lymphocytes # (1.0-4.8) k/uL Chloride (98-107) mmol/L BUN (9-20) mg/dL Glucose (74-99) mg/dL POC Glucose (mg/dL) 195 H 197 H 247 H (70-110) mg/dL Calcium (8.4-10.2) mg/dL Total Protein (6.3-8.2) g/dL Albumin (3.5-5.0) g/dL 04/19/24 04/20/24 04/20/24 Range/Units 21:27 06:06 07:55 WBC 11.9 H (3.8-10.6) k/uL RBC 3.60 L (4.30-5.90) m/uL Hgb 10.9 L (13.0-17.5) gm/dL Hct 33.6 L (39.0-53.0) % Plt Count 114 L (150-450) k/uL Neutrophils # 10.2 H (1.3-7.7) k/uL Lymphocytes # 0.8 L (1.0-4.8) k/uL Chloride (98-107) mmol/L BUN (9-20) mg/dL Glucose (74-99) mg/dL POC Glucose (mg/dL) 184 H 177 H (70-110) mg/dL Calcium (8.4-10.2) mg/dL Total Protein (6.3-8.2) g/dL Albumin (3.5-5.0) g/dL 04/20/24 Range/Units 07:55 WBC (3.8-10.6) k/uL RBC (4.30-5.90) m/uL Hgb (13.0-17.5) gm/dL Hct (39.0-53.0) % Plt Count (150-450) k/uL Neutrophils # (1.3-7.7) k/uL Lymphocytes # (1.0-4.8) k/uL Chloride 108 H (98-107) mmol/L BUN 22 H (9-20) mg/dL Glucose 163 H (74-99) mg/dL POC Glucose (mg/dL) (70-110) mg/dL Calcium 8.3 L (8.4-10.2) mg/dL Total Protein 5.2 L (6.3-8.2) g/dL Albumin 3.2 L (3.5-5.0) g/dL
[2024-04-20] MEDS: POTASSIUM BICARBONATE/CIT AC 20 MEQ TABLET.EFF PO ONE (15:41)
[2024-04-20 16:39] LABS: Glucose,Whole Blood 234 mg/dL (70-110)
--- NOTE | 2024-04-20 16:56 | P.PN ---
Subjective Progress Note Date: 04/20/24 This is a 68-year-old male patient being seen in the intensive. Following cardiac surgery. The patient underwent aortic valve replacement for calcified aortic valve stenosis and the patient underwent also had single-vessel bypass surgery with left radial to second obtuse marginal branch of the circumflex. Postop, the patient was kept intubated on mechanical ventilator and the patient was transferred to the intensive care unit. Currently is on propofol running at 30 mcg/kg/min. On a mechanical ventilator, assist-control of 16, tidal volume of 500, FiO2 of 60% with a PEEP of 10. Cardiac output is 6.8 with a index of 2.9. Currently on nitroglycerin drip at 5 mcg/min. No other pressors. The pulmonary artery pressures of 48/26. The immediate blood gases showed a pH of 7.23 with a pCO2 of 64 and pO2 of 243. The patient had the appropriate ventilator changes done. Chest x-ray shows post thoracotomy changes with a mediastinal chest tube in the left lower chest tube. No evidence of pneu mothorax. No evidence of any air leak within the chest tubes. The patient has a right IJ Wantagh-Ingrid catheter in place. Mild pulm vascular congestion was also noted. White cell count of 18.4, hemoglobin 12.9, platelet count is 124, electrolytes are all stable, BUN is 17 with a creatinine 0.7. Afebrile. Adequate urine output. Hemodynamically stable. The cardiac rhythm is sinus. 04/18/2024, patient is being seen for a follow-up. The patient is postop day #1. Patient was extubated this morning and the patient is currently on 2 L of oxygen by nasal cannula. Awake and alert and moving all 4 extremities other than limitation. The weaning process was gradually performed that was somewhat p rolonged as the patient had a component of respiratory acidosis and he also had decreased output from mediastinal chest tube. Noted the mediastinal chest tube was produced approximately 900 cc since surgery and currently the output is in order of 10 cc an hour. The left lower chest tube was produced 10 cc an hour, and urine output is adequate in the order of 50 to 75 cc an hour. Cardiac output is at 7.2 with an index of 3.1. PA pressures are 34/18. CVP is at 9. He is currently on 2 L of oxygen by nasal cannula. Cardiac rhythm is sinus. The WBC count is at 12.5 with a hemoglobin of 11.8 and a platelet count of 119. BUN is 22 with a creatinine of 0.78. Hemodynamically stable. No other significant events overnight. .,024, the patient is postop day [id number] #[id number] and aortic valve replacementSingle-vessel bypass surgery. The patient is doing well. The patient sitting up on the chair. He is alert and oriented x 3. Denies having any respiratory distress.He is utilizing aBiPAP machine from home. He has a VPAP auto with a pressure of 16 over 11 cm of water. Mediastinal chest tubes today. Producing about 20 cc an hourSerous material. No significant chest pain. No shortness of breath. He is using the incentive spirometer.TheSwan-Ingrid catheter has been removed. The mediastinum and theLeft lower chest tube at low intermittent suction. The mediastinal chest tubeHas produced a total of 118 cc over the past 8 hours and 460Over the past 24 hours. The output from the left lower extremity was minimal andLeft lower chest tube has been removed. His car diac rhythm is sinus. Arterial line has been removed.Continues on insulin drip which is running at 5 units an hour and the patient is going to be transition to long-acting insulin with Levemir.Blood work from today shows a WBC count of 4.2 with a hemoglobin 10.4 and a platelet count of 94. Electrolytes are stable. BUN is 18 with a creatinine of 0 point0.65.The patient is on aspirin. The patient is also onMetoprolol 25 mg twice a day, Arixtra 2.5 mg p.o. dailySubcutaneous on a daily basis. He is also on Plavix. On 04/20/2024, the patient is being seen for a follow-up. The patient is dre nikolai postop day #3 following aortic valve replacement and single-vessel bypass surgery. Doing well with no specific complaints. Utilizing his BiPAP on and off during the day and at nighttime. Earlier this morning, the patient had a mediastinal chest tube that was removed by the cardiac team. He is currently on oxygen at room air with a pulse ox of 95%. He remains on aspirin. He remains on Plavix. He is also on metoprolol 25 mg twice a day. He is being diuresed with IV Lasix 20 mg every 12 hours. He remains on Arixtra 2.5 mg subcu every day. The follow-up chest x-ray was done today and the patient was found to have pulm vascular congestion without any significant effusion. No airspace disease. No consolidation. No pneumothorax. No other significant events overnight. Objective - Vital Signs Vital signs: Vital Signs Temp 97.9 F 04/20/24 04:14 Pulse 81 04/20/24 08:55 Resp 18 04/20/24 04:14 BP 109/69 04/20/24 04:14 Pulse Ox 96 04/20/24 08:48 FiO2 21 04/19/24 22:57 Intake & Output 04/19/24 04/20/24 04/20/24 18:59 06:59 18:59 Intake Total 1134.080 540 118 Output Total 530 890 Balance 604.080 -350 118 Weight 133.8 kg 134.6 kg Intake: IV 64 0.9 for pressure bag 24 Sodium Chloride 0.9% 1, 40 000 ml @ 20 mls/hr IV . Q24H [facility]URY Rx#:[id number] Intake, IV Titration 70.080 Amount Insulin Regular 100 unit 8.080 In Sodium Chloride 0.9% 100 ml @ Per Protocol IV .Q0M LAURY Rx#:[id number] Sodium Chloride 0.9% 1, 62 000 ml @ 20 mls/hr IV . Q24H LAURY Rx#:[id number] Oral 1000 540 118 Output: Chest Tube Drainage 95 140 Chest Tube Mediastinal 95 140 Pleural Catheter Left 0 Urine 435 750 Other: Voiding Method Urinal Urinal # Voids 1 1 1 # Bowel Movements 1 ABP, PAP, CO, CI - Last Documented Arterial Blood Pressure 136/57 Pulmonary Artery Pressure 36/24 Cardiac Output 8.7 Cardiac Index 3.7 - Exam CONSTITUTIONAL: Appears comfortable, cooperative, no acute distress RESPIRATORY: Lungs sounds diminished bilaterally. Respirations even, nonlabored. Currently on 3 L nasal cannula with oxygen saturation 92%. Able to achieve 1000 mL on incentive spirometry. Strong loose cough. CARDIOVASCULAR: S1, S2 present. Regular rate and rhythm, sinus rhythm on telemetry. Sternum stable. Palpable peripheral pulses bilaterally. Generalized edema present. No calf pain or tenderness noted. Heart hugger in place with patient demonstrating appropriate use. Antiembolism stockings, SCDs present. GASTROINTESTINAL: Abdomen soft, nontender, nondistended. Active bowel sounds present 4 quadrants. Tolerating diet. Positive flatus, negative bowel mov ement since surgery GENITOURINARY: Paiz discontinued yesterday, continues to void clear, yellow ur ine. Output 1185 mL in the last 24 hours INTEGUMENTARY: Skin is warm and dry with evidence of good perfusion. Anterior chest incision well approximated and covered with dry intact dressing. Left r adial artery harvest site well approximated without redness or drainage. NEUROLOGIC: Cranial nerves II through XII intact MUSKULOSKELETAL: Able to move all extremities, strength equal bilaterally, gait normal PSYCHIATRIC: Alert and oriented to person place and time, appropriate affect, intact judgment and insight INVASIVE LINES AND TUBES: Mediastinal chest tubes present and connected to wall suction, no air leaks present, 90 mL serosanguineous drainage overnight, 250 mL in the last 24 hours. A/V epicardial pacemaker wires present, grounded. - Labs CBC & Chem 7: 04/20/24 07:55 04/20/24 07:55 Labs: Abnormal Lab Results - Last 24 Hours (Table) 04/19/24 04/19/24 04/19/24 Range/Units 11:10 16:07 21:27 WBC (3.8-10.6) k/uL RBC (4.30-5.90) m/uL Hgb (13.0-17.5) gm/dL Hct (39.0-53.0) % Plt Count (150-450) k/uL Neutrophils # (1.3-7.7) k/uL Lymphocytes # (1.0-4.8) k/uL Chloride (98-107) mmol/L BUN (9-20) mg/dL Glucose (74-99) mg/dL POC Glucose (mg/dL) 197 H 247 H 184 H (70-110) mg/dL Calcium (8.4-10.2) mg/dL Total Protein (6.3-8.2) g/dL Albumin (3.5-5.0) g/dL 04/20/24 04/20/24 04/20/24 Range/Units 06:06 07:55 07:55 WBC 11.9 H (3.8-10.6) k/uL RBC 3.60 L (4.30-5.90) m/uL Hgb 10.9 L (13.0-17.5) gm/dL Hct 33.6 L (39.0-53.0) % Plt Count 114 L (150-450) k/uL Neutrophils # 10.2 H (1.3-7.7) k/uL Lymphocytes # 0.8 L (1.0-4.8) k/uL Chloride 108 H (98-107) mmol/L BUN 22 H (9-20) mg/dL Glucose 163 H (74-99) mg/dL POC Glucose (mg/dL) 177 H (70-110) mg/dL Calcium 8.3 L (8.4-10.2) mg/dL Total Protein 5.2 L (6.3-8.2) g/dL Albumin 3.2 L (3.5-5.0) g/dL Assessment and Plan Plan: Aortic valve disease, single-vessel bypass surgery, postop day #3 cardiac rhythm is sinus, hemodynamically stable, cardiac rhythm is sinus and the patient is currently on a combination of aspirin and Plavix. Patient is also on metoprolol. Postthoracotomy, extubated to nasal cannula and the patient has a mediastinal and left lower chest tube in place. Mediastinal chest tube output has slowed down over the past few hours. Hemodynamically stable. Currently on 2 L of oxygen by nasal cannula. The patient also utilizing his VPAP auto pressures of 16/11 cm of water. Using incentive spirometer. Left lower chest tube has been removed. Mediastinal chest will be kept in place. Severe aortic stenosis, valve area 0.69 cm, peak/mean gradient 94/63 mmHg, and peak velocity 4.86 m/s Mild mitral valve regurgitation and moderate stenosis with valve area 1.4 cm, peak/mean gradient 8/4 mmHg, and moderate MAC Hypertension Hyperlipidemia Diabetes Obstructive sleep apnea with home CPAP use Previous tobacco dependence Severe obstructive lung disease, FEV1 48% of predicted Plan Stable on 2 L of oxygen by nasal cannula. Continue BiPAP on and off during the day and during sleep. Hemodynamically stable Mediastinal chest tube to be removed Start the patient on Lasix 20 mg IV every 12 hours Wantagh-Ingrid catheter has been removed. Arterial line has been removed. Continue aspirin and Plavix Continue metoprolol 25 mg twice a day Increase mobility Levemir insulin 20 units daily and a sliding scale coverage with NovoLog 5 units with meals and a sliding scale coverage Chest x-ray was noted. Cardiac rhythm sinus Will continue to follow.
[2024-04-20] MEDS: AMIODARONE 360 MG in DEXTROSE 5% IN WATER 200 ML IV PRN (17:04)
[2024-04-20 20:13] LABS: Glucose,Whole Blood 256 mg/dL (70-110)
[2024-04-20] MEDS: AMIODARONE 450 MG in DEXTROSE 5% IN WATER 250 ML IV PRN (23:08)
[2024-04-21 06:30] LABS: Glucose,Whole Blood 180 mg/dL (70-110)
[2024-04-21] MEDS ORDERED: SENNOSIDES-DOCUSATE SODIUM 1 EACH TAB PO PRN (06:46)
--- NOTE | 2024-04-21 07:35 | P.PN ---
Subjective Progress Note Date: 04/21/24 Principal diagnosis: Calcific severe aortic stenosis, coronary artery disease. Previous medical history of hypertension, hyperlipidemia, diabetes mellitus type 2, obstructive sleep apnea with home CPAP use, previous tobacco dependence, and severe COPD/bullous emphysema POD #4 Aortic valve replacement with 27 mm Barger Inspiris bovine pericardial valve, CABG x 1 with left radial artery to second obtuse marginal branch of the circumflex coronary artery, occlusion of the left atrial appendage with 40 mm AtriCure clip, wedge resection blebs left upper lobe. Postoperative acute blood loss anemia, expected given cardiopulmonary bypass and hemodilution. Paroxysmal atrial fibrillation, known common occurrence after open heart surgery, not a complication The patient was seen and examined this morning sitting up in recliner on the cardiac stepdown unit in no acute distress. Went into rapid atrial fibrillation yesterday evening, started on amnio protocol, currently in atrial fibrillation but controlled rate, hemodynamically stable. The patient did ambulate in the hallway yesterday 3 times, showered. Currently on room air, able to achieve 1000 mL on his incentive spirometry. Chest x-ray reviewed, labs pending. No other new concerns. Objective - Vital Signs Vital signs: Vital Signs Temp 98.3 F 04/20/24 20:06 Pulse 84 04/21/24 03:43 Resp 18 04/21/24 03:43 BP 114/73 04/21/24 03:43 Pulse Ox 92 L 04/21/24 03:43 FiO2 21 04/19/24 22:57 Intake & Output 04/20/24 04/21/24 04/21/24 18:59 06:59 18:59 Intake Total 1074 Output Total 1000 Balance 1074 -1000 Intake: Oral 1074 Output: Urine 1000 Other: Voiding Method Urinal Urinal # Voids 2 1 # Bowel Movements 1 ABP, PAP, CO, CI - Last Documented Arterial Blood Pressure 136/57 Pulmonary Artery Pressure 36/24 Cardiac Output 8.7 Cardiac Index 3.7 - Exam CONSTITUTIONAL: Appears comfortable, cooperative, no acute distress RESPIRATORY: Lungs sounds diminished bilaterally. Respirations even, nonlabor ed. Currently on room air with oxygen saturation 93%. Able to achieve 1000 mL on incentive spirometry. Strong loose cough. CARDIOVASCULAR: S1, S2 present. Irregular rate and rhythm, controlled atrial fibrillation on telemetry. Sternum stable. Palpable peripheral pulses bilaterally. Generalized edema present. No calf pain or tenderness noted. Heart hugger in place with patient demonstrating appropriate use. Antiembolism stockings, SCDs present. GASTROINTESTINAL: Abdomen soft, nontender, nondistended, obese. Active bowel sounds present 4 quadrants. Tolerating diet. Positive bowel movement 04/20 GENITOURINARY: Continues to void clear, yellow urine. Output 1000 mL in the last 24 hours INTEGUMENTARY: Skin is warm and dry with evidence of good perfusion. Anterior chest incision well approximated and covered with dry intact dressing. Left radial artery harvest site well approximated without redness or drainage. NEUROLOGIC: Cranial nerves II through XII intact MUSKULOSKELETAL: Able to move all extremities, strength equal bilaterally, gait normal PSYCHIATRIC: Alert and oriented to person place and time, appropriate affect, intact judgment and insight INVASIVE LINES AND TUBES: A/V epicardial pacemaker wires present, grounded. - Allied health notes Allied health notes reviewed: nursing - Labs CBC & Chem 7: 04/20/24 07:55 04/20/24 07:55 Labs: Abnormal Lab Results - Last 24 Hours (Table) 04/20/24 04/20/24 04/20/24 Range/Units 07:55 07:55 11:31 WBC 11.9 H (3.8-10.6) k/uL RBC 3.60 L (4.30-5.90) m/uL Hgb 10.9 L (13.0-17.5) gm/dL Hct 33.6 L (39.0-53.0) % Plt Count 114 L (150-450) k/uL Neutrophils # 10.2 H (1.3-7.7) k/uL Lymphocytes # 0.8 L (1.0-4.8) k/uL Chloride 108 H (98-107) mmol/L BUN 22 H (9-20) mg/dL Glucose 163 H (74-99) mg/dL POC Glucose (mg/dL) 175 H (70-110) mg/dL Calcium 8.3 L (8.4-10.2) mg/dL Total Protein 5.2 L (6.3-8.2) g/dL Albumin 3.2 L (3.5-5.0) g/dL 04/20/24 04/20/24 04/21/24 Range/Units 16:38 20:11 06:25 WBC (3.8-10.6) k/uL RBC (4.30-5.90) m/uL Hgb (13.0-17.5) gm/dL Hct (39.0-53.0) % Plt Count (150-450) k/uL Neutrophils # (1.3-7.7) k/uL Lymphocytes # (1.0-4.8) k/uL Chloride (98-107) mmol/L BUN (9-20) mg/dL Glucose (74-99) mg/dL POC Glucose (mg/dL) 234 H 256 H 180 H (70-110) mg/dL Calcium (8.4-10.2) mg/dL Total Protein (6.3-8.2) g/dL Albumin (3.5-5.0) g/dL - Imaging and Cardiology Chest x-ray: image reviewed Assessment and Plan Assessment: Severe calcific aortic stenosis, status post aortic valve replacement Coronary artery disease, status post single-vessel CABG Hypertension Hyperlipidemia, treated, cholesterol 137, LDL 63, triglycerides 471 Diabetes mellitus type II, preoperative hemoglobin A1c 6.9% Obstructive sleep apnea with home CPAP use Previous tobacco dependence Severe COPD on bedside spirometry (FEV1 48% of predicted), repeat full PFT revealed mild COPD with FEV1 64% of predicted/bullous emphysema, status post wedge resection bleb of left upper lobe, Postoperative acute blood loss anemia, expected given cardiopulmonary bypass and hemodilution. Paroxysmal atrial fibrillation Plan: Continue to maximize medical therapy with aspirin, statin, Plavix and beta- amrita. Will increase beta-amrita therapy as tolerated, increased to 25 mg 3 times daily today Continue amiodarone for atrial fibrillation prophylaxis, will transition to oral. No anticoagulation unless remains in atrial fibrillation greater than 24 hours or is going in and out of A-fib Continue low-dose calcium channel amrita for radial artery spasm prophylaxis with hold parameters Encourage incentive spirometry use 10 times every hour while awake, bronchodilator management per pulmonology Increase activity, ambulate as tolerated. PT/OT/cardiac rehab following. Will monitor daily labs and chest x-rays. Electrolyte replacement per protocol. Continue IV lasix BID GI/DVT prophylaxis. HIT panel pending Insulin management per internal medicine Pain control with current medication regimen Continue to monitor and record strict accurate intake and output Daily weights Discharge planning in progress, anticipate discharge to home with home care in the next 24 to 48 hours More recommendations to follow based on patient's clinical course
--- NOTE | 2024-04-21 08:26 | XR ---
EXAMINATION TYPE: XR chest 2V DATE OF EXAM: 04/21/2024 COMPARISON: 04/20/2024 HISTORY: 68-year-old male postcardiac surgery TECHNIQUE: PA and lateral views FINDINGS: Median sternotomy wires with prosthetic aortic valve. Heart borderline enlarged. Hyperinflation. Diff use interstitial densities persist. Ongoing small left pleural effusion. Aeration is improving of the right base. IMPRESSION: 1. COPD with ongoing superimposed pulmonary vascular congestion. 2. Ongoing small left pleural effusion with adjacent atelectasis and/or consolidation. 3. Aeration is improving at the right base.
[2024-04-21 08:31] LABS: HCT 34.6 % (39.0-53.0); HGB 11.3 gm/dL (13.0-17.5); MCH 30.3 pg (25.0-35.0); MCHC 32.5 g/dL (31.0-37.0); MCV 93.1 fL (80.0-100.0); Platelet Count 133 k/uL (150-450); RBC 3.72 m/uL (4.30-5.90); RDW 14.1 % (11.5-15.5); WBC 11.4 k/uL (3.8-10.6)
[2024-04-21] MEDS: AMIODARONE 200 MG TAB PO SCH (08:33)
[2024-04-21] MEDS: METOPROLOL TARTRATE 25 MG TAB PO SCH (08:34)
[2024-04-21 08:54] LABS: African American GFR (CKD) >90 (>60 ml/min/1.73 sqM); Anion Gap 6 mmol/L; Blood Urea Nitrogen 25 mg/dL (9-20); Calcium 8.2 mg/dL (8.4-10.2); Carbon Dioxide 24 mmol/L (22-30); Chloride 107 mmol/L (98-107); Glucose 157 mg/dL (74-99); Magnesium 1.9 mg/dL (1.6-2.3); Non-African American GFR(CKD) >90 (>60 ml/min/1.73 sqM); Potassium 3.8 mmol/L (3.5-5.1); Sodium 137 mmol/L (137-145)
[2024-04-21 12:04] LABS: Glucose,Whole Blood 170 mg/dL (70-110)
[2024-04-21] MEDS: MAGNESIUM SULFATE-D5W PMX 1 GM in DEXTROSE/WATER 1 100ML.BAG IVPB SCH (12:43)
[2024-04-21] MEDS: POTASSIUM BICARBONATE/CIT AC 20 MEQ TABLET.EFF PO ONE (13:09)
--- NOTE | 2024-04-21 14:31 | P.PN ---
Subjective Progress Note Date: 04/21/24 This is a 68-year-old male patient being seen in the intensive. Following cardiac surgery. The patient underwent aortic valve replacement for calcified aortic valve stenosis and the patient underwent also had single-vessel bypass surgery with left radial to second obtuse marginal branch of the circumflex. Postop, the patient was kept intubated on mechanical ventilator and the patient was transferred to the intensive care unit. Currently is on propofol running at 30 mcg/kg/min. On a mechanical ventilator, assist-control of 16, tidal volume of 500, FiO2 of 60% with a PEEP of 10. Cardiac output is 6.8 with a index of 2.9. Currently on nitroglycerin drip at 5 mcg/min. No other pressors. The pulmonary artery pressures of 48/26. The immediate blood gases showed a pH of 7.23 with a pCO2 of 64 and pO2 of 243. The patient had the appropriate ventilator changes done. Chest x-ray shows post thoracotomy changes with a mediastinal chest tube in the left lower chest tube. No evidence of pneu mothorax. No evidence of any air leak within the chest tubes. The patient has a right IJ [place]-Ingrid catheter in place. Mild pulm vascular congestion was also noted. White cell count of 18.4, hemoglobin 12.9, platelet count is 124, electrolytes are all stable, BUN is 17 with a creatinine 0.7. Afebrile. Adequate urine output. Hemodynamically stable. The cardiac rhythm is sinus. 04/18/2024, patient is being seen for a follow-up. The patient is postop day #1. Patient was extubated this morning and the patient is currently on 2 L of oxygen by nasal cannula. Awake and alert and moving all 4 extremities other than limitation. The weaning process was gradually performed that was somewhat p rolonged as the patient had a component of respiratory acidosis and he also had decreased output from mediastinal chest tube. Noted the mediastinal chest tube was produced approximately 900 cc since surgery and currently the output is in order of 10 cc an hour. The left lower chest tube was produced 10 cc an hour, and urine output is adequate in the order of 50 to 75 cc an hour. Cardiac output is at 7.2 with an index of 3.1. PA pressures are 34/18. CVP is at 9. He is currently on 2 L of oxygen by nasal cannula. Cardiac rhythm is sinus. The WBC count is at 12.5 with a hemoglobin of 11.8 and a platelet count of 119. BUN is 22 with a creatinine of 0.78. Hemodynamically stable. No other significant events overnight. .,024, the patient is postop day [id number] #[id number] and aortic valve replacementSingle-vessel bypass surgery. The patient is doing well. The patient sitting up on the chair. He is alert and oriented x 3. Denies having any respiratory distress.He is utilizing aBiPAP machine from home. He has a VPAP auto with a pressure of 16 over 11 cm of water. Mediastinal chest tubes today. Producing about 20 cc an hourSerous material. No significant chest pain. No shortness of breath. He is using the incentive spirometer.TheSwan-Ingrid catheter has been removed. The mediastinum and theLeft lower chest tube at low intermittent suction. The mediastinal chest tubeHas produced a total of 118 cc over the past 8 hours and 460Over the past 24 hours. The output from the left lower extremity was minimal andLeft lower chest tube has been removed. His car diac rhythm is sinus. Arterial line has been removed.Continues on insulin drip which is running at 5 units an hour and the patient is going to be transition to long-acting insulin with Levemir.Blood work from today shows a WBC count of 4.2 with a hemoglobin 10.4 and a platelet count of 94. Electrolytes are stable. BUN is 18 with a creatinine of 0 point0.65.The patient is on aspirin. The patient is also onMetoprolol 25 mg twice a day, Arixtra 2.5 mg p.o. dailySubcutaneous on a daily basis. He is also on Plavix. On 04/20/2024, the patient is being seen for a follow-up. The patient is dre nikolai postop day #3 following aortic valve replacement and single-vessel bypass surgery. Doing well with no specific complaints. Utilizing his BiPAP on and off during the day and at nighttime. Earlier this morning, the patient had a mediastinal chest tube that was removed by the cardiac team. He is currently on oxygen at room air with a pulse ox of 95%. He remains on aspirin. He remains on Plavix. He is also on metoprolol 25 mg twice a day. He is being diuresed with IV Lasix 20 mg every 12 hours. He remains on Arixtra 2.5 mg subcu every day. The follow-up chest x-ray was done today and the patient was found to have pulm vascular congestion without any significant effusion. No airspace disease. No consolidation. No pneumothorax. No other significant events overnight. On 04/21/2024, the patient is calm and comfortable, currently on room air oxygen. Utilizing his BiPAP machine overnight. Ambulating. No issues with pain. Moving all 4 extremities. Ambulating. He is postop day #4. Using the incentive spirometer. Pulling approximately 8000. BUN is 25 with a creatinine of 0.59. Sodium is at 137. White cell count 11.4 with a hemoglobin of 11.3 and a platelet count of 133. Chest x-ray from today shows likely normalities. There is some pulm vascular congestion and small left-sided pleural effusion. Aeration is improved in the right lung base. Is having approximately fibrillation. Objective - Vital Signs Vital signs: Vital Signs Temp 96.7 F L 04/21/24 08:00 Pulse 90 04/21/24 08:00 Resp 16 04/21/24 08:00 BP 114/58 04/21/24 08:00 Pulse Ox 94 L 04/21/24 08:00 FiO2 21 04/19/24 22:57 Intake & Output 04/20/24 04/21/24 04/21/24 18:59 06:59 18:59 Intake Total 1074 Output Total 1000 200 Balance 1074 -1000 -200 Intake: Oral 1074 Output: Urine 1000 200 Other: Voiding Method Urinal Urinal # Voids 2 1 # Bowel Movements 1 ABP, PAP, CO, CI - Last Documented Arterial Blood Pressure 136/57 Pulmonary Artery Pressure 36/24 Cardiac Output 8.7 Cardiac Index 3.7 - Exam CONSTITUTIONAL: Appears comfortable, cooperative, no acute distress RESPIRATORY: Lungs sounds diminished bilaterally. Respirations even, nonlabored. Currently on room air with oxygen saturation 93%. Able to achieve 1000 mL on incentive spirometry. Strong loose cough. CARDIOVASCULAR: S1, S2 present. Irregular rate and rhythm, controlled atrial fibrillation on telemetry. Sternum stable. Palpable peripheral pulses bilaterally. Generalized edema present. No calf pain or tenderness noted. Heart hugger in place with patient demonstrating appropriate use. Antiembolism stockings, SCDs present. GASTROINTESTINAL: Abdomen soft, nontender, nondistended, obese. Active bowel sounds present 4 quadrants. Tolerating diet. Positive bowel movement 04/20 GENITOURINARY: Continues to void clear, yellow urine. Output 1000 mL in the last 24 hours INTEGUMENTARY: Skin is warm and dry with evidence of good perfusion. Anterior chest incision well approximated and covered with dry intact dressing. Left radial artery harvest site well approximated without redness or drainage. NEUROLOGIC: Cranial nerves II through XII intact MUSKULOSKELETAL: Able to move all extremities, strength equal bilaterally, gait normal PSYCHIATRIC: Alert and oriented to person place and time, appropriate affect, intact judgment and insight INVASIVE LINES AND TUBES: A/V epicardial pacemaker wires present, grounded. - Labs CBC & Chem 7: 04/21/24 07:04/21/24 07:07 Labs: Abnormal Lab Results - Last 24 Hours (Table) 04/20/24 04/20/24 04/20/24 Range/Units 11:31 16:38 20:11 WBC (3.8-10.6) k/uL RBC (4.30-5.90) m/uL Hgb (13.0-17.5) gm/dL Hct (39.0-53.0) % Plt Count (150-450) k/uL BUN (9-20) mg/dL Creatinine (0.66-1.25) mg/dL Glucose (74-99) mg/dL POC Glucose (mg/dL) 175 H 234 H 256 H (70-110) mg/dL Calcium (8.4-10.2) mg/dL 04/21/24 04/21/24 04/21/24 Range/Units 06:25 07:07 07:07 WBC 11.4 H (3.8-10.6) k/uL RBC 3.72 L (4.30-5.90) m/uL Hgb 11.3 L (13.0-17.5) gm/dL Hct 34.6 L (39.0-53.0) % Plt Count 133 L (150-450) k/uL BUN 25 H (9-20) mg/dL Creatinine 0.59 L (0.66-1.25) mg/dL Glucose 157 H (74-99) mg/dL POC Glucose (mg/dL) 180 H (70-110) mg/dL Calcium 8.2 L (8.4-10.2) mg/dL Assessment and Plan Plan: Aortic valve disease, single-vessel bypass surgery, postop day #4 cardiac rhythm is sinus, hemodynamically stable, cardiac rhythm is sinus and the patient is currently on a combination of aspirin and Plavix. Patient is also on metoprolol. Postthoracotomy, extubated to nasal cannula and the patient has a mediastinal and left lower chest tube in place. Mediastinal chest tube output has slowed down over the past few hours. Hemodynamically stable. Currently on room air oxygen. The patient also utilizing his VPAP auto pressures of 16/11 cm of water. Using incentive spirometer. Chest tubes have been removed Approximately fibrillation Severe aortic stenosis, valve area 0.69 cm, peak/mean gradient 94/63 mmHg, and peak velocity 4.86 m/s Mild mitral valve regurgitation and moderate stenosis with valve area 1.4 cm, peak/mean gradient 8/4 mmHg, and moderate MAC Hypertension Hyperlipidemia Diabetes Obstructive sleep apnea with home CPAP use Previous tobacco dependence Severe obstructive lung disease, FEV1 48% of predicted Plan Patient is currently on room air oxygen Continue BiPAP on and off during the day and during sleep. Hemodynamically stable All chest tubes have been removed Continue Lasix 20 mg IV every 12 hours [place]-Ingrid catheter has been removed. Arterial line has been removed. Continue aspirin and Plavix Continue metoprolol 25 mg twice a day Continue Arixtra 2.5 mg subcu on a daily basis Increase mobility Levemir insulin 20 units daily and a sliding scale coverage with NovoLog 5 units with meals and a sliding scale coverage Chest x-ray was noted. Will continue to follow.
--- NOTE | 2024-04-21 15:13 | P.PN ---
Subjective Progress Note Date: 04/21/24 HISTORY OF PRESENTING ILLNESS Patient with past medical history of hypertension, hyperlipidemia, type 2 di abetes, COPD with FEV1 48%, ERIS, previous smoker, CAD and calcific aortic stenosis. She underwent surgical aortic valve replacement on 04/17/2024 with 27 mm Barger Inspira bovine pericardial valve, CABG x 1 with left radial artery to OM 2, 40 mm atrial clip, surgical resection of left upper lung lobe bleb. Currently patient is being transferred to ICU. Patient was extubated today 2 to 3 L nasal cannula. Patient is awake and moving all 4 extremities without limitation. She has good urine output, she has chest tube in place, [place]-Ingrid catheter in place and epicardial pacing wires in place. 04/19/2024 Patient is seen and examined at bedside this a.m. His mediastinal tube is draining serosanguineous fluid. Left pleural tube was removed. [place]-Ingrid catheter was removed. He is hemodynamically stable. No evidence of atrial fibrillation on telemetry monitoring Hemoglobin 10.2, WBC 12.2, creatinine 0.6, good urine output BP 120/56, heart rate 75 bpm, sinus 04/20 Has been transferred out of the intensive care unit and is seen today on the cardiac stepdown unit. Telemetry reviewed and no signs of atrial fibrillation. He denies any shortness of breath or chest pain. Heart rate is written in the 80s, pulse ox 96% on 3 L nasal cannula, blood pressure 102/63. Repeat blood work reveals hemoglobin 10.9, WBC 11.9, platelet count 114. BUN 22 creatinine 0.66 and potassium 3.9. 04/21 Yesterday, patient went into atrial fibrillation with RVR was started on amiodarone IV. He has been transition already to oral 400 mg twice a day by cardiothoracic surgery. Heart rate is in the 90s, blood pressure 114/58, pulse ox 94% on room air. Repeat blood work reveals WBC 11.4, hemoglobin 9.3, p otassium 3.8, BUN 25 creatinine 0.59. Patient is also on IV Lasix 20 mg twice daily. PHYSICAL EXAMINATION Head: Normocephalic. Eyes: Sclerae nonicteric. Neck: Brisk carotid upstroke, Lungs: Very poor inspiratory effort, good air entry in bilateral upper lung love. Heart: Regular rate and rhythm, S1-S2, mild systolic murmur audible Abdomen: Soft nontender, positive bowel sounds. Extremities: 1+ pitting edema edema, Neuro: Awake and alert, oriented x 3. ASSESSMENT Severe symptomatic aortic stenosis s/p 27 mm Barger Inspira bioprosthetic valve. 04/17/2024 Single-vessel CABG, left radial to OM 2 40 mm atrial clip ligation Left upper lung lobe bleb resection Hypertension Dyslipidemia Type 2 diabetes COPD ERIS on home CPAP Postop paroxysmal atrial fibrillation with RVR, not unexpected with surgery PLAN Patient is currently on amiodarone 400 mg twice daily, amlodipine 2.5 mg daily, aspirin 325 mg daily, Plavix 75 mg daily, Lasix 20 mg IV twice daily, Lopressor 25 mg increase frequency to every 8 hours Continue to monitor hemodynamic parameters Continue to monitor telemetry Nurse practitioner note has been reviewed, I agree with documented findings and plan of care. Patient was seen and examined. Objective - Vital Signs Vital signs: Vital Signs Temp 96.7 F L 04/21/24 08:00 Pulse 88 04/21/24 12:34 Resp 16 04/21/24 08:00 BP 114/58 04/21/24 08:00 Pulse Ox 94 L 04/21/24 08:00 FiO2 21 04/19/24 22:57 Intake & Output 04/20/24 04/21/24 04/21/24 18:59 06:59 18:59 Intake Total 1074 Output Total 1000 200 Balance 1074 -1000 -200 Intake: Oral 1074 Output: Urine 1000 200 Other: Voiding Method Urinal Urinal Urinal # Voids 2 1 # Bowel Movements 1 ABP, PAP, CO, CI - Last Documented Arterial Blood Pressure 136/57 Pulmonary Artery Pressure 36/24 Cardiac Output 8.7 Cardiac Index 3.7 - Labs CBC & Chem 7: 04/21/24 07:07 04/21/24 07:07 Labs: Abnormal Lab Results - Last 24 Hours (Table) 04/20/24 04/20/24 04/21/24 Range/Units 16:38 20:11 06:25 WBC (3.8-10.6) k/uL RBC (4.30-5.90) m/uL Hgb (13.0-17.5) gm/dL Hct (39.0-53.0) % Plt Count (150-450) k/uL BUN (9-20) mg/dL Creatinine (0.66-1.25) mg/dL Glucose (74-99) mg/dL POC Glucose (mg/dL) 234 H 256 H 180 H (70-110) mg/dL Calcium (8.4-10.2) mg/dL 04/21/24 04/21/24 04/21/24 Range/Units 07:07 07:07 12:02 WBC 11.4 H (3.8-10.6) k/uL RBC 3.72 L (4.30-5.90) m/uL Hgb 11.3 L (13.0-17.5) gm/dL Hct 34.6 L (39.0-53.0) % Plt Count 133 L (150-450) k/uL BUN 25 H (9-20) mg/dL Creatinine 0.59 L (0.66-1.25) mg/dL Glucose 157 H (74-99) mg/dL POC Glucose (mg/dL) 170 H (70-110) mg/dL Calcium 8.2 L (8.4-10.2) mg/dL
[2024-04-21 16:51] LABS: Glucose,Whole Blood 180 mg/dL (70-110)
[2024-04-21 20:08] LABS: Glucose,Whole Blood 153 mg/dL (70-110)
--- NOTE | 2024-04-21 20:34 | P.PN ---
Subjective This is a pleasant 68 years old male with past medical history of hypertension, diabetes mellitus, hyperlipidemia Patient recently had cardiac cath on 04/07 showing coronary artery disease with focal stenosis of left circumflex artery between 70 and 80% He was admitted to the hospital for his severe aortic stenosis and he underwent aortic valve replacement Also he had a CABG x 1 with radial artery to the second obtuse marginal branch of the left circumflex. Currently patient intubated in the ICU Patient receiving nitroglycerin drip Also she is on insulin drip and Normal Saline 50 mL/h She is on aspirin and Plavix Patient is afebrile, mildly tachypneic She has unremarkable BMP and LFT WBC 12.5, hemoglobin 11.8. Platelet count is low at 119 Chest x-ray showing COPD with postsurgical changes Patient currently on normal saline 50 mL and insulin drip 04/18/2024 Patient extubated She is awake alert No chest pain or dyspnea Currently remains n.p.o. on insulin drip and sugar controlled Probably he will start feeding this afternoon. He remains on aspirin and Plavix 04/19/24 Patient awake alert at baseline No chest pain no dyspnea Chest tube in place. No new complaints 04/20/2024 Patient with no chest pain or tachypnea at rest however his chest is tight and he has some occasional coughing Chest x-ray showing pulmonary congestion and was started on IV Lasix 20 mg twice daily and 1 time dose of p.o. 40 mg No chest tube. Sugars controlled and he switched to Levemir 20 units and 5 units of NovoLog He feels constipated requesting for stool softeners 04/21/2024 No symptoms while sitting in chair He was on amiodarone drip this morning for arrhythmia, later on switched to amiodarone 400 mg twice daily Continued with cardiac medication as above Sugars controlled Objective - Vital Signs Vital signs: Vital Signs Temp 96.7 F L 04/21/24 08:00 Pulse 90 04/21/24 08:00 Resp 16 04/21/24 08:00 BP 114/58 04/21/24 08:00 Pulse Ox 94 L 04/21/24 08:00 FiO2 21 04/19/24 22:57 Intake & Output 04/20/24 04/21/24 04/21/24 18:59 06:59 18:59 Intake Total 1074 Output Total 1000 200 Balance 1074 -1000 -200 Intake: Oral 1074 Output: Urine 1000 200 Other: Voiding Method Urinal Urinal # Voids 2 1 # Bowel Movements 1 ABP, PAP, CO, CI - Last Documented Arterial Blood Pressure 136/57 Pulmonary Artery Pressure 36/24 Cardiac Output 8.7 Cardiac Index 3.7 - Exam GENERAL: The patient is alert and oriented x3, not in any acute distress. Well developed, well nourished. HEENT: Pupils are round and equally reacting to light. EOMI. No scleral icterus. No conjunctival pallor. Normocephalic, atraumatic. No pharyngeal erythema. No thyromegaly. CARDIOVASCULAR: S1 and S2 present. No murmurs, rubs, or gallops. PULMONARY: Chest is clear to auscultation, no wheezing , no crackles. ABDOMEN: Soft, nontender, nondistended, normoactive bowel sounds. No palpable organomegaly. MUSCULOSKELETAL: No joint swelling or deformity. EXTREMITIES: No cyanosis, clubbing, or pedal edema. NEUROLOGICAL: Gross neurological examination did not reveal any focal deficits. SKIN: No rashes. no petechiae. - Labs CBC & Chem 7: 04/21/24 07:07 04/21/24 07:07 Labs: Abnormal Lab Results - Last 24 Hours (Table) 04/20/24 04/20/24 04/20/24 Range/Units 11:31 16:38 20:11 WBC (3.8-10.6) k/uL RBC (4.30-5.90) m/uL Hgb (13.0-17.5) gm/dL Hct (39.0-53.0) % Plt Count (150-450) k/uL BUN (9-20) mg/dL Creatinine (0.66-1.25) mg/dL Glucose (74-99) mg/dL POC Glucose (mg/dL) 175 H 234 H 256 H (70-110) mg/dL Calcium (8.4-10.2) mg/dL 04/21/24 04/21/24 04/21/24 Range/Units 06:25 07:07 07:07 WBC 11.4 H (3.8-10.6) k/uL RBC 3.72 L (4.30-5.90) m/uL Hgb 11.3 L (13.0-17.5) gm/dL Hct 34.6 L (39.0-53.0) % Plt Count 133 L (150-450) k/uL BUN 25 H (9-20) mg/dL Creatinine 0.59 L (0.66-1.25) mg/dL Glucose 157 H (74-99) mg/dL POC Glucose (mg/dL) 180 H (70-110) mg/dL Calcium 8.2 L (8.4-10.2) mg/dL Assessment and Plan Assessment: Severe aortic stenosis status post aortic valve replacement Coronary artery disease with focal stenosis of left circumflex 70 to 80% s/p CABG with radial artery to obtuse marginal branch which is the second branch of left circumflex artery Hypertension Hyperlipidemia Diabetes mellitus Osteoarthritis Obstructive sleep apnea on CPAP Mild thrombocytopenia and anemia Hypertension Hyperlipidemia Diabetes mellitus Obesity with BMI of 45.6. Plan: Continue with aspirin and Plavix Continue with insulin , Levemir 20 and NovoLog 5 units with meal Stop normal saline and started IV Lasix [facility] Pulmonary team consult on the case Management of vent per pulmonary team GI and DVT prophylaxis with Protonix and subcu heparin
[2024-04-21] MEDS: POTASSIUM BICARBONATE/CIT AC 20 MEQ TABLET.EFF PO SCH (20:45)
[2024-04-22 05:36] VITALS: RESP 16
[2024-04-22 06:02] LABS: Glucose,Whole Blood 155 mg/dL (70-110)
--- NOTE | 2024-04-22 07:50 | P.PN ---
Subjective Progress Note Date: 04/22/24 Principal diagnosis: Calcific severe aortic stenosis, coronary artery disease. Previous medical history of hypertension, hyperlipidemia, diabetes mellitus type 2, obstructive sleep apnea with home CPAP use, previous tobacco dependence, and severe COPD/bullous emphysema POD #5 Aortic valve replacement with 27 mm Barger Inspiris bovine pericardial valve, CABG x 1 with left radial artery to second obtuse marginal branch of the circumflex coronary artery, occlusion of the left atrial appendage with 40 mm AtriCure clip, wedge resection blebs left upper lobe. Postoperative acute blood loss anemia, expected given cardiopulmonary bypass and hemodilution. Paroxysmal atrial fibrillation-->flutter, known common occurrence after open heart surgery, not a complication The patient was seen and examined this morning sitting up in recliner on the cardiac stepdown unit in no acute distress. Remains in atrial flutter but controlled rate, hemodynamically stable. Patient was loaded with amiodarone and remains on oral amiodarone, Lopressor increased, remains on IV Lasix. The patient did ambulate in the hallway yesterday, showered. Currently on room air, able to achieve 1000 mL on his incentive spirometry. Chest x-ray reviewed, labs pending. Patient wanting to go home today. No other new concerns. Objective - Vital Signs Vital signs: Vital Signs Temp 98.2 F 04/21/24 19:48 Pulse 85 04/22/24 05:35 Resp 16 04/22/24 05:35 BP 122/76 04/22/24 05:35 Pulse Ox 91 L 04/22/24 05:35 FiO2 21 04/19/24 22:57 Intake & Output 04/21/24 04/22/24 04/22/24 18:59 06:59 18:59 Intake Total 318 Output Total 450 600 Balance -132 -600 Weight 132.1 kg Intake: Intake, IV Titration 200 Amount Dextrose 5% in Water 100 200 ml @ 618 mls/hr IV .Q10M PRN with Amiodarone 150 mg Rx#:[id number] Oral 118 Output: Urine 450 600 Other: Voiding Method Urinal Toilet # Voids 2 # Bowel Movements 3 ABP, PAP, CO, CI - Last Documented Arterial Blood Pressure 136/57 Pulmonary Artery Pressure 36/24 Cardiac Output 8.7 Cardiac Index 3.7 - Exam CONSTITUTIONAL: Appears comfortable, cooperative, no acute distress RESPIRATORY: Lungs sounds diminished bilaterally. Respirations even, nonlabored. Currently on room air with oxygen saturation 92%. Able to achieve 1000 mL on incentive spirometry. Strong loose cough. CARDIOVASCULAR: S1, S2 present. Irregular rate and rhythm, controlled atrial flutter on telemetry. Sternum stable. Palpable peripheral pulses bilaterally. Generalized edema present. No calf pain or tenderness noted. Heart hugger in place with patient demonstrating appropriate use. Antiembolism stockings, SCDs present. GASTROINTESTINAL: Abdomen soft, nontender, nondistended, obese. Active bowel sounds present 4 quadrants. Tolerating diet. Positive bowel movement 04/21 GENITOURINARY: Continues to void clear, yellow urine. Output 1050 mL in the last 24 hours INTEGUMENTARY: Skin is warm and dry with evidence of good perfusion. Anterior chest incision well approximated. Left radial artery harvest site well approximated without redness or drainage. NEUROLOGIC: Cranial nerves II through XII intact MUSKULOSKELETAL: Able to move all extremities, strength equal bilaterally, gait normal PSYCHIATRIC: Alert and oriented to person place and time, appropriate affect, intact judgment and insight INVASIVE LINES AND TUBES: A/V epicardial pacemaker wires present, grounded. - Allied health notes Allied health notes reviewed: nursing - Labs CBC & Chem 7: 04/21/24 07:07 04/21/24 07:07 Labs: Abnormal Lab Results - Last 24 Hours (Table) 04/21/24 04/21/24 04/21/24 Range/Units 07:07 07:07 12:02 WBC 11.4 H (3.8-10.6) k/uL RBC 3.72 L (4.30-5.90) m/uL Hgb 11.3 L (13.0-17.5) gm/dL Hct 34.6 L (39.0-53.0) % Plt Count 133 L (150-450) k/uL BUN 25 H (9-20) mg/dL Creatinine 0.59 L (0.66-1.25) mg/dL Glucose 157 H (74-99) mg/dL POC Glucose (mg/dL) 170 H (70-110) mg/dL Calcium 8.2 L (8.4-10.2) mg/dL 04/21/24 04/21/24 04/22/24 Range/Units 16:48 20:03 05:59 WBC (3.8-10.6) k/uL RBC (4.30-5.90) m/uL Hgb (13.0-17.5) gm/dL Hct (39.0-53.0) % Plt Count (150-450) k/uL BUN (9-20) mg/dL Creatinine (0.66-1.25) mg/dL Glucose (74-99) mg/dL POC Glucose (mg/dL) 180 H 153 H 155 H (70-110) mg/dL Calcium (8.4-10.2) mg/dL - Imaging and Cardiology Chest x-ray: image reviewed Assessment and Plan Assessment: Severe calcific aortic stenosis, status post aortic valve replacement Coronary artery disease, status post single-vessel CABG Hypertension Hyperlipidemia, treated, cholesterol 137, LDL 63, triglycerides 471 Diabetes mellitus type II, preoperative hemoglobin A1c 6.9% Obstructive sleep apnea with home CPAP use Previous tobacco dependence Morbid obesity Severe COPD on bedside spirometry (FEV1 48% of predicted), repeat full PFT revealed mild COPD with FEV1 64% of predicted/bullous emphysema, status post wedge resection bleb of left upper lobe, Postoperative acute blood loss anemia, expected given cardiopulmonary bypass and hemodilution. Paroxysmal atrial fibrillation/flutter Plan: Continue to maximize medical therapy with low-dose aspirin, statin, and beta- amrita. Will increase beta-amrita therapy as tolerated, increased to 50 mg twice daily today Continue amiodarone for atrial fibrillation prophylaxis. Will stop Plavix and start Eliquis for anticoagulation Continue low-dose calcium channel amrita for radial artery spasm prophylaxis with hold parameters Encourage incentive spirometry use 10 times every hour while awake, bronchodilator management per pulmonology Increase activity, ambulate as tolerated. PT/OT/cardiac rehab following. Will monitor daily labs and chest x-rays. Electrolyte replacement per protocol. Continue IV lasix BID, will discharge on oral Lasix GI/DVT prophylaxis. HIT panel negative Insulin management per internal medicine Pain control with current medication regimen Continue to monitor and record strict accurate intake and output Daily weights Will discontinue epicardial pacer wires, patient to remain on bedrest for 1 hour post wire removal Discharge planning in progress, anticipate discharge to home with home care likely later today More recommendations to follow based on patient's clinical course
[2024-04-22 07:56] LABS: HCT 35.7 % (39.0-53.0); HGB 11.6 gm/dL (13.0-17.5); MCH 30.2 pg (25.0-35.0); MCHC 32.4 g/dL (31.0-37.0); MCV 93.1 fL (80.0-100.0); Mean Platelet Volume 10.2; Platelet Count 178 k/uL (150-450); RBC 3.84 m/uL (4.30-5.90); RDW 14.2 % (11.5-15.5); WBC 10.1 k/uL (3.8-10.6)
[2024-04-22 08:10] LABS: Glucose 161 mg/dL (74-99); Sodium 138 mmol/L (137-145)
[2024-04-22 08:11] LABS: African American GFR (CKD) >90 (>60 ml/min/1.73 sqM); Anion Gap 5 mmol/L; Blood Urea Nitrogen 25 mg/dL (9-20); Calcium 8.3 mg/dL (8.4-10.2); Carbon Dioxide 28 mmol/L (22-30); Chloride 105 mmol/L (98-107); Non-African American GFR(CKD) >90 (>60 ml/min/1.73 sqM); Potassium 4.1 mmol/L (3.5-5.1)
[2024-04-22 08:14] VITALS: BP 108/58; PULSE 86; TEMP 97.9
[2024-04-22] MEDS: ASPIRIN 81 MG PO SCH (09:04)
[2024-04-22] MEDS: METOPROLOL TARTRATE 50 MG TAB PO SCH (09:04)
[2024-04-22] MEDS: APIXABAN 5 MG TAB PO SCH (09:04)
[2024-04-22] MEDS: DAPAGLIFLOZIN PROPANEDIOL 10 MG TABLET PO SCH (09:04)
--- NOTE | 2024-04-22 10:23 | P.DS ---
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: post cardiac surgery Do you want consulting provider notified?: Yes Primary care physician: Addidevi Chang [facility] Course: FINAL DIAGNOSIS: Severe calcific aortic stenosis Coronary artery disease Hypertension Hyperlipidemia, treated, cholesterol 137, LDL 63, triglycerides 471 Diabetes mellitus type II, preoperative hemoglobin A1c 6.9% Obstructive sleep apnea with home CPAP use Previous tobacco dependence Morbid obesity Severe COPD on bedside spirometry (FEV1 48% of predicted), repeat full PFT revealed mild COPD with FEV1 64% of predicted/bullous emphysema Postoperative acute blood loss anemia, expected given cardiopulmonary bypass and hemodilution. Paroxysmal atrial fibrillation/flutter PRINCIPAL PROCEDURE: Aortic valve replacement with 27 mm Barger Inspiris bovine pericardial valve CABG x 1 with left radial artery to second obtuse marginal branch of the circumflex coronary artery Occlusion of the left atrial appendage with 40 mm AtriCure clip Wedge resection blebs left upper lobe HISTORY OF PRESENT ILLNESS: This is a 68-year-old gentleman who follows outpatient with Dr. Yesenia Chang for primary care and Dr. Wolfe for cardiology. This gentleman reported that he is fairly active but had noticed shortness of breath and occasional dizziness with no other symptoms of valvular heart disease. He denied any chest pain, syncope, or peripheral edema. He did have a transthoracic echocardiogram completed at [facility] in February of this year reporting normal LV systolic function with EF 55 to 60%, severe aortic stenosis with valve area 0.69 cm, peak/mean gradient 94/63 mmHg, and peak velocity 4.86 m/s. There was no reported aortic regurgitation, mitral valve demonstrated mild regurgitation and moderate stenosis with valve area 1.4 cm, peak/mean gradient 8/4 mmHg, and moderate MAC. Due to his symptoms and findings on transthoracic echocardiogram he was recommended to undergo heart catheterization and transesophageal echocardiogram which was completed by Dr. Wolfe. Heart catheterization revealed circumflex stenosis 70 to 80% proximal to the second OM branch. ANDREI revealed tricuspid aortic valve which was heavily calcified with severe restriction in leaflet mobility with valve area 0.53 cm, mild MR as well as mild TR, normal LV size and function with no aneurysmal dilatation of the ascending aorta. Due to these findings consultation was placed to Dr. Oliver from cardiothoracic surgery for treatment recommendations. He was recommended to undergo aortic valve replacement along with surgical myocardial revascularization. The usual perioperative course was discussed in detail with the patient and his family, all risks and benefits were explained, all questions were answered, and consent was obtained to proceed with surgery. The patient was scheduled for elective surgery after obtaining dental clearance and pulmonary clearance. HOSPITAL COURSE: The patient was brought to the hospital on 04/17/24, taken to the preoperative area, prepared in the usual fashion, and subsequently taken to the operating room where Dr. Oliver performed aortic valve replacement and single- vessel CABG along with blebectomy. Upon completion of surgery the patient was transferred to the cardiovascular intensive care unit where he was recovered and monitored hemodynamically. He was extubated, all lines, tubes, and drips were discontinued when appropriate, and he was transferred to 3 S cardiac stepdown unit for further monitoring and rehabilitation. He did experience atrial flutter which was rate controlled and he was to be discharged on tapered dose of amiodarone along with beta-amrita and anticoagulation. His oxygen was titrated down, he continued to work with physical and occupational therapy, he was tolerating oral diet, his pain was controlled, and he was ready to be discharged to home with [facility] care on postoperative day #5. He received written and verbal instruction regarding his medications, activity restrictions, signs and symptoms requiring physician notification, and follow-up appointments. Patient Condition at Discharge: Stable Plan - Discharge Summary Discharge Rx Participant: No New Discharge Prescriptions: New Furosemide [Lasix] 40 mg PO DAILY #30 tablet Metoprolol Tartrate [Lopressor] 50 mg PO BID #60 tab Sennosides-Docusate Sodium [Senokot-S] 2 each PO HS PRN tab PRN Reason: Constipation Amiodarone [Cordarone] 400 mg PO BID #44 tab Apixaban [Eliquis] 5 mg PO BID #60 tab Tamsulosin [Flomax] 0.4 mg PO PC-SUPPER #30 cap Potassium Chloride [K-Tab ER] 20 meq PO BID #60 tab Pantoprazole [Protonix] 40 mg PO AC-BRKFST #30 tab guaiFENesin-DM 100-10MG/5ML [Robitussin DM] 10 ml PO Q6HR PRN ml PRN Reason: Cough Acetaminophen Tab [Tylenol] 650 mg PO Q4HR PRN tab PRN Reason: Fever And/ Or Pain Continue Lovastatin [Mevacor] 40 mg PO DAILY Insulin Glargine,Hum.rec.anlog [Toujeo Max Solostar] 14 units SQ HS icosapent ethyL [Icosapent Ethyl] 2 gm PO DAILY Empagliflozin [Jardiance] 10 mg PO DAILY Aspirin EC [Ecotrin Low Dose] 81 mg PO DAILY Cholecalciferol [Vitamin D3 (125 Mcg = 5000 Iu)] 125 mcg PO DAILY #0 Calcium Carbonate [Calcium] 600 mg PO DAILY #0 Zinc Gluconate [Zinc] 50 mg PO DAILY Changed amLODIPine BESYLATE 2.5 mg PO DAILY@1200 #30 Discontinued Lisinopril-Hctz 20-25 mg [Zestoretic 20-25] 1 tab PO DAILY Isosorbide Mononitrate ER [Imdur] 30 mg PO DAILY #90 tab Nitroglycerin Sl Tabs [Nitrostat] 0.4 mg SUBLINGUAL Q5M PRN #100 tab PRN Reason: Chest Pain Discharge Medication List Lovastatin [Mevacor] 40 mg PO DAILY 05/18/16 [History] Aspirin EC [Ecotrin Low Dose] 81 mg PO DAILY 01/05/22 [History] Insulin Glargine,Hum.rec.anlog [Toujeo Max Solostar] 14 units SQ HS 01/05/22 [History] Calcium Carbonate [Calcium] 600 mg PO DAILY #0 04/05/24 [History] Cholecalciferol [Vitamin D3 (125 Mcg = 5000 Iu)] 125 mcg PO DAILY #0 04/05/24 [History] Empagliflozin [Jardiance] 10 mg PO DAILY 04/05/24 [History] icosapent ethyL [Icosapent Ethyl] 2 gm PO DAILY 04/05/24 [History] Zinc Gluconate [Zinc] 50 mg PO DAILY 04/14/24 [History] Acetaminophen Tab [Tylenol] 650 mg PO Q4HR PRN tab 04/22/24 [Rx] Amiodarone [Cordarone] 400 mg PO BID #44 tab 04/22/24 [Rx] Apixaban [Eliquis] 5 mg PO BID #60 tab 04/22/24 [Rx] Furosemide [Lasix] 40 mg PO DAILY #30 tablet 04/22/24 [Rx] Metoprolol Tartrate [Lopressor] 50 mg PO BID #60 tab 04/22/24 [Rx] Pantoprazole [Protonix] 40 mg PO AC-BRKFST #30 tab 04/22/24 [Rx] Potassium Chloride [K-Tab ER] 20 meq PO BID #60 tab 04/22/24 [Rx] Sennosides-Docusate Sodium [Senokot-S] 2 each PO HS PRN tab 04/22/24 [Rx] Tamsulosin [Flomax] 0.4 mg PO PC-SUPPER #30 cap 04/22/24 [Rx] amLODIPine BESYLATE 2.5 mg PO DAILY@1200 #30 04/22/24 [Rx] guaiFENesin-DM 100-10MG/5ML [Robitussin DM] 10 ml PO Q6HR PRN ml 04/22/24 [Rx] Follow up Appointment(s)/Referral(s): Prema Santos NPC [Nurse Practitioner] - 04/27/24 11:30 am (You will be seen in the surgeon's office behind the hospital in [facility], [address]. Office phone number is ) [facility]Cardiac [NON-STAFF] - 4 Weeks (You will receive a phone call in approximately 4-6 weeks for evaluation for cardiac rehab) [facility] - [facility]-2 Days ([facility] will call you to arrange a visit; you should be seen the day after discharge then 2-3 times per week until you start cardiac rehab) Will Oliver MD [STAFF PHYSICIAN] - 05/11/24 2:15 pm Addi Chang DO [Primary Care Provider] - 05/22/24 2:00 pm Deric Wolfe MD [STAFF PHYSICIAN] - 05/05/24 10:45 am Vincent Larose MD [STAFF PHYSICIAN] - 07/03/24 1:30 pm Ambulatory/Diagnostic Orders: Complete Blood Count w/diff [LAB.AMB] Time Frame: 3 Days, Location: None Selected Comprehensive Metabolic Panel [LAB.AMB] Time Frame: 3 Days, Location: None Selected Activity/Diet/Wound Care/Special Instructions: DISCHARGE INSTRUCTIONS: 1. No driving for 4 weeks, or until physician gives their ok. 2. The patient should sleep in their own bed, no medical bed needed. 3. Stairs are not an issue. If the bedroom is upstairs, it is advised that the patient go up at night and down in the morning for the first week. Go slowly, using handrail and take 1 step at a time. 4. STACEY hose are to be worn for 30 days post surgery or until physician discontinues. 5. Heart hugger is to be worn 100% of the time until physician discontinues.(except when showering) 6. No lifting, pushing, or pulling more than 10 pounds for 12 weeks. The phys ician will advise of any restriction changes. 7. The patient is expected to continue the prescribed walking program. 8. Continue pain control per as needed orders. 9. Continue with incentive spirometry and splinting/heart hugger until otherwise directed by the physician. 10. Must shower daily using liquid antibacterial soap 11. Routine sternal incision care. No powders, lotions, ointments on incisions. No dressings are necessary on incisions unless they are draining. Dermabond tape is to remain on sternal incision until surgeon follow-up. 12. Please call surgeon/SELF PROPELLED DREDGE OPERATOR for temp greater than 101 F or purulent drainage from incisions. 13. You should weigh yourself daily, record and bring log with you to follow up appointments. 14. All prescriptions given by surgeon for 30 days. Refills need to be filled through linen attendant/primary care physician. 15. A Red armband has been placed on the patient. It should be worn for 30 days post discharge from surgery and will be removed by the cardiac surgeons. If an ER visit is necessary, please make sure the number on the Red armband is called before going to ER. 16. You have been referred to and are expected to begin Cardiac Rehab in [facility] oximately 4-6 weeks. 17. Quitting smoking is the most important step you can take to improve your health. For additional information and assistance to quit smoking, please call the [place] tobacco quit line (8-439-PZBE-NOW/ ) or online: [email or web address]-[email or web address]-qu it-[email or web address] HOME HEALTH SERVICES TO PROVIDE: RN SKILLED HOME CARE SERVICES FOR POST-OP SURGICAL PATIENTS WITH THE FOLLOWING: Coronary Artery Bypass Surgery (CABG), Mitral Valve Replacement/Repair ( MVR), Aortic Valve Replacement/Repair (AVR) RN TO CONTINUE EDUCATION FROM ``ROAD TO A HEALTH HEART PATIENT EDUCATION MANUAL (GIVEN TO PATIENT IN THE HOSPITAL) MEDICATION RECONCILIATION WITH EDUCATION NEEDED ON FIRST HOME VISIT EMPHASIZE IMPORTANCE OF WEARING BREAST SUPPORT/HEART HUGGER ENCOURAGE USE OF INCENTIVE SPIROMETER 10 X EVERY HOUR WHILE AWAKE ENCOURAGE UTILIZATION OF LOWER EXTREMITY COMPRESSION STOCKINGS/STACEY HOSE and ELEVATE LEGS ABOVE LEVEL OF HEART WHILE AT REST. ENCOURAGE AMBULATION 3-5x/day INCREASING TOLERATES, WHILE AVOIDING EXTREMES IN TEMPERATURE FREQUENCY: RN TO OPEN THE PATIENT WITHIN 24 HOURS OF DISCHARGE FROM THE HOSPITAL WITH TELEHEALTH INSTALLED AT [facility], RN TO VISIT 2-3 X A WEEK FOR 4 WEEKS ESTABLISHED BY PATIENT NEEDS. LABORATORY: CBC, CMP TO BE DRAWN ON THE THIRD DAY HOME, (RAN STAT) FAX RESULTS TO [phone]. TELEHEALTH PARAMETERS: WEIGHT: NOTIFY MD OF WEIGHT GAIN OF 2 LBS IN 24 HOURS OR 5 LBS IN ONE WEEK HR: NOTIFY MD OF HR <55 BPM OR HR>100 BPM BP: NOTIFY MD IF BP <90/55 OR BP>140/100 O2 SAT: NOTIFY MD IF PO2<93% ON ROOM AIR SEND TELEHEALTH REPORT TO TRIMMING OPERATOR AND CARDIOVASCULAR SURGEON THE FIRST WEEK OF CARE AND THEN BI-WEEKLY. PLEASE ADDITIONALLY COMMUNICATE ANY ABNORMALS AND NEW FINDINGS TO THE SURGEONS OFFICE. Discharge Disposition: HOME WITH HOME HEALTH SERVICES
--- NOTE | 2024-04-22 11:48 | P.PN ---
Subjective This is a pleasant 68 years old male with past medical history of hypertension, diabetes mellitus, hyperlipidemia Patient recently had cardiac cath on 04/07 showing coronary artery disease with focal stenosis of left circumflex artery between 70 and 80% He was admitted to the hospital for his severe aortic stenosis and he underwent aortic valve replacement Also he had a CABG x 1 with radial artery to the second obtuse marginal branch of the left circumflex. Currently patient intubated in the ICU Patient receiving nitroglycerin drip Also she is on insulin drip and Normal Saline 50 mL/h She is on aspirin and Plavix Patient is afebrile, mildly tachypneic She has unremarkable BMP and LFT WBC 12.5, hemoglobin 11.8. Platelet count is low at 119 Chest x-ray showing COPD with postsurgical changes Patient currently on normal saline 50 mL and insulin drip 04/18/2024 Patient extubated She is awake alert No chest pain or dyspnea Currently remains n.p.o. on insulin drip and sugar controlled Probably he will start feeding this afternoon. He remains on aspirin and Plavix 04/19/24 Patient awake alert at baseline No chest pain no dyspnea Chest tube in place. No new complaints 04/20/2024 Patient with no chest pain or tachypnea at rest however his chest is tight and he has some occasional coughing Chest x-ray showing pulmonary congestion and was started on IV Lasix 20 mg twice daily and 1 time dose of p.o. 40 mg No chest tube. Sugars controlled and he switched to Levemir 20 units and 5 units of NovoLog He feels constipated requesting for stool softeners 04/21/2024 No symptoms while sitting in chair He was on amiodarone drip this morning for arrhythmia, later on switched to amiodarone 400 mg twice daily Continued with cardiac medication as above Sugars controlled 04/22/2024 Patient is seen and examined by me at bedside He was sitting in chair looks relaxed. No chest pain, no dyspnea. No other new complaint Patient telling me he thinks he is ready to go home today. Heart rate has been controlled on oral amiodarone and he is not getting amiodarone drip anymore, he is not also getting any IV fluid He looks euvolemic and saturating well on room air. He looks medically stable. Objective - Vital Signs Vital signs: Vital Signs Temp 97.9 F 04/22/24 08:13 Pulse 86 04/22/24 08:15 Resp 16 04/22/24 08:15 BP 108/58 04/22/24 08:13 Pulse Ox 95 04/22/24 08:13 FiO2 21 04/19/24 22:57 Intake & Output 04/21/24 04/22/24 04/22/24 18:59 06:59 18:59 Intake Total 318 0 Output Total 450 600 650 Balance -132 -600 -650 Weight 132.1 kg Intake: Intake, IV Titration 200 Amount Dextrose 5% in Water 100 200 ml @ 618 mls/hr IV .Q10M PRN with Amiodarone 150 mg Rx#:[id number] Oral 118 0 Output: Urine 450 600 650 Other: Voiding Method Urinal Toilet Toilet # Voids 2 # Bowel Movements 3 ABP, PAP, CO, CI - Last Documented Arterial Blood Pressure 136/57 Pulmonary Artery Pressure 36/24 Cardiac Output 8.7 Cardiac Index 3.7 - Exam GENERAL: The patient is alert and oriented x3, not in any acute distress. Well developed, well nourished. HEENT: Pupils are round and equally reacting to light. EOMI. No scleral icterus. No conjunctival pallor. Normocephalic, atraumatic. No pharyngeal erythema. No thyromegaly. CARDIOVASCULAR: S1 and S2 present. No murmurs, rubs, or gallops. PULMONARY: Chest is clear to auscultation, no wheezing , no crackles. ABDOMEN: Soft, nontender, nondistended, normoactive bowel sounds. No palpable organomegaly. MUSCULOSKELETAL: No joint swelling or deformity. EXTREMITIES: No cyanosis, clubbing, or pedal edema. NEUROLOGICAL: Gross neurological examination did not reveal any focal deficits. SKIN: No rashes. no petechiae. - Labs CBC & Chem 7: 04/22/24 07:35 04/22/24 07:35 Labs: Abnormal Lab Results - Last 24 Hours (Table) 04/21/24 04/21/24 04/21/24 Range/Units 12:02 16:48 20:03 RBC (4.30-5.90) m/uL Hgb (13.0-17.5) gm/dL Hct (39.0-53.0) % BUN (9-20) mg/dL Glucose (74-99) mg/dL POC Glucose (mg/dL) 170 H 180 H 153 H (70-110) mg/dL Calcium (8.4-10.2) mg/dL 04/22/24 04/22/24 04/22/24 Range/Units 05:59 07:35 07:35 RBC 3.84 L (4.30-5.90) m/uL Hgb 11.6 L (13.0-17.5) gm/dL Hct 35.7 L (39.0-53.0) % BUN 25 H (9-20) mg/dL Glucose 161 H (74-99) mg/dL POC Glucose (mg/dL) 155 H (70-110) mg/dL Calcium 8.3 L (8.4-10.2) mg/dL Assessment and Plan Assessment: Severe aortic stenosis status post aortic valve replacement Coronary artery disease with focal stenosis of left circumflex 70 to 80% s/p CABG with radial artery to obtuse marginal branch which is the second branch of left circumflex artery Hypertension Hyperlipidemia Diabetes mellitus Osteoarthritis Obstructive sleep apnea on CPAP Mild thrombocytopenia and anemia Hypertension Hyperlipidemia Diabetes mellitus Obesity with BMI of 45.6. Plan: Continue with aspirin and Plavix Continue with insulin , Levemir 20 and NovoLog 5 units with meal Stop normal saline and started IV Lasix [facility] Pulmonary team consult on the case Management of vent per pulmonary team GI and DVT prophylaxis with Protonix and subcu heparin
--- NOTE | 2024-04-22 12:14 | XR ---
EXAMINATION TYPE: XR chest 2V DATE OF EXAM: 04/22/2024 7:23 AM CLINICAL INDICATION:Male, 68 years old with history of post cardiac surgery; [facility] COMPARISON: Chest radiographs from 04/21/2024 TECHNIQUE: XR chest 2V Frontal view of the chest. FINDINGS: Lungs/Pleura: There is flattening of the diaphragm with increased lucency of the lungs. No evidence o f pneumothorax, pleural effusion or focal consolidation. Pulmonary vascularity: Unremarkable. Heart/mediastinum: Cardiomediastinal silhouette is prominent in size. Post aortic valve repair rodriguez es. Left atrial appendage occlusion device is present. Musculoskeletal: No acute osseous pathology. Other findings: None IMPRESSION: 1. Post cardiac surgical changes with mild pulmonary vascular congestion. 2. COPD changes.
--- NOTE | 2024-04-22 14:43 | P.PN ---
Subjective Progress Note Date: 04/22/24 HISTORY OF PRESENTING ILLNESS Patient with past medical history of hypertension, hyperlipidemia, type 2 elizabeth betes, COPD with FEV1 48%, ERIS, previous smoker, CAD and calcific aortic stenosis. She underwent surgical aortic valve replacement on 04/17/2024 with 27 mm Barger Inspira bovine pericardial valve, CABG x 1 with left radial artery to OM 2, 40 mm atrial clip, surgical resection of left upper lung lobe bleb. Currently patient is being transferred to ICU. Patient was extubated today 2 to 3 L nasal cannula. Patient is awake and moving all 4 extremities without limitation. She has good urine output, she has chest tube in place, Cadwell-Ingrid catheter in place and epicardial pacing wires in place. 04/19/2024 Patient is seen and examined at bedside this a.m. His mediastinal tube is draining serosanguineous fluid. Left pleural tube was removed. Cadwell-Ingrid catheter was removed. He is hemodynamically stable. No evidence of atrial fibrillation on telemetry monitoring Hemoglobin 10.2, WBC 12.2, creatinine 0.6, good urine output BP 120/56, heart rate 75 bpm, sinus 04/20 Has been transferred out of the intensive care unit and is seen today on the cardiac stepdown unit. Telemetry reviewed and no signs of atrial fibrillation. He denies any shortness of breath or chest pain. Heart rate is written in the 80s, pulse ox 96% on 3 L nasal cannula, blood pressure 102/63. Repeat blood work reveals hemoglobin 10.9, WBC 11.9, platelet count 114. BUN 22 creatinine 0.66 and potassium 3.9. 04/21 Yesterday, patient went into atrial fibrillation with RVR was started on amiodarone IV. He has been transition already to oral 400 mg twice a day by cardiothoracic surgery. Heart rate is in the 90s, blood pressure 114/58, pulse ox 94% on room air. Repeat blood work reveals WBC 11.4, hemoglobin 9.3, po tassium 3.8, BUN 25 creatinine 0.59. Patient is also on IV Lasix 20 mg twice daily. 04/22/2024 Patient continues to be in rate controlled atrial fibrillation. He denies having any active chest pain chest pressure shortness of breath. He appears mildly volume overloaded and is on Lasix 40 mg p.o. daily to go home with. His kidney function has stayed stable. He is hemodynamically stable PHYSICAL EXAMINATION Head: Normocephalic. Eyes: Sclerae nonicteric. Neck: Brisk carotid upstroke, Lungs: Very poor inspiratory effort, good air entry in bilateral upper lung love. Heart: Regular rate and rhythm, S1-S2, mild systolic murmur audible Abdomen: Soft nontender, positive bowel sounds. Extremities: 1+ pitting edema edema, Neuro: Awake and alert, oriented x 3. ASSESSMENT Severe symptomatic aortic stenosis s/p 27 mm Barger Inspira bioprosthetic valve. 04/17/2024 Single-vessel CABG, left radial to OM 2 40 mm atrial clip ligation Left upper lung lobe bleb resection Hypertension Dyslipidemia Type 2 diabetes COPD ERIS on home CPAP Postop paroxysmal atrial fibrillation with RVR, not unexpected with surgery PLAN Patient is currently on amiodarone 400 mg twice daily, amlodipine 2.5 mg daily, aspirin 325 mg daily, Plavix 75 mg daily, Lasix 40 mg p.o. daily, Lopressor 25 mg TID Agree with discharge today Outpatient follow-up with Dr. Rene in next 1 to 2 weeks Objective - Vital Signs Vital signs: Vital Signs Temp 97.9 F 04/22/24 08:13 Pulse 86 04/22/24 08:15 Resp 16 04/22/24 08:15 BP 108/58 04/22/24 08:13 Pulse Ox 95 04/22/24 08:13 FiO2 21 04/19/24 22:57 Intake & Output 04/21/24 04/22/24 04/22/24 18:59 06:59 18:59 Intake Total 318 0 Output Total 450 600 650 Balance -132 -600 -650 Weight 132.1 kg Intake: Intake, IV Titration 200 Amount Dextrose 5% in Water 100 200 ml @ 618 mls/hr IV .Q10M PRN with Amiodarone 150 mg Rx#:[id number] Oral 118 0 Output: Urine 450 600 650 Other: Voiding Method Urinal Toilet Toilet # Voids 2 # Bowel Movements 3 ABP, PAP, CO, CI - Last Documented Arterial Blood Pressure 136/57 Pulmonary Artery Pressure 36/24 Cardiac Output 8.7 Cardiac Index 3.7 - Labs CBC & Chem 7: 04/22/24 07:35 04/22/24 07:35 Labs: Abnormal Lab Results - Last 24 Hours (Table) 04/21/24 04/21/24 04/22/24 Range/Units 16:48 20:03 05:59 RBC (4.30-5.90) m/uL Hgb (13.0-17.5) gm/dL Hct (39.0-53.0) % BUN (9-20) mg/dL Glucose (74-99) mg/dL POC Glucose (mg/dL) 180 H 153 H 155 H (70-110) mg/dL Calcium (8.4-10.2) mg/dL 04/22/24 04/22/24 Range/Units 07:35 07:35 RBC 3.84 L (4.30-5.90) m/uL Hgb 11.6 L (13.0-17.5) gm/dL Hct 35.7 L (39.0-53.0) % BUN 25 H (9-20) mg/dL Glucose 161 H (74-99) mg/dL POC Glucose (mg/dL) (70-110) mg/dL Calcium 8.3 L (8.4-10.2) mg/dL
--- NOTE | 2024-04-26 11:04 | CDI ---
Documentation Clarification Form Date: 04/26/2024 10:38:02 AM From: Lulu Gautam RN, CCDS Phone: [phone] Admit Date: 04/17/2024 05:36:00 AM Patient Name: Dex Crystal Visit Number: [id number] Discharge Date: 04/22/2024 11:09:00 AM ATTENTION: The Clinical Documentation Specialists (CDI) and [facility] Coding Staff appreciate your assistance in clarifying documentation. Please respond to the clarification below the line at the bottom and electronically sign. The CDI & [facility] Coding staff will review the response and follow-up if needed. Please note: Queries are made part of the Legal Health Record. If you have any questions, please contact the author of this message via ITS. Dr. Jimenez E Sheet The patient had pulmonary vascular congestion and generalized edema. Based on this information and the findings below, is there an additional diagnosis that is clinically appropriate for this patient? Patient history/risk factors: HTN, DM, HLD with recent cardiac cath showing CAD with focal stenosis of left circumflex artery. Admitted with severe aortic stenosis and underwent aortic valve replacement. Clinical Indicators: 04/17 RR 23-39 04/18 RR 18-33 04/19 RR 13-29 04/17 CXR: Postsurgical changes with mild pulmonary vascular congestion 04/18 CXR: COPD with mild cardiomegaly and ongoing interstitial opacities, possible interstitial pulmonary edema. 04/20 IM: "Chest x-ray showing pulmonary congestion and was started on IV Lasix 20 mg twice daily and 1 time dose of p.o. 40 mg." 04/20 Pulmonary: "Generalized edema present." 04/21 CXR: COPD with ongoing superimposed pulmonary vascular congestion Treatment: O2 2-3LNC; IV Lasix 20mg BID 04/20-04/22 Is there an additional diagnosis that is clinically appropriate for this patient? [ x ] Acute Pulmonary Edema [ ] No additional diagnosis/Not clinically significant [ ] Unable to determine [ ] Other, please specify MTDD
== END 2024-04-22 11:09 | disposition home health service (06) | DRG 219 ==
LOC: 2ORMAIN 05:36 → 2SICU 13:20 → 3SCARD 04-19 20:38
PROVIDERS: ADMIT Thoracic Surgery (Cardiothoracic Vascular Surgery); ATTEND Thoracic Surgery (Cardiothoracic Vascular Surgery)
PROC: 02100A3 Bypass Coronary Artery, One Artery from Coronary Artery with Autologous Arterial Tissue, Open Approach (ICD-10-PCS; principal; 2024-04-17 08:00)
PROC: 03BC4ZZ Excision of Left Radial Artery, Percutaneous Endoscopic Approach (ICD-10-PCS; principal; 2024-04-17 08:00)
PROC: 02RF08Z Replacement of Aortic Valve with Zooplastic Tissue, Open Approach (ICD-10-PCS; principal; 2024-04-17 08:00)
PROC: 02L70CK Occlusion of Left Atrial Appendage with Extraluminal Device, Open Approach (ICD-10-PCS; principal; 2024-04-17 08:00)
PROC: 0BBG0ZZ Excision of Left Upper Lung Lobe, Open Approach (ICD-10-PCS; principal; 2024-04-17 08:00)
PROC: B24BZZ4 Ultrasonography of Heart with Aorta, Transesophageal (ICD-10-PCS; principal; 2024-04-17 08:00)
PROC: 5A1221Z Performance of Cardiac Output, Continuous (ICD-10-PCS; principal; 2024-04-17 08:00)
PROC: 3E043RZ Introduction of Antiarrhythmic into Central Vein, Percutaneous Approach (ICD-10-PCS; 2024-04-20)
DX: I35.0 Nonrheumatic aortic (valve) stenosis (principal); J81.0 Acute pulmonary edema; D62 Acute posthemorrhagic anemia; E87.29 Other acidosis; Z68.42 Body mass index [BMI] 45.0-49.9, adult; I48.92 Unspecified atrial flutter; D69.6 Thrombocytopenia, unspecified; J44.9 Chronic obstructive pulmonary disease, unspecified; E66.01 Morbid (severe) obesity due to excess calories; E11.9 Type 2 diabetes mellitus without complications; J43.9 Emphysema, unspecified; I10 Essential (primary) hypertension; I48.0 Paroxysmal atrial fibrillation; I25.10 Atherosclerotic heart disease of native coronary artery without angina pectoris; Z79.4 Long term (current) use of insulin; G47.33 Obstructive sleep apnea (adult) (pediatric); M19.90 Unspecified osteoarthritis, unspecified site; E78.5 Hyperlipidemia, unspecified; Z71.3 Dietary counseling and surveillance; I83.90 Asymptomatic varicose veins of unspecified lower extremity; H91.90 Unspecified hearing loss, unspecified ear; K59.00 Constipation, unspecified; Z79.82 Long term (current) use of aspirin; Z79.84 Long term (current) use of oral hypoglycemic drugs; Z79.899 Other long term (current) drug therapy; Z87.891 Personal history of nicotine dependence; Z96.653 Presence of artificial knee joint, bilateral; E87.70 Fluid overload, unspecified; Z88.0 Allergy status to penicillin; Z88.8 Allergy status to other drugs, medicaments and biological substances
CPT/HCPCS: 71045; 71046; 80048; 80053; 82330; 82805; 83735; 85025; 85027; 85610; 85730; 86022; 86850; 86891; 86900; 86901; 86920; 88305; 88307; 94002; 94003; 94640; 94760

== ENCOUNTER 2024-04-29 10:05 | Observation (INO) | payer MEDICARE ==
--- NOTE | 2024-04-29 10:38 | ED ---
General Adult HPI - General Chief complaint: Shortness of Breath Stated complaint: JAMES Time Seen by Provider: 04/29/24 10:15 Source: patient, RN notes reviewed, old records reviewed Mode of arrival: wheelchair Limitations: no limitations - History of Present Illness Initial comments: This is a 68-year-old male who presents to the emergency department complaining of difficulty breathing. Patient had open heart surgery for bypass of 1 vessel. Patient states the edema in the legs is much worse and he is much more short of breath. Patient denies any new pain. Patient Nuys any fever chills. Patient Nuys any back pain. Patient has abdominal pain patient has nausea vomiting - Related Data Home Medications Medication Instructions Recorded Confirmed Lovastatin [Mevacor] 40 mg PO DAILY 05/18/16 04/17/24 Aspirin EC [Ecotrin Low Dose] 81 mg PO DAILY 01/05/22 04/17/24 Insulin Glargine,Hum.rec.anlog 14 units SQ HS 01/05/22 04/17/24 [Mehrdad Banegas] Calcium Carbonate [Calcium] 600 mg PO DAILY #0 04/05/24 04/17/24 Cholecalciferol [Vitamin D3 (125 125 mcg PO DAILY #0 04/05/24 04/17/24 Mcg = 5000 Iu)] Empagliflozin [Jardiance] 10 mg PO DAILY 04/05/24 04/17/24 icosapent ethyL [Icosapent Ethyl] 2 gm PO DAILY 04/05/24 04/17/24 Zinc Gluconate [Zinc] 50 mg PO DAILY 04/14/24 04/17/24 Previous Rx's Medication Instructions Recorded Acetaminophen Tab [Tylenol] 650 mg PO Q4HR PRN tab 04/22/24 Amiodarone [Cordarone] 400 mg PO BID #44 tab 04/22/24 Apixaban [Eliquis] 5 mg PO BID #60 tab 04/22/24 Furosemide [Lasix] 40 mg PO DAILY #30 tablet 04/22/24 Metoprolol Tartrate [Lopressor] 50 mg PO BID #60 tab 04/22/24 Pantoprazole [Protonix] 40 mg PO AC-BRKFST #30 tab 04/22/24 Potassium Chloride [K-Tab ER] 20 meq PO BID #60 tab 04/22/24 Sennosides-Docusate Sodium 2 each PO HS PRN tab 04/22/24 [Senokot-S] Tamsulosin [Flomax] 0.4 mg PO PC-SUPPER #30 cap 04/22/24 amLODIPine BESYLATE 2.5 mg PO DAILY@1200 #30 04/22/24 guaiFENesin-DM 100-10MG/5ML 10 ml PO Q6HR PRN ml 04/22/24 [Robitussin DM] Allergies Allergy/AdvReac Type Severity Reaction Status Date / Time metformin Allergy Nausea & Verified 04/29/24 10:15 Vomiting & Diarrhea Penicillins Allergy Rash/Hives Verified 04/29/24 10:15 Review of Systems ROS Statement: Those systems with pertinent positive or pertinent negative responses have been documented in the HPI. ROS Other: All systems not noted in ROS Statement are negative. Past Medical History Past Medical History: Cancer, Diabetes Mellitus, Hearing Disorder / Deafness, Hyperlipidemia, Hypertension, Osteoarthritis (OA), Pneumonia, Sleep Apnea/CPAP/BIPAP Additional Past Medical History / Comment(s): See Dr Wolfe's H&P. RED RASH ON LEGS LAST 2-3 DAYS. SOB recently. 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 Varicose veins. Hx colon polpys. Hx cancerous cyst removed from left kidney in 2016. BIPAP use. Ears get plugged up from too much wax. History of Any Multi-Drug Resistant Organisms: None Reported Past Surgical History: Hernia Repair, Joint Replacement, Tonsillectomy Additional Past Surgical History / Comment(s): Cancerous cyst removed from left kidney, LAPAROSCOPIC EXAM, bilateral knee replacements, bilateral cataracts re moved. Past Anesthesia/Blood Transfusion Reactions: Previous Problems w/ Anesthesia, Motion Sickness Additional Past Anesthesia/Blood Transfusion Reaction / Comment(s): "PATIENT STATES HE HAD SOME TROUBLE BREATHING WHEN HE FIRST WOKE UP IN RECOVERY X1 AND STATES CANNOT BE FLAT ON HIS BACK BECAUSE OF HIS SLEEP APNEA." Past Psychological History: No Psychological Hx Reported Smoking Status: Former smoker Past Alcohol Use History: Rare Past Drug Use History: None Reported - Past Family History Father Family Medical History: Dementia, Hypertension Additional Family Medical History / Comment(s): FROM DEMENTIA AT AGE 79 Mother Family Medical History: Cancer Additional Family Medical History / Comment(s): from blood clot to brain" BREAST AND BLADDER CANCER. Sister(s) Family Medical History: Cancer Additional Family Medical History / Comment(s): Breast cancer. Son(s) Family Medical History: Cancer General Exam - General Exam Comments Initial Comments: GENERAL: Patient is well-developed and well-nourished. Patient is nontoxic and well-hy drated and is in mild distress. ENT: Neck is soft and supple. No significant lymphadenopathy is noted. Oropharynx is clear. Moist mucous membranes. Neck has full range of motion without eliciting any pain. EYES: The sclera were anicteric and conjunctiva were pink and moist. Extraocular movements were intact and pupils were equal round and reactive to light. Eyelids were unremarkable. PULMONARY: Patient has diminished breath sounds more so on the left on the right CARDIOVASCULAR: There is a regular rate and rhythm without any murmurs gallops or rubs. ABDOMEN: Soft and nontender with normal bowel sounds. SKIN: Skin is clear with no lesions or rashes and otherwise unremarkable. NEUROLOGIC: Patient is alert and oriented x3. Cranial nerves II through XII are grossly intact. Motor and sensory are also intact. Normal speech, volume and content. Symmetrical smile. MUSCULOSKELETAL: Normal extremities with adequate strength and full range of motion. Patient has 2+ edema bilaterally LYMPHATICS: No significant lymphadenopathy is noted PSYCHIATRIC: Normal psychiatric evaluation. Limitations: no limitations Course Vital Signs 04/29/24 04/29/24 10:12 12:17 Temperature 97.9 F Pulse Rate 65 64 Respiratory 18 17 Rate Blood Pressure 104/68 108/68 O2 Sat by Pulse 92 L 96 Oximetry Medical Decision Making - Medical Decision Making EKG is interpreted by myself. EKG shows atrial flutter at 64 bpm QRS 129 QT interval 442 QTc is 452. Patient's EKG shows no ST segment elevation or depression. Was pt. sent in by a medical professional or institution (, PA, OPTICAL LABORATORY MECHANIC, urgent care, hospital, or care home...) When possible be specific @ -No Did you speak to anyone other than the patient for history (EMS, parent, family, police, friend...)? What history was obtained from this source @ -No Did you review nursing and triage notes (agree or disagree)? Why? @ -I reviewed and agree with nursing and triage notes Were old charts reviewed (outside hosp., previous admission, EMS record, old EKG, old radiological studies, urgent care reports/EKG's, care home records)? Report findings @ -No old charts were reviewed Differential Diagnosis? @ -Differential Dyspnea: Coronary syndrome, arrhythmia, tamponade, asthma, COPD, pulmonary embolism, pneumonia, pneumothorax, pulmonary effusion, anaphylaxis, diabetic ketoacidosis, flailed chest, pulmonary contusion, diaphragmatic rupture, anemia, neuromuscular, this is not meant to be an all-inclusive list. EKG interpreted by me (3pts min.). @ -As above X-rays interpreted by me (1pt min.). @ -Chest x-ray shows no acute pulmonary edema CT interpreted by me (1pt min.). @ -None done U/S interpreted by me (1pt. min.). @ -None done What testing was considered but not performed or refused? (CT, X-rays, U/S, labs)? Why? @ -None What meds were considered but not given or refused? Why? @ -None Did you discuss the management of the patient with other professionals (professionals i.e. , PA, OPTICAL LABORATORY MECHANIC, lab, RT, psych nurse, social services coordinator, box stapler, teacher, fire control officer, case loader operator)? Give summary @ -[facility] the patient. Dr. Dailey also came down to see the patient in the emergency department. Was smoking cessation discussed for >3mins.? @ -No Was critical care preformed (if so, how long)? @ -No Were there social determinants of health that impacted care today? How? (Homelessness, low income, unemployed, alcoholism, drug addiction, transportation, low edu. Level, literacy, decrease access to med. care, residential, rehab)? @ -No Was there de-escalation of care discussed even if they declined (Discuss DNR or withdrawal of care, Hospice)? DNR status @ -No What co-morbidities impacted this encounter? (DM, HTN, Smoking, COPD, CAD, Cancer, CVA, ARF, Chemo, Hep., AIDS, mental health diagnosis, sleep apnea, morbid obesity)? @ -None Was patient admitted / discharged? Hospital course, mention meds given and route, prescriptions, significant lab abnormalities, going to OR and other pertinent info. @ -Patient had difficulty breathing in the emergency department patient was given Lasix Dr. Dailey came down and saw the patient and patient will be admitted to [facility] and cardiothoracic surgery will be consulted Undiagnosed new problem with uncertain prognosis? @ -No Drug Therapy requiring intensive monitoring for toxicity (Heparin, Nitro, Insulin, Cardizem)? @ -No Were any procedures done? @ -No Diagnosis/symptom? @ -Acute pulmonary edema Acute, or Chronic, or Acute on Chronic? @ -Acute Uncomplicated (without systemic symptoms) or Complicated (systemic symptoms)? @ -Complicated Side effects of treatment? @ -No Exacerbation, Progression, or Severe Exacerbation? @ -No Poses a threat to life or bodily function? How? (Chest pain, USA, ID, pneumonia, PE, COPD, DKA, ARF, appy, cholecystitis, CVA, Diverticulitis, Homicidal, Suicidal, threat to staff... and all critical care pts) @ -Yes this could lead to hypoxia and endorgan dysfunction - Lab Data Result diagrams: 04/29/24 10:29 04/29/24 10:29 Lab Results 04/29/24 04/29/24 04/29/24 Range/Units 10:29 10:29 10:29 WBC 13.3 H (3.8-10.6) k/uL RBC 4.19 L (4.30-5.90) m/uL Hgb 12.2 L (13.0-17.5) gm/dL Hct 39.0 (39.0-53.0) % MCV 93.1 (80.0-100.0) fL MCH 29.2 (25.0-35.0) pg MCHC 31.4 (31.0-37.0) g/dL RDW 15.6 H (11.5-15.5) % Plt Count 195 (150-450) k/uL MPV 9.9 Neutrophils % 79 % Lymphocytes % 9 % Monocytes % 9 % Eosinophils % 1 % Basophils % 0 % Neutrophils # 10.4 H (1.3-7.7) k/uL Lymphocytes # 1.2 (1.0-4.8) k/uL Monocytes # 1.2 H (0-1.0) k/uL Eosinophils # 0.1 (0-0.7) k/uL Basophils # 0.1 (0-0.2) k/uL Hypochromasia Moderate Poikilocytosis Moderate PT 11.4 (10.0-12.5) sec INR 1.0 (<1.2) APTT 24.6 (22.0-30.0) sec Sodium 141 (137-145) mmol/L Potassium 4.5 (3.5-5.1) mmol/L Chloride 107 (98-107) mmol/L Carbon Dioxide 29 (22-30) mmol/L Anion Gap 5 mmol/L BUN 20 (9-20) mg/dL Creatinine 0.76 (0.66-1.25) mg/dL Est GFR (CKD-EPI)AfAm >90 (>60 ml/min/1.73 sqM) Est GFR (CKD-EPI)NonAf >90 (>60 ml/min/1.73 sqM) Glucose 113 H (74-99) mg/dL POC Glucose (mg/dL) (70-110) mg/dL POC Glu Machine Fastener ID Plasma Lactic Acid Koby (0.7-2.0) mmol/L Calcium 8.8 (8.4-10.2) mg/dL Magnesium 2.1 (1.6-2.3) mg/dL Total Bilirubin 0.9 (0.2-1.3) mg/dL AST 29 (17-59) U/L ALT 28 (4-49) U/L Alkaline Phosphatase 61 (38-126) U/L Troponin I (0.000-0.034) ng/mL NT-Pro-B Natriuret Pep 2390 pg/mL Total Protein 5.9 L (6.3-8.2) g/dL Albumin 3.5 (3.5-5.0) g/dL 04/29/24 04/29/24 04/29/24 Range/Units 10:29 11:07 12:50 WBC (3.8-10.6) k/uL RBC (4.30-5.90) m/uL Hgb (13.0-17.5) gm/dL Hct (39.0-53.0) % MCV (80.0-100.0) fL MCH (25.0-35.0) pg MCHC (31.0-37.0) g/dL RDW (11.5-15.5) % Plt Count (150-450) k/uL MPV Neutrophils % % Lymphocytes % % Monocytes % % Eosinophils % % Basophils % % Neutrophils # (1.3-7.7) k/uL Lymphocytes # (1.0-4.8) k/uL Monocytes # (0-1.0) k/uL Eosinophils # (0-0.7) k/uL Basophils # (0-0.2) k/uL Hypochromasia Poikilocytosis PT (10.0-12.5) sec INR (<1.2) APTT (22.0-30.0) sec Sodium (137-145) mmol/L Potassium (3.5-5.1) mmol/L Chloride (98-107) mmol/L Carbon Dioxide (22-30) mmol/L Anion Gap mmol/L BUN (9-20) mg/dL Creatinine (0.66-1.25) mg/dL Est GFR (CKD-EPI)AfAm (>60 ml/min/1.73 sqM) Est GFR (CKD-EPI)NonAf (>60 ml/min/1.73 sqM) Glucose (74-99) mg/dL POC Glucose (mg/dL) 111 H (70-110) mg/dL POC Glu Machine Fastener ID Maritza Gómez Plasma Lactic Acid Koby 1.1 (0.7-2.0) mmol/L Calcium (8.4-10.2) mg/dL Magnesium (1.6-2.3) mg/dL Total Bilirubin (0.2-1.3) mg/dL AST (17-59) U/L ALT (4-49) U/L Alkaline Phosphatase (38-126) U/L Troponin I 0.187 H* (0.000-0.034) ng/mL NT-Pro-B Natriuret Pep pg/mL Total Protein (6.3-8.2) g/dL Albumin (3.5-5.0) g/dL Disposition Clinical Impression: Acute pulmonary edema Disposition: ADMITTED IP TO THIS HOSP Referrals: Will Oliver MD [STAFF PHYSICIAN] - 1-2 days Time of Disposition: 14:08
[2024-04-29 11:08] LABS: Glucose,Whole Blood 111 mg/dL (70-110)
[2024-04-29 11:11] LABS: Basophils # (A) 0.1 k/uL (0-0.2); Basophils % (A) 0 %; Eosinophils # (A) 0.1 k/uL (0-0.7); Eosinophils % (A) 1 %; HGB 12.2 gm/dL (13.0-17.5); Hypochromasia Moderate; Lymphocytes # (A) 1.2 k/uL (1.0-4.8); Lymphocytes % (A) 9 %; MCH 29.2 pg (25.0-35.0); MCHC 31.4 g/dL (31.0-37.0); MCV 93.1 fL (80.0-100.0); Mean Platelet Volume 9.9; Monocytes # (A) 1.2 k/uL (0-1.0); Monocytes % (A) 9 %; Neutrophils # (A) 10.4 k/uL (1.3-7.7); Neutrophils % (A) 79 %; Platelet Count 195 k/uL (150-450); Poikilocytosis Moderate; RBC 4.19 m/uL (4.30-5.90); RDW 15.6 % (11.5-15.5); WBC 13.3 k/uL (3.8-10.6)
[2024-04-29 11:17] LABS: ALT 28 U/L (4-49); African American GFR (CKD) >90 (>60 ml/min/1.73 sqM); Albumin 3.5 g/dL (3.5-5.0); Anion Gap 5 mmol/L; Blood Urea Nitrogen 20 mg/dL (9-20); Calcium 8.8 mg/dL (8.4-10.2); Carbon Dioxide 29 mmol/L (22-30); Chloride 107 mmol/L (98-107); Glucose 113 mg/dL (74-99); Non-African American GFR(CKD) >90 (>60 ml/min/1.73 sqM); Sodium 141 mmol/L (137-145); Total Bilirubin 0.9 mg/dL (0.2-1.3); Total Protein 5.9 g/dL (6.3-8.2)
--- NOTE | 2024-04-29 11:18 | XR ---
EXAMINATION TYPE: XR chest 2V DATE OF EXAM: 04/29/2024 11:08 AM CLINICAL INDICATION:Male, 68 years old with history of difficulty breathing; [facility] COMPARISON: Chest radiographs from 04/22/2024 TECHNIQUE: XR chest 2V Frontal view of the chest. FINDINGS: Lungs/Pleura: No evidence of focal consolidation or pneumothorax. Blunting of the costophrenic angles is present. Pulmonary vascularity: Pulmonary vascular congestion. Heart/mediastinum: Cardiomediastinal silhouette is enlarged and stable. Left atrial appendage occlusi on device is present. Musculoskeletal: No acute osseous pathology. Midline sternotomy wires are noted. IMPRESSION: Cardiomegaly, pulmonary vascular congestion and bilateral pleural effusions. Correlate with BNP for c ongestive heart failure.
[2024-04-29 11:21] LABS: Partial Thromboplastin Time 24.6 sec (22.0-30.0); Prothrombin Time 11.4 sec (10.0-12.5)
[2024-04-29 11:24] LABS: NT-Pro-B-Type Natriuretic Pept 2390 pg/mL
[2024-04-29 11:26] LABS: AST 29 U/L (17-59); Alkaline Phosphatase 61 U/L (38-126); Magnesium 2.1 mg/dL (1.6-2.3); Potassium 4.5 mmol/L (3.5-5.1)
[2024-04-29] MEDS: FUROSEMIDE 10 MG/ML 2 ML VIAL IV ONE ×2 (12:43→16:21)
[2024-04-29] MEDS ORDERED: ACETAMINOPHEN TAB 325 MG TAB PO PRN (15:43)
[2024-04-29] MEDS ORDERED: SENNOSIDES-DOCUSATE SODIUM 1 EACH TAB PO PRN (15:43)
--- NOTE | 2024-04-29 15:48 | P.GSCN ---
History of Present Illness Consult date: 04/29/24 Reason for Consult: Recent cardiac surgery, known to the cardiothoracic surgery service. Status post Aortic valve replacement with 27 mm Barger Inspiris bovine pericardial valve, and CABG x 1 with left radial artery to second obtuse marginal branch of the circumflex coronary artery on April 17, 2024. Requesting physician: Abebe Garnica History of present illness: his is a 68-year-old gentleman who follows outpatient with Dr. Yesenia Chang for primary care and Dr. Wlofe for cardiology. He has a past medical history significant for hypertension, hyperlipidemia, diabetes mellitus type 2, obstructive sleep apnea with home CPAP use, previous tobacco dependence, morbid obesity with a BMI of 47.0 kg/m, and severe COPD/bullous emphysema. Postoperative cardiac surgery the patient did have some paroxysmal atrial fibrillation/flutter. The patient presented to the emergency department here at [facility] this morning with complaints of difficulty breathing and oxygen saturations of 88%. He denies any recent fever, chills, nausea, vomiting, diarrhea, constipation, headache, hemoptysis, hematemesis, chest pain, chest pressure, visual disturbances, presyncope or syncope. Current vital signs show oxygen saturations 88% on room air, he is afebrile, bedside telemetry is showing normal sinus rhythm heart rate 65, and his blood pressure is 104/68 with a MAP of 80. He is currently on no inotropic or pressor support. Initial laboratory results showed a WBC count of 13.3, hemoglobin 12.2, hematocrit 39.0, platelets 195, PT 11.4, INR 1.0, PTT 24.6, sodium 141, potassium 4.5, BUN 20, creatinine 0.76, glucose 113, calcium 8.8, magnesium 2.1, and a proBNP 2390. A twelve-lead EKG was completed which showed atrial flutter with a heart rate of 64 bpm. A chest x-ray was completed which demonstrated cardiomegaly, pulmonary vascular congestion and bilateral pleural effusions. Subsequently after surgery the patient was discharged home on April 22, 2024 and went has been followed by [facility]. Due to the patient being known to the cardiothoracic surgery service a consult was placed to Dr. Volodymyr Daiely for further evaluation and treatment recommendations. Review of Systems A review of systems was completed and was negative except as mentioned in the HPI. Past Medical History Past Medical History: Cancer, Diabetes Mellitus, Hearing Disorder / Deafness, Hyperlipidemia, Hypertension, Osteoarthritis (OA), Pneumonia, Sleep Apnea/CPAP/BIPAP Additional Past Medical History / Comment(s): "Born with 2 defective heart valves ". Varicose veins. Hx colon polpys. BIPAP use History of Any Multi-Drug Resistant Organisms: None Reported Past Surgical History: Cardiac Valve Replacement, Coronary Bypass/CABG, Hernia Repair, Joint Replacement, Tonsillectomy Additional Past Surgical History / Comment(s): Cancerous cyst removed from left kidney, LAPAROSCOPIC EXAM, bilateral knee replacements, bilateral cataracts removed. 04/17/2024*1 vessel CABG/AVR/(L) UL Bleb resection/(L) atrial appendage clipping Past Anesthesia/Blood Transfusion Reactions: Previous Problems w/ Anesthesia, Motion Sickness Additional Past Anesthesia/Blood Transfusion Reaction / Comm: "PATIENT STATES HE HAD SOME TROUBLE BREATHING WHEN HE FIRST WOKE UP IN RECOVERY X1 AND STATES CANNOT BE FLAT ON HIS BACK BECAUSE OF HIS SLEEP APNEA." Past Psychological History: No Psychological Hx Reported Additional Psychological History / Comment(s): denies any probelms Smoking Status: Former smoker Past Alcohol Use History: Rare Additional Past Alcohol Use History / Comment(s): STARTED SMOKING AT AGE 17, QUIT AT AGE 37-WAS UP TO SMOKING 3 PPD. DRINKS "6 PACK OF BEER A YEAR." Past Drug Use History: None Reported - Past Family History Father Family Medical History: Dementia, Hypertension Additional Family Medical History / Comment(s): FROM DEMENTIA AT AGE 79 Mother Family Medical History: Cancer Additional Family Medical History / Comment(s): from blood clot to brain" BREAST AND BLADDER CANCER. Sister(s) Family Medical History: Cancer Additional Family Medical History / Comment(s): Breast cancer. Son(s) Family Medical History: Cancer Medications and Allergies Home Medications Medication Instructions Recorded Confirmed Type Lovastatin [Mevacor] 40 mg PO DAILY 05/18/16 04/29/24 History Aspirin EC [Ecotrin Low Dose] 81 mg PO DAILY 01/05/22 04/29/24 History Insulin Glargine,Hum.rec.anlog 14 units SQ HS 01/05/22 04/29/24 History [Toujeo Max Solostar] Calcium Carbonate [Calcium] 600 mg PO DAILY #0 04/05/24 04/29/24 History Cholecalciferol [Vitamin D3 (125 125 mcg PO DAILY #0 04/05/24 04/29/24 History Mcg = 5000 Iu)] Empagliflozin [Jardiance] 10 mg PO DAILY 04/05/24 04/29/24 History icosapent ethyL [Icosapent Ethyl] 2 gm PO DAILY 04/05/24 04/29/24 History Zinc Gluconate [Zinc] 50 mg PO DAILY 04/14/24 04/29/24 History Acetaminophen Tab [Tylenol] 650 mg PO Q4HR PRN tab 04/22/24 04/29/24 Rx Apixaban [Eliquis] 5 mg PO BID #60 tab 04/22/24 04/29/24 Rx Metoprolol Tartrate [Lopressor] 50 mg PO BID #60 tab 04/22/24 04/29/24 Rx Pantoprazole [Protonix] 40 mg PO AC-BRKFST #30 tab 04/22/24 04/29/24 Rx Potassium Chloride [K-Tab ER] 20 meq PO BID #60 tab 04/22/24 04/29/24 Rx Tamsulosin [Flomax] 0.4 mg PO PC-SUPPER #30 cap 04/22/24 04/29/24 Rx amLODIPine BESYLATE 2.5 mg PO DAILY@1200 #30 04/22/24 04/29/24 Rx guaiFENesin-DM 100-10MG/5ML 10 ml PO Q6HR PRN ml 04/22/24 04/29/24 Rx [Robitussin DM] Amiodarone [Cordarone] See Taper PO DIRECTED 04/29/24 04/29/24 History Sennosides-Docusate Sodium 2 tab PO HS PRN 04/29/24 04/29/24 History [Senokot-S] Furosemide [Lasix] 40 mg PO BID #60 tablet 04/30/24 Rx Allergies Allergy/AdvReac Type Severity Reaction Status Date / Time metformin Allergy Nausea & Verified 04/29/24 14:20 Vomiting & Diarrhea Penicillins Allergy Rash/Hives Verified 04/29/24 14:20 Surgical - Exam Vital Signs Temp Pulse Resp BP Pulse Ox 97.9 F 65 18 104/68 92 L 04/29/24 10:12 04/29/24 10:12 04/29/24 10:12 04/29/24 10:12 04/29/24 10:12 - General well developed, well nourished, no distress, no pain, chronically ill, obese - Eyes PERRL, normal ocular movement, no pale, no icteric - ENT normal pinna, normal nares, normal mucosa, no congestion - Neck Neck is supple, no lymphadenopathy. no masses, no bruits, trachea midline, no venous distension - Respiratory Respirations are symmetrical and nonlabored. No rhonchi, few scattered crackles throughout. Respirations are symmetrical and nonlabored. Oxygen saturation is 88% on room air. - Cardiovascular Regular rhythm and rate. S1 and S2 present, negative for S3, gallop or murmur. +1 edema to his bilateral lower extremities. Bedside telemetry showing atrial fibrillation/atrial flutter heart rate 64 bpm. - Abdomen Abdomen is soft, nontender and nondistended. Active bowel sounds present all 4 abdominal quadrants. No guarding or rigidity. No organomegaly appreciated. Obese. - Genitourinary Deferred - Rectum Deferred - Integumentary Skin is warm and dry. No clubbing or cyanosis is present. Midline sternal incision is clean, dry and approximated. Left arm radial artery endoscopic harvest sites clean, dry and approximated. - Neurologic No focal deficits. - Musculoskeletal Moves all 4 extremities with equal strength bilateral. - Psychiatric oriented to time, oriented to person, oriented to place, speech is normal, memory intact Results - Labs 04/30/24 09:44 04/30/24 06:46 Abnormal Lab Results - Last 24 Hours (Table) 04/29/24 04/29/24 04/29/24 Range/Units 10:29 10:29 10:29 WBC 13.3 H (3.8-10.6) k/uL RBC 4.19 L (4.30-5.90) m/uL Hgb 12.2 L (13.0-17.5) gm/dL RDW 15.6 H (11.5-15.5) % Neutrophils # 10.4 H (1.3-7.7) k/uL Monocytes # 1.2 H (0-1.0) k/uL Glucose 113 H (74-99) mg/dL POC Glucose (mg/dL) (70-110) mg/dL Troponin I 0.187 H* (0.000-0.034) ng/mL Total Protein 5.9 L (6.3-8.2) g/dL 04/29/24 Range/Units 11:07 WBC (3.8-10.6) k/uL RBC (4.30-5.90) m/uL Hgb (13.0-17.5) gm/dL RDW (11.5-15.5) % Neutrophils # (1.3-7.7) k/uL Monocytes # (0-1.0) k/uL Glucose (74-99) mg/dL POC Glucose (mg/dL) 111 H (70-110) mg/dL Troponin I (0.000-0.034) ng/mL Total Protein (6.3-8.2) g/dL Diabetes panel 04/29/24 Range/Units 10:29 Sodium 141 (137-145) mmol/L Potassium 4.5 (3.5-5.1) mmol/L Chloride 107 (98-107) mmol/L Carbon Dioxide 29 (22-30) mmol/L BUN 20 (9-20) mg/dL Creatinine 0.76 (0.66-1.25) mg/dL Glucose 113 H (74-99) mg/dL Calcium 8.8 (8.4-10.2) mg/dL AST 29 (17-59) U/L ALT 28 (4-49) U/L Alkaline Phosphatase 61 (38-126) U/L Total Protein 5.9 L (6.3-8.2) g/dL Albumin 3.5 (3.5-5.0) g/dL Calcium panel 04/29/24 Range/Units 10:29 Calcium 8.8 (8.4-10.2) mg/dL Albumin 3.5 (3.5-5.0) g/dL Pituitary panel 04/29/24 Range/Units 10:29 Sodium 141 (137-145) mmol/L Potassium 4.5 (3.5-5.1) mmol/L Chloride 107 (98-107) mmol/L Carbon Dioxide 29 (22-30) mmol/L BUN 20 (9-20) mg/dL Creatinine 0.76 (0.66-1.25) mg/dL Glucose 113 H (74-99) mg/dL Calcium 8.8 (8.4-10.2) mg/dL Adrenal panel 04/29/24 Range/Units 10:29 Sodium 141 (137-145) mmol/L Potassium 4.5 (3.5-5.1) mmol/L Chloride 107 (98-107) mmol/L Carbon Dioxide 29 (22-30) mmol/L BUN 20 (9-20) mg/dL Creatinine 0.76 (0.66-1.25) mg/dL Glucose 113 H (74-99) mg/dL Calcium 8.8 (8.4-10.2) mg/dL Total Bilirubin 0.9 (0.2-1.3) mg/dL AST 29 (17-59) U/L ALT 28 (4-49) U/L Alkaline Phosphatase 61 (38-126) U/L Total Protein 5.9 L (6.3-8.2) g/dL Albumin 3.5 (3.5-5.0) g/dL - Imaging Chest x-ray: report reviewed, image reviewed EKG: image reviewed Assessment and Plan Assessment: Shortness of breath, likely secondary to acute pulmonary edema Severe calcific aortic stenosis, status post aortic valve replacement Coronary artery disease, status post CABG x 1 Hypertension Hyperlipidemia, treated, cholesterol 137, LDL 63, triglycerides 471 Diabetes mellitus type II, preoperative hemoglobin A1c 6.9% Obstructive sleep apnea with home CPAP use Previous tobacco dependence Morbid obesity with a BMI of 47.0 kg/m Severe COPD on bedside spirometry (FEV1 48% of predicted), repeat full PFT revealed mild COPD with FEV1 64% of predicted/bullous emphysema Paroxysmal atrial fibrillation/flutter Plan: The patient was seen and examined in conjunction with Dr. Volodymyr Dailey at his bedside in the emergency department, the patient's is also present at his bedside. His chart and diagnostics reviewed. The findings on his chest x-ray and laboratory results were discussed with the patient by Dr. Dailey. Currently the patient's oxygen saturations are 88% on room air. It has been discussed that the patient will be admitted to observation for 24 hours for diuresis and oxygen support. The patient has been encouraged to use his incentive spirometry 10 times every hour while he is awake. Medical management, diabetic management other comorbidities per primary care service. Continue to follow postoperative cardiac discharge instructions as discussed with the patient prior. Encourage use of heart hugger. More recommendations to follow based on patient's clinical course. Thank you for this consult and we look forward to working with you in the care of this patient. I have personally seen and examined the patient, performed the documentation and the assessment and plan as written. Number of minutes spent on the visit: 30. ELVER PooleC Attending Addendum: Pt seen and evaluated with MD DO [facility] above. Agree with his assessment and plan. Mr Crystal is a 68 y/o M s/p recent CABG, AVR who presents with CHF. Recommend IV lasix and admit for observation. I spent 35 minutes reviewing the data and discussing the plan of care with the team. Time with Patient: Greater than 30
[2024-04-29 16:03] VITALS: RESP 18
[2024-04-29] MEDS: TAMSULOSIN 0.4 MG CAP.ER.24H PO SCH (16:22)
[2024-04-29] MEDS: FUROSEMIDE 10 MG/ML 4 ML VIAL ONE (16:22)
[2024-04-29] MEDS: AMIODARONE 200 MG TAB PO SCH (19:51)
[2024-04-29] MEDS: METOPROLOL TARTRATE 50 MG TAB PO SCH (19:51)
[2024-04-29] MEDS: APIXABAN 5 MG TAB PO SCH (19:51)
[2024-04-29 20:06] LABS: Glucose,Whole Blood 172 mg/dL (70-110)
[2024-04-29] MEDS ORDERED: DEXTROSE 50% SYRINGE 50 ML IVP PRN ×2 (20:21)
[2024-04-29] MEDS: INSULIN ASPART (NovoLOG) 100 UNIT/ML VIAL SQ SCH (20:33)
[2024-04-30 05:55] LABS: Glucose,Whole Blood 118 mg/dL (70-110)
[2024-04-30] MEDS: FUROSEMIDE 10 MG/ML 4 ML VIAL IV SCH (06:03)
[2024-04-30] MEDS: PANTOPRAZOLE 40 MG TABLET PO SCH (06:03)
--- NOTE | 2024-04-30 07:51 | XR ---
EXAMINATION TYPE: XR chest 2V DATE OF EXAM: 04/30/2024 COMPARISON: 04/29/2024 HISTORY: Shortness of breath FINDINGS: Noted is pulmonary venous congestion with scattered infiltrates. There is also cardiomegaly and small effusions. IMPRESSION: Overall stable chest. Findings compatible with congestive failure. Infiltrates of other etiology are not excluded. Clinical correlation and progress studies are recommended.
[2024-04-30 08:02] LABS: ALT 24 U/L (4-49); AST 19 U/L (17-59); African American GFR (CKD) >90 (>60 ml/min/1.73 sqM); Albumin 3.2 g/dL (3.5-5.0); Alkaline Phosphatase 70 U/L (38-126); Anion Gap 8 mmol/L; Blood Urea Nitrogen 22 mg/dL (9-20); Calcium 8.7 mg/dL (8.4-10.2); Carbon Dioxide 27 mmol/L (22-30); Chloride 107 mmol/L (98-107); Glucose 112 mg/dL (74-99); Non-African American GFR(CKD) >90 (>60 ml/min/1.73 sqM); Potassium 4.4 mmol/L (3.5-5.1); Sodium 142 mmol/L (137-145); Total Protein 5.6 g/dL (6.3-8.2)
[2024-04-30 08:34] VITALS: BP 92/56; PULSE 66; TEMP 98
[2024-04-30] MEDS: DAPAGLIFLOZIN PROPANEDIOL 5 MG TABLET PO SCH (08:34)
[2024-04-30] MEDS: CALCIUM CARBONATE 500 MG CHEWABLE PO SCH (08:34)
[2024-04-30] MEDS: ZINC SULFATE 220 MG CAP PO SCH (08:34)
[2024-04-30] MEDS: ASPIRIN 81 MG PO SCH (08:34)
[2024-04-30] MEDS: CHOLECALCIFEROL 125 MCG (5000 IU) TABLET PO SCH (08:34)
[2024-04-30 10:16] LABS: Basophils # (A) 0.1 k/uL (0-0.2); Basophils % (A) 1 %; Eosinophils # (A) 0.2 k/uL (0-0.7); Eosinophils % (A) 1 %; HCT 39.1 % (39.0-53.0); HGB 12.1 gm/dL (13.0-17.5); Hypochromasia Moderate; Lymphocytes # (A) 1.2 k/uL (1.0-4.8); Lymphocytes % (A) 10 %; MCH 28.9 pg (25.0-35.0); MCHC 30.9 g/dL (31.0-37.0); MCV 93.3 fL (80.0-100.0); Mean Platelet Volume 9.8; Monocytes % (A) 9 %; Neutrophils # (A) 8.8 k/uL (1.3-7.7); Neutrophils % (A) 78 %; Platelet Count 205 k/uL (150-450); Poikilocytosis Moderate; RBC 4.19 m/uL (4.30-5.90); RDW 15.6 % (11.5-15.5); WBC 11.4 k/uL (3.8-10.6)
[2024-04-30] MEDS: amLODIPine 2.5 MG TAB PO SCH (11:33)
--- NOTE | 2024-04-30 12:37 | P.HPIM ---
History of Present Illness H&P Date: 04/30/24 History of present illness; patient is 68-year-old gentleman with past medical history significant for hypertension, hyperlipidemia, diabetes mellitus type 2, obstructive sleep apnea with home CPAP use, previous tobacco dependence, morbid obesity with a BMI of 47.0 kg/m, and severe COPD/bullous emphysema presented to the ER because of worsening shortness of breath. Patient underwent recent aort ic valve replacement and CABG x 1 with left radial artery to second obtuse marginal branch of the circumflex artery on April 17, 2024. Patient stated for the last 1 week he has been noticing that he was getting more short of breath on exertion. Patient also complaining of increased swelling of lower extremities. Denies any orthopnea or PND. There was no complaint of nausea, vomiting, pain. Denies any chest pain. There was no complaint of fever or chills. Because of the symptoms, patient presented to the ER Initial lab work done in the ER showed WBC 13.3, hemoglobin 12.2, platelet count 195, sodium 141, potassium 4.5, BUN 20, creatinine 0.76, glucose 113, calcium 8.5, magnesium 2.1, total bilirubin 0.9, troponin 0.187, proBNP 2390 EKG done in the ER showed heart rate of 64, no ST segment elevation or depression seen, no T-wave inversions seen. Chest x-ray done in the ER cardiomegaly, pulmonary congestion and bilateral pleural effusions, correlate. BNP for congestive heart failure Patient admitted to internal medicine service REVIEW OF SYSTEMS: CONSTITUTIONAL: No fever, no malaise, no fatigue. HEENT: No recent visual problems or hearing problems. Denied any sore throat. CARDIOVASCULAR: As mentioned above PULMONARY: As mentioned above GASTROINTESTINAL: No diarrhea, no nausea, no vomiting, no abdominal pain. NEUROLOGICAL: No headaches, no weakness, no numbness. HEMATOLOGICAL: Denies any bleeding or petechiae. GENITOURINARY: Denies any burning micturition, frequency, or urgency. MUSCULOSKELETAL/RHEUMATOLOGICAL: Denies any joint pain, swelling, or any muscle pain. ENDOCRINE: Denies any polyuria or polydipsia. The rest of the 14-point review of systems is negative. PHYSICAL EXAMINATION: GENERAL: The patient is alert and oriented x3, not in any acute distress. Well developed, well nourished. HEENT: Pupils are round and equally reacting to light. EOMI. No scleral icterus. No conjunctival pallor. Normocephalic, atraumatic. No pharyngeal erythema. No thyromegaly. CARDIOVASCULAR: S1 and S2 present. No murmurs, rubs, or gallops. PULMONARY: Good air entry bilaterally, bilateral crackles audible. Sternotomy surgical incision seen, ABDOMEN: Soft, nontender, nondistended, normoactive bowel sounds. No palpable organomegaly. MUSCULOSKELETAL: No joint swelling or deformity. EXTREMITIES: No cyanosis, 1+ pitting edema lower extremities bilaterally NEUROLOGICAL: Gross neurological examination did not reveal any focal deficits. SKIN: No rashes. Assessment and plan Acute pulmonary edema Severe calcific aortic stenosis, status post aortic valve replacement Coronary artery disease, status post CABG x 1 Hypertension Hyperlipidemia, treated, cholesterol 137, LDL 63, triglycerides 471 Diabetes mellitus type II, preoperative hemoglobin A1c 6.9% Obstructive sleep apnea with home CPAP use Previous tobacco dependence Morbid obesity with a BMI of 47.0 kg/m Severe COPD on bedside spirometry (FEV1 48% of predicted), repeat full PFT revealed mild COPD with FEV1 64% of predicted/bullous emphysema Paroxysmal atrial fibrillation/flutter Monitor vital signs Monitor CBC Monitor CMP Continue telemetry monitoring Strict I's and O's, daily weights Continue Lasix IV Resume home meds Consulted CT surgery Labs and medication were reviewed.. Continue same treatment. Continue with symptomatic treatment. Resume home medication. Monitor labs and vitals. DVT and GI prophylaxis. Further recommendations as per clinical course of the patient Dictation was produced using [employer] dictation software. please excuse any grammatical, word or spelling errors. Past Medical History Past Medical History: Cancer, Diabetes Mellitus, Hearing Disorder / Deafness, Hyperlipidemia, Hypertension, Osteoarthritis (OA), Pneumonia, Sleep Apnea/CPAP/BIPAP Additional Past Medical History / Comment(s): "Born with 2 defective heart valves ". Varicose veins. Hx colon polpys. BIPAP use History of Any Multi-Drug Resistant Organisms: None Reported Past Surgical History: Cardiac Valve Replacement, Coronary Bypass/CABG, Hernia Repair, Joint Replacement, Tonsillectomy Additional Past Surgical History / Comment(s): Cancerous cyst removed from left kidney, LAPAROSCOPIC EXAM, bilateral knee replacements, bilateral cataracts removed. 04/17/2024*1 vessel CABG/AVR/(L) UL Bleb resection/(L) atrial appendage clipping Past Anesthesia/Blood Transfusion Reactions: Previous Problems w/ Anesthesia, Motion Sickness Additional Past Anesthesia/Blood Transfusion Reaction / Comment(s): "PATIENT STATES HE HAD SOME TROUBLE BREATHING WHEN HE FIRST WOKE UP IN RECOVERY X1 AND STATES CANNOT BE FLAT ON HIS BACK BECAUSE OF HIS SLEEP APNEA." Smoking Status: Former smoker - Past Family History Father Family Medical History: Dementia, Hypertension Additional Family Medical History / Comment(s): FROM DEMENTIA AT AGE 79 Mother Family Medical History: Cancer Additional Family Medical History / Comment(s): from blood clot to brain" BREAST AND BLADDER CANCER. Sister(s) Family Medical History: Cancer Additional Family Medical History / Comment(s): Breast cancer. Son(s) Family Medical History: Cancer Medications and Allergies Home Medications Medication Instructions Recorded Confirmed Type Lovastatin [Mevacor] 40 mg PO DAILY 05/18/16 04/29/24 History Aspirin EC [Ecotrin Low Dose] 81 mg PO DAILY 01/05/22 04/29/24 History Insulin Glargine,Hum.rec.anlog 14 units SQ HS 01/05/22 04/29/24 History [Toujeo Max Solostar] Calcium Carbonate [Calcium] 600 mg PO DAILY #0 04/05/24 04/29/24 History Cholecalciferol [Vitamin D3 (125 125 mcg PO DAILY #0 04/05/24 04/29/24 History Mcg = 5000 Iu)] Empagliflozin [Jardiance] 10 mg PO DAILY 04/05/24 04/29/24 History icosapent ethyL [Icosapent Ethyl] 2 gm PO DAILY 04/05/24 04/29/24 History Zinc Gluconate [Zinc] 50 mg PO DAILY 04/14/24 04/29/24 History Acetaminophen Tab [Tylenol] 650 mg PO Q4HR PRN tab 04/22/24 04/29/24 Rx Apixaban [Eliquis] 5 mg PO BID #60 tab 04/22/24 04/29/24 Rx Metoprolol Tartrate [Lopressor] 50 mg PO BID #60 tab 04/22/24 04/29/24 Rx Pantoprazole [Protonix] 40 mg PO AC-BRKFST #30 tab 04/22/24 04/29/24 Rx Potassium Chloride [K-Tab ER] 20 meq PO BID #60 tab 04/22/24 04/29/24 Rx Tamsulosin [Flomax] 0.4 mg PO PC-SUPPER #30 cap 04/22/24 04/29/24 Rx amLODIPine BESYLATE 2.5 mg PO DAILY@1200 #30 04/22/24 04/29/24 Rx guaiFENesin-DM 100-10MG/5ML 10 ml PO Q6HR PRN ml 04/22/24 04/29/24 Rx [Robitussin DM] Amiodarone [Cordarone] See Taper PO DIRECTED 04/29/24 04/29/24 History Sennosides-Docusate Sodium 2 tab PO HS PRN 04/29/24 04/29/24 History [Senokot-S] Furosemide [Lasix] 40 mg PO BID #60 tablet 04/30/24 Rx Allergies Allergy/AdvReac Type Severity Reaction Status Date / Time metformin Allergy Nausea & Verified 04/29/24 14:20 Vomiting & Diarrhea Penicillins Allergy Rash/Hives Verified 04/29/24 14:20 Physical Exam Vitals: Vital Signs Temp Pulse Pulse Resp BP BP Pulse Ox 04/30/24 08:33 98.0 F 66 18 92/56 94 L 04/30/24 03:12 98.1 F 63 18 105/68 93 L 04/29/24 23:11 98 F 63 18 117/74 99 04/29/24 19:30 97.6 F 66 18 110/71 95 04/29/24 16:28 93 L 04/29/24 15:53 97.5 F L 64 18 105/56 93 L 04/29/24 12:17 64 17 108/68 96 04/29/24 10:12 97.9 F 65 18 104/68 92 L Intake and Output 04/29/24 04/30/24 04/30/24 22:59 06:59 14:59 Intake Total 20 10 10 Output Total 791 803 1774 Balance -643 -292 -9339 Intake: IV 20 10 10 Invasive Line 1 20 10 10 Output: Urine 179 245 8490 Other: Voiding Method Toilet Toilet Toilet Urinal Urinal Urinal # Voids 1 1 Weight 136.1 kg Results CBC & Chem 7: 04/30/24 09:44 04/30/24 06:46 Labs: Abnormal Lab Results - Last 24 Hours (Table) 04/29/24 04/29/24 04/29/24 Range/Units 10:29 10:29 10:29 WBC 13.3 H (3.8-10.6) k/uL RBC 4.19 L (4.30-5.90) m/uL Hgb 12.2 L (13.0-17.5) gm/dL RDW 15.6 H (11.5-15.5) % Neutrophils # 10.4 H (1.3-7.7) k/uL Monocytes # 1.2 H (0-1.0) k/uL BUN (9-20) mg/dL Glucose 113 H (74-99) mg/dL POC Glucose (mg/dL) (70-110) mg/dL Troponin I 0.187 H* (0.000-0.034) ng/mL Total Protein 5.9 L (6.3-8.2) g/dL Albumin (3.5-5.0) g/dL 04/29/24 04/29/24 04/30/24 Range/Units 11:07 20:04 05:53 WBC (3.8-10.6) k/uL RBC (4.30-5.90) m/uL Hgb (13.0-17.5) gm/dL RDW (11.5-15.5) % Neutrophils # (1.3-7.7) k/uL Monocytes # (0-1.0) k/uL BUN (9-20) mg/dL Glucose (74-99) mg/dL POC Glucose (mg/dL) 111 H 172 H 118 H (70-110) mg/dL Troponin I (0.000-0.034) ng/mL Total Protein (6.3-8.2) g/dL Albumin (3.5-5.0) g/dL 04/30/24 Range/Units 06:46 WBC (3.8-10.6) k/uL RBC (4.30-5.90) m/uL Hgb (13.0-17.5) gm/dL RDW (11.5-15.5) % Neutrophils # (1.3-7.7) k/uL Monocytes # (0-1.0) k/uL BUN 22 H (9-20) mg/dL Glucose 112 H (74-99) mg/dL POC Glucose (mg/dL) (70-110) mg/dL Troponin I (0.000-0.034) ng/mL Total Protein 5.6 L (6.3-8.2) g/dL Albumin 3.2 L (3.5-5.0) g/dL Thrombosis Risk Factor Assmnt - Choose All That Apply Any of the Below Risk Factors Present?: Yes Each Factor Represents 1 point: Obesity (BMI >25) Other Risk Factors: Yes Each Risk Factor Represents 2 Points: Age 61-74 years Other congenital or acquired thrombophilia - If yes, enter type in comment: No Thrombosis Risk Factor Assessment Total Risk Factor Score: 3 Thrombosis Risk Factor Assessment Level: Moderate Risk
--- NOTE | 2024-04-30 12:41 | P.PN ---
Subjective Progress Note Date: 04/30/24 Principal diagnosis: This is a 68-year-old gentleman who follows outpatient with Dr. Yesenia Chang for primary care and Dr. Wolfe for cardiology. He has a past medical history s ignificant for hypertension, hyperlipidemia, diabetes mellitus type 2, obstructive sleep apnea with home CPAP use, previous tobacco dependence, morbid obesity with a BMI of 47.0 kg/m, and severe COPD/bullous emphysema. Postoperative cardiac surgery the patient did have some paroxysmal atrial fibri llation/flutter. The patient presented to the emergency department here at [facility] this morning with complaints of difficulty breathing and oxygen saturations of 88%. He denies any recent fever, chills, nausea, vomiting, diarrhea, constipation, headache, hemoptysis, hematemesis, chest pain, chest pressure, visual disturbances, presyncope or syncope. Current vital signs show oxygen saturations 88% on room air, he is afebrile, bedside telemetry is showing normal sinus rhythm heart rate 65, and his blood pressure is 104/68 with a MAP of 80. He is currently on no inotropic or pressor support. Initial laboratory results showed a WBC count of 13.3, hemoglobin 12.2, hematocrit 39.0, platelets 195, PT 11.4, INR 1.0, PTT 24.6, sodium 141, potassium 4.5, BUN 20, creatinine 0.76, glucose 113, calcium 8.8, magnesium 2.1, and a proBNP 2390. A twelve-lead EKG was completed which showed atrial flutter with a heart rate of 64 bpm. A chest x-ray was completed which demonstrated cardiomegaly, pulmonary vascular congestion and bilateral pleural effusions. Subsequently after surgery the patient was discharged home on April 22, 2024 and went has been followed by [facility]. Due to the patient being known to the cardiothoracic surgery service a consult was placed to Dr. Volodymyr Dailey for further evaluation and treatment recommendations. The patient was seen and examined in follow-up today April 30, 2024 at his bedside on the third floor cardiac stepdown unit. The patient is currently sitting up to the bedside chair, is awake, alert, oriented x 3 and is in no acute apparent distress. Patient denies any complaints of pain or shortness of breath at this time. He reports his breathing is improved today, oxygen saturations are 93% on room air and he is achieving 1000 to 1500 mL on his incentive spirometry with encouragement. Remote telemetry is showing atrial flutter heart rate 66 bpm. The patient was using his CPAP throughout the night. The patient is receiving Lasix 40 mg IV twice daily. Laboratory and chest x- ray results reviewed. Objective - Vital Signs Vital signs: Vital Signs Temp 98.0 F 04/30/24 08:33 Pulse 66 04/30/24 08:33 Resp 18 04/30/24 08:33 BP 92/56 04/30/24 08:33 Pulse Ox 94 L 04/30/24 08:33 FiO2 Intake & Output 04/29/24 04/30/24 04/30/24 18:59 06:59 18:59 Intake Total 10 20 20 Output Total 102 352 1568 Balance -290 -805 -1155 Weight 136.078 kg 136.1 kg Intake: IV 10 20 20 Invasive Line 1 10 20 20 Output: Urine 602 343 5302 Other: Voiding Method Toilet Toilet Toilet Urinal Urinal Urinal # Voids 1 1 - Exam CONSTITUTIONAL: Sitting up to the bedside chair on the third floor cardiac stepdown unit, appears comfortable, cooperative, no apparent acute distress. HEENT: Neck is supple, no JVD, no lymphadenopathy. RESPIRATORY: Lungs sounds essentially clear throughout, diminished to his bilateral bases. Respirations are symmetrical and nonlabored. Currently on room air with oxygen saturations 93%. Able to achieve 9591-8103 mL on his incentive spirometry. Strong cough. CARDIOVASCULAR: Regular rhythm and rate. S1 and S2 present, negative for S3, gallop or murmur. Remote telemetry showing atrial flutter heart rate 66 bpm. Sternum is stable. Palpable peripheral pulses bilaterally, +1 edema to his bilateral lower extremities. No calf pain or tenderness noted. Heart hugger in place with patient demonstrating appropriate use. Knee-high STACEY hose in place to his bilateral lower extremities. GASTROINTESTINAL: Abdomen soft, nontender, nondistended. Active bowel sounds present 4 quadrants. Tolerating diet. Passing flatus. No guarding or rigidity. GENITOURINARY: Continues to void. Urine output 1075 mL output in the last 8 hours. INTEGUMENTARY: Skin is warm and dry with no evidence of clubbing or cyanosis. Midline sternal incision clean dry and well approximated, covered with dry intact dressing. Left arm radial artery harvest sites clean, dry and approximated. No drainage or redness is present. Small blistered area to his right lower extremity. NEUROLOGIC: Cranial nerves II through XII intact. No focal deficits. MUSKULOSKELETAL: Able to move all extremities, strength equal bilaterally. PSYCHIATRIC: Alert and oriented to person place and time, appropriate affect, intact judgment and insight. - Allied health notes Allied health notes reviewed: nursing - Labs CBC & Chem 7: 04/30/24 09:44 04/30/24 06:46 Labs: Abnormal Lab Results - Last 24 Hours (Table) 04/29/24 04/30/24 04/30/24 Range/Units 20:04 05:53 06:46 WBC (3.8-10.6) k/uL RBC (4.30-5.90) m/uL Hgb (13.0-17.5) gm/dL MCHC (31.0-37.0) g/dL RDW (11.5-15.5) % Neutrophils # (1.3-7.7) k/uL BUN 22 H (9-20) mg/dL Glucose 112 H (74-99) mg/dL POC Glucose (mg/dL) 172 H 118 H (70-110) mg/dL Total Protein 5.6 L (6.3-8.2) g/dL Albumin 3.2 L (3.5-5.0) g/dL 04/30/24 Range/Units 09:44 WBC 11.4 H (3.8-10.6) k/uL RBC 4.19 L (4.30-5.90) m/uL Hgb 12.1 L (13.0-17.5) gm/dL MCHC 30.9 L (31.0-37.0) g/dL RDW 15.6 H (11.5-15.5) % Neutrophils # 8.8 H (1.3-7.7) k/uL BUN (9-20) mg/dL Glucose (74-99) mg/dL POC Glucose (mg/dL) (70-110) mg/dL Total Protein (6.3-8.2) g/dL Albumin (3.5-5.0) g/dL - Imaging and Cardiology Chest x-ray: report reviewed, image reviewed Assessment and Plan Assessment: Shortness of breath, likely secondary to acute pulmonary edema Severe calcific aortic stenosis, status post aortic valve replacement Coronary artery disease, status post CABG x 1 Hypertension Hyperlipidemia, treated, cholesterol 137, LDL 63, triglycerides 471 Diabetes mellitus type II, preoperative hemoglobin A1c 6.9% Obstructive sleep apnea with home CPAP use Previous tobacco dependence Morbid obesity with a BMI of 47.0 kg/m Severe COPD on bedside spirometry (FEV1 48% of predicted), repeat full PFT revealed mild COPD with FEV1 64% of predicted/bullous emphysema Paroxysmal atrial fibrillation/flutter Plan: Per the cardiothoracic surgery standpoint, the patient can be discharged home when okay with internal medicine service. Lasix 40 mg p.o. twice daily upon discharge. Continue to follow cardiac surgery discharge orders. Encourage use of incentive spirometry 10 times every hour while awake. Reminded patient to keep his feet elevated greater than the level of his heart when not up ambulating or sitting up for meals. Continue to wear STACEY hose as instructed, may remove STACEY hose at night for sleeping. Continue to shower daily. No lifting pushing or pulling anything greater than 10 pounds or jug of milk for 12 full weeks. Continue home medication as previously reviewed with the patient upon discharge. Increase activity as tolerated. [facility] home care per previous discharge instructions. Patient has been instructed to follow-up with his physicians as scheduled. Time with Patient: Greater than 30
[2024-04-30] MEDS ORDERED: AMIODARONE 200 MG TAB PO SCH (21:00)
== END 2024-04-30 11:53 | disposition home or self-care (01) ==
LOC: EC 10:05 → SUPCPDRO 10:05 → 3SCARD 14:11
PROVIDERS: ADMIT Hospitalist; ATTEND Hospitalist
DX: R06.02 Shortness of breath (principal); I35.0 Nonrheumatic aortic (valve) stenosis; I48.92 Unspecified atrial flutter; I48.0 Paroxysmal atrial fibrillation; I50.9 Heart failure, unspecified; I25.10 Atherosclerotic heart disease of native coronary artery without angina pectoris; J44.9 Chronic obstructive pulmonary disease, unspecified; I11.0 Hypertensive heart disease with heart failure; E66.01 Morbid (severe) obesity due to excess calories; E11.65 Type 2 diabetes mellitus with hyperglycemia; Z95.5 Presence of coronary angioplasty implant and graft; Z95.2 Presence of prosthetic heart valve; E78.5 Hyperlipidemia, unspecified; G47.33 Obstructive sleep apnea (adult) (pediatric); Z87.891 Personal history of nicotine dependence; Z68.42 Body mass index [BMI] 45.0-49.9, adult; Z96.653 Presence of artificial knee joint, bilateral; Z95.1 Presence of aortocoronary bypass graft; Z82.49 Family history of ischemic heart disease and other diseases of the circulatory system; Z80.52 Family history of malignant neoplasm of bladder; Z80.3 Family history of malignant neoplasm of breast; Z79.84 Long term (current) use of oral hypoglycemic drugs; Z79.82 Long term (current) use of aspirin; Z79.01 Long term (current) use of anticoagulants
CPT/HCPCS: 96376; 96374; 99285; 36415; 94760; 93005; 83880; 80053 ×2; 83605; 83735; 84484; 85025 ×2; 85610; 85730; 71046 ×2; G0378 ×2; J1940 ×2

== ENCOUNTER → 2024-05-18 | Outpatient (CLI) | payer MEDICARE ==
[2024-05-18 16:49] LABS: NT-Pro-B-Type Natriuretic Pept 1379 pg/mL (0-125)
[2024-05-18 20:10] LABS: Blood Urea Nitrogen 19.8 mg/dL (9.0-27.0); Calcium 9.4 mg/dL (8.7-10.3); Chloride 100 mmol/L (96-109); Glucose 118 mg/dL (70-110); Potassium 4.6 mmol/L (3.5-5.5); Sodium 145 mmol/L (135-145)
== END | disposition home or self-care (01) ==
LOC: LABWHC1 09:31
PROVIDERS: ATTEND Internal Medicine Cardiovascular Disease
DX: I50.32 Chronic diastolic (congestive) heart failure (principal)
CPT/HCPCS: 36415; 80048; 83880

== ENCOUNTER 2024-06-02 06:31 | Day surgery (SDC) | payer MEDICARE ==
[2024-06-02] MEDS ORDERED: PROPOFOL 10 MG/ML 20 ML VIAL IV ONE (07:38)
[2024-06-02] MEDS ORDERED: LIDOCAINE 1% INJ 10MG/ML (20 ML MDV) ONE (07:38)
[2024-06-02] MEDS ORDERED: SODIUM CHLORIDE 0.9% 500 ML BAG ONE (07:38)
--- NOTE | 2024-06-09 15:55 | CONS ---
CONSULTATION ANDREI Cardioversion. INDICATION: Persistent atrial fibrillation with symptoms of heart failure. PROCEDURE NOTE: After obtaining informed consent, transesophageal echocardiogram was performed in left lateral position using an Omniplane probe. Local and IV sedation were obtained by the quantitative consultant. The patient tolerated the procedure well without any obvious immediate complications. FINDINGS: 1. There is no intracardiac thrombus within the left atrial appendage, left atrium, right atrium, right ventricle, or left ventricle. 2. Left atrial appendage had been closed using AtriClip device. 3. There is biatrial enlargement. 4. Right ventricle appears mildly enlarged. 5. Left ventricle has normal size, shows concentric left ventricular hypertrophy with normal LV function. Mitral valve shows mild mitral regurgitation. Aortic valve is a bioprosthetic valve. There is no evidence of aortic stenosis or regurgitation. Aortic root appears normal. Interatrial septum appears aneurysmally dilated. There is no evidence of [id number] shunt by color-flow Doppler or [id number]-[id number] shunt by agitated saline contrast study. CONCLUSIONS: 1. No intracardiac thrombus. 2. Normal-appearing bioprosthetic valve in atrial position. 3. Normal LV systolic function. 4. Mild mitral regurgitation. PLAN: Patient will undergo cardioversion. CARDIOVERSION NOTE: INDICATION: Persistent atrial fibrillation. After making sure that the patient is adequately anticoagulated with Eliquis, ruling out an intracardiac thrombus with a ANDREI. The patient underwent electrical cardioversion using 150 joules of synchronized DC current. He converted to sinus rhythm following a single shock. I am going to discharge him home on metoprolol 25 mg b.i.d. Continue the amiodarone that he is on and continue the Eliquis that he is on. He is going to be followed up in my office in a week's time. The patient has bilateral leg edema. I am going to increase the dose of Lasix that he is on at discharge. MMODL / IJN: [id number] /
== END 2024-06-02 09:12 ==
LOC: OR 06:31
PROVIDERS: ATTEND Internal Medicine Cardiovascular Disease
DX: I48.91 Unspecified atrial fibrillation
CPT/HCPCS: 92960

== ENCOUNTER → 2024-07-13 | Day surgery (SDC) | payer MEDICARE ==
[~2024-07-13] MED LIST changes: -ALBUMIN HUMAN 25% 50 ML IV ONE; -ALBUMIN HUMAN 5% 500 ML IVPB ONE; -ASPIRIN 325 MG TAB PO ONE; -CALCIUM CHLORIDE 100 MG/ML 10 ML SYRINGE IV ONE; -CARDIOPLEGIC SOLN (K+ 16 MEQ/L 1,000 ML with SODIUM BICARB (1 MEQ/ML) 20 ML, LIDOCAINE ... PERFUSION ONE; -CHLORHEXIDINE GLUCONATE 15 ML CUP MUCOUS MEM ONE; -CLEVIDIPINE BUTYRATE 25 MG in EMPTY BAG 1 BAG IV ONE; -HEPARIN SODIUM 1,000 UN/ML (10ML VL) IV ONE; -HEPARIN SODIUM,PORCINE (1 ML) 5,000 UNIT in SODIUM CHLORIDE 0.9% 500 ML 500 ML IV ONE; -INSULIN REGULAR 100 UNIT in SODIUM CHLORIDE 0.9% 100 ML IV ONE; -MAGNESIUM SULFATE 16.24 MEQ in EMPTY SYRINGE 1 SYR IV ONE; -MANNITOL 25% 12.5 GM/50 ML VIAL IV ONE; -NITROGLYCERIN SL TABS 0.4 MG TAB SUBLINGUAL ONE; -NITROGLYCERIN-D5W PMX 25 MG/250 ML BTL IV ONE; -NITROGLYCERIN-D5W PMX 50 MG in DEXTROSE/WATER 1 250ML.BAG IV ONE; -NOREPINEPHRINE 4 MG in SODIUM CHLORIDE 0.9% 250 ML IV ONE; -PAPAVERINE 360 MG in SODIUM CHLORIDE 0.9% 90 ML IV ONE; -PHENYLEPHRINE 10 MG/ML VIAL IV ONE; -PHENYLEPHRINE 40 MG in SODIUM CHLORIDE 0.9% 250 ML IV ONE; -PROTAMINE SULFATE 10 MG/ML 25 ML VIAL IV ONE; -PROTAMINE SULFATE 250 MG in EMPTY BAG 1 BAG IV ONE; -SODIUM BICARB 8.4% 50 ML SYR (1 MEQ/ML) IV ONE; -SODIUM CHLORIDE 0.9% 1,000 ML IV ONE; +SODIUM CHLORIDE 0.9% 500 ML 500 ML in EMPTY BAG 1 BAG IV PRN; -TRANEXAMIC ACID 2,000 MG in SODIUM CHLORIDE 0.9% 80 ML IV ONE; -ceFAZolin 1,000 MG in SODIUM CHLORIDE 0.9% IRRIGATIO 1,000 ML IRRIGATION ONE; -propofoL 1,000 MG/100 ML VIAL IV ONE
[2024-07-13 11:30] VITALS: BP 119/56; PULSE 60; RESP 16; TEMP 98.1
--- NOTE | 2024-07-13 12:02 | P.PCN ---
Date of Procedure: 07/13/24 Preoperative Diagnosis: Left pleural effusion Postoperative Diagnosis: Left pleural effusion Procedure(s) Performed: thoracentesis, left Anesthesia: local Surgeon: Vincent Larose Estimated Blood Loss (ml): 0 Pathology: other Condition: stable Disposition: same day Operative Findings: ndication: Pleural effusion. A time-out was completed verifying correct patient, procedure, site, positioning, and implant (s) or special equipment if applicable. Ultrasound guidance was not used and appropriate fluid pocket was identified and marked. Patient was positioned, prepped and draped in usual sterile fashion. Lidocaine was used to anesthetize the area. A Thoracentesis catheter was introduced into the pleural space and fluid was removed. Blood loss was none. A chest x-ray was ordered to evaluate for pneumothorax. Total Fluid Removed: 700 cc Color of Fluid: Turbid , yellow Fluid was sent for appropriate laboratory tests. Patient tolerated the procedure well and there were no complications.
--- NOTE | 2024-07-13 12:12 | XR ---
EXAMINATION TYPE: XR chest 1V portable DATE OF EXAM: 07/13/2024 COMPARISON: 04/30/2024 INDICATION: Left-sided thoracentesis TECHNIQUE: Single frontal view of the chest is obtained. FINDINGS: The heart size is normal. The pulmonary vasculature is normal. There is some elevation left diaphragm. Left subpulmonic effusion is likely present. A be some mild infiltrate at the right base. IMPRESSION: 1. Bibasilar infiltrates and left pleural effusion. [facility], , 07/13/2024 12:10 PM
[2024-07-14 05:09] LABS: Glucose, BF Source Pleural Fluid; Glucose, Body Fluid 157 mg/dL; LDH, Body Fluid Source Pleural Fluid; T. Protein, Body Fluid Source Pleural Fluid; Total Protein, Body Fluid >3600 mg/dL
[2024-07-14 05:51] LABS: Appearance,BF Cloudy (Clear)
== END ==
LOC: PROCWHC3 10:55
PROVIDERS: ATTEND Internal Medicine Critical Care Medicine
DX: J90 Pleural effusion, not elsewhere classified
CPT/HCPCS: 32554; 71045; 82945; 83615; 84157; 87070; 87075; 87116; 87205; 87206; 88108; 88305; 88341; 88342; 89050

== ENCOUNTER 2024-07-29 19:06 | Inpatient (IN) | payer MEDICARE ==
[2024-07-29 20:04] LABS: ALT 17 U/L (4-49); AST 20 U/L (17-59); African American GFR (CKD) 90 (>60 ml/min/1.73 sqM); Albumin 4.4 g/dL (3.5-5.0); Alkaline Phosphatase 65 U/L (38-126); Amylase 48 U/L (30-110); Anion Gap 10 mmol/L; Blood Urea Nitrogen 32 mg/dL (9-20); Calcium 9.5 mg/dL (8.4-10.2); Carbon Dioxide 27 mmol/L (22-30); Chloride 104 mmol/L (98-107); Glucose 200 mg/dL (74-99); Lipase 45 U/L (23-300); Non-African American GFR(CKD) 78 (>60 ml/min/1.73 sqM); Potassium 3.4 mmol/L (3.5-5.1); Sodium 141 mmol/L (137-145); Total Bilirubin 0.8 mg/dL (0.2-1.3); Total Protein 7.3 g/dL (6.3-8.2)
[2024-07-29 20:05] LABS: Basophils % (A) 0 %; Eosinophils # (A) 0.1 k/uL (0-0.7); Eosinophils % (A) 0 %; HCT 48.8 % (39.0-53.0); HGB 15.9 gm/dL (13.0-17.5); Hypochromasia Slight; Lymphocytes # (A) 0.8 k/uL (1.0-4.8); Lymphocytes % (A) 6 %; MCH 27.1 pg (25.0-35.0); MCHC 32.5 g/dL (31.0-37.0); MCV 83.5 fL (80.0-100.0); Mean Platelet Volume 10.8; Monocytes # (A) 0.6 k/uL (0-1.0); Monocytes % (A) 5 %; Neutrophils # (A) 11.4 k/uL (1.3-7.7); Neutrophils % (A) 87 %; Platelet Count 192 k/uL (150-450); RBC 5.85 m/uL (4.30-5.90); RDW 15.8 % (11.5-15.5); WBC 13.1 k/uL (3.8-10.6)
[2024-07-29] MEDS: ONDANSETRON 4 MG/2 ML VIAL IVP STA (20:08)
[2024-07-29] MEDS: SODIUM CHLORIDE 0.9% 1,000 ML IV STA (20:08)
[2024-07-29 21:44] LABS: Appearance,Urine Clear (Clear); Bacteria,Urine Rare /hpf; Bilirubin,Urine Negative (Negative); Blood,Urine Negative (Negative); Color,Urine Light Yellow; Glucose,Urine (UA) 4+ (Negative); Hyaline Casts,Urine 16 /lpf (0-2); Ketones,Urine Negative (Negative); Leukocyte Esterase,Urine Negative (Negative); Mucus,Urine Rare /hpf; Nitrite,Urine Negative (Negative); Protein,Urine 1+ (Negative); RBC,Urine 1 /hpf (0-5); Specific Gravity,Urine 1.025 (1.001-1.035); Squamous Epithelial Cell,Urine 1 /hpf (0-4); Urobilinogen,Urine <2.0 mg/dL (<2.0); WBC,Urine 3 /hpf (0-5)
--- NOTE | 2024-07-29 22:26 | XR ---
EXAMINATION TYPE: XR chest 2V DATE OF EXAM: 07/29/2024 COMPARISON: 07/13/2024 INDICATION: Abdominal pain distention TECHNIQUE: Frontal and lateral views of the chest are obtained. FINDINGS: The heart size is normal. The pulmonary vasculature is normal. Small to moderate left pleural effusion is present. This is diminished from comparison. IMPRESSION: 1. Small to moderate left pleural effusion smaller than comparison [facility], Workstation: [facility], 07/29/2024 10:24 PM
--- NOTE | 2024-07-29 22:37 | CT ---
EXAMINATION TYPE: CT abdomen pelvis wo con DATE OF EXAM: 07/29/2024 COMPARISON: 11/18/2021 INDICATION: abdominal pain and distention, recent CABG DLP: 1852 mGycm, Automated exposure control for dose reduction was used. CONTRAST: 0 mL of Isovue 300. Study performed without Oral Contrast TECHNIQUE: Axial images were obtained from above the diaphragm to the pubic rami in the axial plane a t 5 mm thick sections. Reconstructed images are reviewed on the computer in the coronal plane. FINDINGS: Limited CT sections are obtained the lung bases. There is a small left pleural effusion.. CT ABDOMEN: Liver: Normal Spleen: Normal Pancreas: Normal Adrenal glands: Mild thickening of the left adrenal gland is present measuring 1.3 cm similar to comp arison. Right adrenal gland appears normal. Gallbladder: Normal Kidneys: Heterogenous hypodense masses within the anterior left kidney measuring 2.8 cm, stable from comparison.. No hydronephrosis is present. No cysts are present. No renal stones are evident. Aorta: Vascular calcification is within the aorta. Inferior vena cava: Normal. CT PELVIS: There are some prominent air-filled fluid levels within small bowel loops. Colon appears normal. Zay elate for ileus. No obstruction is identified. No zone of transition is evident. This study is withou t oral contrast limiting bowel evaluation. Appendix: Normal as visualized. Urinary bladder: Normal. Genitourinary structures: Prostate is normal Osseous structures: No suspicious lytic or sclerotic lesions. Degenerative changes are within the lum bar spine IMPRESSION: 1. Findings suspicious for ileus. Follow-up can be performed as clinically indicated. 2. Small to moderate left pleural fluid collection. 3. Stable appearance to left kidney heterogenous hypodense mass. [facility], Workstation: [facility], 07/29/2024 10:35 PM
--- NOTE | 2024-07-29 23:33 | ED ---
Abdominal Pain HPI - General Chief Complaint: Abdominal Pain Stated Complaint: rash on arms Time Seen by Provider: 07/29/24 19:17 Source: patient, family Mode of arrival: ambulatory Limitations: no limitations - Related Data Home Medications Medication Instructions Recorded Confirmed Aspirin EC [Ecotrin Low Dose] 81 mg PO DAILY 01/05/22 07/13/24 Insulin Glargine,Hum.rec.anlog 14 units SQ HS 01/05/22 07/13/24 [Mehrdad Banegas] Calcium Carbonate [Calcium] 600 mg PO DAILY #0 04/05/24 07/13/24 Cholecalciferol [Vitamin D3 (125 125 mcg PO DAILY #0 04/05/24 07/13/24 Mcg = 5000 Iu)] Empagliflozin [Jardiance] 10 mg PO DAILY 04/05/24 07/13/24 icosapent ethyL [Icosapent Ethyl] 1 gm PO BID 04/05/24 07/14/24 Zinc Gluconate [Zinc] 50 mg PO DAILY 04/14/24 07/13/24 Amiodarone [Cordarone] 200 mg PO DAILY 04/29/24 07/13/24 Sennosides-Docusate Sodium 2 tab PO HS PRN 04/29/24 07/13/24 [Senokot-S] Atorvastatin [Lipitor] 40 mg PO DAILY 07/13/24 07/13/24 Furosemide [Lasix] 40 mg PO DAILY 07/14/24 07/13/24 Sulfamethox-Tmp 400-80Mg [Bactrim 1 tab PO Q12HR 07/14/24 07/14/24 SS 400-80 mg] Previous Rx's Medication Instructions Recorded Acetaminophen Tab [Tylenol] 650 mg PO Q4HR PRN tab 04/22/24 Apixaban [Eliquis] 5 mg PO BID #60 tab 04/22/24 Pantoprazole [Protonix] 40 mg PO AC-BRKFST #30 tab 04/22/24 Potassium Chloride [K-Tab ER] 20 meq PO BID #60 tab 04/22/24 Tamsulosin [Flomax] 0.4 mg PO PC-SUPPER #30 cap 04/22/24 amLODIPine BESYLATE 2.5 mg PO DAILY@1200 #30 04/22/24 guaiFENesin-DM 100-10MG/5ML 10 ml PO Q6HR PRN ml 04/22/24 [Robitussin DM] Albuterol Sulfate [Albuterol 2 puff PO Q6H #8.5 gm 05/08/24 Sulfate Hfa] Allergies Allergy/AdvReac Type Severity Reaction Status Date / Time metformin Allergy Nausea & Verified 07/13/24 11:17 Vomiting & Diarrhea Penicillins Allergy Rash/Hives Verified 07/13/24 11:17 Review of Systems ROS Statement: Those systems with pertinent positive or pertinent negative responses have been documented in the HPI. ROS Other: All systems not noted in ROS Statement are negative. Past Medical History Past Medical History: Cancer, Diabetes Mellitus, Hearing Disorder / Deafness, Hyperlipidemia, Hypertension, Osteoarthritis (OA), Pneumonia, Sleep Apnea/CPAP/BIPAP Additional Past Medical History / Comment(s): "Born with 2 defective heart valves ". Varicose veins. Hx colon polpys. BIPAP use History of Any Multi-Drug Resistant Organisms: None Reported Past Surgical History: Cardiac Valve Replacement, Coronary Bypass/CABG, Hernia Repair, Joint Replacement, Tonsillectomy Additional Past Surgical History / Comment(s): Cancerous cyst removed from left kidney, LAPAROSCOPIC EXAM, bilateral knee replacements, bilateral cataracts removed. 04/17/2024*1 vessel CABG/AVR/(L) UL Bleb resection/(L) atrial appendage clipping, Past Anesthesia/Blood Transfusion Reactions: Previous Problems w/ Anesthesia, Motion Sickness Additional Past Anesthesia/Blood Transfusion Reaction / Comment(s): "PATIENT STATES HE HAD SOME TROUBLE BREATHING WHEN HE FIRST WOKE UP IN RECOVERY X1 AND STATES CANNOT BE FLAT ON HIS BACK BECAUSE OF HIS SLEEP APNEA." Past Psychological History: No Psychological Hx Reported Smoking Status: Former smoker Past Alcohol Use History: Rare Past Drug Use History: None Reported - Past Family History Mother Family Medical History: Cancer Additional Family Medical History / Comment(s): from blood clot to brain" BREAST AND BLADDER CANCER. Sister(s) Family Medical History: Cancer Additional Family Medical History / Comment(s): Breast cancer. Son(s) Family Medical History: Cancer General Exam Limitations: no limitations Course Vital Signs 07/29/24 19:11 Temperature 97.6 F Pulse Rate 75 Respiratory 16 Rate Blood Pressure 98/55 O2 Sat by Pulse 92 L Oximetry Medical Decision Making - Medical Decision Making Patient is a 68-year-old man presenting with some abdominal discomfort, mainly of distention. Also diarrhea. Given the patient's symptoms and history of having previous bowel obstruction, I did recommend admission to have observation and surgical consultation, with the patient at this point feeling a little better and wanting to go home. We discussed appropriate further care and follow-up. Discussed clear liquid diet and returning if symptoms are not impro ving within 12 hours or if there is any worsening of symptoms including fevers, abdominal pain, vomiting, passing any blood or other concerning symptoms. - Lab Data Result diagrams: 07/29/24 19:43 07/29/24 19:43 Lab Results 07/29/24 07/29/24 07/29/24 Range/Units 19:43 19:43 19:43 WBC 13.1 H (3.8-10.6) k/uL RBC 5.85 (4.30-5.90) m/uL Hgb 15.9 (13.0-17.5) gm/dL Hct 48.8 (39.0-53.0) % MCV 83.5 (80.0-100.0) fL MCH 27.1 (25.0-35.0) pg MCHC 32.5 (31.0-37.0) g/dL RDW 15.8 H (11.5-15.5) % Plt Count 192 (150-450) k/uL MPV 10.8 Neutrophils % 87 % Lymphocytes % 6 % Monocytes % 5 % Eosinophils % 0 % Basophils % 0 % Neutrophils # 11.4 H (1.3-7.7) k/uL Lymphocytes # 0.8 L (1.0-4.8) k/uL Monocytes # 0.6 (0-1.0) k/uL Eosinophils # 0.1 (0-0.7) k/uL Basophils # 0.0 (0-0.2) k/uL Hypochromasia Slight Sodium 141 (137-145) mmol/L Potassium 3.4 L (3.5-5.1) mmol/L Chloride 104 (98-107) mmol/L Carbon Dioxide 27 (22-30) mmol/L Anion Gap 10 mmol/L BUN 32 H (9-20) mg/dL Creatinine 1.00 (0.66-1.25) mg/dL Est GFR (CKD-EPI)AfAm 90 (>60 ml/min/1.73 sqM) Est GFR (CKD-EPI)NonAf 78 (>60 ml/min/1.73 sqM) Glucose 200 H (74-99) mg/dL Plasma Lactic Acid Koby 1.8 (0.7-2.0) mmol/L Calcium 9.5 (8.4-10.2) mg/dL Total Bilirubin 0.8 (0.2-1.3) mg/dL AST 20 (17-59) U/L ALT 17 (4-49) U/L Alkaline Phosphatase 65 (38-126) U/L Total Protein 7.3 (6.3-8.2) g/dL Albumin 4.4 (3.5-5.0) g/dL Amylase 48 (30-110) U/L Lipase 45 (23-300) U/L Urine Color Urine Appearance (Clear) Urine pH (5.0-8.0) Ur Specific [place] (1.001-1.035) Urine Protein (Negative) Urine Glucose (UA) (Negative) Urine Ketones (Negative) Urine Blood (Negative) Urine Nitrite (Negative) Urine Bilirubin (Negative) Urine Urobilinogen (<2.0) mg/dL Ur Leukocyte Esterase (Negative) Urine RBC (0-5) /hpf Urine WBC (0-5) /hpf Ur Squamous Epith Cells (0-4) /hpf Urine Bacteria (None) /hpf Hyaline Casts (0-2) /lpf Urine Mucus (None) /hpf 07/29/24 Range/Units 21:09 WBC (3.8-10.6) k/uL RBC (4.30-5.90) m/uL Hgb (13.0-17.5) gm/dL Hct (39.0-53.0) % MCV (80.0-100.0) fL MCH (25.0-35.0) pg MCHC (31.0-37.0) g/dL RDW (11.5-15.5) % Plt Count (150-450) k/uL MPV Neutrophils % % Lymphocytes % % Monocytes % % Eosinophils % % Basophils % % Neutrophils # (1.3-7.7) k/uL Lymphocytes # (1.0-4.8) k/uL Monocytes # (0-1.0) k/uL Eosinophils # (0-0.7) k/uL Basophils # (0-0.2) k/uL Hypochromasia Sodium (137-145) mmol/L Potassium (3.5-5.1) mmol/L Chloride (98-107) mmol/L Carbon Dioxide (22-30) mmol/L Anion Gap mmol/L BUN (9-20) mg/dL Creatinine (0.66-1.25) mg/dL Est GFR (CKD-EPI)AfAm (>60 ml/min/1.73 sqM) Est GFR (CKD-EPI)NonAf (>60 ml/min/1.73 sqM) Glucose (74-99) mg/dL Plasma Lactic Acid Koby (0.7-2.0) mmol/L Calcium (8.4-10.2) mg/dL Total Bilirubin (0.2-1.3) mg/dL AST (17-59) U/L ALT (4-49) U/L Alkaline Phosphatase (38-126) U/L Total Protein (6.3-8.2) g/dL Albumin (3.5-5.0) g/dL Amylase (30-110) U/L Lipase (23-300) U/L Urine Color Light Yellow Urine Appearance Clear (Clear) Urine pH 6.0 (5.0-8.0) Ur Specific [place] 1.025 (1.001-1.035) Urine Protein 1+ H (Negative) Urine Glucose (UA) 4+ H (Negative) Urine Ketones Negative (Negative) Urine Blood Negative (Negative) Urine Nitrite Negative (Negative) Urine Bilirubin Negative (Negative) Urine Urobilinogen <2.0 (<2.0) mg/dL Ur Leukocyte Esterase Negative (Negative) Urine RBC 1 (0-5) /hpf Urine WBC 3 (0-5) /hpf Ur Squamous Epith Cells 1 (0-4) /hpf Urine Bacteria Rare H (None) /hpf Hyaline Casts 16 H (0-2) /lpf Urine Mucus Rare H (None) /hpf Disposition Clinical Impression: Abdominal pain, Ileus, Pleural effusion Disposition: HOME SELF-CARE Condition: Fair Instructions (If sedation given, give patient instructions): Abdominal Pain (ED), Ileus (ED) Is patient prescribed a controlled substance at d/c from ED?: No Referrals: Addi Chang DO [Primary Care Provider] - 1-2 days
[2024-07-29] MEDS ORDERED: NALOXONE 0.4 MG/ML 1 ML VIAL IV PRN (23:43)
[2024-07-29] MEDS ORDERED: ONDANSETRON 4 MG/2 ML VIAL IVP PRN (23:43)
[2024-07-30] MEDS: SODIUM CHLORIDE 0.9% 1,000 ML IV SCH (00:12)
[2024-07-30 00:24] VITALS: RESP 18
[2024-07-30] MEDS ORDERED: MORPHINE SULFATE 2 MG/ML SYRINGE IVP PRN (03:44)
--- NOTE | 2024-07-30 08:03 | P.CNPUL ---
History of Present Illness Consult date: 07/30/24 Requesting physician: Tony Alejandre Reason for consult: hypoxemia, pleural effusion, abnormal CXR/CT Chief complaint: Abdominal pain. History of present illness: Pulmonary consult dated July 30, 2024. 68-year-old male who was seen in the emergency department, on July 29, with abdominal pain. The patient was evaluated, and admitted to the hospital with abdominal pain. We are asked to see the patient for a abnormal chest x-ray showing a left-sided pleural effusion. The patient had a bypass grafting and aortic valve replacement procedure done on April 17. Subsequent to that, he was seen by my partner for a left-sided pleural effusion. On July 13, the patient had a left-sided thoracentesis, with 700 cc of fluid being removed. It was an exudate. The patient does not typically use oxygen at home. His saturations apparently have been low, and he does admit to some shortness of breath, with exertion. The patient did smoke 1 to 2 packs a day for 30 years. He quit a number of years back. His primary care physician is Dr. Chang. This morning, on room air, his saturations are right around 89 to 90%. Nasal O2 was placed at 3 L. White count 13.1, hemoglobin 15.9, hematocrit 48.8, with a normal platelet count. Sodium 141, potassium 3.4, chlorides 104, CO2 27, BUN 32, creatinine 1. Chest x-ray that was done, shows a left-sided pleural effusion, and the patient had a chest x-ray in my office this past Wednesday, and the fluid looks to be about the same. Review of Systems REVIEW OF SYSTEMS: CONSTITUTIONAL: [Negative.] NEUROLOGIC: [ Negative.] HEENT: [ Negative.] CARDIAC: [Negative.] PULMONARY: Shortness of breath. GI: Abdominal pain, for which the patient was admitted. : [Negative.] RHEUMATOLOGIC: [ Negative.] IMMUNOLOGIC: [ Negative.] ENDOCRINE: [Negative. ] DERMATOLOGIC: [Negative.] Past Medical History Past Medical History: Cancer, Diabetes Mellitus, Hearing Disorder / Deafness, Hyperlipidemia, Hypertension, Osteoarthritis (OA), Pneumonia, Sleep Apnea/CPAP/BIPAP Additional Past Medical History / Comment(s): "Born with 2 defective heart valves ". Varicose veins. Hx colon polpys. BIPAP use History of Any Multi-Drug Resistant Organisms: None Reported Past Surgical History: Cardiac Valve Replacement, Coronary Bypass/CABG, Hernia Repair, Joint Replacement, Tonsillectomy Additional Past Surgical History / Comment(s): Cancerous cyst removed from left kidney, LAPAROSCOPIC EXAM, bilateral knee replacements, bilateral cataracts removed. 04/17/2024*1 vessel CABG/AVR/(L) UL Bleb resection/(L) atrial appendage clipping, Past Anesthesia/Blood Transfusion Reactions: Previous Problems w/ Anesthesia, Motion Sickness Additional Past Anesthesia/Blood Transfusion Reaction / Comment(s): "PATIENT STATES HE HAD SOME TROUBLE BREATHING WHEN HE FIRST WOKE UP IN RECOVERY X1 AND STATES CANNOT BE FLAT ON HIS BACK BECAUSE OF HIS SLEEP APNEA." Past Psychological History: No Psychological Hx Reported Additional Psychological History / Comment(s): denies any probelms Smoking Status: Former smoker Past Alcohol Use History: Rare Additional Past Alcohol Use History / Comment(s): STARTED SMOKING AT AGE 17, QUIT AT AGE 37-WAS UP TO SMOKING 3 PPD. DRINKS "6 PACK OF BEER A YEAR." Past Drug Use History: None Reported - Past Family History Mother Family Medical History: Cancer Additional Family Medical History / Comment(s): from blood clot to brain" BREAST AND BLADDER CANCER. Sister(s) Family Medical History: Cancer Additional Family Medical History / Comment(s): Breast cancer. Son(s) Family Medical History: Cancer Medications and Allergies Home Medications Medication Instructions Recorded Confirmed Type Aspirin EC [Ecotrin Low Dose] 81 mg PO DAILY 01/05/22 07/13/24 History Insulin Glargine,Hum.rec.anlog 14 units SQ HS 01/05/22 07/13/24 History [Torukhsana Pacheco Solostprashanth] Calcium Carbonate [Calcium] 600 mg PO DAILY #0 04/05/24 07/13/24 History Cholecalciferol [Vitamin D3 (125 125 mcg PO DAILY #0 04/05/24 07/13/24 History Mcg = 5000 Iu)] Empagliflozin [Jardiance] 10 mg PO DAILY 04/05/24 07/13/24 History icosapent ethyL [Icosapent Ethyl] 1 gm PO BID 04/05/24 07/14/24 History Zinc Gluconate [Zinc] 50 mg PO DAILY 04/14/24 07/13/24 History Acetaminophen Tab [Tylenol] 650 mg PO Q4HR PRN tab 04/22/24 07/13/24 Rx Apixaban [Eliquis] 5 mg PO BID #60 tab 04/22/24 07/13/24 Rx Pantoprazole [Protonix] 40 mg PO AC-BRKFST #30 tab 04/22/24 07/13/24 Rx Potassium Chloride [K-Tab ER] 20 meq PO BID #60 tab 04/22/24 07/13/24 Rx Tamsulosin [Flomax] 0.4 mg PO PC-SUPPER #30 cap 04/22/24 07/13/24 Rx amLODIPine BESYLATE 2.5 mg PO DAILY@1200 #30 04/22/24 07/13/24 Rx guaiFENesin-DM 100-10MG/5ML 10 ml PO Q6HR PRN ml 04/22/24 07/13/24 Rx [Robitussin DM] Amiodarone [Cordarone] 200 mg PO DAILY 04/29/24 07/13/24 History Sennosides-Docusate Sodium 2 tab PO HS PRN 04/29/24 07/13/24 History [Senokot-S] Albuterol Sulfate [Albuterol 2 puff PO Q6H #8.5 gm 05/08/24 07/13/24 Rx Sulfate Hfa] Atorvastatin [Lipitor] 40 mg PO DAILY 07/13/24 07/13/24 History Furosemide [Lasix] 40 mg PO DAILY 07/14/24 07/13/24 History Sulfamethox-Tmp 400-80Mg [Bactrim 1 tab PO Q12HR 07/14/24 07/14/24 History SS 400-80 mg] Allergies Allergy/AdvReac Type Severity Reaction Status Date / Time metformin Allergy Nausea & Verified 07/13/24 11:17 Vomiting & Diarrhea Penicillins Allergy Rash/Hives Verified 07/13/24 11:17 Physical Exam Osteopathic Statement: *. No significant issues noted on an osteopathic structural exam other than those noted in the History and Physical/Consult. Vitals: Vital Signs Temp Pulse Pulse Resp BP BP Pulse Ox 07/30/24 03:47 07/30/24 00:48 98.2 F 82 18 118/70 92 L 07/30/24 00:15 85 18 111/71 94 L 07/29/24 19:11 97.6 F 75 16 98/55 92 L FiO2 07/30/24 03:47 21 07/30/24 00:48 07/30/24 00:15 07/29/24 19:11 Intake and Output 07/29/24 07/30/24 07/30/24 22:59 06:59 14:59 Other: # Voids 1 Weight 136.078 kg 136.078 kg No acute distress, oriented 3. Room air saturation 89 to 90%. 3 L saturation 95%. HEENT examination is grossly unremarkable. Mucous membranes are moist. No oral lesions. Neck supple. Full range of motion. No adenopathy thyromegaly or neck vein distention. Cardiovascular examination reveals regular rhythm rate. S1-S2 normal. No S3 or S4. No discernible murmur noted. Lungs reveal mostly clear breath sounds. Some dullness at the left lung base, with slightly diminished breath sounds at the left lung base. No wheezes. No crackles. Abdomen soft bowel sounds are heard. No masses or tenderness. Extremities are intact. No cyanosis clubbing or edema. Skin is without rash or lesion. Neurologic examination is brief but nonfocal. Results - Laboratory Findings CBC and BMP: 07/29/24 19:43 07/29/24 19:43 Abnormal lab findings: Abnormal Labs 07/29/24 07/29/24 07/29/24 19:43 19:43 21:09 WBC 13.1 H RDW 15.8 H Neutrophils # 11.4 H Lymphocytes # 0.8 L Potassium 3.4 L BUN 32 H Glucose 200 H Urine Protein 1+ H Urine Glucose (UA) 4+ H Urine Bacteria Rare H Hyaline Casts 16 H Urine Mucus Rare H - Diagnostic Findings Chest x-ray: image reviewed Assessment and Plan Assessment: Abdominal pain, currently being evaluated by the primary service. Left-sided pleural effusion, S/P thoracentesis, on July 13, 2024. History of CABG/aortic valve replacement, on April 17, 2024. History of diabetes mellitus. History of hypertension. History of hyperlipidemia. History of obstructive sleep apnea syndrome. Previous history of tobacco use. Plan: Plan dated July 30, 2024. The patient is seen today in room 636. His room air saturations were between 89 and 90%. The nurse aide came in and placed the patient on oxygen, 3 L, and saturations are 95%. The patient did not come in for shortness of breath but rather he came in for abdominal pain which is currently being evaluated by the primary service. The patient had a previous thoracentesis done by my partner, on July 13, and 700 cc of fluid was removed. The current chest x-ray does not look too dissimilar from an x-ray that was done in my office, on July 24. Labs, x-rays, medications are reviewed. An ultrasound of the left chest was ordered. Time with Patient: Greater than 30
[2024-07-30 08:13] LABS: Glucose,Whole Blood 128 mg/dL (70-110)
[2024-07-30] MEDS: PANTOPRAZOLE 40 MG/10 ML VIAL IV SCH (09:17)
[2024-07-30] MEDS ORDERED: DEXTROSE 50% SYRINGE 50 ML IVP PRN ×2 (09:25)
--- NOTE | 2024-07-30 10:25 | US ---
EXAMINATION TYPE: US chest DATE OF EXAM: 07/30/2024 COMPARISON: NONE CLINICAL INDICATION: Male, 68 years old with history of Left pleural effusion; left chest TECHNIQUE: Grayscale imaging of the chest. Targeted ultrasound of the posterior lower left hemithora x FINDINGS: EXAM MEASUREMENTS: Left Pleural Effusion pocket size: 9.9 cm Left skin surface to fluid distance: 4.1 cm tissue visualized 3.1 cm in fluid pocket. Left side marked for possible thoracentesis outside the dept. Pulmonologists are able to review the images in the patient?s EMR. IMPRESSIONS: Left pleural effusion as described above. [facility], , 07/30/2024 10:23 AM
--- NOTE | 2024-07-30 10:50 | P.HPIM ---
History of Present Illness H&P Date: 07/30/24 History of present illness; patient 68-year-old gentleman with past medical history significant for CABG, aortic valve replacement. The ER because abdominal pain and distention. Patient said he was all right couple days ago and started noticing generalized abdominal pain. Patient also having complaint of abdominal distention. Denied any nausea or vomiting. Complaining of diarrhea. There was no complaint of fever or chills. Denied any blood in the stools. There was no complaint of chest pain or shortness of breath. Because of the symptoms, patient presented the ER Initial lab work done in the ER showed WBC 13.1, hemoglobin 15.9, platelet, 92, sodium 141, potassium 3.4, BUN 32, creatinine 1, glucose 200 UA negative for any infection CT abdominal pelvis done showed findings suspicious for ileus, small to moderate left pleural fluid effusion Chest x-ray done in the ER Patient admitted to internal medicine service REVIEW OF SYSTEMS: CONSTITUTIONAL: No fever, no malaise, no fatigue. HEENT: No recent visual problems or hearing problems. Denied any sore throat. CARDIOVASCULAR: No chest pain, orthopnea, PND, no palpitations, no syncope. PULMONARY: No shortness of breath, no cough, no hemoptysis. GASTROINTESTINAL: As mentioned above NEUROLOGICAL: No headaches, no weakness, no numbness. HEMATOLOGICAL: Denies any bleeding or petechiae. GENITOURINARY: Denies any burning micturition, frequency, or urgency. MUSCULOSKELETAL/RHEUMATOLOGICAL: Denies any joint pain, swelling, or any muscle pain. ENDOCRINE: Denies any polyuria or polydipsia. The rest of the 14-point review of systems is negative. PHYSICAL EXAMINATION: GENERAL: The patient is alert and oriented x3, not in any acute distress. Well developed, well nourished. HEENT: Pupils are round and equally reacting to light. EOMI. No scleral icterus. No conjunctival pallor. Normocephalic, atraumatic. No pharyngeal erythema. No thyromegaly. CARDIOVASCULAR: S1 and S2 present. No murmurs, rubs, or gallops. PULMONARY: Chest is clear to auscultation, no wheezing or crackles. ABDOMEN: Soft, nontender, nondistended, normoactive bowel sounds. No palpable organomegaly. MUSCULOSKELETAL: No joint swelling or deformity. EXTREMITIES: No cyanosis, clubbing, or pedal edema. NEUROLOGICAL: Gross neurological examination did not reveal any focal deficits. SKIN: No rashes. Assessment and plan Abdominal pain Hypokalemia Ileus Left-sided pleural effusion, S/P thoracentesis, on July 13, 2024. History of CABG/aortic valve replacement, on April 17, 2024. History of diabetes mellitus. History of hypertension. History of hyperlipidemia. History of obstructive sleep apnea syndrome. Previous history of tobacco use. Monitor vital signs Monitor CBC Monitor CMP Continue telemetry monitoring Keep patient n.p.o. Serial abdominal exam Continue IV fluids Continue antiemetics Ordered blood sugar levels monitoring, ordered sliding scale insulin Resume home med Consult surgery Pulmonology consulted for left pleural effusion. Labs and medication were reviewed.. Continue same treatment. Continue with symptomatic treatment. Resume home medication. Monitor labs and vitals. DVT and GI prophylaxis. Further recommendations as per clinical course of the patient Dictation was produced using [employer] dictation software. please excuse any grammatical, word or spelling errors. Past Medical History Past Medical History: Cancer, Diabetes Mellitus, Hearing Disorder / Deafness, Hyperlipidemia, Hypertension, Osteoarthritis (OA), Pneumonia, Sleep Apnea/CPAP/BIPAP Additional Past Medical History / Comment(s): "Born with 2 defective heart valves ". Varicose veins. Hx colon polpys. BIPAP use History of Any Multi-Drug Resistant Organisms: None Reported Past Surgical History: Cardiac Valve Replacement, Coronary Bypass/CABG, Hernia Repair, Joint Replacement, Tonsillectomy Additional Past Surgical History / Comment(s): Cancerous cyst removed from left kidney, LAPAROSCOPIC EXAM, bilateral knee replacements, bilateral cataracts removed. 04/17/2024*1 vessel CABG/AVR/(L) UL Bleb resection/(L) atrial appendage clipping, Past Anesthesia/Blood Transfusion Reactions: Previous Problems w/ Anesthesia, Motion Sickness Additional Past Anesthesia/Blood Transfusion Reaction / Comment(s): "PATIENT STATES HE HAD SOME TROUBLE BREATHING WHEN HE FIRST WOKE UP IN RECOVERY X1 AND STATES CANNOT BE FLAT ON HIS BACK BECAUSE OF HIS SLEEP APNEA." Past Psychological History: No Psychological Hx Reported Additional Psychological History / Comment(s): denies any probelms Smoking Status: Former smoker Past Alcohol Use History: Rare Additional Past Alcohol Use History / Comment(s): STARTED SMOKING AT AGE 17, Q UIT AT AGE 37-WAS UP TO SMOKING 3 PPD. DRINKS "6 PACK OF BEER A YEAR." Past Drug Use History: None Reported - Past Family History Mother Family Medical History: Cancer Additional Family Medical History / Comment(s): from blood clot to brain" BREAST AND BLADDER CANCER. Sister(s) Family Medical History: Cancer Additional Family Medical History / Comment(s): Breast cancer. Son(s) Family Medical History: Cancer Medications and Allergies Home Medications Medication Instructions Recorded Confirmed Type Aspirin EC [Ecotrin Low Dose] 81 mg PO DAILY 01/05/22 07/13/24 History Insulin Glargine,Hum.rec.anlog 14 units SQ HS 01/05/22 07/13/24 History [Toujeo Max Solostar] Calcium Carbonate [Calcium] 600 mg PO DAILY #0 04/05/24 07/13/24 History Cholecalciferol [Vitamin D3 (125 125 mcg PO DAILY #0 04/05/24 07/13/24 History Mcg = 5000 Iu)] Empagliflozin [Jardiance] 10 mg PO DAILY 04/05/24 07/13/24 History icosapent ethyL [Icosapent Ethyl] 1 gm PO BID 04/05/24 07/14/24 History Zinc Gluconate [Zinc] 50 mg PO DAILY 04/14/24 07/13/24 History Acetaminophen Tab [Tylenol] 650 mg PO Q4HR PRN tab 04/22/24 07/13/24 Rx Apixaban [Eliquis] 5 mg PO BID #60 tab 04/22/24 07/13/24 Rx Pantoprazole [Protonix] 40 mg PO AC-BRKFST #30 tab 04/22/24 07/13/24 Rx Potassium Chloride [K-Tab ER] 20 meq PO BID #60 tab 04/22/24 07/13/24 Rx Tamsulosin [Flomax] 0.4 mg PO PC-SUPPER #30 cap 04/22/24 07/13/24 Rx amLODIPine BESYLATE 2.5 mg PO DAILY@1200 #30 04/22/24 07/13/24 Rx guaiFENesin-DM 100-10MG/5ML 10 ml PO Q6HR PRN ml 04/22/24 07/13/24 Rx [Robitussin DM] Amiodarone [Cordarone] 200 mg PO DAILY 04/29/24 07/13/24 History Sennosides-Docusate Sodium 2 tab PO HS PRN 04/29/24 07/13/24 History [Senokot-S] Albuterol Sulfate [Albuterol 2 puff PO Q6H #8.5 gm 05/08/24 07/13/24 Rx Sulfate Hfa] Atorvastatin [Lipitor] 40 mg PO DAILY 07/13/24 07/13/24 History Furosemide [Lasix] 40 mg PO DAILY 07/14/24 07/13/24 History Sulfamethox-Tmp 400-80Mg [Bactrim 1 tab PO Q12HR 07/14/24 07/14/24 History SS 400-80 mg] Allergies Allergy/AdvReac Type Severity Reaction Status Date / Time metformin Allergy Nausea & Verified 07/13/24 11:17 Vomiting & Diarrhea Penicillins Allergy Rash/Hives Verified 07/13/24 11:17 Physical Exam Vitals: Vital Signs Temp Pulse Pulse Pulse Resp BP BP 07/30/24 07:00 98.1 F 88 18 07/30/24 03:47 07/30/24 00:48 98.2 F 82 18 118/70 07/30/24 00:15 85 18 111/71 07/29/24 19:11 97.6 F 75 16 98/55 BP Pulse Ox FiO2 07/30/24 07:00 118/56 95 07/30/24 03:47 21 07/30/24 00:48 92 L 07/30/24 00:15 94 L 07/29/24 19:11 92 L Intake and Output 07/29/24 07/30/24 07/30/24 22:59 06:59 14:59 Other: # Voids 1 Weight 136.078 kg 136.078 kg Results CBC & Chem 7: 07/29/24 19:43 07/29/24 19:43 Labs: Abnormal Lab Results - Last 24 Hours (Table) 07/29/24 07/29/24 07/29/24 Range/Units 19:43 19:43 21:09 WBC 13.1 H (3.8-10.6) k/uL RDW 15.8 H (11.5-15.5) % Neutrophils # 11.4 H (1.3-7.7) k/uL Lymphocytes # 0.8 L (1.0-4.8) k/uL Potassium 3.4 L (3.5-5.1) mmol/L BUN 32 H (9-20) mg/dL Glucose 200 H (74-99) mg/dL POC Glucose (mg/dL) (70-110) mg/dL Urine Protein 1+ H (Negative) Urine Glucose (UA) 4+ H (Negative) Urine Bacteria Rare H (None) /hpf Hyaline Casts 16 H (0-2) /lpf Urine Mucus Rare H (None) /hpf 07/30/24 Range/Units 08:11 WBC (3.8-10.6) k/uL RDW (11.5-15.5) % Neutrophils # (1.3-7.7) k/uL Lymphocytes # (1.0-4.8) k/uL Potassium (3.5-5.1) mmol/L BUN (9-20) mg/dL Glucose (74-99) mg/dL POC Glucose (mg/dL) 128 H (70-110) mg/dL Urine Protein (Negative) Urine Glucose (UA) (Negative) Urine Bacteria (None) /hpf Hyaline Casts (0-2) /lpf Urine Mucus (None) /hpf Thrombosis Risk Factor Assmnt - Choose All That Apply Any of the Below Risk Factors Present?: Yes Each Factor Represents 1 point: Swollen legs (current) Other Risk Factors: Yes Each Risk Factor Represents 2 Points: Age 61-74 years Thrombosis Risk Factor Assessment Total Risk Factor Score: 3 Thrombosis Risk Factor Assessment Level: Moderate Risk
[2024-07-30 12:30] LABS: Glucose,Whole Blood 116 mg/dL (70-110)
[2024-07-30] MEDS: INSULIN ASPART (NovoLOG) 100 UNIT/ML VIAL SQ SCH (12:59)
--- NOTE | 2024-07-30 13:06 | P.CON ---
Consult Note - . Consult date: 07/30/24 Assessment/Plan:: History of present illness; Patient is a 68-year-old male with past medical history significant for CABG, aortic valve replacement. He presented to the [facility] ER because abdominal pain and distention. Patient stated he had generalized abd ominal pain. Patient also having complaint of abdominal distention. Denied any nausea or vomiting. Complaining of diarrhea. There was no complaint of fever or chills. Denied any blood in the stools. There was no complaint of chest pain or shortness of breath. CT-AP showed evidence for ileus. This morning on evaluation, he is tolerating CLD and having bowel function. REVIEW OF SYSTEMS: CONSTITUTIONAL: No fever, no malaise, no fatigue. HEENT: No recent visual problems or hearing problems. Denied any sore throat. CARDIOVASCULAR: No chest pain, orthopnea, PND, no palpitations, no syncope. PULMONARY: No shortness of breath, no cough, no hemoptysis. GASTROINTESTINAL: As mentioned above NEUROLOGICAL: No headaches, no weakness, no numbness. HEMATOLOGICAL: Denies any bleeding or petechiae. GENITOURINARY: Denies any burning micturition, frequency, or urgency. MUSCULOSKELETAL/RHEUMATOLOGICAL: Denies any joint pain, swelling, or any muscle pain. ENDOCRINE: Denies any polyuria or polydipsia. PHYSICAL EXAMINATION: GENERAL: The patient is alert and oriented x3, not in any acute distress. Well developed, well nourished. HEENT: Pupils are round and equally reacting to light. EOMI. No scleral icterus. No conjunctival pallor. Normocephalic, atraumatic. No pharyngeal erythema. No thyromegaly. CARDIOVASCULAR: S1 and S2 present. No murmurs, rubs, or gallops. PULMONARY: Chest is clear to auscultation, no wheezing or crackles. ABDOMEN: Soft, nontender, nondistended, normoactive bowel sounds. No palpable organomegaly. MUSCULOSKELETAL: No joint swelling or deformity. EXTREMITIES: No cyanosis, clubbing, or pedal edema. NEUROLOGICAL: Gross neurological examination did not reveal any focal deficits. SKIN: No rashes. Assessment and plan 68 year old male with ileus on CT-AP -CLD, Advance diet as tolerated -Nausea Control -OOB, ambulate -No acute surgical intervention -Further recs pending clinical course Matthew Miramontes [facility] [phone]
[2024-07-30 17:34] LABS: Glucose,Whole Blood 115 mg/dL (70-110)
[2024-07-30 20:08] LABS: Glucose,Whole Blood 152 mg/dL (70-110)
[2024-07-31 05:46] LABS: Glucose,Whole Blood 101 mg/dL (70-110)
[2024-07-31 11:27] LABS: Anisocytosis Slight; Basophils % (A) 0 %; Eosinophils # (A) 0.2 k/uL (0-0.7); Eosinophils % (A) 2 %; HCT 41.9 % (39.0-53.0); HGB 13.4 gm/dL (13.0-17.5); Hypochromasia Slight; Lymphocytes # (A) 0.9 k/uL (1.0-4.8); Lymphocytes % (A) 13 %; MCH 26.8 pg (25.0-35.0); MCV 83.9 fL (80.0-100.0); Mean Platelet Volume 10.5; Monocytes # (A) 0.4 k/uL (0-1.0); Monocytes % (A) 6 %; Neutrophils # (A) 5.4 k/uL (1.3-7.7); Neutrophils % (A) 75 %; Platelet Count 152 k/uL (150-450); RBC 4.99 m/uL (4.30-5.90); WBC 7.2 k/uL (3.8-10.6)
[2024-07-31 11:45] LABS: African American GFR (CKD) >90 (>60 ml/min/1.73 sqM); Anion Gap 7 mmol/L; Blood Urea Nitrogen 15 mg/dL (9-20); Calcium 8.9 mg/dL (8.4-10.2); Carbon Dioxide 30 mmol/L (22-30); Chloride 101 mmol/L (98-107); Glucose 124 mg/dL (74-99); Non-African American GFR(CKD) >90 (>60 ml/min/1.73 sqM); Potassium 3.6 mmol/L (3.5-5.1); Sodium 138 mmol/L (137-145)
[2024-07-31 12:59] LABS: Glucose,Whole Blood 110 mg/dL (70-110)
--- NOTE | 2024-07-31 15:27 | P.PN ---
Subjective Progress Note Date: 07/31/24 History of present illness; patient 68-year-old gentleman with past medical history significant for CABG, aortic valve replacement. The ER because abdominal pain and distention. Patient said he was all right couple days ago and started noticing generalized abdominal pain. Patient also having complaint of abdominal distention. Denied any nausea or vomiting. Complaining of diarrhea. There was no complaint of fever or chills. Denied any blood in the stools. There was no complaint of chest pain or shortness of breath. Because of the symptoms, patient presented the ER Initial lab work done in the ER showed WBC 13.1, hemoglobin 15.9, platelet, 92, sodium 141, potassium 3.4, BUN 32, creatinine 1, glucose 200 UA negative for any infection CT abdominal pelvis done showed findings suspicious for ileus, small to moderate left pleural fluid effusion Chest x-ray done in the ER Patient admitted to internal medicine service 07/31/2024 Patient is seen in follow-up today with pulmonary as well as general surgery following. Patient is maintained on full liquid diet and tolerating thus far. Patient is passing gas although has not had a bowel movement since prior to hospitalization where he had multiple episodes of diarrhea. Patient denies any further abdominal pain and is sitting up in the chair currently on room air. Patient to be evaluated by pulmonary to assess for the possible need of repeat thoracentesis. Chest ultrasound was done on the left. Patient is afebrile with no reports of chest pain or shortness of breath. Patient is tolerating the full liquids and will continue with slowly advancing per surgery. Review of systems: Constitutional: No reports of fatigue, fever, or chills Cardiovascular: No reports of chest pain or palpitations Respiratory: No reports of shortness of breath or cough GI: No reports of nausea, vomiting, or diarrhea, reports passing gas but no gavin wel movement as of yet, denies any further abdominal pain : No reports of dysuria or retention Neurovascular: No reports of weakness or numbness All medications have been reviewed PHYSICAL EXAMINATION: GENERAL: The patient is alert and oriented x3, not in any acute distress. Well developed, well nourished. Morbidly obese HEENT: Pupils are round and equally reacting to light. EOMI. No scleral icterus. No conjunctival pallor. Normocephalic, atraumatic. No pharyngeal erythema. No thyromegaly. CARDIOVASCULAR: S1 and S2 muffled PULMONARY: Diminished breath sounds bilaterally more so on the left otherwise chest is clear to auscultation, no wheezing or crackles. ABDOMEN: Soft, obese. Nontender, nondistended, normoactive bowel sounds. No palpable organomegaly. MUSCULOSKELETAL: No joint swelling or deformity. EXTREMITIES: No cyanosis, clubbing, or pedal edema. NEUROLOGICAL: Gross neurological examination did not reveal any focal deficits. SKIN: No rashes. Assessment: Abdominal pain likely secondary to ileus, improving Hypokalemia due to diarrhea, improved after replacement Left-sided pleural effusion, S/P thoracentesis, on July 13, 2024. History of CABG/aortic valve replacement, on April 17, 2024. History of diabetes mellitus. History of hypertension. History of hyperlipidemia. History of obstructive sleep apnea syndrome. Previous history of tobacco use. Morbid obesity with a BMI of 47.0 GI prophylaxis DVT prophylaxis Full code Plan: Patient being followed by general surgery maintained on full liquids reports no further abdominal pain continues with some bloating although is passing gas. Patient has not had a bowel movement since his last episode of diarrhea prior to coming. Patient to continue full liquids and advance per surgery Patient was evaluated by pulmonary with recent history of pleural effusion status postthoracentesis in June and a chest ultrasound was done awaiting to see if pulmonary will be performing another thoracentesis while here Encouraged increase activity as tolerated Home medications reviewed and resumed Will discuss further and awaiting pulmonary evaluation for possible thoracentesis Due to multiple complex medical issues, overall prognosis is guarded Possible discharge planning in the next 24 hours The impression and plan of care has been dictated by Destiny Perera, Nurse Practitioner as directed. Dr. Fuad MD I have performed a history and examination and MDM of this patient, discussed the same with the dictator, and agree with the dictator's assessment and plan as written ,documented as a scribe. Based on total visit time, I have performed more than 50% of the visit. Objective - Vital Signs Vital signs: Vital Signs Temp 98.4 F 07/31/24 07:00 Pulse 77 07/31/24 07:00 Resp 18 07/31/24 07:00 BP 140/55 07/31/24 07:00 Pulse Ox 94 L 07/31/24 08:47 FiO2 32 07/31/24 04:04 Intake & Output 07/30/24 07/31/24 07/31/24 18:59 06:59 18:59 Intake Total 194 947 1917 Balance 462 122 2643 Intake: Oral 562 174 1783 Other: Voiding Method Toilet Urinal # Voids 4 3 - Labs CBC & Chem 7: 07/31/24 11:14 07/31/24 11:14 Labs: Abnormal Lab Results - Last 24 Hours (Table) 07/29/24 07/30/24 07/30/24 Range/Units 19:43 17:33 20:07 RDW (11.5-15.5) % Lymphocytes # (1.0-4.8) k/uL Glucose (74-99) mg/dL POC Glucose (mg/dL) 115 H 152 H (70-110) mg/dL Hemoglobin A1c 6.9 H (<=6.0) % 07/31/24 07/31/24 Range/Units 11:14 11:14 RDW 16.0 H (11.5-15.5) % Lymphocytes # 0.9 L (1.0-4.8) k/uL Glucose 124 H (74-99) mg/dL POC Glucose (mg/dL) (70-110) mg/dL Hemoglobin A1c (<=6.0) %
--- NOTE | 2024-07-31 15:40 | P.PN ---
Subjective Progress Note Date: 07/31/24 CHIEF COMPLAINT: Abdominal pain and distention HISTORY OF PRESENT ILLNESS: Patient reports that his abdominal pain has resolved. Also reports his abdominal distention has improved and is back to normal. He is having flatus. Denies any nausea or vomiting. Denies any bowel movements. Requesting advancement of diet. Afebrile. WBC is down from 13.1- 7.2 Hgb 13.4 creatinine 0.7 potassium 3.4 up to 3.6 PHYSICAL EXAM: VITAL SIGNS: Reviewed. GENERAL: no acute distress. ABDOMEN: Soft. Obese. Decreased abdominal distention. Nontender. NEUROLOGIC: Alert and oriented. Cranial nerves II through XII grossly intact. ASSESSMENT: 1. Abdominal ileus 2. Hypokalemia improved 3. History of CABG and aortic valve replacement 4. Pleural effusion being evaluated by pulmonary service PLAN: -Advance diet to full liquids -Encourage patient to ambulate -No surgical intervention planned Physician Home Decorator note has been reviewed by physician. Signing provider agrees with the documented findings, assessment, and plan of care. Attestation Patient seen and examined at bedside. States that he is being discharged. Abdominal distention resolved. He is having flatus. He is hungry. At this point, it does appear that ileus has resolved. I did provide patient with diet recommendations and bowel regimen recommendations. Gilbert Sam, Objective - Vital Signs Vital signs: Vital Signs Temp 98.4 F 07/31/24 07:00 Pulse 77 07/31/24 07:00 Resp 18 07/31/24 07:00 BP 140/55 07/31/24 07:00 Pulse Ox 94 L 07/31/24 08:47 FiO2 32 07/31/24 04:04 Intake & Output 07/30/24 07/31/24 07/31/24 18:59 06:59 18:59 Intake Total 195 515 4706 Balance 350 568 7421 Intake: Oral 754 561 1592 Other: Voiding Method Toilet Urinal # Voids 4 3 - Labs CBC & Chem 7: 07/31/24 11:14 07/31/24 11:14 Labs: Abnormal Lab Results - Last 24 Hours (Table) 07/29/24 07/30/24 07/30/24 Range/Units 19:43 17:33 20:07 RDW (11.5-15.5) % Lymphocytes # (1.0-4.8) k/uL Glucose (74-99) mg/dL POC Glucose (mg/dL) 115 H 152 H (70-110) mg/dL Hemoglobin A1c 6.9 H (<=6.0) % 07/31/24 07/31/24 Range/Units 11:14 11:14 RDW 16.0 H (11.5-15.5) % Lymphocytes # 0.9 L (1.0-4.8) k/uL Glucose 124 H (74-99) mg/dL POC Glucose (mg/dL) (70-110) mg/dL Hemoglobin A1c (<=6.0) %
--- NOTE | 2024-07-31 15:54 | P.PN ---
Subjective Progress Note Date: 07/31/24 68-year-old male who was seen in the emergency department, on July 29, with abdominal pain. The patient was evaluated, and admitted to the hospital with abdominal pain. We are asked to see the patient for a abnormal chest x-ray showing a left-sided pleural effusion. The patient had a bypass grafting and aortic valve replacement procedure done on April 17. Subsequent to that, he was seen by my partner for a left-sided pleural effusion. On July 13, the patient had a left-sided thoracentesis, with 700 cc of fluid being removed. It was an exudate. The patient does not typically use oxygen at home. His saturations apparently have been low, and he does admit to some shortness of breath, with exertion. The patient did smoke 1 to 2 packs a day for 30 years. He quit a number of years back. His primary care physician is Dr. Chang. This morning, on room air, his saturations are right around 89 to 90%. Nasal O2 was placed at 3 L. White count 13.1, hemoglobin 15.9, hematocrit 48.8, with a normal platelet count. Sodium 141, potassium 3.4, chlorides 104, CO2 27, BUN 32, creatinine 1. Chest x-ray that was done, shows a left-sided pleural effusion, and the patient had a chest x-ray in my office this past Wednesday, and the fluid looks to be about the same. 07/31/2024, the patient is being seen in the hospital for a follow-up. He initially came into the hospital because of abdominal pain and diarrhea. CAT scan of the abdomen also showed a small to moderate-sized left-sided pleural effusion. Noted I already performed a thoracentesis on this patient on 07/13/2024 and a total of 700 cc of pleural fluid was aspirated. The fluid was an exudate. Meanwhile, his current oxygen level is somewhere between 91 to 95% on room air oxygen. I reviewed the follow-up chest x-ray and amount of fluid is less compared to his previous chest x-rays. No chest pain. Surgical wound site is healing nicely. No other new complaints for now. His diarrhea has subsided. Objective - Vital Signs Vital signs: Vital Signs Temp 98.4 F 07/31/24 07:00 Pulse 77 07/31/24 07:00 Resp 18 07/31/24 07:00 BP 140/55 07/31/24 07:00 Pulse Ox 94 L 07/31/24 08:47 FiO2 32 07/31/24 04:04 Intake & Output 07/30/24 07/31/24 07/31/24 18:59 06:59 18:59 Intake Total 043 889 5075 Balance 757 764 8427 Intake: Oral 365 575 3979 Other: Voiding Method Toilet Urinal # Voids 4 3 - Exam No acute distress, oriented 3. Room air saturation 91 % HEENT examination is grossly unremarkable. Mucous membranes are moist. No oral lesions. Neck supple. Full range of motion. No adenopathy thyromegaly or neck vein distention. Cardiovascular examination reveals regular rhythm rate. S1-S2 normal. No S3 or S4. No discernible murmur noted. Lungs reveal mostly clear breath sounds. Some dullness at the left lung base, with slightly diminished breath sounds at the left lung base. No wheezes. No crackles. Abdomen soft bowel sounds are heard. No masses or tenderness. Extremities are intact. No cyanosis clubbing or edema. Skin is without rash or lesion. Neurologic examination is brief but nonfocal. - Labs CBC & Chem 7: 07/31/24 11:14 07/31/24 11:14 Labs: Abnormal Lab Results - Last 24 Hours (Table) 07/29/24 07/30/24 07/30/24 Range/Units 19:43 17:33 20:07 RDW (11.5-15.5) % Lymphocytes # (1.0-4.8) k/uL Glucose (74-99) mg/dL POC Glucose (mg/dL) 115 H 152 H (70-110) mg/dL Hemoglobin A1c 6.9 H (<=6.0) % 07/31/24 07/31/24 Range/Units 11:14 11:14 RDW 16.0 H (11.5-15.5) % Lymphocytes # 0.9 L (1.0-4.8) k/uL Glucose 124 H (74-99) mg/dL POC Glucose (mg/dL) (70-110) mg/dL Hemoglobin A1c (<=6.0) % Assessment and Plan Plan: Abdominal pain, diarhea, recovered Left-sided pleural effusion, S/P thoracentesis, on July 13, 2024. History of CABG/aortic valve replacement, on April 17, 2024. History of diabetes mellitus. History of hypertension. History of hyperlipidemia. History of obstructive sleep apnea syndrome. Previous history of tobacco use. Plan: I reviewed the chest x-ray and I also reviewed the CAT scan of the abdomen. The amount of pleural fluid is smaller. We decided to give the patient some time and he is going to see me in the office in 2 weeks time. If there is ongoing symptoms of shortness of breath and/or hypoxemia and/or worsening shortness of breath, we will do another therapeutic thoracentesis. The amount of pleural fluid is small for now. Put him
[2024-07-31] MEDS ORDERED: DAPAGLIFLOZIN PROPANEDIOL 5 MG TABLET PO SCH (16:00)
[2024-07-31] MEDS ORDERED: CALCIUM CARBONATE 500 MG CHEWABLE PO SCH (16:00)
[2024-07-31] MEDS ORDERED: ATORVASTATIN 40 MG TAB PO SCH (16:00)
[2024-07-31] MEDS ORDERED: FUROSEMIDE 40 MG TAB PO SCH (16:00)
[2024-07-31] MEDS ORDERED: amLODIPine 10 MG TAB PO SCH (16:00)
[2024-07-31] MEDS ORDERED: ASPIRIN 81 MG PO SCH (16:00)
[2024-07-31] MEDS ORDERED: TAMSULOSIN 0.4 MG CAP.ER.24H PO SCH (16:00)
[2024-07-31 16:28] VITALS: BP 138/66; PULSE 67; TEMP 97.6
[2024-07-31] MEDS ORDERED: POTASSIUM CHLORIDE ER 20 MEQ TAB.ER PO SCH (21:00)
[2024-07-31] MEDS ORDERED: APIXABAN 5 MG TAB PO SCH (21:00)
[2024-07-31] MEDS ORDERED: AMIODARONE 200 MG TAB PO SCH (21:00)
[2024-07-31] MEDS ORDERED: NON FORMULARY DRUG (Icosapent Ethyl [Icosapent Ethyl] 1 GM Capsule) PO SCH (21:00)
--- NOTE | 2024-08-01 10:09 | P.DS ---
Providers Date of admission: 07/29/24 23:44 Expected date of discharge: 07/31/24 Attending physician: Tony Alejandre MD Consults: 07/29/24 23:43 Consult Physician Routine Consulting Provider: Shaun Mata Consult Reason/Comments: pleural effusion Do you want consulting provider notified?: Yes Consult Physician Routine Consulting Provider: Matthew Gale Consult Reason/Comments: abdominal pain. Ileus Do you want consulting provider notified?: Yes Primary care physician: Addi Chang Hospital Course: Final diagnosis Abdominal pain likely secondary to ileus, improving Hypokalemia due to diarrhea, improved after replacement Left-sided pleural effusion, S/P thoracentesis, on July 13, 2024. History of CABG/aortic valve replacement, on April 17, 2024. History of diabetes mellitus. History of hypertension. History of hyperlipidemia. History of obstructive sleep apnea syndrome. Previous history of tobacco use. Morbid obesity with a BMI of 47.0 GI prophylaxis DVT prophylaxis Full code Discharge disposition Patient is being discharged in a stable condition with guarded prognosis to home. Patient will follow-up with Dr. Chang in the outpatient setting upon discharge. Patient is to continue with current medication adjustments and outpatient follow-up with pulmonary as scheduled. Follow-up with general surgery outpatient as needed. Total time taken is greater than 35 minutes. Hospital course This is a 68-year-old male who was recently admitted with abdominal pain likely secondary to ileus which is improving. Patient is passing gas although has not had any further bowel movements as patient reports to having multiple episodes of diarrhea prior to admission. Patient denies any further abdominal pain and asking for advancing diet. Patient is being advanced to full liquids and would recommend continuing over the next few days and slowly advancing to low fiber and outpatient follow-up with general surgery. Patient also evaluated by pu lmonary as he recently underwent left side thoracentesis secondary to pleural effusion and underwent repeat chest ultrasound and is maintained on room air with Dr. Larose following with no plans of repeat thoracentesis at this time recommending outpatient follow-up in 1 to 2 weeks. Patient has been medically cleared and reports to feeling well and would like to go home. Please refer to other consultation notes for further HPI. Currently no reports of chest pain, shortness of breath, or palpitations. Patient is afebrile. No reports of nausea or vomiting and patient is tolerating diet. Patient will be discharged home today. Guarded prognosis. Physical exam: Gen: This is a 68-year-old male who is awake, alert and oriented x 3, well- developed, well-nourished, morbidly obese HEENT: Head is atraumatic, normocephalic. Pupils equal, round. Sclerae is anicteric. NECK: Supple. No JVD. No lymphadenopathy. No thyromegaly. LUNGS: Diminished breath sounds bilaterally more so on the left otherwise clear to auscultation. No wheezes or rhonchi. No intercostal retractions. HEART: S1, S2 are muffled ABDOMEN: Soft. Obese bowel sounds are present. No masses. No tenderness. EXTREMITIES: No pedal edema. No calf tenderness. NEUROLOGICAL: Patient is awake, alert and oriented x3. Cranial nerves 2 through 12 are grossly intact. Please refer to medication reconciliation sheet for a list of medications. The impression and plan of care has been dictated by Destiny Perera, Nurse Practitioner as directed. Dr. Fuad MD I have performed a history and examination and MDM of this patient, discussed the same with the dictator, and agree with the dictator's assessment and plan as written ,documented as a scribe. Based on total visit time, I have performed more than 50% of the visit. Patient Condition at Discharge: Fair Plan - Discharge Summary Discharge Rx Participant: No New Discharge Prescriptions: Continue Insulin Glargine,Hum.rec.anlog [Mehrdad Banegas] 14 units SQ HS icosapent ethyL [Icosapent Ethyl] 2 gm PO BID Empagliflozin [Jardiance] 10 mg PO DAILY Amiodarone [Cordarone] 200 mg PO BID Atorvastatin [Lipitor] 40 mg PO DAILY Furosemide [Lasix] 40 mg PO DAILY Tamsulosin [Flomax] 0.4 mg PO DAILY Pantoprazole [Protonix] 40 mg PO DAILY Aspirin EC [Ecotrin Low Dose] 81 mg PO DAILY Calcium Carbonate [Calcium] 600 mg PO DAILY #0 Apixaban [Eliquis] 5 mg PO BID #60 tab Potassium Chloride [K-Tab ER] 20 meq PO BID #60 tab amLODIPine [Norvasc] 10 mg PO DAILY Discharge Medication List Aspirin EC [Ecotrin Low Dose] 81 mg PO DAILY 01/05/22 [History] Insulin Glargine,Hum.rec.anlog [Toujose Pacheco Solostar] 14 units SQ HS 01/05/22 [History] Calcium Carbonate [Calcium] 600 mg PO DAILY #0 04/05/24 [History] Empagliflozin [Jardiance] 10 mg PO DAILY 04/05/24 [History] icosapent ethyL [Icosapent Ethyl] 2 gm PO BID 04/05/24 [History] Apixaban [Eliquis] 5 mg PO BID #60 tab 04/22/24 [Rx] Potassium Chloride [K-Tab ER] 20 meq PO BID #60 tab 04/22/24 [Rx] Amiodarone [Cordarone] 200 mg PO BID 04/29/24 [History] Atorvastatin [Lipitor] 40 mg PO DAILY 07/13/24 [History] Furosemide [Lasix] 40 mg PO DAILY 07/14/24 [History] Pantoprazole [Protonix] 40 mg PO DAILY 07/30/24 [History] Tamsulosin [Flomax] 0.4 mg PO DAILY 07/30/24 [History] amLODIPine [Norvasc] 10 mg PO DAILY 07/30/24 [History] Follow up Appointment(s)/Referral(s): Addi Chang DO [Primary Care Provider] - 1-2 days Matthew Gale DO [Medical Doctor] - 1 Week Vincent Larose MD [STAFF PHYSICIAN] - 2 Weeks (please move up follow-up appointment) Patient Instructions/Handouts: Pleural Effusion (DC), Abdominal Pain (ED), Ileus (ED) Activity/Diet/Wound Care/Special Instructions: Maintain low-fiber or full liquid diet over next few days until bowel movements are more regular Discharge Disposition: HOME SELF-CARE
== END 2024-07-31 17:07 | disposition home or self-care (01) | DRG 389 ==
LOC: EC 19:06 → 6NMEDSUR 23:44
PROVIDERS: ADMIT Internal Medicine; ATTEND Internal Medicine
PROC: 5A09357 Assistance with Respiratory Ventilation, Less than 24 Consecutive Hours, Continuous Positive Airway Pressure (ICD-10-PCS; principal; 2024-07-31)
DX: K56.7 Ileus, unspecified (principal); J90 Pleural effusion, not elsewhere classified; Z68.42 Body mass index [BMI] 45.0-49.9, adult; I10 Essential (primary) hypertension; E78.5 Hyperlipidemia, unspecified; E11.9 Type 2 diabetes mellitus without complications; E87.6 Hypokalemia; R09.02 Hypoxemia; G47.33 Obstructive sleep apnea (adult) (pediatric); E66.01 Morbid (severe) obesity due to excess calories; Z96.653 Presence of artificial knee joint, bilateral; Z79.01 Long term (current) use of anticoagulants; Z79.84 Long term (current) use of oral hypoglycemic drugs; Z79.82 Long term (current) use of aspirin; Z95.2 Presence of prosthetic heart valve; Z79.4 Long term (current) use of insulin; Z79.899 Other long term (current) drug therapy; Z87.891 Personal history of nicotine dependence; Z95.1 Presence of aortocoronary bypass graft
CPT/HCPCS: 36415; 71046; 74176; 76604; 80048; 80053; 81001; 82150; 83036; 83605; 83690; 85025; 94660; 94760; 96361; 96374; 99285